=== PATIENT | female | born 1960 | race Caucasian/White ===

== ENCOUNTER 2019-08-02 10:01 | Outpatient (RCR) | payer OTHER, SELFPAY | END 2019-08-09 00:01 | LOC: WOUND 10:01 | PROVIDERS: Family Provider Physician Assistant Medical; Visit Provider Thoracic Surgery (Cardiothoracic Vascular Surgery) | DX: I96 Gangrene, not elsewhere classified (principal); L89.153 Pressure ulcer of sacral region, stage 3 | CPT/HCPCS: 11042 ×2 ==

== ENCOUNTER 2019-08-14 17:36 | Inpatient (IN) | payer BC, SELFPAY ==
[2019-08-14 17:41] VITALS: BMI 28.5
[2019-08-14 19:43] VITALS: BP 96/60; PULSE 75; RESP 12; TEMP 36.9; O2SAT 92
--- NOTE | 2019-08-14 19:53 | XRR_ITS ---
PROCEDURE INFORMATION: Exam: XR Chest, 1 View Exam date and time: 08/14/2019 8:44 PM Age: 59 years old Clinical indication: Shortness of breath; Prior surgery; Surgery date: 1-6 months; Surgery type: Cabg 04/28; Additional info: SOB TECHNIQUE: Imaging protocol: XR of the chest Views: 1 view. COMPARISON: CR Chest 1 [place] [id number] 06/29/2019 9:33 AM FINDINGS: Lungs: central pulmonary vasculature is prominent and indistinct. Mild airspace consolidation within the lung bases left greater than right. Pleural space: Pleural effusions particularly on the left Heart/Mediastinum: cardiac silhouette is enlarged. Bones/joints: prior sternotomy. XR/XR chest 1V portable [id number] IMPRESSION: Mild edema with mild basilar airspace disease and small pleural effusions particularly on the left Findings mildly progressive from the earlier reference study stated above.
[2019-08-14 20:00] VITALS: PULSE 77; O2SAT 92
--- NOTE | 2019-08-14 20:04 | PM.HP ---
Providers/Chief Complaint Admitting Physician: Zeke Mcdermott MD Primary Care Provider: Bhavik Richter Chief Complaint: cp History of Present Illness Danyelle Blake is a 59 year old female with past medical history of insulin-dependent type 2 diabetes mellitus, chronic kidney disease stage III, CAD status post two-vessel CABG 12/27/2018, recurrent urinary tract infections, COPD not oxygen dependent, GERD, chronic leg pain, sacral decubitus ulcer stage II, left elbow ulcer, chronic smoker who presents to [facility] as a transfer from [facility] due to concerns for a NSTEMI. Patient states that she presented to [facility] as she was not feeling well. Patient states that she lives in [facility], she lives with her sister, she ambulates with a walker, needs assistance with activities of daily living, has full cognitive functioning, no known dementia. For the last few weeks patient states that she is just not been feeling well, malaise, fatigue she presented to her primary care physician's office on Thursday and was diagnosed with a urinary tract infection. She was started on Bactrim, but did not tolerate it well, had nausea, stomach upset, thus was switched to a different antibiotic, stated that she did not tolerate that also well, was fairly nauseous, thus she presented to the emergency room. Patient states that she not been feeling well, fatigue, malaise, no sick contacts, no recent travel. Patient in addition states that she recently has been more short of breath, short of breath with exertion, short of breath with less than a few feet, does not use oxygen at home, but required oxygen in the emergency room at [facility], states that she is had a productive cough, clear phlegm, no fevers, no chills, continues to smoke, has a history of COPD. Patient states that in addition to all this she has some left-sided chest pain, a pressure-like pain, like something sitting on her chest, nonradiating, can be associate with shortness of breath, not pleuritic in nature, no lightheadedness, no dizziness, she had a few episodes. Review of Systems Const: Denies: fever or chills Eyes: Denies: blurry vision ENMT: Denies: nasal discharge Card: Reports: chest pain, irregular heart rhythm, lightheadedness, shortness of breath on exertion and shortness of breath when lying down; Denies: palpitations Resp: Reports: shortness of breath and non-productive cough GI: Denies: abdominal pain, nausea, vomiting, vomiting blood, coffee grounds in vomit, heartburn/indigestion, diarrhea or constipation : Reports: urinary frequency and urinary urgency; Denies: flank pain, difficulty urinating or painful urination Musc: Denies: neck pain or back pain Skin/Breast: Denies: rash Neuro: Denies: headache Medications/Allergies Home Medications Medication Instructions Recorded Confirmed Last Taken Type Neurontin 100 mg PO TID 08/14/19 08/14/19 Unknown History carvedilol 6.25 mg PO BID 08/14/19 08/14/19 Unknown History cefuroxime axetil 250 mg PO BID 08/14/19 08/14/19 Unknown History clopidogrel 75 mg PO DAILY 08/14/19 08/14/19 Unknown History docusate sodium 100 mg PO BID 08/14/19 08/14/19 Unknown History furosemide 40 mg PO BID 08/14/19 08/14/19 Unknown History hydrocodone-acetaminophen 1 tab PO Q4H PRN 08/14/19 08/14/19 Unknown History insulin glargine [Lantus U-100 20 unit SUBCUT BEDTIME 08/14/19 08/14/19 Unknown History Insulin] metoclopramide HCl 10 mg PO Q6H 08/14/19 08/14/19 Unknown History montelukast 10 mg PO DAILY 08/14/19 08/14/19 Unknown History pantoprazole 40 mg PO DAILY 08/14/19 08/14/19 Unknown History ropinirole 4 mg PO TID 08/14/19 08/14/19 Unknown History simvastatin 20 mg PO QPM 08/14/19 08/14/19 Unknown History trazodone 50 mg PO DAILY 08/14/19 08/14/19 Unknown History PFSH Acute PFSH: Statuses (acute, chronic, etc) shown below reflect problem list status as previously entered and may not be historically accurate Medical History (Updated 08/14/19 @ 20:27 by Zeke Mcdermott MD) CHF (congestive heart failure) (Acute) Chronic kidney disease, stage III (moderate) (Acute) COPD (chronic obstructive pulmonary disease) (Acute) Diabetes mellitus type 2 in obese (Acute) Swelling of both lower extremities (Acute) Surgical History (Updated 08/14/19 @ 20:14 by Zeke Mcdermott MD) H/O unilateral oophorectomy (Acute) Hx of CABG (Acute 12/24/18) Hx of cholecystectomy (Acute) Family History (Updated 08/14/19 @ 20:15 by Zeke Mcdermott MD) Other CAD (coronary artery disease) Social History (Updated 08/14/19 @ 20:15 by Zeke Mcdermott MD) Smoking and tobacco status: current every day smoker Alcohol intake: never Substance/Drug Use: never Vitals/I&O/Wt Weight last 48 hrs Weight 85.275 kg Physical Exam Const: COMMON NORMALS: no apparent distress EXAM LIMITATIONS: no altered mental status GENERAL APPEARANCE: cooperative, comfortable and well kempt HENMT: COMMON NORMALS: normocephalic Eye: COMMON NORMALS: EOMs intact bilaterally Neck/C-Spine: COMMON NORMALS: no lymphadenopathy and no JVD Lymph: LYMPHATIC: no lymphadenopathy noted Chest: COMMONS NORMALS: inspection of chest normal (Sternotomy scar) Resp: COMMON NORMALS: normal respiratory effort, no retractions, no use of accessory muscles and clear to auscultation bilaterally Cardio: COMMON NORMALS: no JVD, regular rate, regular rhythm, S1 normal heart sound, S2 normal heart sound and peripheral pulses 2+ throughout GI: COMMON NORMALS: normal to inspection, nondistended, normoactive bowel sounds, soft to palpation, non-tender and no hepatosplenomegaly : COMMON NORMALS: Yes no CVA tenderness Extremity: COMMON NORMALS: normal capillary refill NARRATIVE EXTREMITY EXAM: Bilateral lower extremity swelling, 1+ pitting edema, bilateral lower extremity slightly warm, erythematous, slightly tender to touch Neuro: COMMON NORMALS: oriented x3, CN's II-XII intact bilaterally, moves all extremities and no focal motor deficits Psych: COMMON NORMALS: mental status grossly normal Skin: NARRATIVE SKIN EXAM: Bilateral lower extremity, shins,'s erythematous, slightly tender, slightly warm Data Labs: Other Labs: Lab work from [facility] shows a potassium of 7.0, creatinine of 2.4 Troponin baseline of 186, 2-hour of 138, delta of -226 Chest x-ray groundglass opacities bilateral lungs EKG shows T wave inversions V1 to V2 D-dimer 3.4 A&P Assessment and plan (1) Acute and chronic respiratory failure with hypoxia: Multifactorial secondary to COPD exacerbation, diastolic CHF exacerbation, atypical pneumonia -COPD, not oxygen dependent at home, using 2 L here, continues to smoke -Diastolic CHF, last echocardiogram on 01/27/2019 showed an ejection fraction of 55%, mild hypokinesis of left ventricle, BNP is 35,000 -Chest x-ray from [facility] shows bilateral groundglass opacities, concerning for atypical pneumonia given respiratory symptoms Plan: -Telemetry monitoring, CBC, CMP, chest x-ray, sputum culture, urine bacterial antigens -Doxycycline for atypical pneumonia, also on Rocephin for UTI -Solu-Medrol 125, 40 once daily starting tomorrow -DuoNebs every 4 scheduled, every 2 as needed -Hold off on Lasix as patient's creatinine is 2.48, strict I's and O's, limit fluid intake to less than 200 cc Status: Acute Code(s): J96.21 - Acute and chronic respiratory failure with hypoxia (2) Diabetes mellitus type 2 in obese: -Continue Lantus 20 units in the morning -Low-dose sliding scale Status: Acute Code(s): E11.69 - Type 2 diabetes mellitus with other specified complication; E66.9 - Obesity, unspecified (3) NSTEMI (non-ST elevated myocardial infarction): -Troponins from [facility] show baseline troponin of 186, 2-hour of 136, negative delta of 26 -EKG does show new T wave inversions V1 to V2 compared to EKGs here -No active chest pain -Does have a history of CABG x2 for CAD on 12/27/2018 -Likely supply demand ischemia from acute respiratory failure as above Plan: -Troponin protocol, serial EKGs, telemetry monitoring -Aspirin, statin, Plavix, Coreg -Monitor for chest pain -Nitro for chest pain Status: Acute Code(s): I21.4 - Non-ST elevation (NSTEMI) myocardial infarction (4) Acute kidney injury: Acute kidney injury on chronic kidney disease stage III -Patient's baseline creatinine is 1.1-1.2 -At [facility] it was 2.4 -Likely secondary to Lasix therapy Plan: -Hold Lasix therapy, monitor creatinine -Hold off on hydration given elevated BNP and bilateral lower extremity swelling Status: Acute Code(s): N17.9 - Acute kidney failure, unspecified (5) CAD (coronary artery disease): CAD status post CABG x2 Status: Acute Code(s): I25.10 - Atherosclerotic heart disease of [place] coronary artery without angina pectoris (6) Swelling of both lower extremities: Likely heart failure related, given immobility, will do ultrasound to rule out DVT Status: Acute Code(s): M79.89 - Other specified soft tissue disorders (7) UTI (urinary tract infection): -Has a history of E. 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
[2019-08-14 20:44] LABS: Hematocrit 32.8 % (37.0-47.0); Hemoglobin 10.4 g/dL (11.5-15.3); Mean Corpuscular HGB Conc 31.7 g/dL (30.0-36.0); Mean Corpuscular Volume 104.1 fL (81-99); Mean Platelet Volume 10.5 fL (7.4-10.4); Platelet Count 313 10^3/cmm (130-400); Red Blood Count 3.15 10^6/uL (4.1-5.3); Red Cell Distribution Width 17.1 % (12.1-15.1); White Blood Count 6.3 10^3/uL (4.0-10.0)
[2019-08-14 21:11] LABS: Alanine Aminotransferase 28 U/L (0-33); Albumin Level 2.8 g/dL (3.5-5.2); Alkaline Phosphatase 532 IU/L (35-105); Anion Gap 19.8 (5-19); Aspartate Amino Transferase 50 U/L (0-32); Blood Urea Nitrogen 75 mg/dL (6-20); Calcium 8.9 mg/Dl (8.6-10.0); Carbon Dioxide 23 mmol/L (22-29); Chloride 94 mmol/L (98-107); Glomerular Filtration Rate 18.8 mL/min (90-130); Glucose 191 mg/dL (74-109); Sodium 130 mmol/L (136-145); Total Bilirubin 0.6 mg/dL (0.15-1.2); Total Protein 6.8 g/dL (6.6-8.7)
[2019-08-14 21:19] LABS: Absolute Segmented Neutrophil 4.5 10/cmm (1.6-7.1); Band Neutrophils Absolute 0.2 10^3/cmm (0.0-1.2); Eosinophils 1 %; Lymphocytes 20 %; Monocytes Absolute 0.2 10^3/cmm (0.1-0.6); Segmented Neutrophils 73 %; Total Cells Counted 100 (0-100)
[2019-08-14 21:20] LABS: Platelet Estimate Increased (Normal)
[2019-08-14 21:23] LABS: Potassium 6.8 mmol/L (3.5-5.1); Troponin(5th) Baseline 247 ng/mL (0-10)
[2019-08-14 21:42] LABS: Glucose Point of Care 185 mg/dL (70-110)
--- NOTE | 2019-08-14 21:47 | ECG_ITS ---
Measurements Intervals [place] Rate: 75 P: -1 NE: 184 QRS: -28 QRSD: 132 T: 247 QT: 441 QTc: 494 SINUS RHYTHM POSSIBLE LEFT ATRIAL ENLARGEMENT [-0.1mV P WAVE IN V1/V2] RIGHT BUNDLE BRANCH BLOCK [120+ ms QRS DURATION, UPRIGHT V1, 40+ ms S IN I/aVL/V4/V5/V6] POSSIBLE ANTERIOR MYOCARDIAL INFARCTION [30 ms Q WAVE IN V3/V4, OR R < 0.2 mV IN V4], OF INDETERMINATE AGE Compared to ECG 06/29/2019 14:24:14 Right bundle-branch block now present Myocardial infarct finding now present Indeterminate axis no longer present Electronically Signed On 08-15-2019 17:53:42 BAND SEWER by Aislinn Adhikari M.D. [email or web address]
[2019-08-14 22:13] LABS: ABG PCO2 37.9 mmHg (35-45); ABG PH Result 7.39 (7.35-7.45); Arterial Blood Gas Hematocrit 32.3 % (37-47); Base Excess ABG -1.8 mmol/L (-2.0-2.0); Blood Gas Sample Site Brachial, left; Blood Gas Sample Type Arterial; PO2 ABG 59.3 mmHg (80.0-100.0)
--- NOTE | 2019-08-14 23:14 | PC.NURSE ---
Dr. Mcdermott notified that patient has allergy to doxycycline listed. Ordered to notify Dr. Chin. When asking patient what her reaction to this medication was she states nausea I think, I can't remember for sure. Dr. Chin notified and ordered to go ahead and give Doxycycline. Also asked patient the reactions to her other allergies and she states I can't remember. Dr. Chin also notified of critical potassium and troponin.
[2019-08-14 23:23] VITALS: BP 115/66; PULSE 78; RESP 18; TEMP 36.7; O2SAT 90
[2019-08-14] MEDS: ipratropium-albuterol 3 mL Neb INHALATION (23:51)
[2019-08-14 23:53] VITALS: PULSE 77; RESP 22; O2SAT 95
[2019-08-15] VITALS (19 sets, daily range): BP systolic 107–133; BP diastolic 62–73; PULSE 71–93; RESP 10–24; TEMP 36.6–37.1; O2SAT 94–98
[2019-08-15 00:12] LABS: Partial Thromboplastin Time 36.1 SECONDS (23.9-36.7)
[2019-08-15] MEDS: morphine 4 mg/mL SDV 1 mL 1 MG IV ×4 (00:14→20:35)
[2019-08-15] MEDS: insulin regular-human 10 UNIT in SYRINGE 1 EACH IVP ×2 (00:16→04:49)
[2019-08-15] MEDS: atorvastatin 40 mg Tablet PO ×2 (00:16→20:35)
[2019-08-15] MEDS: dextrose 50% syringe 50 mL 25 ML IVP ×2 (00:25→04:28)
[2019-08-15] MEDS: cefTRIAXone 1,000 MG in sodium chloride 0.9% (plus) 50 ML 100 MG IV ×2 (00:27→19:33)
[2019-08-15] MEDS: calcium gluconate 0.1 gm/mL 10% SDV 10mL 1 GM IVP ×2 (00:28→04:23)
[2019-08-15] MEDS: sodium chloride 0.9% 100 ML 10 ML (00:28)
[2019-08-15 01:02] LABS: Glucose Point of Care 208 mg/dL (70-110)
[2019-08-15] MEDS: doxycycline 100 MG in sodium chloride 0.9% (plus) 100 ML IV ×3 (01:26→20:37)
--- NOTE | 2019-08-15 01:47 | ECG_ITS ---
Measurements Intervals [place] Rate: 80 P: 56 MO: 189 QRS: -59 QRSD: 106 T: 128 QT: 381 QTc: 441 SINUS RHYTHM MARKED LEFT AXIS DEVIATION [QRS AXIS < -30] LOW QRS VOLTAGE IN PRECORDIAL LEADS [QRS DEFLECTION < 1.0 mV IN CHEST LEADS] POSSIBLE ANTERIOR MYOCARDIAL INFARCTION,PROBABLY OLD Compared to ECG 06/29/2019 14:24:14 Left-axis deviation now present Low QRS voltage now present Myocardial infarct finding now present Indeterminate axis no longer present Electronically Signed On 08-15-2019 5:59:12 WILDLAND FIRE FIGHTER SPECIALIST by Aislinn Adhikari M.D. [id number]
[2019-08-15 02:02] LABS: Glucose Point of Care 150 mg/dL (70-110)
--- NOTE | 2019-08-15 02:30 | PC.NURSE ---
Dr. Chin called to verify Heparin drip order. Ordered to follow Heparin drip protocol.
[2019-08-15] MEDS: heparin 5,000 unit/mL INJ 1 mL 5000 UNIT SUBCUT (02:58)
[2019-08-15 02:59] LABS: Basophils % 0.3 %; Hematocrit 32.7 % (37.0-47.0); Hemoglobin 10.4 g/dL (11.5-15.3); Lymphocytes # 0.3 10^3/uL (0.8-4.8); Lymphocytes % 4.3 %; Mean Corpuscular HGB Conc 31.8 g/dL (30.0-36.0); Mean Corpuscular Volume 103.8 fL (81-99); Mean Platelet Volume 10.6 fL (7.4-10.4); Monocytes # 0.3 10^3/uL (0.2-0.9); Monocytes % 4.8 %; Neutrophils # 6.4 10^3/uL (1.8-7.7); Neutrophils % 90.3 %; Nucleated Red Blood Cells % 0 %; Platelet Count 330 10^3/cmm (130-400); Red Blood Count 3.15 10^6/uL (4.1-5.3); Red Cell Distribution Width 17.1 % (12.1-15.1)
[2019-08-15] MEDS: heparin drip 25,000 UNIT/500 ML PREMIX 24 UNIT IV (03:00)
--- NOTE | 2019-08-15 03:06 | PC.NURSE ---
heparin order needed to be redone due to difference in protocol vs drAlexandria orders and another iv needed to be gotten which needed house super to attempt after our attempts.
[2019-08-15 03:19] LABS: Alanine Aminotransferase 28 U/L (0-33); Alkaline Phosphatase 481 IU/L (35-105); Anion Gap 16.8 (5-19); Blood Urea Nitrogen 64 mg/dL (6-20); Calcium 9.2 mg/Dl (8.6-10.0); Carbon Dioxide 20 mmol/L (22-29); Chloride 95 mmol/L (98-107); Chol HDL Ratio 3.93 mg/dL (0.0-4.40); Cholesterol 106 mg/dL (0-200); Globulin 3.2 g/dL (1.3-4.6); Glomerular Filtration Rate 19.7 mL/min (90-130); Glucose 171 mg/dL (74-109); HDL Cholesterol 27 mg/dL (60-100); LDL Cholesterol Calculated 61 mg/dL (50-129); LDL HDL Ratio 2.26 RATIO (0.00-3.22); Magnesium 2.4 mg/dL (1.7-2.3); Phosphorus 5.8 mg/dL (2.5-4.5); Sodium 125 mmol/L (136-145); Total Bilirubin 0.5 mg/dL (0.15-1.2); Total Protein 6.2 g/dL (6.6-8.7); Triglycerides 91 mg/dL (0-150)
[2019-08-15 03:22] LABS: INR 1.11 (0.8-1.2)
[2019-08-15] MEDS: ipratropium-albuterol 3 mL Neb INHALATION ×4 (03:23→23:57)
[2019-08-15 03:34] LABS: Aspartate Amino Transferase 55 U/L (0-32); Troponin 5 6HR 333.3 ng/L (0-10); Troponin 5 6HR Delta 86.3 ng/L (0-12)
[2019-08-15 03:35] LABS: Potassium 6.8 mmol/L (3.5-5.1)
--- NOTE | 2019-08-15 03:40 | ECG_ITS ---
Measurements Intervals [place] Rate: 88 P: 261 NV: 153 QRS: -75 QRSD: 76 T: 136 QT: 343 QTc: 415 ECTOPIC ATRIAL RHYTHM LOW QRS VOLTAGE IN PRECORDIAL LEADS [QRS DEFLECTION < 1.0 mV IN CHEST LEADS] INFERIOR MYOCARDIAL INFARCTION [40+ ms Q WAVE AND/OR ST/T ABNORMALITY IN II/aVF], PROBABLY OLD ANTEROSEPTAL MYOCARDIAL INFARCTION [40+ ms Q WAVE IN V1-V4], OF INDETERMINATE AGE Compared to ECG 08/15/2019 01:18:51 Ectopic atrial rhythm now present Sinus rhythm no longer present Left-axis deviation no longer present Myocardial infarct finding still present Electronically Signed On 08-15-2019 17:51:36 AGRICULTURAL PLOW OPERATOR by Aislinn Adhikari M.D. [id number]
[2019-08-15 04:14] LABS: Add Urine Microscopic? YES; Bilirubin Urine 1+ (NEGATIVE); Blood Urine 3+ (Negative); Glucose Urine UA Norm (Normal); Ketones Urine Negative (Negative); Leukocyte Esterase Urine 2+ (Negative); Nitrate Urine Negative (Negative); Protein Urine Trace (Negative); Specific Gravity, Urine 1.015 (1.005-1.030); Urine Appearance Cloudy (CLEAR); Urine Color Yellow (Yellow); Urobilinogen Urine 1 mg/dL (Negative); pH Urine 5 (5-7)
[2019-08-15 04:15] LABS: Add Urine Culture? No; Bacteria Urine 1+; RBC Urine 0-4 /hpf (0-2); Squamous Epithelial Cell Urine 25-40 (0-5); WBC Urine >100 /hpf (0-5)
--- NOTE | 2019-08-15 05:15 | PM.EVENT ---
Event Note Event Note: For hyperkalemia 6.8 I examined her She has clinical signs of fluid overload Bilateral breath sounds with crackles Venous stasis dermatitis Alert oriented x3 Patient has received calcium gluconate, albuterol 10 mg, calcium gluconate 1 g insulin 10 units along D50 around midnight for potassium 6.8, after 4 hours her potassium is still 6.8, I have repeated my hyperkalemia regimen, along Lasix and Kayexalate as per nephrology recommendations Dr. Gutierres will be following up for hyperkalemia today Patient has remained asymptomatic, no hyperkalemic changes on EKG, blood pressure stable, patient is saying that she is feeling a little better she was eating crackers when Patient wants a trial of CPR and intubation
[2019-08-15] MEDS: sodium polystyrene sulfonate 15 gm/60 mL Btl PO ×2 (05:48→12:20)
[2019-08-15] MEDS: FUROsemide 10 mg/mL SDV 10mL 80 MG IVP ×3 (05:49→20:37)
--- NOTE | 2019-08-15 07:04 | PC.OT ---
OT note: From chart review, patient's potassium is 6.8. Guidelines recommend holding therapy if over 5.0. Will hold at this time.
--- NOTE | 2019-08-15 07:22 | USCV_ITS ---
Danyelle Blake Age: 59 Gender: F : 1960 Exam Date: 08/15/2019 07:47 Ordering Phys: Zeke Mcdermott MD Technologist: Pauline Begum Exam Location: [facility] [place] Indication: CHEST PAIN BP: / HR: Rhythm: Sinus Technical Quality: MEASUREMENTS (Male / Female) Normal Values 2D ECHO LV Diastolic Diameter PLAX 4.5 cm 4.2 - 5.9 / 3.9 - 5.3 cm LV Systolic Diameter PLAX 3.7 cm LV Chamber Size 3.9 cm IVS Diastolic Thickness 0.9 cm 0.6 - 1.0 / 0.6 - 0.9 cm IVS Systolic Thickness 1.2 cm LVPW Diastolic Thickness 1.0 cm 0.6 - 1.0 / 0.6 - 0.9 cm LVPW Systolic Thickness 1.3 cm RV Chamber Size 3.5 cm LVOT Diameter 2.0 cm LV Ejection Fraction 2D Teich 36.2 % LV Ejection Fraction MOD 2C 49.8 % LV Ejection Fraction 2C AL 49.8 % LA Diameter 4.4 cm LA Width 3.3 cm LA Height 4.6 cm RA Width 4.5 cm RA Height 5.1 cm Aorta at Sinotubular Diameter 2.8 cm M-MODE LV Diastolic Diameter MM 5.2 cm 4.2 - 5.9 / 3.9 - 5.3 cm LV Systolic Diameter MM 3.9 cm LV Ejection Fraction MM Teich 49.0 % IVS Diastolic Thickness MM 0.6 cm 0.6 - 1.0 / 0.6 - 0.9 cm IVS Systolic Thickness MM 1.0 cm LVPW Diastolic Thickness MM 1.1 cm 0.6 - 1.0 / 0.6 - 0.9 cm LVPW Systolic Thickness MM 1.3 cm RV Diastolic Diameter MM 1.0 cm Aortic Annulus Diameter 2.9 cm LA Ao Ratio MM 1.5 MV E Point Septal Separation 1.1 cm DOPPLER AV Peak Velocity 177.0 cm/s LVOT Peak Velocity 78.0 cm/s AV Area Cont Eq vti 1.7 cm squared AV Area Cont Eq pk 1.4 cm squared MV Area PHT 4.4 cm squared Mitral E to A Ratio 1.7 MV E' Velocity 9.0 cm/s Mitral E to MV E' Ratio 19.2 Mitral E to LV E' Lateral Ratio 16.2 Mitral E to LV E' Septal Ratio 24.0 TR Peak Velocity 329.3 cm/s TR Peak Gradient 43.4 mmHg TR Mean Velocity 239.8 cm/s TR Mean Gradient 26.7 mmHg TR Velocity Time Integral 109.9 cm TV Peak E Velocity 76.0 cm/s Right Atrial Pressure 3.0 mmHg Pulmonary Artery Systolic Pressu 46.4 mmHg PV Peak Velocity 60.0 cm/s RV Acceleration Time 0.1 s RV Ejection Time 0.4 s RV AcT/ET 0.2 FINDINGS Left Ventricle Mildly increased left ventricular cavity size. Moderately decreased left ventricular systolic function. Left ventricular ejection fraction is estimated at 40 %. There appeared to be basal to distal anterior septal and apical wall akinesis suggestive of LAD lesion.Grade II/IV diastolic dysfunction, moderately elevated filling pressures. Right Ventricle The right ventricle is normal in size and function. Moderate pulmonary hypertension, RVSP 46.4 mmHg. Right Atrium The right atrium is normal in size. Left Atrium The left atrium is normal in size. Mitral Valve Moderately thickened mitral valve. Mild mitral annular calcification. No mitral valve stenosis. Moderate mitral valve regurgitation. Aortic Valve Moderate aortic valve calcification. No aortic valve stenosis. No aortic valve regurgitation. Tricuspid Valve Trace tricuspid valve regurgitation. Pulmonic Valve Structurally normal pulmonic valve without significant stenosis. There is no pulmonic regurgitation. Pericardium Normal pericardium without effusion. Aorta Normal ascending aorta dimension. CONCLUSIONS 1-Mildly increased left ventricular cavity size. Moderately decreased left ventricular systolic function. Left ventricular ejection fraction is estimated at 40 %. There appeared to be basal to distal anterior septal and apical wall akinesis suggestive of LAD lesion.Grade II/IV diastolic dysfunction, moderately elevated filling pressures. 2-Moderately thickened mitral valve. Mild mitral annular calcification. No mitral valve stenosis. Moderate mitral valve regurgitation. 3-Moderate aortic valve calcification. No aortic valve stenosis. No aortic valve regurgitation. 4-Trace tricuspid valve regurgitation. 5-The right ventricle is normal in size and function. Moderate pulmonary hypertension, RVSP 46.4 mmHg. 6-There is no pericardial effusion. 7-When compared to the prior echocardiogram dated 01/13/2019 there is worsening of LV function from normal 55-40% which is moderately depressed now. There is moderate mitral valve regurgitation. Dileep Fisher MD (Electronically Signed) Final Date: 15 August 2019 12:35 S
[2019-08-15 07:45] LABS: Urine Random Sodium 20 mmol/L
[2019-08-15 08:08] LABS: Glucose Point of Care 207 mg/dL (70-110)
--- NOTE | 2019-08-15 08:36 | P.CONIM_ITS ---
Providers/Reason For Consult Consulting Physican/Specialty*: Aline Gutierres DO, telenephrology Reason for Consult*: Acute Kidney Injury, Hyperkalemia Requesting Physcian: Dr Mcdermott Attending Physician: Zeke Mcdermott MD Primary Care Provider: Bhavik Richter History of Present Illness History of Present Illness Danyelle Blake is a 59 year old female presented to ER. Reports not feeling well for quite a while. Had been taking 2 different antibiotics for UTI, had N/V, rx antinausea. Had chest pressure, resolved. + chronic mod-severe back and leg pain. Denies NSAID use. Review of Systems General: Reports: other Const: Reports: fatigue Card: Reports: edema Resp: Reports: shortness of breath and non-productive cough GI: Reports: nausea : Reports: difficulty urinating Musc: Reports: back pain and muscle weakness Meds/Allergies Home Medications and Allergies Home Medications Medication Instructions Recorded Confirmed Type Neurontin 100 mg PO TID 08/14/19 08/14/19 History carvedilol 6.25 mg PO BID 08/14/19 08/14/19 History cefuroxime axetil 250 mg PO BID 08/14/19 08/14/19 History clopidogrel 75 mg PO DAILY 08/14/19 08/14/19 History docusate sodium 100 mg PO BID 08/14/19 08/14/19 History furosemide 40 mg PO BID 08/14/19 08/14/19 History hydrocodone-acetaminophen 1 tab PO Q4H PRN 08/14/19 08/14/19 History insulin glargine [Lantus U-100 20 unit SUBCUT BEDTIME 08/14/19 08/14/19 History Insulin] metoclopramide HCl 10 mg PO Q6H 08/14/19 08/14/19 History montelukast 10 mg PO DAILY 08/14/19 08/14/19 History pantoprazole 40 mg PO DAILY 08/14/19 08/14/19 History ropinirole 4 mg PO TID 08/14/19 08/14/19 History simvastatin 20 mg PO QPM 08/14/19 08/14/19 History trazodone 50 mg PO DAILY 08/14/19 08/14/19 History Allergies Allergy/AdvReac Type Severity Reaction Status Date / Time acetaminophen [From Percocet] Allergy Unknown Verified 08/14/19 22:27 ciprofloxacin [From Cipro] Allergy Unknown Verified 08/14/19 22:27 dextromethorphan Allergy Unknown Verified 08/14/19 22:27 [From Mucinex DM] diclofenac Allergy Unknown Verified 08/14/19 22:27 doxycycline Allergy Unknown Verified 08/14/19 22:27 guaifenesin [From Mucinex DM] Allergy Unknown Verified 08/14/19 22:27 methylprednisolone Allergy Unknown Verified 08/14/19 22:27 oxycodone [From Percocet] Allergy Unknown Verified 08/14/19 22:27 Current Medications Current Medications Generic Name Dose Route Start Last Admin Trade Name Freq PRN Reason Stop Dose Admin Albuterol/Ipratropium 3 ml 08/14/19 20:00 08/15/19 03:23 Duoneb INHALATION 3 ml Q4H TIFFANIE Administration Atorvastatin Calcium 40 mg 08/14/19 21:00 08/15/19 00:16 Lipitor PO 40 mg BEDTIME TIFFANIE Administration Heparin Sodium (Beef Lung) 5,000 unit 08/15/19 02:47 08/15/19 02:58 Heparin SUBCUT 5,000 unit Q6H PRN Administration per heparin drip protocol Ceftriaxone Sodium 1,000 mg/ 50 mls @ 100 mls/hr 08/14/19 20:00 08/15/19 07:45 Sodium Chloride IV Infused Q24H TIFFANIE Infusion Protocol Doxycycline Hyclate 100 mg/ 100 mls @ 100 mls/hr 08/14/19 21:00 08/15/19 07:00 Sodium Chloride IV Infused Q12H TIFFANIE Infusion Protocol Heparin Sodium/Sodium Chloride 25,000 unit in 500 mls @ 0 mls/hr 08/15/19 02:45 08/15/19 03:00 Heparin Drip IV 14.07 unit/kg/hr .Q0M TIFFANIE 24 mls/hr Administration Protocol Per Protocol Morphine Sulfate 1 mg 08/14/19 19:43 08/15/19 05:50 Morphine IV 1 mg Q4H PRN Administration SEVERE PAIN Sodium Polystyrene Sulfonate 15 gm 08/15/19 05:00 08/15/19 05:48 Kayexalate PO 15 gm ONCE TIFFANIE Administration PFSH Acute PFSH: Statuses (acute, chronic, etc) shown below reflect problem list status as previously entered and may not be historically accurate Medical History CHF (congestive heart failure) (Acute) Chronic kidney disease, stage III (moderate) (Acute) COPD (chronic obstructive pulmonary disease) (Acute) Diabetes mellitus type 2 in obese (Acute) Swelling of both lower extremities (Acute) Surgical History H/O unilateral oophorectomy (Acute) Hx of CABG (Acute 12/24/18) Hx of cholecystectomy (Acute) Family History Other CAD (coronary artery disease) Social History Smoking and tobacco status: current every day smoker Alcohol intake: never Substance/Drug Use: never Vitals/I&O/Wt Last Vital Signs Temp 97.8 F 08/15/19 03:44 Pulse 89 08/15/19 03:44 Resp 10 L 08/15/19 05:50 BP 111/62 08/15/19 03:44 Pulse Ox 94 08/15/19 03:44 08/14/19 08/15/19 08/15/19 22:59 06:59 14:59 Intake Total 200 / 200 150 / 150 Balance 200 / 200 150 / 150 Weight last 48 hrs Weight 85.275 kg Physical Exam Const: COMMON NORMALS: alert GENERAL APPEARANCE: frail appearing Resp: AUSCULTATION: rhonchi lower bilaterally Cardio: COMMON NORMALS: regular rate JUGULAR VENOUS DISTENTION: no JVD RATE: regular rate Extremity: GENERAL: Yes edema (2+ bilateral) Neuro: SENSORIUM/ORIENTATION: Yes alert Urinary Catheter Management^: Roa: Cath Placed During This Visit: no Data Micro: Micro: Microbiology 08/14/19 20:33 Blood Culture - Pr eliminary Blood SPECIMEN [facility] 08/14/19 20:30 Blood Culture - Pr eliminary Blood SPECIMEN [facility] A&P Additional A&P Information Additional A&P Information: Impression: Acute kidney injury, etiology unclear. Serum Cr was 1.1 mg/dL in July (admission for hyperglycemia). Prior FRANKI in May 2019 with peak serum Cr 2.7 mg/dL appears to have been related to pyelonephritis. Hyperkalemia Possible urinary tract infection Diabetes Recommend: Kayexylate 15 grams QID until potassium improved. QID BMP. Low K diet. BC and urine culture. 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
[2019-08-15] MEDS: aspirin 325 mg Tablet 81 MG PO (08:39)
[2019-08-15] MEDS: carvedilol 6.25 mg Tablet PO ×2 (08:41→18:10)
[2019-08-15] MEDS: clopidogrel 75 mg Tablet PO (08:41)
[2019-08-15] MEDS: pantoprazole DR 40 mg Tablet PO (08:41)
[2019-08-15] MEDS: predniSONE 20 mg Tablet 40 MG PO (08:41)
--- NOTE | 2019-08-15 08:43 | P.CONIM_ITS ---
Providers/Reason For Consult Consulting Physican/Specialty*: Dileep Fisher MD/Cardiology Reason for Consult*: Non-ST elevation ID, CHF exacerbation Attending Physician: Zeke Mcdermott MD Primary Care Provider: Bhavik Richter History of Present Illness History of Present Illness Danyelle Blake is a 59 year old female Past medical history significant for continuous tobacco abuse, COPD, chronic kidney disease stage III, diastolic heart failure, history of multivessel coronary artery disease status post bypass surgery 7 months ago who usually see Dr. Watt presented with worsening of shortness of breath PND orthopnea and scant expectoration. She denies fever or chills. At the time of presentation she was hyperkalemic and in acute on chronic renal failure with mixed picture of CHF and COPD exacerbation. Cardiac markers continues to rise with last peak troponin at 333 with delta of 84. No significant ST?T changes except T-wave inversions in the anterior leads. Currently chest pain-free. She has chronic venous stasis. Review of Systems Const: Reports: fatigue; Denies: fever or chills Eyes: Denies: change in vision ENMT: Denies: throat pain Card: Reports: edema, shortness of breath on exertion and shortness of breath when lying down; Denies: chest pain, palpitations or irregular heart rhythm Resp: Reports: productive cough GI: Denies: abdominal pain Neuro: Denies: headache or numbness in extremities Psych: Denies: anxiety or depression Meds/Allergies Home Medications and Allergies Home Medications Medication Instructions Recorded Confirmed Type Neurontin 100 mg PO TID 08/14/19 08/14/19 History carvedilol 6.25 mg PO BID 08/14/19 08/14/19 History cefuroxime axetil 250 mg PO BID 08/14/19 08/14/19 History clopidogrel 75 mg PO DAILY 08/14/19 08/14/19 History docusate sodium 100 mg PO BID 08/14/19 08/14/19 History furosemide 40 mg PO BID 08/14/19 08/14/19 History hydrocodone-acetaminophen 1 tab PO Q4H PRN 08/14/19 08/14/19 History insulin glargine [Lantus U-100 20 unit SUBCUT BEDTIME 08/14/19 08/14/19 History Insulin] metoclopramide HCl 10 mg PO Q6H 08/14/19 08/14/19 History montelukast 10 mg PO DAILY 08/14/19 08/14/19 History pantoprazole 40 mg PO DAILY 08/14/19 08/14/19 History ropinirole 4 mg PO TID 08/14/19 08/14/19 History simvastatin 20 mg PO QPM 08/14/19 08/14/19 History trazodone 50 mg PO DAILY 08/14/19 08/14/19 History Allergies Allergy/AdvReac Type Severity Reaction Status Date / Time acetaminophen [From Percocet] Allergy Unknown Verified 08/14/19 22:27 ciprofloxacin [From Cipro] Allergy Unknown Verified 08/14/19 22:27 dextromethorphan Allergy Unknown Verified 08/14/19 22:27 [From Mucinex DM] diclofenac Allergy Unknown Verified 08/14/19 22:27 doxycycline Allergy Unknown Verified 08/14/19 22:27 guaifenesin [From Mucinex DM] Allergy Unknown Verified 08/14/19 22:27 methylprednisolone Allergy Unknown Verified 08/14/19 22:27 oxycodone [From Percocet] Allergy Unknown Verified 08/14/19 22:27 Current Medications Current Medications Generic Name Dose Route Start Last Admin Trade Name Freq PRN Reason Stop Dose Admin Albuterol/Ipratropium 3 ml 08/14/19 20:00 08/15/19 03:23 Duoneb INHALATION 3 ml Q4H TIFFANIE Administration Aspirin 81 mg 08/15/19 09:00 08/15/19 08:39 Aspirin PO 81 mg DAILY TIFFANIE Administration Atorvastatin Calcium 40 mg 08/14/19 21:00 08/15/19 00:16 Lipitor PO 40 mg BEDTIME TIFFANIE Administration Carvedilol 6.25 mg 08/15/19 09:00 08/15/19 08:41 Coreg PO 6.25 mg BID TIFFANIE Administration Clopidogrel Bisulfate 75 mg 08/15/19 09:00 08/15/19 08:41 Plavix PO 75 mg DAILY TIFFANIE Administration Heparin Sodium (Beef Lung) 5,000 unit 08/15/19 02:47 08/15/19 02:58 Heparin SUBCUT 5,000 unit Q6H PRN Administration per heparin drip protocol Ceftriaxone Sodium 1,000 mg/ 50 mls @ 100 mls/hr 08/14/19 20:00 08/15/19 07:45 Sodium Chloride IV Infused Q24H TIFFANIE Infusion Protocol Doxycycline Hyclate 100 mg/ 100 mls @ 100 mls/hr 08/14/19 21:00 08/15/19 07:00 Sodium Chloride IV Infused Q12H TIFFANIE Infusion Protocol Heparin Sodium/Sodium Chloride 25,000 unit in 500 mls @ 0 mls/hr 08/15/19 02:45 08/15/19 03:00 Heparin Drip IV 14.07 unit/kg/hr .Q0M TIFFANIE 24 mls/hr Administration Protocol Per Protocol Insulin Aspart 0 unit 08/15/19 08:00 08/15/19 08:39 Novolog SUBCUT 4 unit TIDWM TIFFANIE Administration Protocol Morphine Sulfate 1 mg 08/14/19 19:43 08/15/19 05:50 Morphine IV 1 mg Q4H PRN Administration SEVERE PAIN Pantoprazole Sodium 40 mg 08/15/19 09:00 08/15/19 08:41 Protonix PO 40 mg DAILY TIFFANIE Administration Prednisone 40 mg 08/15/19 09:00 08/15/19 08:41 Prednisone PO 40 mg DAILY TIFFANIE Administration Sodium Polystyrene Sulfonate 15 gm 08/15/19 05:00 08/15/19 05:48 Kayexalate PO 15 gm ONCE TIFFANIE Administration PFSH Acute PFSH: Statuses (acute, chronic, etc) shown below reflect problem list status a s previously entered and may not be historically accurate Medical History CHF (congestive heart failure) (Acute) Chronic kidney disease, stage III (moderate) (Acute) COPD (chronic obstructive pulmonary disease) (Acute) Diabetes mellitus type 2 in obese (Acute) Swelling of both lower extremities (Acute) Surgical History H/O unilateral oophorectomy (Acute) Hx of CABG (Acute 12/24/18) Hx of cholecystectomy (Acute) Family History Other CAD (coronary artery disease) Social History Smoking and tobacco status: current every day smoker Alcohol intake: never Substance/Drug Use: never Vitals/I&O/Wt Last Vital Signs Temp 97.8 F 08/15/19 03:44 Pulse 89 08/15/19 03:44 Resp 10 L 08/15/19 05:50 BP 111/62 08/15/19 03:44 Pulse Ox 94 08/15/19 03:44 08/14/19 08/15/19 08/15/19 22:59 06:59 14:59 Intake Total 200 / 200 150 / 150 Balance 200 / 200 150 / 150 Weight last 48 hrs Weight 188 lb Physical Exam Narrative: EXAM NARRATIVE: GENERAL: Patient is fatigue but awake and oriented x3. HEENT: No cyanosis. No icterus. No pallor. HEART: Regular S1 and S2. No murmur, rub or gallop. LUNGS: Left side inspiratory crackles with prolonged expiration. ABDOMEN: Soft, nontender and nondistended. Positive bowel sounds. Abdominal wall edema CENTRAL NERVOUS SYSTEM: Grossly nonfocal. EXTREMITIES: Lower extremities with 1+ edema bilaterally with chronic venous stasis Urinary Catheter Management^: Rao: Cath Placed During This Visit: no Data Micro: Micro: Microbiology 08/14/19 20:33 Blood Culture - Pr eliminary Blood SPECIMEN [facility] 08/14/19 20:30 Blood Culture - Pr eliminary Blood SPECIMEN [facility] [place] Assessment and plan (1) NSTEMI (non-ST elevated myocardial infarction): Patient has Multivessel coronary artery disease With history of CABG , She continues to smoke presented with respiratory failure/COPD and CHF exacerbation in the presence of acute on chronic renal failure, cardiac markers could be secondary to demand ischemia. Medical team is treating her for COPD exacerbation/electrolyte imbalance and renal failure. We will Team up with them to treat her CHF exacerbation. For now she will be treated conservatively for non-ST elevation ID however in case of worsening of LV function once kidney function becomes normal For her at the baseline We may can opt for Left heart catheterization if indicated. For now continue anticoagulation and rest of meds, will add isosorbide mono notrages and anti platelets. Status: Acute Code(s): I21.4 - Non-ST elevation (NSTEMI) myocardial infarction (2) Acute kidney injury: Combination of uncontrolled diabetes mellitus, worsening of atherosclerotic disease in decompensated heart failure. We will continue to d iurese her with IV Lasix. She is hyperkalemic she will be monitored closely. We will recommend calcium gluconate and IV diuresis. She is already on insulin which will also help mobilizing her potassium transiently Status: Acute Code(s): N17.9 - Acute kidney failure, unspecified (3) UTI (urinary tract infection): As per medicine Status: Acute Code(s): N39.0 - Urinary tract infection, site not specified (4) Diabetes mellitus type 2 in obese: As per medicine Status: Acute Code(s): E11.69 - Type 2 diabetes mellitus with other specified complication; E66.9 - Obesity, unspecified (5) CHF (congestive heart failure), NYHA class IV: Patient is in decompensated heart failure most likely diastolic. Continue IV diuresis with Lasix 80 mg twice a day. No potassium supplement due to hyperkalemia. Goal of diuresis is 1 L negative per day. Echocardiogram will be obtained to assess LV function. Status: Acute Code(s): I50.9 - Heart failure, unspecified (6) Hyperkalemia: Due to acute on chronic renal failure. Continue IV Lasix without potassium, continue treating her with insulin. Calcium gluconate IV can be given. 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
--- NOTE | 2019-08-15 09:10 | US_ITS ---
WS: [id number] Bilateral renal ultrasound, 08/15/2019 Clinical Data: KIDNEY FUNCTION Comparison: None. Findings: The right kidney measures 11.2 cm x 4.3 cm x 4.5 cm and the left kidney is 11.4 cm x 4.5 cm x 5.2 cm. There are no cysts, masses or hydronephrosis. The renal cortical margin is normal. No renal calculi are seen. US/US renal BI* [id number] Impression: Negative bilateral renal ultrasound.
[2019-08-15 09:46] LABS: Anion Gap 21.3 (5-19); Blood Urea Nitrogen 79 mg/dL (6-20); Calcium 9.7 mg/Dl (8.6-10.0); Carbon Dioxide 21 mmol/L (22-29); Chloride 92 mmol/L (98-107); Glucose 256 mg/dL (74-109); Potassium 6.3 mmol/L (3.5-5.1); Sodium 128 mmol/L (136-145)
[2019-08-15 09:50] LABS: Partial Thromboplastin Time 99.2 SECONDS (23.9-36.7)
[2019-08-15] MEDS: insulin glargine 100 units/1 mL 20 UNIT SUBCUT (11:00)
[2019-08-15 11:20] LABS: Glucose Point of Care 306 mg/dL (70-110)
[2019-08-15 16:34] LABS: Anion Gap 18.4 (5-19); Blood Urea Nitrogen 75 mg/dL (6-20); Calcium 9.1 mg/Dl (8.6-10.0); Carbon Dioxide 22 mmol/L (22-29); Chloride 95 mmol/L (98-107); Glomerular Filtration Rate 19.7 mL/min (90-130); Glucose 252 mg/dL (74-109); Potassium 5.4 mmol/L (3.5-5.1); Sodium 130 mmol/L (136-145)
--- NOTE | 2019-08-15 16:52 | P.PN_ITS ---
Vitals/I&O/Wt Last Vital Signs Temp 98.7 F 08/15/19 16:00 Pulse 74 08/15/19 16:00 Resp 22 H 08/15/19 16:00 BP 108/69 08/15/19 16:00 Pulse Ox 96 08/15/19 16:00 08/15/19 08/15/19 08/15/19 06:59 14:59 22:59 Intake Total 200 / 200 395 / 395 Balance 200 / 200 395 / 395 Weight last 48 hrs Weight 85.275 kg Physical Exam Neck/C-Spine: COMMON NORMALS: no JVD Lymph: LYMPHATIC: no lymphadenopathy noted Chest: COMMONS NORMALS: inspection of chest normal (Sternotomy scar) Resp: COMMON NORMALS: normal respiratory effort, no retractions, no use of accessory muscles and clear to auscultation bilaterally AUSCULTATION: clear to auscultation bilaterally Cardio: COMMON NORMALS: no JVD, regular rate, regular rhythm, S1 normal heart sound, S2 normal heart sound and peripheral pulses 2+ throughout RATE: regular rate RHYTHM: regular rhythm HEART SOUNDS: S1 normal and S2 normal PERIPHERAL PULSES: pulses 2+ throughout GI: COMMON NORMALS: normal to inspection, nondistended, normoactive bowel sounds, soft to palpation, non-tender and no hepatosplenomegaly PALPATION: Yes soft and Yes no hepatosplenomegaly Urinary Catheter Management^: Rao: Cath Placed During This Visit: no Data Micro: Micro: Microbiology 08/14/19 20:33 Blood Culture - Pr eliminary Blood SPECIMEN [facility] 08/14/19 20:30 Blood Culture - Pr eliminary Blood SPECIMEN [facility] A&P Assessment and plan (1) Acute and chronic respiratory failure with hypoxia: Multifactorial secondary to COPD exacerbation, diastolic CHF exacerbation, atypical pneumonia -COPD, not oxygen dependent at home, using 2 L here, continues to smoke -Diastolic CHF, last echocardiogram on 01/27/2019 showed an ejection fraction of 55%, mild hypokinesis of left ventricle, BNP is 35,000 -Chest x-ray from [facility] shows bilateral groundglass opacities, concerning for atypical pneumonia given respiratory symptoms Plan: -Telemetry monitoring -Doxycycline for atypical pneumonia, also on Rocephin for UTI -Solu-Medrol 125, 40 once daily starting tomorrow -DuoNebs every 4 scheduled, every 2 as needed -Lasix 40 mg IV twice daily Status: Acute Code(s): J96.21 - Acute and chronic respiratory failure with hypoxia (2) Diabetes mellitus type 2 in obese: -Continue Lantus 20 units in the morning -Low-dose sliding scale Status: Acute Code(s): E11.69 - Type 2 diabetes mellitus with other specified complication; E66.9 - Obesity, unspecified (3) NSTEMI (non-ST elevated myocardial infarction): -Troponins from [facility] show baseline troponin of 186, 2-hour of 136, negative delta of 26 -EKG does show new T wave inversions V1 to V2 compared to EKGs here -No active chest pain -Does have a history of CABG x2 for CAD on 12/27/2018 -Likely supply demand ischemia from acute respiratory failure as above Plan: -Troponins elevated, 6-hour 333 with a delta of 86.3 -Echocardiogram today shows Moderately decreased left ventricular systolic function. Left ventricular ejection fraction is estimated at 40 %. There appeared to be basal to distal anterior septal and apical wall akinesis suggestive of LAD lesion. Grade II/IV diastolic dysfunction, moderately elevated filling pressures. -Aspirin, statin, Plavix, Coreg, heparin drip -Monitor for chest pain -Nitro for chest pain -Cardiology on consult Status: Acute Code(s): I21.4 - Non-ST elevation (NSTEMI) myocardial infarction (4) Acute kidney injury: Acute kidney injury on chronic kidney disease stage III -Patient's baseline creatinine is 1.1-1.2 -Creatinine 2.5 -Likely related to Lasix, cardiorenal syndrome Plan: -Nephrology on consult, monitor kidney function Status: Acute Code(s): N17.9 - Acute kidney failure, unspecified (5) CAD (coronary artery disease): CAD status post CABG x2 Status: Acute Code(s): I25.10 - Atherosclerotic heart disease of [place] coronary artery without angina pectoris (6) Swelling of both lower extremities: Ultrasound bilateral lower extremities negative for DVT Status: Acute Code(s): M79.89 - Other specified soft tissue disorders (7) UTI (urinary tract infection): -Has a history of E. coli, Enterococcus faecalis UTI, sensitive to penicillins -We will start patient on Rocephin Status: Acute Code(s): N39.0 - Urinary tract infection, site not specified (8) Sacral decubitus ulcer, stage II: -Repositioning Status: Acute Code(s): L89.152 - Pressure ulcer of sacral region, stage 2 (9) Physical deconditioning: PT OT Status: Acute Code(s): R53.81 - Other malaise (10) Hyperkalemia: -Received insulin, nebulizers, calcium gluconate, resistant hyperkalemia -Nephrology on consult -Currently on Kayexalate, potassium down to 5.4 -No EKG changes, asymptomatic Plan: -Continue Kayexalate, monitor potassium Status: Acute Code(s): E87.5 - Hyperkalemia (11) CHF (congestive heart failure), NYHA class IV: Status: Acute Code(s): I50.9 - Heart failure, unspecified Attestations Medical Necessity Statement*: Patient requires continued hospitalization, for acute respiratory failure,NSTEMI Coding Level of Care Code Acute 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
[2019-08-15 17:03] LABS: Glucose Point of Care 252 mg/dL (70-110)
[2019-08-15] MEDS: isosorbide mononitrate 20 mg Tablet PO (18:10)
--- NOTE | 2019-08-15 20:21 | PC.NURSE ---
Patient sitting up in chair sleeping. Requesting pain medication. Just hurt everywhere. Assessment completed and documented. Will monitor.
--- NOTE | 2019-08-15 20:24 | USCV_ITS ---
Danyelle Blake Age: 59 Gender: F : 1960 Exam Date: 08/15/2019 06:14 Ordering Phys: Zeke Mcdermott MD Technologist: Exam Location: [facility] – [place]_ Indication: SWELLING HISTORY: Lower extremity swelling. PROCEDURES: Venous duplex imaging was performed in bilateral lower extremities. The following venous structures were evaluated: common femoral vein, profunda vein, proximal portion of the greater saphenous vein, superficial femoral vein, and the popliteal vein. In addition, the posterior tibial and peroneal trunk were evaluated. Serial compression, augmentation maneuvers, and spectral Doppler flow evaluation were performed. FINDINGS: All veins examined appear free of thrombus. No filling defects on color Doppler flow analysis. Vein flow and caliber vary with respiration. Increase in venous flow with augmentation. All veins appear compressible.. CONCLUSIONS No evidence of right lower extremity DVT. No evidence of left lower extremity DVT. Joseph Jackson MD (Electronically Signed) Final Date: 15 August 2019 12:07 S
[2019-08-15 20:35] LABS: Partial Thromboplastin Time 108.7 SECONDS (23.9-36.7)
--- NOTE | 2019-08-15 20:46 | PC.NURSE ---
Refusing to get back into bed at this time. I'll ring when I'm ready. PRN morphine given for bilateral lower extremity pain. Asked this nurse when she could have it again. This nurse told her around 0100. States, OK. Laid head on pillow. Will monitor.
[2019-08-15 21:32] LABS: Glucose Point of Care 306 mg/dL (70-110)
--- NOTE | 2019-08-15 22:11 | PC.NURSE ---
Patient complained about PIID hurting in left hand. No edema. Slight redness at insertion site. I just want it out...it's not time for my pain medication yet. PIID discontinued with catheter intact. Pressure dressing applied. Heparin drip decreased to 19ml/hr per heparin protocol. Unable to successfully insert PIID after three attempts. Bench Repair Technician notified. Still refusing to get into bed. Will monitor.
--- NOTE | 2019-08-15 22:30 | PC.NURSE ---
PIID restarted with 22 gauge angio cath x1 attempt by Manager Assembly. Secured with dona guard and coban. Tolerated fair. Will monitor.
[2019-08-15 22:42] LABS: Anion Gap 19.3 (5-19); Blood Urea Nitrogen 74 mg/dL (6-20); Carbon Dioxide 21 mmol/L (22-29); Chloride 94 mmol/L (98-107); Glomerular Filtration Rate 20.7 mL/min (90-130); Glucose 263 mg/dL (74-109); Potassium 5.3 mmol/L (3.5-5.1); Sodium 129 mmol/L (136-145)
--- NOTE | 2019-08-15 23:19 | PC.NURSE ---
2300: Patient assisted to bed by DESKTOP ARCHITECT per patient request. At 2315, while this nurse was walking by patient's room, patient was getting back up to chair without calling for assist. Will monitor.
[2019-08-16] VITALS (18 sets, daily range): BP systolic 92–113; BP diastolic 52–69; PULSE 59–73; RESP 12–18; TEMP 36.3–36.9; O2SAT 95–100
[2019-08-16] MEDS: heparin drip 25,000 UNIT/500 ML PREMIX 19 UNIT IV (00:27)
[2019-08-16 03:16] LABS: Nucleated Red Blood Cells % 0 %
[2019-08-16 03:20] LABS: Alanine Aminotransferase 24 U/L (0-33); Albumin Level 2.5 g/dL (3.5-5.2); Alkaline Phosphatase 400 IU/L (35-105); Anion Gap 18.1 (5-19); Aspartate Amino Transferase 31 U/L (0-32); Blood Urea Nitrogen 65 mg/dL (6-20); Calcium 9.2 mg/Dl (8.6-10.0); Carbon Dioxide 23 mmol/L (22-29); Chloride 95 mmol/L (98-107); Glomerular Filtration Rate 21.7 mL/min (90-130); Glucose 262 mg/dL (74-109); Magnesium 2.3 mg/dL (1.7-2.3); Phosphorus 5.3 mg/dL (2.5-4.5); Potassium 5.1 mmol/L (3.5-5.1); Sodium 131 mmol/L (136-145); Total Bilirubin 0.5 mg/dL (0.15-1.2); Total Protein 6.5 g/dL (6.6-8.7)
[2019-08-16 03:24] LABS: Hemoglobin 9.3 g/dL (11.5-15.3); Lymphocytes # 0.9 10^3/uL (0.8-4.8); Lymphocytes % 12.1 %; Mean Corpuscular HGB Conc 32.1 g/dL (30.0-36.0); Mean Corpuscular Hemoglobin 32.9 pg (28.0-34.0); Mean Corpuscular Volume 102.5 fL (81-99); Mean Platelet Volume 10.8 fL (7.4-10.4); Monocytes # 0.7 10^3/uL (0.2-0.9); Monocytes % 10.2 %; Neutrophils # 5.6 10^3/uL (1.8-7.7); Neutrophils % 77.4 %; Platelet Count 282 10^3/cmm (130-400); Red Blood Count 2.83 10^6/uL (4.1-5.3); White Blood Count 7.3 10^3/uL (4.0-10.0)
[2019-08-16 03:51] LABS: Partial Thromboplastin Time 82.6 SECONDS (23.9-36.7)
[2019-08-16] MEDS: ipratropium-albuterol 3 mL Neb INHALATION ×5 (03:52→20:56)
--- NOTE | 2019-08-16 04:53 | PC.NURSE ---
PTT 82.6. Heparin Drip decreased to 17ml/hr. PTT to be redrawn at 1045. Will monitor.
[2019-08-16] MEDS: morphine 4 mg/mL SDV 1 mL 1 MG IV (05:33)
[2019-08-16 08:00] LABS: Glucose Point of Care 269 mg/dL (70-110)
[2019-08-16] MEDS: insulin glargine 100 units/1 mL 20 UNIT SUBCUT (10:33)
[2019-08-16] MEDS: doxycycline 100 MG in sodium chloride 0.9% (plus) 100 ML IV ×2 (10:34→21:37)
[2019-08-16] MEDS: carvedilol 6.25 mg Tablet PO ×2 (10:34→19:38)
[2019-08-16] MEDS: clopidogrel 75 mg Tablet PO (10:34)
[2019-08-16] MEDS: isosorbide mononitrate 20 mg Tablet PO ×2 (10:36→19:38)
[2019-08-16] MEDS: predniSONE 20 mg Tablet 40 MG PO (10:36)
[2019-08-16] MEDS: pantoprazole DR 40 mg Tablet PO (10:36)
[2019-08-16] MEDS: FUROsemide 10 mg/mL SDV 10mL 80 MG IVP ×2 (10:37→21:39)
[2019-08-16 11:33] LABS: Partial Thromboplastin Time 52.7 SECONDS (23.9-36.7)
[2019-08-16 11:48] LABS: Glucose Point of Care 252 mg/dL (70-110)
[2019-08-16] MEDS: heparin 5,000 unit/mL INJ 1 mL 5000 UNIT SUBCUT (12:55)
[2019-08-16] MEDS: HYDROcodone-acetaminophen 5-325 mg Tablet 1 TAB PO ×2 (14:28→22:33)
--- NOTE | 2019-08-16 15:03 | P.PN_ITS ---
Subjective Subjective: Interval history: This morning patient sitting into a chair, states that her breathing has improved, denies chest pain, denies shortness of breath, denies dizziness, denies lightheadedness Vitals/I&O/Wt Last Vital Signs Temp 97.8 F 08/16/19 14:54 Pulse 63 08/16/19 14:54 Resp 12 08/16/19 14:54 BP 92/53 08/16/19 14:54 Pulse Ox 99 08/16/19 14:54 08/16/19 08/16/19 08/16/19 06:59 14:59 22:59 Intake Total 419.283 / 1908.283 340 / 340 Output Total 850 / 1850 Balance -430.717 / 58.283 340 / 340 Weight last 48 hrs Weight 85.275 kg Physical Exam Const: COMMON NORMALS: no apparent distress and oriented x3 EXAM LIMITATIONS: no altered mental status GENERAL APPEARANCE: cooperative, comfortable and well kempt Neck/C-Spine: COMMON NORMALS: no JVD Resp: COMMON NORMALS: normal respiratory effort, no retractions, no use of accessory muscles and clear to auscultation bilaterally AUSCULTATION: clear to auscultation bilaterally Cardio: COMMON NORMALS: no JVD, regular rate, regular rhythm, S1 normal heart sound, S2 normal heart sound and peripheral pulses 2+ throughout RATE: regular rate RHYTHM: regular rhythm HEART SOUNDS: S1 normal and S2 normal PERIPHERAL PULSES: pulses 2+ throughout GI: COMMON NORMALS: normal to inspection, nondistended, normoactive bowel sounds, soft to palpation, non-tender and no hepatosplenomegaly PALPATION: Yes soft and Yes no hepatosplenomegaly Neuro: COMMON NORMALS: oriented x3 Psych: APPEARANCE: Yes well ket Urinary Catheter Management^: Rao: Cath Placed During This Visit: no Data Micro: Micro: Microbiology 08/15/19 06:00 Urine Culture - Pr eliminary Urine,Clean Catch Strep species, gamma-hemolytic 08/14/19 20:33 Blood Culture - Pr eliminary Blood NEGATIVE TO FATMATA E 08/14/19 20:30 Blood Culture - Pr eliminary Blood NEGATIVE TO FATMATA E A&P Assessment and plan (1) Acute and chronic respiratory failure with hypoxia: Multifactorial secondary to COPD exacerbation, diastolic CHF exacerbation, atypical pneumonia -COPD, not oxygen dependent at home, using 2 L here, continues to smoke -Diastolic CHF, last echocardiogram on 01/27/2019 showed an ejection fraction of 55%, mild hypokinesis of left ventricle, BNP is 35,000 -Chest x-ray from [facility] shows bilateral groundglass opacities, concerning for atypical pneumonia given respiratory symptoms -Clinically improving, creatinine improving, diuresis is lagging Plan: -Telemetry monitoring -Doxycycline for atypical pneumonia, also on Rocephin for UTI -Solu-Medrol 125, 40 once daily starting tomorrow -DuoNebs every 4 scheduled, every 2 as needed -Lasix 80 twice daily Status: Acute Code(s): J96.21 - Acute and chronic respiratory failure with hypoxia (2) Diabetes mellitus type 2 in obese: -Continue Lantus 20 units in the morning -Low-dose sliding scale Status: Acute Code(s): E11.69 - Type 2 diabetes mellitus with other specified complication; E66.9 - Obesity, unspecified (3) NSTEMI (non-ST elevated myocardial infarction): -Troponins from [facility] show baseline troponin of 186, 2-hour of 136, negative delta of 26 -EKG does show new T wave inversions V1 to V2 compared to EKGs here -No active chest pain -Does have a history of CABG x2 for CAD on 12/27/2018 -Likely supply demand ischemia from acute respiratory failure as above Plan: -Troponins elevated, 6-hour 333 with a delta of 86.3 -Echocardiogram today shows Moderately decreased left ventricular systolic function. Left ventricular ejection fraction is estimated at 40 %. There appeared to be basal to distal anterior septal and apical wall akinesis suggestive of LAD lesion. Grade II/IV diastolic dysfunction, moderately elevated filling pressures. -Aspirin, statin, Plavix, Coreg, heparin drip -Monitor for chest pain -Nitro for chest pain -Cardiology on consult Status: Acute Code(s): I21.4 - Non-ST elevation (NSTEMI) myocardial infarction (4) Acute kidney injury: Acute kidney injury on chronic kidney disease stage III -Patient's baseline creatinine is 1.1-1.2 -Creatinine 2.3 -Likely related to Lasix, cardiorenal syndrome Plan: -Nephrology on consult, monitor kidney function Status: Acute Code(s): N17.9 - Acute kidney failure, unspecified (5) CAD (coronary artery disease): CAD status post CABG x2 Status: Acute Code(s): I25.10 - Atherosclerotic heart disease of [place] coronary artery without angina pectoris (6) Swelling of both lower extremities: Ultrasound bilateral lower extremities negative for DVT Status: Acute Code(s): M79.89 - Other specified soft tissue disorders (7) UTI (urinary tract infection): -Has a history of E. coli, Enterococcus faecalis UTI, sensitive to penicillins -We will start patient on Rocephin Status: Acute Code(s): N39.0 - Urinary tract infection, site not specified (8) Sacral decubitus ulcer, stage II: -Repositioning Status: Acute Code(s): L89.152 - Pressure ulcer of sacral region, stage 2 (9) Physical deconditioning: PT OT Status: Acute Code(s): R53.81 - Other malaise (10) Hyperkalemia: -Received insulin, nebulizers, calcium gluconate, resistant hyperkalemia -Nephrology on consult -Currently on Kayexalate, potassium down to 5.1 -No EKG changes, asymptomatic Plan: -Continue Kayexalate, monitor potassium Status: Acute Code(s): E87.5 - Hyperkalemia (11) CHF (congestive heart failure), NYHA class IV: Status: Acute Code(s): I50.9 - Heart failure, unspecified Attestations Medical Necessity Statement*: Patient requires continued hospitalization, for respiratory failure Coding Level of Care Code Acute Secondary School Registrar for [facility] Fwd Diagnoses Acute and chronic respiratory failure with hypoxia J96.21 Diabetes mellitus type 2 in obese E11.69; E66.9 NSTEMI (non-ST elevated myocardial infarction) I21.4 Acute kidney injury N17.9 CAD (coronary artery disease) I25.10 Swelling of both lower extremities M79.89 UTI (urinary tract infection) N39.0 Sacral decubitus ulcer, stage II L89.152 Physical deconditioning R53.81 Hyperkalemia E87.5 CHF (congestive heart failure), NYHA class IV I50.9
--- NOTE | 2019-08-16 16:26 | PM.PN ---
Subjective Subjective: Interval history: feels weak, short of breath no chest pain had loose BMS yesterday and today Medications: Reviewed: Yes Vitals/I&O/Wt Last Vital Signs Temp 97.8 F 08/16/19 14:54 Pulse 69 08/16/19 16:20 Resp 16 08/16/19 16:10 BP 92/53 08/16/19 14:54 Pulse Ox 96 08/16/19 16:10 08/16/19 08/16/19 08/16/19 06:59 14:59 22:59 Intake Total 419.283 / 1908.283 340 / 340 Output Total 850 / 1850 Balance -430.717 / 58.283 340 / 340 Weight last 48 hrs Weight 85.275 kg Physical Exam Narrative: EXAM NARRATIVE: out of bed in chair Const: GENERAL APPEARANCE: cooperative and frail appearing ORIENTATION/CONSCIOUSNESS: Yes awake HENMT: COMMON NORMALS: normocephalic HEAD & SCALP: normocephalic Resp: COMMON NORMALS: normal respiratory effort AUSCULTATION: diminished lung sounds Cardio: COMMON NORMALS: regular rate and regular rhythm RATE: regular rate RHYTHM: regular rhythm Urinary Catheter Management^: Rao: Cath Placed During This Visit: no Data Micro: Micro: Microbiology 08/15/19 06:00 Urine Culture - Pr eliminary Urine,Clean Catch Strep species, gamma-hemolytic 08/14/19 20:33 Blood Culture - Pr eliminary Blood NEGATIVE TO FATMATA E 08/14/19 20:30 Blood Culture - Pr eliminary Blood NEGATIVE TO FATMATA E A&P Additional A&P Information Additional A&P Information: Impression: Acute kidney injury,now with good urine output, renal funciton stable Hyperkalemia, resolved, mild hyponatremia Urinary tract infection, strep species, BC neg Diabetes Recommend: decrease IVF, continue furosemide, follow-up urine culture result Attestations Medical Necessity Statement*: per primary service Coding Level of Care Code Acute Radio Repairer Domestic for Mat Astudillo
[2019-08-16 17:23] LABS: Glucose Point of Care 106 mg/dL (70-110)
[2019-08-16 18:21] LABS: Partial Thromboplastin Time 68.9 SECONDS (23.9-36.7)
--- NOTE | 2019-08-16 18:34 | P.PN_ITS ---
Subjective Subjective: Interval history: Patient says she's feeling better and less short of breath.Renal functionis improving potassium is better Vitals/I&O/Wt Last Vital Signs Temp 97.8 F 08/16/19 14:54 Pulse 69 08/16/19 16:20 Resp 16 08/16/19 16:10 BP 92/53 08/16/19 14:54 Pulse Ox 96 08/16/19 16:10 08/16/19 08/16/19 08/16/19 06:59 14:59 22:59 Intake Total 419.283 / 1908.283 340 / 340 Output Total 850 / 1850 Balance -430.717 / 58.283 340 / 340 Physical Exam Narrative: EXAM NARRATIVE: GENERAL: Patient is awake and oriented patient is frail NECK: No jugular vein distension. HEENT: No cyanosis. No icterus. No pallor. HEART: Regular S1 and S2. LUNGS: Decreased breath sound bilaterally. ABDOMEN: Soft, nontender and nondistended. Positive bowel sounds. No guarding, rebound or tenderness. CENTRAL NERVOUS SYSTEM: Grossly nonfocal. EXTREMITIES: Lower extremities without edema bilaterally. Urinary Catheter Management^: Rao: Cath Placed During This Visit: no Data Micro: Micro: Microbiology 08/15/19 06:00 Urine Culture - Pr eliminary Urine,Clean Catch Strep species, gamma-hemolytic 08/14/19 20:33 Blood Culture - Pr eliminary Blood NEGATIVE TO FATMATA E 08/14/19 20:30 Blood Culture - Pr eliminary Blood NEGATIVE TO FATMATA E A&P Assessment and plan (1) NSTEMI (non-ST elevated myocardial infarction): Continue to manage conservatively. Patient denies chest pain. Status: Acute Code(s): I21.4 - Non-ST elevation (NSTEMI) myocardial infarction (2) Acute kidney injury: Continue stabilized. Nephrology on board Status: Acute Code(s): N17.9 - Acute kidney failure, unspecified (3) Hyperkalemia: Resolved Status: Acute Code(s): E87.5 - Hyperkalemia (4) Acute and chronic respiratory failure with hypoxia: Improved. Continue current regimen Status: Acute Code(s): J96.21 - Acute and chronic respiratory failure with hypoxia Attestations Medical Necessity Statement*: Patient regarding continuation hospitalization for above defined care. Coding Level of Care Code Acute Emergency Room Nurse for [employer] Fwd Diagnoses NSTEMI (non-ST elevated myocardial infarction) I21.4 Acute kidney injury N17.9 Hyperkalemia E87.5 Acute and chronic respiratory failure with hypoxia J96.21
[2019-08-16] MEDS: cefTRIAXone 1,000 MG in sodium chloride 0.9% (plus) 50 ML 100 MG IV (19:24)
--- NOTE | 2019-08-16 19:33 | PC.NURSE ---
Sitting up in chair sleeping. PIID to left forearm flushed slowly. [place] hung IVPB. Patient states, That pill isn't helping me at all.......the doctor needs to go up on the strength. This nurse explained to patient that I would relay the message to the physician. Patient then requested to be covered up. Laid head on pillow and went back to sleep. Will monitor.
[2019-08-16 21:31] LABS: Glucose Point of Care 142 mg/dL (70-110)
[2019-08-16] MEDS: atorvastatin 40 mg Tablet PO (21:39)
--- NOTE | 2019-08-16 21:54 | PC.NURSE ---
Patient stating that she has to have something stronger for pain. I usually take a pain pill every 4 hours for pain.....we have to do something.....can you please call a doctor. Dr. Delarosa notified. Will monitor.
[2019-08-17] VITALS (10 sets, daily range): BP systolic 93–118; BP diastolic 56–69; PULSE 60–68; RESP 16–20; TEMP 36.3–36.6; O2SAT 96–99
[2019-08-17] LABS: Partial Thromboplastin Time 71.9 SECONDS (23.9-36.7)
[2019-08-17 01:04] LABS: Glucose Point of Care 162 mg/dL (70-110)
[2019-08-17] MEDS: heparin drip 25,000 UNIT/500 ML PREMIX 19 UNIT IV (01:46)
[2019-08-17] MEDS: HYDROcodone-acetaminophen 5-325 mg Tablet 1 TAB PO ×4 (03:12→22:33)
[2019-08-17] MEDS: ipratropium-albuterol 3 mL Neb INHALATION ×2 (03:51→16:05)
--- NOTE | 2019-08-17 03:52 | PC.NURSE ---
Patient up in chair. Hasn't slept much thus far this shift. Pain medication given at approximately 0300 for BLE. After taking pain medication, patient states, You need to come back at 7 and bring me another one. This nurse explained to patient that I would try to be here at 7 with the medication. Voices understanding. Will monitor.
--- NOTE | 2019-08-17 05:08 | PC.NURSE ---
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 Patient now unable to turn self or reposition self in chair. Refuses to lie in the bed;however, this nurse was able to stand patient up with assist of 1, long enough to reposition her pillows in the chair. Pain pills just not working. Informed patient that I would relay message to oncoming shift. Patient was able to ambulate and pivot with stand-by assist last night. Will monitor.
[2019-08-17 05:18] LABS: Hematocrit 29.2 % (37.0-47.0); Hemoglobin 9.2 g/dL (11.5-15.3); Lymphocytes % 18.9 %; Mean Corpuscular HGB Conc 31.5 g/dL (30.0-36.0); Mean Corpuscular Hemoglobin 33.3 pg (28.0-34.0); Mean Corpuscular Volume 105.8 fL (81-99); Monocytes # 0.4 10^3/uL (0.2-0.9); Monocytes % 8.2 %; Neutrophils # 3.8 10^3/uL (1.8-7.7); Neutrophils % 72.5 %; Nucleated Red Blood Cells % 0 %; Platelet Count 253 10^3/cmm (130-400); Red Blood Count 2.76 10^6/uL (4.1-5.3); White Blood Count 5.3 10^3/uL (4.0-10.0)
[2019-08-17 05:27] LABS: Partial Thromboplastin Time 69.2 SECONDS (23.9-36.7)
[2019-08-17 06:08] LABS: Alanine Aminotransferase 20 U/L (0-33); Albumin Level 2.6 g/dL (3.5-5.2); Alkaline Phosphatase 355 IU/L (35-105); Anion Gap 18.1 (5-19); Aspartate Amino Transferase 28 U/L (0-32); Blood Urea Nitrogen 63 mg/dL (6-20); Carbon Dioxide 23 mmol/L (22-29); Chloride 97 mmol/L (98-107); Globulin 3.7 g/dL (1.3-4.6); Glomerular Filtration Rate 30.8 mL/min (90-130); Glucose 164 mg/dL (74-109); Magnesium 2.2 mg/dL (1.7-2.3); Phosphorus 4.6 mg/dL (2.5-4.5); Potassium 4.1 mmol/L (3.5-5.1); Sodium 134 mmol/L (136-145); Total Bilirubin 0.4 mg/dL (0.15-1.2); Total Protein 6.3 g/dL (6.6-8.7)
[2019-08-17 07:38] LABS: Glucose Point of Care 156 mg/dL (70-110)
[2019-08-17 09:23] LABS: Oxygen Device NC
[2019-08-17 09:28] LABS: Ferritin 109 ng/mL (15-150); Iron 20 ug/dL (37-145); Percent Saturation 8.3 % (20-50); Total Iron Binding Capacity 240 mg/dL; Unsaturated Iron Binding 220 ug/dL (112-347)
[2019-08-17 09:39] LABS: Vitamin B12 1124 pg/mL (232-1245)
[2019-08-17 09:40] LABS: Folate Level 14.6 ng/mL (4.8-37.3)
[2019-08-17] MEDS: FUROsemide 10 mg/mL SDV 10mL 80 MG IVP (09:53)
[2019-08-17] MEDS: pantoprazole DR 40 mg Tablet PO (09:54)
[2019-08-17] MEDS: carvedilol 6.25 mg Tablet PO ×2 (09:54→17:59)
[2019-08-17] MEDS: doxycycline 100 mg Tablet PO ×2 (09:54→17:57)
[2019-08-17] MEDS: aspirin 81 mg EC Tablet PO (09:55)
[2019-08-17] MEDS: isosorbide mononitrate 20 mg Tablet PO ×2 (09:55→17:57)
[2019-08-17] MEDS: clopidogrel 75 mg Tablet PO (09:55)
[2019-08-17] MEDS: predniSONE 20 mg Tablet 40 MG PO (09:56)
[2019-08-17] MEDS: insulin glargine 100 units/1 mL 20 UNIT SUBCUT (09:59)
--- NOTE | 2019-08-17 10:42 | P.PN_ITS ---
Subjective Subjective: Interval history: Patient she's not perky today. Blood pressure is on the lower side.She denies chest pain or out of usual shortness of breath. Medications: Reviewed: Yes Vitals/I&O/Wt Last Vital Signs Temp 97.4 F L 08/17/19 08:00 Pulse 64 08/17/19 08:00 Resp 20 H 08/17/19 08:00 BP 93/56 08/17/19 08:00 Pulse Ox 98 08/17/19 08:00 08/16/19 08/17/19 08/17/19 22:59 06:59 14:59 Intake Total 50 / 390 615.867 / 1005.867 300 / 300 Output Total 1250 / 1250 1000 / 2250 Balance -1200 / -860 -384.133 / -1244.133 300 / 300 Physical Exam Narrative: EXAM NARRATIVE: GENERAL: Patient is awake and oriented patient is frail NECK: No jugular vein distension. HEENT: No cyanosis. No icterus. No pallor. HEART: Regular S1 and S2. LUNGS: Decreased breath sound bilaterally. ABDOMEN: Soft, nontender and nondistended. Positive bowel sounds. No guarding, rebound or tenderness. CENTRAL NERVOUS SYSTEM: Grossly nonfocal. EXTREMITIES: Lower extremities without edema bilaterally. Urinary Catheter Management^: Rao: Cath Placed During This Visit: no Data 2 Micro: Micro: Microbiology 08/15/19 06:00 Urine Culture - Pr eliminary Urine,Clean Catch Strep species, gamma-hemolytic A&P Assessment and plan (1) NSTEMI (non-ST elevated myocardial infarction): Stable continue current regimen Status: Acute Code(s): I21.4 - Non-ST elevation (NSTEMI) myocardial infarction (2) Acute kidney injury: Improved. Nephrology on board Status: Acute Code(s): N17.9 - Acute kidney failure, unspecified (3) Acute and chronic respiratory failure with hypoxia: Improving. Continue current regimen Status: Acute Code(s): J96.21 - Acute and chronic respiratory failure with hypoxia (4) Hypotension: Patient blood pressure on the lower side. I will back off on IV Lasix. She appeared to be well compensated. Status: Acute Code(s): I95.9 - Hypotension, unspecified (5) CHF (congestive heart failure), NYHA class IV: Well compensated. We will switch her to oral Lasix. Status: Acute Code(s): I50.9 - Heart failure, unspecified Attestations Medical Necessity Statement*: Patient requires continuation hospitalization for optimization of medicine and switching herself from IV to oral. Coding Level of Care Code Acute Poising Inspector for [facility] Fw Diagnoses NSTEMI (non-ST elevated myocardial infarction) I21.4 Acute kidney injury N17.9 Acute and chronic respiratory failure with hypoxia J96.21 Hypotension I95.9 CHF (congestive heart failure), NYHA class IV I50.9
[2019-08-17 11:58] LABS: Glucose Point of Care 192 mg/dL (70-110)
--- NOTE | 2019-08-17 13:20 | PM.PN ---
Subjective Subjective: Interval history: This morning, patient sitting up into a chair, states that has been her breathing has improved, she has a sacral ulcer not bothering her, no fevers, no chills, no nausea, no vomiting Vitals/I&O/Wt Last Vital Signs Temp 97.4 F L 08/17/19 11:18 Pulse 60 08/17/19 11:51 Resp 18 08/17/19 11:51 BP 96/61 08/17/19 11:18 Pulse Ox 99 08/17/19 11:51 08/16/19 08/17/19 08/17/19 22:59 06:59 14:59 Intake Total 50 / 390 615.867 / 1005.867 574.167 / 574.167 Output Total 1250 / 1250 1000 / 2250 Balance -1200 / -860 -384.133 / -1244.133 574.167 / 574.167 Physical Exam Const: COMMON NORMALS: no apparent distress and oriented x3 EXAM LIMITATIONS: no altered mental status GENERAL APPEARANCE: cooperative, comfortable and well kempt Neck/C-Spine: COMMON NORMALS: no JVD Chest: COMMONS NORMALS: inspection of chest normal (Sternotomy scar) Resp: COMMON NORMALS: normal respiratory effort, no retractions, no use of accessory muscles and clear to auscultation bilaterally AUSCULTATION: clear to auscultation bilaterally Cardio: COMMON NORMALS: no JVD, regular rate, regular rhythm, S1 normal heart sound, S2 normal heart sound and peripheral pulses 2+ throughout RATE: regular rate RHYTHM: regular rhythm HEART SOUNDS: S1 normal and S2 normal PERIPHERAL PULSES: pulses 2+ throughout GI: COMMON NORMALS: normal to inspection, nondistended, normoactive bowel sounds, soft to palpation, non-tender and no hepatosplenomegaly PALPATION: Yes soft and Yes no hepatosplenomegaly Neuro: COMMON NORMALS: oriented x3 Psych: APPEARANCE: Yes well kempt Skin: NARRATIVE SKIN EXAM: -Stage I sacral decubitus ulcer, in the gluteal cleft -Bilateral lower extremities, nonpitting edema, skin retraction Urinary Catheter Management^: Rao: Cath Placed During This Visit: no Data Micro: Micro: Microbiology 08/15/19 06:00 Urine Culture - Pr eliminary Urine,Clean Catch Strep species, gamma-hemolytic A&P Assessment and plan (1) Acute and chronic respiratory failure with hypoxia: Multifactorial secondary to COPD exacerbation, diastolic CHF exacerbation, atypical pneumonia -COPD, not oxygen dependent at home, using 2 L here, continues to smoke -Diastolic CHF, last echocardiogram on 01/27/2019 showed an ejection fraction of 55%, mild hypokinesis of left ventricle, BNP is 35,000 -Chest x-ray from [facility] shows bilateral groundglass opacities, concerning for atypical pneumonia given respiratory symptoms -Clinically improving, creatinine improving, diuresis 2250 Plan: -Telemetry monitoring -Doxycycline for atypical pneumonia, also on Rocephin for UTI - 40 once daily starting tomorrow -DuoNebs every 4 scheduled, every 2 as needed -Lasix 80 twice daily -Stop heparin drip -Awaiting chcf placement Status: Acute Code(s): J96.21 - Acute and chronic respiratory failure with hypoxia (2) Diabetes mellitus type 2 in obese: -Continue Lantus 20 units in the morning -Low-dose sliding scale Status: Acute Code(s): E11.69 - Type 2 diabetes mellitus with other specified complication; E66.9 - Obesity, unspecified (3) NSTEMI (non-ST elevated myocardial infarction): -Troponins from [facility] show baseline troponin of 186, 2-hour of 136, negative delta of 26 -EKG does show new T wave inversions V1 to V2 compared to EKGs here -No active chest pain -Does have a history of CABG x2 for CAD on 12/27/2018 -Likely supply demand ischemia from acute respiratory failure as above Plan: -Troponins elevated, 6-hour 333 with a delta of 86.3 -Echocardiogram today shows Moderately decreased left ventricular systolic function. Left ventricular ejection fraction is estimated at 40 %. There appeared to be basal to distal anterior septal and apical wall akinesis suggestive of LAD lesion. Grade II/IV diastolic dysfunction, moderately elevated filling pressures. -Aspirin, statin, Plavix, Coreg, stop heparin drip -Monitor for chest pain -Nitro for chest pain -Cardiology on consult Status: Acute Code(s): I21.4 - Non-ST elevation (NSTEMI) myocardial infarction (4) Acute kidney injury: Acute kidney injury on chronic kidney disease stage III -Patient's baseline creatinine is 1.1-1.2 -Creatinine 1.7 -Likely related to Lasix, cardiorenal syndrome Plan: -Nephrology on consult, monitor kidney function Status: Acute Code(s): N17.9 - Acute kidney failure, unspecified (5) CAD (coronary artery disease): CAD status post CABG x2 Status: Acute Code(s): I25.10 - Atherosclerotic heart disease of [place] coronary artery without angina pectoris (6) Swelling of both lower extremities: Ultrasound bilateral lower extremities negative for DVT Status: Acute Code(s): M79.89 - Other specified soft tissue disorders (7) UTI (urinary tract infection): -Has a history of E. coli, Enterococcus faecalis UTI, sensitive to penicillins -on Rocephin Status: Acute Code(s): N39.0 - Urinary tract infection, site not specified (8) Sacral decubitus ulcer, stage II: -Repositioning Status: Acute Code(s): L89.152 - Pressure ulcer of sacral region, stage 2 (9) Physical deconditioning: PT OT Status: Acute Code(s): R53.81 - Other malaise (10) Hyperkalemia: -Received insulin, nebulizers, calcium gluconate, resistant hyperkalemia -Nephrology on consult -Currently on Kayexalate, potassium down to 5.1 -No EKG changes, asymptomatic Plan: -Continue Kayexalate, monitor potassium Status: Acute Code(s): E87.5 - Hyperkalemia (11) CHF (congestive heart failure), NYHA class IV: Status: Acute Code(s): I50.9 - Heart failure, unspecified Attestations Medical Necessity Statement*: Patient requires continued hospitalization for acute respiratory failure Coding Level of Care Code Acute Supervisor Record Press for [facility] Fwd Diagnoses Acute and chronic respiratory failure with hypoxia J96.21 Diabetes mellitus type 2 in obese E11.69; E66.9 NSTEMI (non-ST elevated myocardial infarction) I21.4 Acute kidney injury N17.9 CAD (coronary artery disease) I25.10 Swelling of both lower extremities M79.89 UTI (urinary tract infection) N39.0 Sacral decubitus ulcer, stage II L89.152 Physical deconditioning R53.81 Hyperkalemia E87.5 CHF (congestive heart failure), NYHA class IV I50.9
[2019-08-17 17:19] LABS: Glucose Point of Care 145 mg/dL (70-110)
--- NOTE | 2019-08-17 17:53 | PM.PN ---
Subjective Subjective: Interval history: feeling better Medications: Reviewed: Yes Vitals/I&O/Wt Last Vital Signs Temp 97.6 F 08/17/19 16:00 Pulse 68 08/17/19 16:15 Resp 18 08/17/19 16:03 BP 113/65 08/17/19 16:00 Pulse Ox 99 08/17/19 16:03 08/17/19 08/17/19 08/17/19 06:59 14:59 22:59 Intake Total 615.867 / 1005.867 574.167 / 574.167 Output Total 1000 / 2250 800 / 800 Balance -384.133 / -1244.133 574.167 / 574.167 -800 / -225.833 Physical Exam Narrative: EXAM NARRATIVE: Narrative EXAM NARRATIVE: out of bed in chair Const GENERAL APPEARANCE: cooperative and frail appearing ORIENTATION/CONSCIOUSNESS: Yes awake HENMT COMMON NORMALS: normocephalic HEAD & SCALP: normocephalic Resp COMMON NORMALS: normal respiratory effort AUSCULTATION: diminished lung sounds Cardio COMMON NORMALS: regular rate and regular rhythm RATE: regular rate RHYTHM: regular rhythm Urinary Catheter Management^: Rao: Cath Placed During This Visit: no Data Micro: Micro: Microbiology 08/15/19 06:00 Urine Culture - Fi nal Urine,Clean Catch Enterococcus fa ecalis A&P Additional A&P Information Additional A&P Information: Acute kidney injury,now with good urine output, renal function slowly improving Hyperkalemia, resolved, mild hyponatremia Urinary tract infection, enterococcus pansensitive, BC neg Diabetes Recommend: continue current care Attestations Medical Necessity Statement*: per primary service Coding Level of Care Code Acute Hotel Dining Room Cashier for Mat Astudillo
--- NOTE | 2019-08-17 19:45 | PC.NURSE ---
Assisted patient to a chair to standing position, patient was able to stand x 1 assist for 10 seconds.
--- NOTE | 2019-08-17 20:16 | PC.NURSE ---
Assisted patient from sitting in chair to standing position, patient was able to stand for 10 seconds with encouragement. Patient returned back to chair.
[2019-08-17] MEDS: atorvastatin 40 mg Tablet PO (20:35)
[2019-08-17] MEDS: cefTRIAXone 1,000 MG in sodium chloride 0.9% (plus) 50 ML 100 MG IV (20:35)
[2019-08-17 21:42] LABS: Glucose Point of Care 172 mg/dL (70-110)
[2019-08-18] VITALS (11 sets, daily range): BP systolic 98–121; BP diastolic 55–67; PULSE 59–69; RESP 10–38; TEMP 35.9–37.1; O2SAT 94–99
[2019-08-18 05:26] LABS: Basophils % 0.2 %; Hematocrit 31.6 % (37.0-47.0); Hemoglobin 9.7 g/dL (11.5-15.3); Lymphocytes # 1.2 10^3/uL (0.8-4.8); Lymphocytes % 24.8 %; Mean Corpuscular HGB Conc 30.7 g/dL (30.0-36.0); Mean Corpuscular Volume 107.5 fL (81-99); Monocytes # 0.6 10^3/uL (0.2-0.9); Monocytes % 11.4 %; Neutrophils # 3.1 10^3/uL (1.8-7.7); Neutrophils % 63.4 %; Nucleated Red Blood Cells % 0 %; Platelet Count 252 10^3/cmm (130-400); Red Blood Count 2.94 10^6/uL (4.1-5.3); Red Cell Distribution Width 16.9 % (12.1-15.1); White Blood Count 4.9 10^3/uL (4.0-10.0)
[2019-08-18 05:34] LABS: Alanine Aminotransferase 19 U/L (0-33); Alkaline Phosphatase 348 IU/L (35-105); Anion Gap 13.9 (5-19); Aspartate Amino Transferase 22 U/L (0-32); Blood Urea Nitrogen 62 mg/dL (6-20); Calcium 9.3 mg/Dl (8.6-10.0); Carbon Dioxide 28 mmol/L (22-29); Chloride 99 mmol/L (98-107); Globulin 3.5 g/dL (1.3-4.6); Glucose 105 mg/dL (74-109); Magnesium 2.3 mg/dL (1.7-2.3); Phosphorus 4.1 mg/dL (2.5-4.5); Potassium 3.9 mmol/L (3.5-5.1); Sodium 137 mmol/L (136-145); Total Bilirubin 0.4 mg/dL (0.15-1.2); Total Protein 6.5 g/dL (6.6-8.7)
[2019-08-18 08:03] LABS: Glucose Point of Care 82 mg/dL (70-110)
[2019-08-18] MEDS: ipratropium-albuterol 3 mL Neb INHALATION ×2 (09:03→20:28)
[2019-08-18] MEDS: HYDROcodone-acetaminophen 5-325 mg Tablet 1 TAB PO ×3 (09:30→21:41)
[2019-08-18] MEDS: predniSONE 20 mg Tablet 40 MG PO (09:31)
[2019-08-18] MEDS: FUROsemide 40 mg Tablet PO (09:31)
[2019-08-18] MEDS: clopidogrel 75 mg Tablet PO (09:31)
[2019-08-18] MEDS: doxycycline 100 mg Tablet PO ×2 (09:31→18:01)
[2019-08-18] MEDS: isosorbide mononitrate 20 mg Tablet PO ×2 (09:31→18:02)
[2019-08-18] MEDS: aspirin 81 mg EC Tablet PO (09:31)
[2019-08-18] MEDS: carvedilol 6.25 mg Tablet PO ×2 (09:31→18:02)
[2019-08-18] MEDS: pantoprazole DR 40 mg Tablet PO (09:32)
[2019-08-18] MEDS: insulin glargine 100 units/1 mL 20 UNIT SUBCUT (09:32)
[2019-08-18 11:26] LABS: Glucose Point of Care 275 mg/dL (70-110)
--- NOTE | 2019-08-18 11:57 | P.PN_ITS ---
Subjective Subjective: Interval history: This morning patient sitting up into a chair, states her breathing has improved, no nausea, no vomiting, no chest pain, she did diurese 2 L yesterday, [place] [facility] [place], continues to have pain in her lower sacral area given to her decubitus ulcer Vitals/I&O/Wt Last Vital Signs Temp 96.7 F L 08/18/19 11:19 Pulse 63 08/18/19 11:19 Resp 16 08/18/19 11:19 BP 104/57 08/18/19 11:19 Pulse Ox 96 08/18/19 11:19 08/17/19 08/18/19 08/18/19 22:59 06:59 14:59 Intake Total 50 / 624.167 120 / 120 Output Total 800 / 800 1000 / 1800 450 / 450 Balance -750 / -175.833 -1000 / -1175.833 -330 / -330 Physical Exam Const: COMMON NORMALS: no apparent distress and oriented x3 EXAM LIMITATIONS: no altered mental status GENERAL APPEARANCE: cooperative, comfortable and well kempt Neck/C-Spine: COMMON NORMALS: no JVD Chest: COMMONS NORMALS: inspection of chest normal (Sternotomy scar) Resp: COMMON NORMALS: normal respiratory effort, no retractions, no use of accessory muscles and clear to auscultation bilaterally AUSCULTATION: clear to auscultation bilaterally Cardio: COMMON NORMALS: no JVD, regular rate, regular rhythm, S1 normal heart sound, S2 normal heart sound and peripheral pulses 2+ throughout RATE: regular rate RHYTHM: regular rhythm HEART SOUNDS: S1 normal and S2 normal PERIPHERAL PULSES: pulses 2+ throughout GI: COMMON NORMALS: normal to inspection, nondistended, normoactive bowel sounds, soft to palpation, non-tender and no hepatosplenomegaly PALPATION: Yes soft and Yes no hepatosplenomegaly Neuro: COMMON NORMALS: oriented x3 Psych: APPEARANCE: Yes well kempt Skin: NARRATIVE SKIN EXAM: -Stage I sacral decubitus ulcer, in the gluteal cleft -Bilateral lower extremities, nonpitting edema, skin retraction Urinary Catheter Management^: Rao: Cath Placed During This Visit: no Data Micro: Micro: Microbiology 08/15/19 06:00 Urine Culture - Fi nal Urine,Clean Catch Enterococcus fa ecalis A&P Assessment and plan (1) Acute and chronic respiratory failure with hypoxia: Multifactorial secondary to COPD exacerbation, diastolic CHF exacerbation, atypical pneumonia -COPD, not oxygen dependent at home, using 2 L here, continues to smoke -Diastolic CHF, last echocardiogram on 01/27/2019 showed an ejection fraction of 55%, mild hypokinesis of left ventricle, BNP is 35,000 -Chest x-ray from [facility] shows bilateral groundglass opacities, concerning for atypical pneumonia given respiratory symptoms -Clinically improving, creatinine improving, diuresis 2250 Plan: -Telemetry monitoring -Doxycycline for atypical pneumonia, also on Rocephin for enterococcus UTI - 40 once daily starting tomorrow -DuoNebs every 4 scheduled, every 2 as needed -Lasix 40 in the morning, 20 in the evening -A[place] [facility] Status: Acute Code(s): J96.21 - Acute and chronic respiratory failure with hypoxia (2) Diabetes mellitus type 2 in obese: -Continue Lantus 20 units in the morning -Low-dose sliding scale Status: Acute Code(s): E11.69 - Type 2 diabetes mellitus with other specified complication; E66.9 - Obesity, unspecified (3) NSTEMI (non-ST elevated myocardial infarction): -Troponins from [facility] show baseline troponin of 186, 2-hour of 136, negative delta of 26 -EKG does show new T wave inversions V1 to V2 compared to EKGs here -No active chest pain -Does have a history of CABG x2 for CAD on 12/27/2018 -Likely supply demand ischemia from acute respiratory failure as above Plan: -Troponins elevated, 6-hour 333 with a delta of 86.3 -Echocardiogram today shows Moderately decreased left ventricular systolic function. Left ventricular ejection fraction is estimated at 40 %. There appeared to be basal to distal anterior septal and apical wall akinesis suggestive of LAD lesion. Grade II/IV diastolic dysfunction, moderately elevated filling pressures. -Aspirin, statin, Plavix, Coreg -Monitor for chest pain -Nitro for chest pain -Cardiology on consult Status: Acute Code(s): I21.4 - Non-ST elevation (NSTEMI) myocardial infarction (4) Acute kidney injury: Acute kidney injury on chronic kidney disease stage III -Patient's baseline creatinine is 1.1-1.2 -Creatinine 1.6 -Likely related to Lasix, cardiorenal syndrome Plan: -Nephrology on consult, monitor kidney function Status: Acute Code(s): N17.9 - Acute kidney failure, unspecified (5) CAD (coronary artery disease): CAD status post CABG x2 Status: Acute Code(s): I25.10 - Atherosclerotic heart disease of [place] coronary artery without angina pectoris (6) Swelling of both lower extremities: Ultrasound bilateral lower extremities negative for DVT Status: Acute Code(s): M79.89 - Other specified soft tissue disorders (7) UTI (urinary tract infection): -Has a history of E. coli, Enterococcus faecalis UTI, sensitive to penicillins -on Rocephin Status: Acute Code(s): N39.0 - Urinary tract infection, site not specified (8) Sacral decubitus ulcer, stage II: -Repositioning Status: Acute Code(s): L89.152 - Pressure ulcer of sacral region, stage 2 (9) Physical deconditioning: PT OT Status: Acute Code(s): R53.81 - Other malaise (10) Hyperkalemia: -Received insulin, nebulizers, calcium gluconate, resistant hyperkalemia -Nephrology on consult -Currently on Kayexalate, potassium down to 5.1 -No EKG changes, asymptomatic Plan: -Continue Kayexalate, monitor potassium Status: Acute Code(s): E87.5 - Hyperkalemia (11) CHF (congestive heart failure), NYHA class IV: Status: Acute Code(s): I50.9 - Heart failure, unspecified Attestations Medical Necessity Statement*: She requires continued hospitalization due to acute respiratory failure Coding Level of Care Code Acute Patent Legal Assistant for [facility] Fwd Diagnoses Acute and chronic respiratory failure with hypoxia J96.21 Diabetes mellitus type 2 in obese E11.69; E66.9 NSTEMI (non-ST elevated myocardial infarction) I21.4 Acute kidney injury N17.9 CAD (coronary artery disease) I25.10 Swelling of both lower extremities M79.89 UTI (urinary tract infection) N39.0 Sacral decubitus ulcer, stage II L89.152 Physical deconditioning R53.81 Hyperkalemia E87.5 CHF (congestive heart failure), NYHA class IV I50.9
[2019-08-18] MEDS: loratadine 10 mg Tablet PO (12:08)
--- NOTE | 2019-08-18 13:26 | P.PN_ITS ---
Subjective Subjective: Interval history: Stable, denies any more complain. Medications: Reviewed: Yes Vitals/I&O/Wt Last Vital Signs Temp 96.7 F L 08/18/19 11:19 Pulse 63 08/18/19 11:19 Resp 16 08/18/19 11:19 BP 104/57 08/18/19 11:19 Pulse Ox 96 08/18/19 11:19 08/17/19 08/18/19 08/18/19 22:59 06:59 14:59 Intake Total 50 / 624.167 120 / 120 Output Total 800 / 800 1000 / 1800 450 / 450 Balance -750 / -175.833 -1000 / -1175.833 -330 / -330 Physical Exam Narrative: EXAM NARRATIVE: GENERAL: Patient is awake and oriented patient is frail NECK: No jugular vein distension. HEENT: No cyanosis. No icterus. No pallor. HEART: Regular S1 and S2. LUNGS: Decreased breath sound bilaterally. ABDOMEN: Soft, nontender and nondistended. Positive bowel sounds. No guarding, rebound or tenderness. CENTRAL NERVOUS SYSTEM: Grossly nonfocal. EXTREMITIES: Lower extremities without edema bilaterally. Urinary Catheter Management^: Rao: Cath Placed During This Visit: no Data Micro: Micro: Microbiology 08/15/19 06:00 Urine Culture - Fi nal Urine,Clean Catch Enterococcus fa ecalis A&P Assessment and plan (1) NSTEMI (non-ST elevated myocardial infarction): Doing fine from a cardiac perspective. Continue medicine Status: Acute Code(s): I21.4 - Non-ST elevation (NSTEMI) myocardial infarction (2) Acute kidney injury: Improving. Patient has been switched to by mouth meds. Status: Acute Code(s): N17.9 - Acute kidney failure, unspecified (3) Acute and chronic respiratory failure with hypoxia: Improved. Continue current regimen as per medicine Status: Acute Code(s): J96.21 - Acute and chronic respiratory failure with hypoxia (4) Hypotension: Improved She appeared to be well compensated. Status: Acute Code(s): I95.9 - Hypotension, unspecified (5) CHF (congestive heart failure), NYHA class IV: Continue to be well compensated she has been switched to by mouth medici ne/by mouth Lasix. Status: Acute Code(s): I50.9 - Heart failure, unspecified Attestations Medical Necessity Statement*: From a cardiovascular perspective patient can be discharged Coding Level of Care Code Acute Forming Roll Operator for [facility] F[facility] Diagnoses NSTEMI (non-ST elevated myocardial infarction) I21.4 Acute kidney injury N17.9 Acute and chronic respiratory failure with hypoxia J96.21 Hypotension I95.9 CHF (congestive heart failure), NYHA class IV I50.9
--- NOTE | 2019-08-18 14:04 | P.PN_ITS ---
Subjective Subjective: Interval history: continues to feel better; sleeping in chair due to orthopnea she is unwilling to have vázquez removed at this time very weak, awaiting rehab placement Vitals/I&O/Wt Last Vital Signs Temp 96.7 F L 08/18/19 11:19 Pulse 63 08/18/19 11:19 Resp 16 08/18/19 11:19 BP 104/57 08/18/19 11:19 Pulse Ox 96 08/18/19 11:19 08/17/19 08/18/19 08/18/19 22:59 06:59 14:59 Intake Total 50 / 624.167 120 / 120 Output Total 800 / 800 1000 / 1800 450 / 450 Balance -750 / -175.833 -1000 / -1175.833 -330 / -330 Physical Exam Resp: AUSCULTATION: crackles (bases) Laterality: bilateral OTHER: + edema Cardio: COMMON NORMALS: regular rate RATE: regular rate Urinary Catheter Management^: Vázquez: Cath Placed During This Visit: no Data Micro: Micro: Microbiology 08/15/19 06:00 Urine Culture - Fi nal Urine,Clean Catch Enterococcus fa ecalis A&P Additional A&P Information Additional A&P Information: Impression: 1. Acute kidney injury, good urine output, renal function stable 2. Hyperkalemia, resolved, mild hyponatremia 3. Urinary tract infection, enterococcus pansensitive, BC neg, on ceftriaxone 4. CHF - switched to oral furosemide Recommend: discontinue vázquez prior to discharge. continue current care Attestations Medical Necessity Statement*: per primary service Coding Level of Care Code Acute Senior Technical Specialist for [facility]
[2019-08-18] MEDS: FUROsemide 20 mg Tablet PO (15:08)
[2019-08-18 15:43] LABS: Glucose Point of Care 117 mg/dL (70-110)
[2019-08-18] MEDS: cefTRIAXone 1,000 MG in sodium chloride 0.9% (plus) 50 ML 100 MG IV (19:47)
--- NOTE | 2019-08-18 19:57 | PC.NURSE ---
Sleeping while sitting in chair. Respirations even and unlabored with no distress noted. Would like a pain pill when I can have one. This nurse explained to patient that she couldn't have one until 10pm. Patient voices understanding. Refusing to elevate legs or get into the bed at this time. Will monitor.
[2019-08-18 21:13] LABS: Glucose Point of Care 196 mg/dL (70-110)
[2019-08-18] MEDS: atorvastatin 40 mg Tablet PO (21:41)
--- NOTE | 2019-08-18 22:26 | PC.NURSE ---
Patient refusing to help adjust herself at all. Demanding staff readjust her in the chair. Refuses to get into bed. Staff has explained to patient that she needed to help;however, patient will only assist when asked to by staff. Will monitor.
[2019-08-19] VITALS (9 sets, daily range): BP systolic 104–129; BP diastolic 54–66; PULSE 59–68; RESP 11–21; TEMP 36–36.7; O2SAT 93–100
[2019-08-19] MEDS: HYDROcodone-acetaminophen 5-325 mg Tablet 1 TAB PO ×5 (02:10→21:43)
[2019-08-19 03:31] LABS: Basophils % 0.2 %; Hematocrit 29.9 % (37.0-47.0); Hemoglobin 9.3 g/dL (11.5-15.3); Lymphocytes # 1.1 10^3/uL (0.8-4.8); Mean Corpuscular HGB Conc 31.1 g/dL (30.0-36.0); Mean Corpuscular Hemoglobin 32.2 pg (28.0-34.0); Mean Corpuscular Volume 103.5 fL (81-99); Monocytes # 0.5 10^3/uL (0.2-0.9); Monocytes % 9.6 %; Neutrophils # 3.6 10^3/uL (1.8-7.7); Neutrophils % 68.8 %; Nucleated Red Blood Cells % 0 %; Platelet Count 250 10^3/cmm (130-400); Red Blood Count 2.89 10^6/uL (4.1-5.3); Red Cell Distribution Width 16.6 % (12.1-15.1); White Blood Count 5.2 10^3/uL (4.0-10.0)
[2019-08-19 04:05] LABS: Alanine Aminotransferase 16 U/L (0-33); Albumin Level 2.6 g/dL (3.5-5.2); Alkaline Phosphatase 352 IU/L (35-105); Anion Gap 11.8 (5-19); Aspartate Amino Transferase 24 U/L (0-32); Blood Urea Nitrogen 56 mg/dL (6-20); Calcium 9.1 mg/Dl (8.6-10.0); Carbon Dioxide 27 mmol/L (22-29); Chloride 101 mmol/L (98-107); Globulin 3.5 g/dL (1.3-4.6); Glucose 147 mg/dL (74-109); Magnesium 2.1 mg/dL (1.7-2.3); Phosphorus 3.4 mg/dL (2.5-4.5); Potassium 3.8 mmol/L (3.5-5.1); Sodium 136 mmol/L (136-145); Total Bilirubin 0.4 mg/dL (0.15-1.2); Total Protein 6.1 g/dL (6.6-8.7)
--- NOTE | 2019-08-19 04:31 | PC.NURSE ---
Patient continues to sit in chair during rounds. Speaking with someone on cell phone. Requesting time for next pain pill. This nurse informed her. States, OK...just try not to forget it. Will monitor.
[2019-08-19 07:35] LABS: Glucose Point of Care 149 mg/dL (70-110)
[2019-08-19] MEDS: ipratropium-albuterol 3 mL Neb INHALATION ×2 (08:27→19:17)
[2019-08-19] MEDS: clopidogrel 75 mg Tablet PO (08:49)
[2019-08-19] MEDS: predniSONE 20 mg Tablet 40 MG PO (08:50)
[2019-08-19] MEDS: doxycycline 100 mg Tablet PO ×2 (08:50→17:01)
[2019-08-19] MEDS: pantoprazole DR 40 mg Tablet PO (08:50)
[2019-08-19] MEDS: aspirin 81 mg EC Tablet PO (08:50)
[2019-08-19] MEDS: FUROsemide 40 mg Tablet PO (08:51)
[2019-08-19] MEDS: insulin glargine 100 units/1 mL 20 UNIT SUBCUT (08:58)
[2019-08-19 11:26] LABS: Glucose Point of Care 136 mg/dL (70-110)
--- NOTE | 2019-08-19 12:14 | PM.PN ---
Subjective Subjective: Interval history: continues to feel better; sleeping in chair due to orthopnea awaiting rehab placement Medications: Reviewed: Yes Vitals/I&O/Wt Last Vital Signs Temp 97.4 F L 08/19/19 11:22 Pulse 64 08/19/19 11:22 Resp 20 H 08/19/19 11:22 BP 118/64 08/19/19 11:22 Pulse Ox 98 08/19/19 11:22 08/18/19 08/19/19 08/19/19 22:59 06:59 14:59 Intake Total 770 / 1130 240 / 240 Output Total 800 / 1250 1100 / 1100 Balance -30 / -120 -860 / -860 Physical Exam Urinary Catheter Management^: Vázquez: Cath Placed During This Visit: no A&P Additional A&P Information Additional A&P Information: Impression: 1. Acute kidney injury, good urine output, renal function stable 2. Hyperkalemia, resolved, mild hyponatremia 3. Urinary tract infection, enterococcus pansensitive, BC neg, on ceftriaxone 4. CHF - switched to oral furosemide Recommend: discontinue vázquez prior to discharge. Renal issues resolved, follow up with Dr Appiah on the . Please call with any concerns Attestations Medical Necessity Statement*: eval for FRANKI Coding Level of Care Code Acute Sub Assembly Team Worker for [facility]
--- NOTE | 2019-08-19 15:26 | PC.OT ---
OT NOTE: OT TREATMENT ATTEMPTED. PATIENT DECLINES STATING, I'M JUST TOO STRESSED, INSURANCE WON'T LET ME GO TO A [facility] UNTIL AT LEAST THURSDAY. PATIENT IS ENCOURAGED TO PARTICIPATE BUT CONTINUES TO DECLINE SKILLED OT AT THIS TIME
[2019-08-19] MEDS: FUROsemide 20 mg Tablet PO (15:41)
[2019-08-19 16:20] LABS: Glucose Point of Care 127 mg/dL (70-110)
[2019-08-19] MEDS: isosorbide mononitrate 20 mg Tablet 10 MG PO (17:01)
[2019-08-19] MEDS: carvedilol 3.125 mg Tablet PO (17:01)
--- NOTE | 2019-08-19 17:28 | PM.PN ---
Subjective Subjective: Interval history: Stable denies any complain. Awaiting halfway placement Medications: Reviewed: Yes Vitals/I&O/Wt Last Vital Signs Temp 98.1 F 08/19/19 15:56 Pulse 64 08/19/19 15:56 Resp 16 08/19/19 15:56 BP 115/56 08/19/19 15:56 Pulse Ox 99 08/19/19 15:56 08/19/19 08/19/19 08/19/19 06:59 14:59 22:59 Intake Total 480 / 480 Output Total 1100 / 1100 Balance -620 / -620 Physical Exam Narrative: EXAM NARRATIVE: GENERAL: Patient is awake and oriented patient is frail NECK: No jugular vein distension. HEENT: No cyanosis. No icterus. No pallor. HEART: Regular S1 and S2. LUNGS: Decreased breath sound bilaterally. ABDOMEN: Soft, nontender and nondistended. Positive bowel sounds. No guarding, rebound or tenderness. CENTRAL NERVOUS SYSTEM: Grossly nonfocal. EXTREMITIES: Lower extremities without edema bilaterally. Urinary Catheter Management^: Rao: Cath Placed During This Visit: no A&P Assessment and plan (1) NSTEMI (non-ST elevated myocardial infarction): Stable from a cardiac perspective. Continue medicine Status: Acute Code(s): I21.4 - Non-ST elevation (NSTEMI) myocardial infarction (2) Acute kidney injury: Stable. Status: Acute Code(s): N17.9 - Acute kidney failure, unspecified (3) Acute and chronic respiratory failure with hypoxia: Improved. Continue current regimen as per medicine Status: Acute Code(s): J96.21 - Acute and chronic respiratory failure with hypoxia (4) Hypotension: Improved She appeared to be well compensated. Status: Acute Code(s): I95.9 - Hypotension, unspecified (5) CHF (congestive heart failure), NYHA class IV: Well compensated. Continue medicine Status: Acute Code(s): I50.9 - Heart failure, unspecified Attestations Medical Necessity Statement*: Patient awaiting halfway placement. I will sign off. Coding Level of Care Code Acute Manager Lpn for [facility] Diagnoses NSTEMI (non-ST elevated myocardial infarction) I21.4 Acute kidney injury N17.9 Acute and chronic respiratory failure with hypoxia J96.21 Hypotension I95.9 CHF (congestive heart failure), NYHA class IV I50.9
--- NOTE | 2019-08-19 19:47 | P.PN_ITS ---
Subjective Subjective: Interval history: Patient states that his blood her breathing has improved, but she still feels quite weak, wants 1 more day of physical therapy before she goes to the [facility], is diuresing well, no fevers, no chills, no nausea, no vomiting, no chest pain Vitals/I&O/Wt Last Vital Signs Temp 98.1 F 08/19/19 15:56 Pulse 63 08/19/19 19:25 Resp 18 08/19/19 19:18 BP 115/56 08/19/19 15:56 Pulse Ox 99 08/19/19 19:18 08/19/19 08/19/19 08/19/19 06:59 14:59 22:59 Intake Total 480 / 480 240 / 720 Output Total 1100 / 1100 Balance -620 / -620 240 / -380 Physical Exam Const: COMMON NORMALS: no apparent distress and oriented x3 EXAM LIMITATIONS: no altered mental status GENERAL APPEARANCE: cooperative, comfortable and well kempt Neck/C-Spine: COMMON NORMALS: no JVD Lymph: LYMPHATIC: no lymphadenopathy noted Chest: COMMONS NORMALS: inspection of chest normal (Sternotomy scar) Resp: COMMON NORMALS: normal respiratory effort, no retractions, no use of accessory muscles and clear to auscultation bilaterally AUSCULTATION: clear to auscultation bilaterally Cardio: COMMON NORMALS: no JVD, regular rate, regular rhythm, S1 normal heart sound, S2 normal heart sound and peripheral pulses 2+ throughout RATE: regular rate RHYTHM: regular rhythm HEART SOUNDS: S1 normal and S2 normal PERIPHERAL PULSES: pulses 2+ throughout GI: COMMON NORMALS: normal to inspection, nondistended, normoactive bowel sounds, soft to palpation, non-tender and no hepatosplenomegaly PALPATION: Yes soft and Yes no hepatosplenomegaly Neuro: COMMON NORMALS: oriented x3 Psych: APPEARANCE: Yes well kempt Skin: NARRATIVE SKIN EXAM: -Stage I sacral decubitus ulcer, in the gluteal cleft -Bilateral lower extremities, nonpitting edema, skin retraction Urinary Catheter Management^: Rao: Cath Placed During This Visit: no A&P Assessment and plan (1) Acute and chronic respiratory failure with hypoxia: Multifactorial secondary to COPD exacerbation, diastolic CHF exacerbation, atypical pneumonia -COPD, not oxygen dependent at home, using 2 L here, continues to smoke -Diastolic CHF, last echocardiogram on 01/27/2019 showed an ejection fraction of 55%, mild hypokinesis of left ventricle, BNP is 35,000 -Chest x-ray from [facility] shows bilateral groundglass opacities, concerning for atypical pneumonia given respiratory symptoms -Clinically improving, creatinine improving, diuresis 2250 Plan: -Telemetry monitoring -Doxycycline for atypical pneumonia, also on Rocephin for enterococcus UTI - 40 once daily starting tomorrow -DuoNebs every 4 scheduled, every 2 as needed -Lasix 40 in the morning, 20 in the evening -Awaiting [facility] placement Status: Acute Code(s): J96.21 - Acute and chronic respiratory failure with hypoxia (2) Diabetes mellitus type 2 in obese: -Continue Lantus 20 units in the morning -Low-dose sliding scale Status: Acute Code(s): E11.69 - Type 2 diabetes mellitus with other specified complication; E66.9 - Obesity, unspecified (3) NSTEMI (non-ST elevated myocardial infarction): -Troponins from [facility] show baseline troponin of 186, 2-hour of 136, negative delta of 26 -EKG does show new T wave inversions V1 to V2 compared to EKGs here -No active chest pain -Does have a history of CABG x2 for CAD on 12/27/2018 -Likely supply demand ischemia from acute respiratory failure as above Plan: -Troponins elevated, 6-hour 333 with a delta of 86.3 -Echocardiogram today shows Moderately decreased left ventricular systolic function. Left ventricular ejection fraction is estimated at 40 %. There appeared to be basal to distal anterior septal and apical wall akinesis suggestive of LAD lesion. Grade II/IV diastolic dysfunction, moderately elevated filling pressures. -Aspirin, statin, Plavix, Coreg -Monitor for chest pain -Nitro for chest pain -Cardiology on consult Status: Acute Code(s): I21.4 - Non-ST elevation (NSTEMI) myocardial infarction (4) Acute kidney injury: Acute kidney injury on chronic kidney disease stage III -Patient's baseline creatinine is 1.1-1.2 -Creatinine 1.2 -Likely related to Lasix, cardiorenal syndrome Plan: -Nephrology on consult, monitor kidney function Status: Acute Code(s): N17.9 - Acute kidney failure, unspecified (5) CAD (coronary artery disease): CAD status post CABG x2 Status: Acute Code(s): I25.10 - Atherosclerotic heart disease of [place] coronary artery without angina pectoris (6) Swelling of both lower extremities: Ultrasound bilateral lower extremities negative for DVT Status: Acute Code(s): M79.89 - Other specified soft tissue disorders (7) UTI (urinary tract infection): -Has a history of E. coli, Enterococcus faecalis UTI, sensitive to penicillins -on Rocephin Status: Acute Code(s): N39.0 - Urinary tract infection, site not specified (8) Sacral decubitus ulcer, stage II: -Repositioning Status: Acute Code(s): L89.152 - Pressure ulcer of sacral region, stage 2 (9) Physical deconditioning: PT OT Status: Acute Code(s): R53.81 - Other malaise (10) Hyperkalemia: -Received insulin, nebulizers, calcium gluconate, resistant hyperkalemia -Nephrology on consult -Currently on Kayexalate, potassium down to 5.1 -No EKG changes, asymptomatic Plan: -Continue Kayexalate, monitor potassium Status: Acute Code(s): E87.5 - Hyperkalemia (11) CHF (congestive heart failure), NYHA class IV: Status: Acute Code(s): I50.9 - Heart failure, unspecified Attestations Medical Necessity Statement*: Patient requires continued hospitalization due to acute respiratory failure, troponin elevation, generalized weakness Coding Level of Care Code Acute Cinder Block Mason for g Fwd Diagnoses Acute and chronic respiratory failure with hypoxia J96.21 Diabetes mellitus type 2 in obese E11.69; E66.9 NSTEMI (non-ST elevated myocardial infarction) I21.4 Acute kidney injury N17.9 CAD (coronary artery disease) I25.10 Swelling of both lower extremities M79.89 UTI (urinary tract infection) N39.0 Sacral decubitus ulcer, stage II L89.152 Physical deconditioning R53.81 Hyperkalemia E87.5 CHF (congestive heart failure), NYHA class IV I50.9
[2019-08-19 21:34] LABS: Glucose Point of Care 244 mg/dL (70-110)
[2019-08-19] MEDS: atorvastatin 40 mg Tablet PO (21:45)
[2019-08-19] MEDS: cefTRIAXone 1,000 MG in sodium chloride 0.9% (plus) 50 ML 100 MG IV (21:46)
[2019-08-20] VITALS (10 sets, daily range): BP systolic 106–142; BP diastolic 54–103; PULSE 58–105; RESP 12–24; TEMP 36.3–36.8; O2SAT 95–100
--- NOTE | 2019-08-20 00:27 | PC.NURSE ---
Patient was administered a [place] 5 at 2143 and an hour later called out asking for another pain pill. Patient was educated that her medication is every 4 hours. patient verbal understanding. Patient called out again at 0025 asking where is my pain pill ? Patient was educated that her pain pill was given to her at 2142 was due again 4 hours after that and that was at approximately 0200. Patient verbalized understanding.
[2019-08-20] MEDS: HYDROcodone-acetaminophen 5-325 mg Tablet 1 TAB PO ×5 (02:36→22:32)
[2019-08-20 04:09] LABS: Eosinophils % 0.2 %; Hematocrit 30.5 % (37.0-47.0); Hemoglobin 9.4 g/dL (11.5-15.3); Lymphocytes # 1.1 10^3/uL (0.8-4.8); Lymphocytes % 20.5 %; Mean Corpuscular HGB Conc 30.8 g/dL (30.0-36.0); Mean Corpuscular Volume 103.7 fL (81-99); Monocytes # 0.6 10^3/uL (0.2-0.9); Monocytes % 11.4 %; Neutrophils # 3.6 10^3/uL (1.8-7.7); Neutrophils % 67.7 %; Nucleated Red Blood Cells % 0 %; Platelet Count 242 10^3/cmm (130-400); Red Blood Count 2.94 10^6/uL (4.1-5.3); Red Cell Distribution Width 16.3 % (12.1-15.1); White Blood Count 5.3 10^3/uL (4.0-10.0)
[2019-08-20 04:33] LABS: Alanine Aminotransferase 17 U/L (0-33); Albumin Level 2.3 g/dL (3.5-5.2); Alkaline Phosphatase 357 IU/L (35-105); Anion Gap 12.1 (5-19); Aspartate Amino Transferase 20 U/L (0-32); Blood Urea Nitrogen 50 mg/dL (6-20); Carbon Dioxide 27 mmol/L (22-29); Chloride 102 mmol/L (98-107); Globulin 4.1 g/dL (1.3-4.6); Glucose 161 mg/dL (74-109); Magnesium 2.3 mg/dL (1.7-2.3); Phosphorus 3.2 mg/dL (2.5-4.5); Potassium 4.1 mmol/L (3.5-5.1); Sodium 137 mmol/L (136-145); Total Bilirubin 0.3 mg/dL (0.15-1.2); Total Protein 6.4 g/dL (6.6-8.7)
[2019-08-20 08:00] LABS: Glucose Point of Care 144 mg/dL (70-110)
[2019-08-20] MEDS: pantoprazole DR 40 mg Tablet PO (08:38)
[2019-08-20] MEDS: predniSONE 20 mg Tablet 40 MG PO (08:38)
[2019-08-20] MEDS: isosorbide mononitrate 20 mg Tablet 10 MG PO ×2 (08:39→18:26)
[2019-08-20] MEDS: FUROsemide 40 mg Tablet PO (08:39)
[2019-08-20] MEDS: carvedilol 3.125 mg Tablet PO ×2 (08:39→18:25)
[2019-08-20] MEDS: doxycycline 100 mg Tablet PO ×2 (08:39→18:25)
[2019-08-20] MEDS: clopidogrel 75 mg Tablet PO (08:39)
[2019-08-20] MEDS: aspirin 81 mg EC Tablet PO (08:39)
[2019-08-20] MEDS: insulin glargine 100 units/1 mL 20 UNIT SUBCUT (08:40)
[2019-08-20 11:51] LABS: Glucose Point of Care 184 mg/dL (70-110)
[2019-08-20] MEDS: ipratropium-albuterol 3 mL Neb INHALATION (15:32)
--- NOTE | 2019-08-20 17:21 | P.PN_ITS ---
Subjective Subjective: Interval history: Patient is ready to discharge today, however due to insurance issues,we are having issues in terms of placement, patient has no complaints this morning, states her breathing has improved, no chest pain, no shortness of breath, no lightheadedness, no dizziness Vitals/I&O/Wt Last Vital Signs Temp 97.8 F 08/20/19 15:50 Pulse 61 08/20/19 15:50 Resp 21 H 08/20/19 15:50 BP 106/54 08/20/19 15:50 Pulse Ox 100 08/20/19 15:50 08/20/19 08/20/19 08/20/19 06:59 14:59 22:59 Intake Total 150 / 870 480 / 480 Output Total 650 / 3150 800 / 800 100 / 900 Balance -500 / -2280 -320 / -320 -100 / -420 Physical Exam Const: COMMON NORMALS: no apparent distress and oriented x3 EXAM LIMITATIONS: no altered mental status Neck/C-Spine: COMMON NORMALS: no JVD Chest: COMMONS NORMALS: inspection of chest normal (Sternotomy scar) Resp: COMMON NORMALS: normal respiratory effort, no retractions, no use of accessory muscles and clear to auscultation bilaterally AUSCULTATION: clear t o auscultation bilaterally Cardio: COMMON NORMALS: no JVD, regular rate, regular rhythm, S1 normal heart sound, S2 normal heart sound and peripheral pulses 2+ throughout RATE: regular rate RHYTHM: regular rhythm HEART SOUNDS: S1 normal and S2 normal PERIPHERAL PULSES: pulses 2+ throughout GI: COMMON NORMALS: normal to inspection, nondistended, normoactive bowel sounds, soft to palpation, non-tender and no hepatosplenomegaly PALPATION: Yes soft and Yes no hepatosplenomegaly Neuro: COMMON NORMALS: oriented x3 Skin: NARRATIVE SKIN EXAM: -Stage I sacral decubitus ulcer, in the gluteal c left -Bilateral lower extremities, nonpitting edema, skin retraction Urinary Catheter Management^: Rao: Cath Placed During This Visit: no Data Micro: Micro: Microbiology 08/14/19 20:33 Blood Culture - Fi nal Blood NO GROWTH AFTER 5 DAYS 08/14/19 20:30 Blood Culture - Fi nal Blood NO GROWTH AFTER 5 DAYS A&P Assessment and plan (1) Acute and chronic respiratory failure with hypoxia: Multifactorial secondary to COPD exacerbation, diastolic CHF exacerbation, atypical pneumonia -COPD, not oxygen dependent at home, using 2 L here, continues to smoke -Diastolic CHF, last echocardiogram on 01/27/2019 showed an ejection fraction of 55%, mild hypokinesis of left ventricle, BNP is 35,000 -Chest x-ray from [facility] shows bilateral groundglass opacities, concerning for atypical pneumonia given respiratory symptoms -Clinically improving, creatinine improving, diuresis 2250 Plan: -Telemetry monitoring -Doxycycline for atypical pneumonia, also on Rocephin for enterococcus UTI - 40 once daily starting tomorrow -DuoNebs every 4 scheduled, every 2 as needed -Lasix 40 in the morning, 20 in the evening -Awaiting long term placement Status: Acute Code(s): J96.21 - Acute and chronic respiratory failure with hypoxia (2) Diabetes mellitus type 2 in obese: -Continue Lantus 20 units in the morning -Low-dose sliding scale Status: Acute Code(s): E11.69 - Type 2 diabetes mellitus with other specified complication; E66.9 - Obesity, unspecified (3) NSTEMI (non-ST elevated myocardial infarction): -Troponins from [facility] show baseline troponin of 186, 2-hour of 136, negative delta of 26 -EKG does show new T wave inversions V1 to V2 compared to EKGs here -No active chest pain -Does have a history of CABG x2 for CAD on 12/27/2018 -Likely supply demand ischemia from acute respiratory failure as above Plan: -Troponins elevated, 6-hour 333 with a delta of 86.3 -Echocardiogram today shows Moderately decreased left ventricular systolic function. Left ventricular ejection fraction is estimated at 40 %. There appeared to be basal to distal anterior septal and apical wall akinesis suggestive of LAD lesion. Grade II/IV diastolic dysfunction, moderately elevated filling pressures. -Aspirin, statin, Plavix, Coreg -Monitor for chest pain -Nitro for chest pain -Cardiology on consult Status: Acute Code(s): I21.4 - Non-ST elevation (NSTEMI) myocardial infarction (4) Acute kidney injury: Acute kidney injury on chronic kidney disease stage III -Patient's baseline creatinine is 1.1-1.2 -Creatinine 1.2 -Likely related to Lasix, cardiorenal syndrome Plan: -Nephrology on consult, monitor kidney function Status: Acute Code(s): N17.9 - Acute kidney failure, unspecified (5) CAD (coronary artery disease): CAD status post CABG x2 Status: Acute Code(s): I25.10 - Atherosclerotic heart disease of [place] coronary artery without angina pectoris (6) Swelling of both lower extremities: Ultrasound bilateral lower extremities negative for DVT Status: Acute Code(s): M79.89 - Other specified soft tissue disorders (7) UTI (urinary tract infection): -Has a history of E. coli, Enterococcus faecalis UTI, sensitive to penici llins -on Rocephin Status: Acute Code(s): N39.0 - Urinary tract infection, site not specified (8) Sacral decubitus ulcer, stage II: -Repositioning Status: Acute Code(s): L89.152 - Pressure ulcer of sacral region, stage 2 (9) Physical deconditioning: PT OT Status: Acute Code(s): R53.81 - Other malaise (10) Hyperkalemia: -Received insulin, nebulizers, calcium gluconate, resistant hyperkalemia -Nephrology on consult -Currently on Kayexalate, potassium down to 5.1 -No EKG changes, asymptomatic Plan: -Continue Kayexalate, monitor potassium Status: Acute Code(s): E87.5 - Hyperkalemia (11) CHF (congestive heart failure), NYHA class IV: Status: Acute Code(s): I50.9 - Heart failure, unspecified Attestations Medical Necessity Statement*: Patient requires continued hospitalization due to acute respiratory failure, awaiting long term placement Coding Level of Care Code Acute Returns Supervisor for [facility] Fwd Diagnoses Acute and chronic respiratory failure with hypoxia J96.21 Diabetes mellitus type 2 in obese E11.69; E66.9 NSTEMI (non-ST elevated myocardial infarction) I21.4 Acute kidney injury N17.9 CAD (coronary artery disease) I25.10 Swelling of both lower extremities M79.89 UTI (urinary tract infection) N39.0 Sacral decubitus ulcer, stage II L89.152 Physical deconditioning R53.81 Hyperkalemia E87.5 CHF (congestive heart failure), NYHA class IV I50.9
[2019-08-20] MEDS: FUROsemide 20 mg Tablet PO (18:24)
[2019-08-20] MEDS: atorvastatin 40 mg Tablet PO (20:21)
[2019-08-20] MEDS: cefTRIAXone 1,000 MG in sodium chloride 0.9% (plus) 50 ML 100 MG IV (20:22)
[2019-08-20 20:49] LABS: Glucose Point of Care 215 mg/dL (70-110)
[2019-08-21] VITALS (9 sets, daily range): BP systolic 103–128; BP diastolic 47–68; PULSE 59–82; RESP 16–20; TEMP 36.5–36.8; O2SAT 94–100
[2019-08-21] MEDS: HYDROcodone-acetaminophen 5-325 mg Tablet 1 TAB PO ×5 (02:47→21:50)
[2019-08-21 07:35] LABS: Glucose Point of Care 160 mg/dL (70-110)
[2019-08-21] MEDS: FUROsemide 40 mg Tablet PO (09:07)
[2019-08-21] MEDS: doxycycline 100 mg Tablet PO ×2 (09:07→17:51)
[2019-08-21] MEDS: pantoprazole DR 40 mg Tablet PO (09:07)
[2019-08-21] MEDS: carvedilol 3.125 mg Tablet PO ×2 (09:07→17:52)
[2019-08-21] MEDS: clopidogrel 75 mg Tablet PO (09:07)
[2019-08-21] MEDS: aspirin 81 mg EC Tablet PO (09:08)
[2019-08-21] MEDS: predniSONE 20 mg Tablet 40 MG PO (09:08)
[2019-08-21] MEDS: isosorbide mononitrate 20 mg Tablet 10 MG PO ×2 (09:08→17:51)
[2019-08-21] MEDS: insulin glargine 100 units/1 mL 20 UNIT SUBCUT (09:09)
--- NOTE | 2019-08-21 09:52 | PC.OT ---
OT tx attempted. Pt is agreeable to take a sponge bath with therapist, but requests to do it later this afternoon. Therapist to return after lunch for tx.
[2019-08-21 11:58] LABS: Glucose Point of Care 263 mg/dL (70-110)
--- NOTE | 2019-08-21 15:24 | PM.PN ---
Subjective Subjective: Interval history: Patient had just no complaints today, her breathing has significantly improved, Rao catheter was removed yesterday We are waiting for prior Auth for assisted placement Vitals/I&O/Wt Last Vital Signs Temp 98.3 F 08/21/19 11:12 Pulse 82 08/21/19 11:12 Resp 17 08/21/19 11:12 BP 128/68 08/21/19 11:12 Pulse Ox 94 08/21/19 11:12 08/21/19 08/21/19 08/21/19 06:59 14:59 22:59 Intake Total 500 / 1230 Balance 500 / -220 Physical Exam Const: COMMON NORMALS: no apparent distress and oriented x3 EXAM LIMITATIONS: no altered mental status GENERAL APPEARANCE: cooperative, comfortable and well kempt HENMT: COMMON NORMALS: normocephalic HEAD & SCALP: normocephalic Neck/C-Spine: COMMON NORMALS: no JVD Lymph: LYMPHATIC: no lymphadenopathy noted Chest: COMMONS NORMALS: inspection of chest normal (Sternotomy scar) Resp: COMMON NORMALS: normal respiratory effort, no retractions, no use of accessory muscles and clear to auscultation bilaterally AUSCULTATION: clear to auscultation bilaterally Cardio: COMMON NORMALS: no JVD, regular rate, regular rhythm, S1 normal heart sound, S2 normal heart sound and peripheral pulses 2+ throughout RATE: regular rate RHYTHM: regular rhythm HEART SOUNDS: S1 normal and S2 normal PERIPHERAL PULSES: pulses 2+ throughout GI: COMMON NORMALS: normal to inspection, nondistended, normoactive bowel sounds, soft to palpation, non-tender and no hepatosplenomegaly PALPATION: Yes soft and Yes no hepatosplenomegaly Extremity: COMMON NORMALS: normal capillary refill Neuro: COMMON NORMALS: oriented x3 Psych: COMMON NORMALS: mental status grossly normal APPEARANCE: Yes well kempt Skin: NARRATIVE SKIN EXAM: -Stage I sacral decubitus ulcer, in the gluteal cleft -Bilateral lower extremities, nonpitting edema, skin retraction Urinary Catheter Management^: Rao: Cath Placed During This Visit: no A&P Assessment and plan (1) Acute and chronic respiratory failure with hypoxia: Multifactorial secondary to COPD exacerbation, diastolic CHF exacerbation, atypical pneumonia -COPD, not oxygen dependent at home, using 2 L here, continues to smoke -Diastolic CHF, last echocardiogram on 01/27/2019 showed an ejection fraction of 55%, mild hypokinesis of left ventricle, BNP is 35,000 -Chest x-ray from [facility] shows bilateral groundglass opacities, concerning for atypical pneumonia given respiratory symptoms -Clinically improving, creatinine improving, diuresis 2250 Plan: -Telemetry monitoring -Doxycycline for atypical pneumonia, also on Rocephin for enterococcus UTI - 40 once daily starting tomorrow -DuoNebs every 4 scheduled, every 2 as needed -Lasix 40 in the morning, 20 in the evening -Awaiting assisted placement Status: Acute Code(s): J96.21 - Acute and chronic respiratory failure with hypoxia (2) Diabetes mellitus type 2 in obese: -Continue Lantus 20 units in the morning -Low-dose sliding scale Status: Acute Code(s): E11.69 - Type 2 diabetes mellitus with other specified complication; E66.9 - Obesity, unspecified (3) NSTEMI (non-ST elevated myocardial infarction): -Troponins from [facility] show baseline troponin of 186, 2-hour of 136, negative delta of 26 -EKG does show new T wave inversions V1 to V2 compared to EKGs here -No active chest pain -Does have a history of CABG x2 for CAD on 12/27/2018 -Likely supply demand ischemia from acute respiratory failure as above Plan: -Troponins elevated, 6-hour 333 with a delta of 86.3 -Echocardiogram today shows Moderately decreased left ventricular systolic function. Left ventricular ejection fraction is estimated at 40 %. There appeared to be basal to distal anterior septal and apical wall akinesis suggestive of LAD lesion. Grade II/IV diastolic dysfunction, moderately elevated filling pressures. -Aspirin, statin, Plavix, Coreg -Monitor for chest pain -Nitro for chest pain -Cardiology on consult Status: Acute Code(s): I21.4 - Non-ST elevation (NSTEMI) myocardial infarction (4) Acute kidney injury: Acute kidney injury on chronic kidney disease stage III -Patient's baseline creatinine is 1.1-1.2 -Creatinine 1.2 -Likely related to Lasix, cardiorenal syndrome Plan: -Nephrology on consult, monitor kidney function Status: Acute Code(s): N17.9 - Acute kidney failure, unspecified (5) CAD (coronary artery disease): CAD status post CABG x2 Status: Acute Code(s): I25.10 - Atherosclerotic heart disease of [place] coronary artery without angina pectoris (6) Swelling of both lower extremities: Ultrasound bilateral lower extremities negative for DVT Status: Acute Code(s): M79.89 - Other specified soft tissue disorders (7) UTI (urinary tract infection): -Has a history of E. coli, Enterococcus faecalis UTI, sensitive to penicillins -on Rocephin Status: Acute Code(s): N39.0 - Urinary tract infection, site not specified (8) Sacral decubitus ulcer, stage II: -Repositioning Status: Acute Code(s): L89.152 - Pressure ulcer of sacral region, stage 2 (9) Physical deconditioning: PT OT Status: Acute Code(s): R53.81 - Other malaise (10) Hyperkalemia: -Received insulin, nebulizers, calcium gluconate, resistant hyperkalemia -Nephrology on consult -Currently on Kayexalate, potassium down to 5.1 -No EKG changes, asymptomatic Plan: -Continue Kayexalate, monitor potassium Status: Acute Code(s): E87.5 - Hyperkalemia (11) CHF (congestive heart failure), NYHA class IV: Status: Acute Code(s): I50.9 - Heart failure, unspecified Attestations Medical Necessity Statement*: She requires continued hospitalization for acute respiratory failure, awaiting assisted placement Coding Level of Care Code Acute Tobacco Grader for [facility] Fwd Diagnoses Acute and chronic respiratory failure with hypoxia J96.21 Diabetes mellitus type 2 in obese E11.69; E66.9 NSTEMI (non-ST elevated myocardial infarction) I21.4 Acute kidney injury N17.9 CAD (coronary artery disease) I25.10 Swelling of both lower extremities M79.89 UTI (urinary tract infection) N39.0 Sacral decubitus ulcer, stage II L89.152 Physical deconditioning R53.81 Hyperkalemia E87.5 CHF (congestive heart failure), NYHA class IV I50.9
[2019-08-21] MEDS: FUROsemide 20 mg Tablet PO (16:49)
[2019-08-21 17:01] LABS: Glucose Point of Care 143 mg/dL (70-110)
[2019-08-21 20:30] LABS: Glucose Point of Care 260 mg/dL (70-110)
[2019-08-21] MEDS: atorvastatin 40 mg Tablet PO (21:50)
[2019-08-22] VITALS (7 sets, daily range): BP systolic 112–131; BP diastolic 57–68; PULSE 53–66; RESP 10–18; TEMP 36.4–37.1; O2SAT 96–100
[2019-08-22 03:33] LABS: Basophils % 0.2 %; Eosinophils % 0.3 %; Hematocrit 32.2 % (37.0-47.0); Lymphocytes # 1.5 10^3/uL (0.8-4.8); Lymphocytes % 24.5 %; Mean Corpuscular HGB Conc 31.1 g/dL (30.0-36.0); Mean Corpuscular Hemoglobin 33.3 pg (28.0-34.0); Mean Corpuscular Volume 107.3 fL (81-99); Monocytes # 0.6 10^3/uL (0.2-0.9); Monocytes % 10.6 %; Neutrophils # 3.8 10^3/uL (1.8-7.7); Neutrophils % 64.1 %; Nucleated Red Blood Cells % 0 %; Platelet Count 233 10^3/cmm (130-400); Red Cell Distribution Width 16.1 % (12.1-15.1)
[2019-08-22] MEDS: HYDROcodone-acetaminophen 5-325 mg Tablet 1 TAB PO ×4 (03:42→19:21)
[2019-08-22 04:09] LABS: Alanine Aminotransferase 16 U/L (0-33); Albumin Level 2.4 g/dL (3.5-5.2); Alkaline Phosphatase 287 IU/L (35-105); Anion Gap 13.9 (5-19); Aspartate Amino Transferase 23 U/L (0-32); Blood Urea Nitrogen 44 mg/dL (6-20); Calcium 9.1 mg/Dl (8.6-10.0); Carbon Dioxide 26 mmol/L (22-29); Chloride 102 mmol/L (98-107); Globulin 3.2 g/dL (1.3-4.6); Glomerular Filtration Rate 56.7 mL/min (90-130); Glucose 230 mg/dL (74-109); Potassium 3.9 mmol/L (3.5-5.1); Sodium 138 mmol/L (136-145); Total Bilirubin 0.4 mg/dL (0.15-1.2); Total Protein 5.6 g/dL (6.6-8.7)
[2019-08-22 07:46] LABS: Glucose Point of Care 242 mg/dL (70-110)
[2019-08-22] MEDS: insulin glargine 100 units/1 mL 20 UNIT SUBCUT (09:03)
[2019-08-22] MEDS: predniSONE 20 mg Tablet 30 MG PO (09:04)
[2019-08-22] MEDS: isosorbide mononitrate 20 mg Tablet 10 MG PO ×2 (09:04→17:31)
[2019-08-22] MEDS: pantoprazole DR 40 mg Tablet PO (09:04)
[2019-08-22] MEDS: aspirin 81 mg EC Tablet PO (09:05)
[2019-08-22] MEDS: doxycycline 100 mg Tablet PO ×2 (09:05→17:32)
[2019-08-22] MEDS: clopidogrel 75 mg Tablet PO (09:05)
[2019-08-22] MEDS: carvedilol 3.125 mg Tablet PO ×2 (09:05→17:32)
[2019-08-22] MEDS: FUROsemide 40 mg Tablet PO (09:05)
[2019-08-22 11:29] LABS: Glucose Point of Care 278 mg/dL (70-110)
[2019-08-22] MEDS: FUROsemide 20 mg Tablet 60 MG PO (15:52)
--- NOTE | 2019-08-22 16:26 | PM.PN ---
Subjective Subjective: Interval history: Danyelle reports she is doing okay. She has no specific concerns. She states her breathing is at baseline. She is agreeable to going to skilled care. Medications: Reviewed: Yes Vitals/I&O/Wt Last Vital Signs Temp 98.7 F 08/22/19 16:00 Pulse 66 08/22/19 16:00 Resp 12 08/22/19 16:00 BP 116/62 08/22/19 16:00 Pulse Ox 96 08/22/19 16:00 08/22/19 08/22/19 08/22/19 06:59 14:59 22:59 Intake Total 230 / 590 720 / 720 Output Total 500 / 500 Balance -270 / 90 719 / 719 Physical Exam Narrative: EXAM NARRATIVE: General exam no apparent distress Cardiovascular lungs clear but with diminished breath sounds bilaterally Abdomen is soft, positive bowel sounds Extremities with 2+ to 3+ edema bilaterally Urinary Catheter Management^: Rao: Cath Placed During This Visit: no A&P Assessment and plan (1) Acute and chronic respiratory failure with hypoxia: Secondary to COPD exacerbation, acute as well as diastolic heart failure exacerbation On Lasix, nebs, doxycycline and Rocephin Status: Acute Code(s): J96.21 - Acute and chronic respiratory failure with hypoxia (2) Diabetes mellitus type 2 in obese: Stable on current regimen Status: Acute Code(s): E11.69 - Type 2 diabetes mellitus with other specified complication; E66.9 - Obesity, unspecified (3) NSTEMI (non-ST elevated myocardial infarction): Continue aspirin, statin, Plavix, carvedilol. Cardiology is consulted. No intervention is planned. Past history of coronary disease. Status: Acute Code(s): I21.4 - Non-ST elevation (NSTEMI) myocardial infarction (4) Acute kidney injury: Stage III chronic renal disease. Overall creatinine improved and stable. Status: Acute Code(s): N17.9 - Acute kidney failure, unspecified (5) CAD (coronary artery disease): CAD status post CABG x2 Status: Acute Code(s): I25.10 - Atherosclerotic heart disease of [place] coronary artery without angina pectoris (6) Swelling of both lower extremities: Venous duplex negative Status: Acute Code(s): M79.89 - Other specified soft tissue disorders (7) UTI (urinary tract infection): On Rocephin currently Status: Acute Code(s): N39.0 - Urinary tract infection, site not specified (8) Sacral decubitus ulcer, stage II: Frequent position changes recommendation Status: Acute Code(s): L89.152 - Pressure ulcer of sacral region, stage 2 (9) Physical deconditioning: PT OT Status: Acute Code(s): R53.81 - Other malaise (10) Hyperkalemia: Potassium improved Status: Acute Code(s): E87.5 - Hyperkalemia (11) CHF (congestive heart failure), NYHA class IV: Increase Lasix. 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
[2019-08-22 16:31] LABS: Glucose Point of Care 295 mg/dL (70-110)
--- NOTE | 2019-08-22 19:24 | PC.NURSE ---
Sitting up in chair. Refuses to elevate BLE. Complaining of pain to BLE. PRN pain medication given. Will monitor.
[2019-08-22] MEDS: atorvastatin 40 mg Tablet PO (20:26)
[2019-08-22 20:40] LABS: Glucose Point of Care 331 mg/dL (70-110)
[2019-08-23 03:47] VITALS: BP 126/68; PULSE 57; RESP 18; TEMP 36.4; O2SAT 99
[2019-08-23] MEDS: HYDROcodone-acetaminophen 5-325 mg Tablet 1 TAB PO ×3 (03:52→15:04)
[2019-08-23 05:43] LABS: Alanine Aminotransferase 18 U/L (0-33); Albumin Level 2.5 g/dL (3.5-5.2); Alkaline Phosphatase 311 IU/L (35-105); Aspartate Amino Transferase 23 U/L (0-32); Blood Urea Nitrogen 39 mg/dL (6-20); Calcium 9.2 mg/Dl (8.6-10.0); Carbon Dioxide 30 mmol/L (22-29); Chloride 104 mmol/L (98-107); Glomerular Filtration Rate 56.7 mL/min (90-130); Glucose 198 mg/dL (74-109); Sodium 142 mmol/L (136-145); Total Bilirubin 0.4 mg/dL (0.15-1.2); Total Protein 6.5 g/dL (6.6-8.7)
[2019-08-23 07:24] LABS: Glucose Point of Care 180 mg/dL (70-110)
[2019-08-23 07:33] VITALS: BP 127/70; PULSE 56; RESP 20; TEMP 36.7; O2SAT 99
[2019-08-23 09:06] VITALS: PULSE 72
[2019-08-23] MEDS: FUROsemide 40 mg Tablet 60 MG PO (09:39)
[2019-08-23] MEDS: carvedilol 3.125 mg Tablet PO (09:40)
[2019-08-23] MEDS: pantoprazole DR 40 mg Tablet PO (09:40)
[2019-08-23] MEDS: doxycycline 100 mg Tablet PO (09:40)
[2019-08-23] MEDS: aspirin 81 mg EC Tablet PO (09:40)
[2019-08-23] MEDS: insulin glargine 100 units/1 mL 20 UNIT SUBCUT (09:41)
[2019-08-23] MEDS: clopidogrel 75 mg Tablet PO (09:41)
[2019-08-23] MEDS: predniSONE 20 mg Tablet 30 MG PO (09:43)
[2019-08-23] MEDS: isosorbide mononitrate 20 mg Tablet 10 MG PO (09:43)
[2019-08-23 11:09] VITALS: BP 116/53; PULSE 62; RESP 18; TEMP 36.7; O2SAT 99
[2019-08-23 11:27] LABS: Glucose Point of Care 257 mg/dL (70-110)
--- NOTE | 2019-08-23 13:33 | PM.DCS ---
Discharge Providers Date of Admission: 08/14/19 17:36 Date of Discharge: 08/23/19 Attending Provider at Admission: Zeke Mcdermott MD Attending Provider at Discharge: Anup Kahn MD Primary Care Provider: Bhavik Richter Diagnoses at Discharge Discharge Diagnosis (1) Acute and chronic respiratory failure with hypoxia: Status: Acute Problem details: Improved (2) Diabetes mellitus type 2 in obese: Status: Acute Problem details: Stable (3) NSTEMI (non-ST elevated myocardial infarction): Status: Acute Problem details: Maximum medical treatment with nitrate, aspirin, Plavix, statin, beta-hermelindo (4) Acute kidney injury: Status: Acute Problem details: Significantly improved (5) CAD (coronary artery disease): Status: Acute Problem details: Stable currently (6) Swelling of both lower extremities: Status: Acute Problem details: Chronic and unchanged. To continue Lasix 60 mg twice daily. Dose is increased slightly. Repeat BMP 3 days. (7) UTI (urinary tract infection): Status: Acute Problem details: Ultimately grew 2 organisms thought to be contamination (8) Sacral decubitus ulcer, stage II: Status: Acute (9) Physical deconditioning: Status: Acute Problem details: To go to skilled care (10) Hyperkalemia: Status: Acute Problem details: Resolved (11) CHF (congestive heart failure), NYHA class IV: Status: Acute Problem details: Compensation improved Reason for Visit Reason for Visit: Reason For Visit: cp Hospital Course Hospital Course: Patient initially presented to the hospital with chest pain. Troponin was elevated. Delta was significant. Renal failure was evident on laboratory as well as hyperkalemia. Statin was continued. Beta-hermelindo continued. Aspirin and Plavix continued. Nephrology was consulted. Renal function was followed closely with medication adjustments, which were well-tolerated. Diuresis occurred secondary to heart failure. By August 23 she was stable on room air. She had been transitioned to oral Lasix. She will complete 7 more days of doxycycline as an outpatient. Physical Exam Narrative: EXAM NARRATIVE: General exam no apparent distress Cardiovascular regular in rhythm Lungs diminished breath sounds at the bases Abdomen is soft, positive bowel sounds Extremities 2+ edema below knees, chronic and unchanged Urinary Catheter Management^: Rao: Cath Placed During This Visit: no Discharge Data Data Completed and Pending: Completed Studies During Hospitalization Category Date Time Status XR chest 1V tammy ble [id number] Stat Exams 08/14/19 19:53 Completed CV echo complete* [id number] Stat Ultrasound 08/15/19 07:22 [place] [id number] Routin e Ultrasound 08/15/19 20:24 Completed US kidney bilater al [US renal BI* 7 6770] Routine Ultrasound 08/15/19 09:10 Completed Pending at discharge Category Date Time Status Comprehensive Met abolic Panel AM LA BS Lab 08/24/19 04:00 Ordered Sputum Culture an d Gram Stain Stat Lab 08/14/19 19:53 Uncollected Labs from last 24 hours 08/23/19 08/23/19 08/23/19 11:08 07:05 05:05 Sodium 142 Potassium 4.0 Chloride 104 Carbon Dioxide 30 H Anion Gap 12.0 BUN 39 H Creatinine 1.0 H GFR Calculation 56.7 L Glucose 198 H POC Glucose 257 180 Calcium 9.2 Total Bilirubin 0.4 AST 23 ALT 18 Alkaline Phosphata se 311 H Total Protein 6.5 L Albumin 2.5 L Globulin 4.0 08/22/19 08/22/19 20:32 16:12 Sodium Potassium Chloride Carbon Dioxide Anion Gap BUN Creatinine GFR Calculation Glucose POC Glucose 331 295 Calcium Total Bilirubin AST ALT Alkaline Phosphata se Total Protein Albumin Globulin Vitals: Last Vital Signs Temp 98.0 F 08/23/19 11:09 Pulse 62 08/23/19 11:09 Resp 18 08/23/19 11:09 BP 116/53 08/23/19 11:09 Pulse Ox 99 08/23/19 11:09 Discharge Plan Discharge Patient Disposition: Xfer SNF Condition: Stable Prescriptions: New aspirin 81 mg Tablet,Delayed Release (Dr/Ec) 81 mg PO DAILY Qty: 30 RF: 0 prednisone 20 mg Tablet 30 mg PO DAILY Qty: 3 RF: 0 ipratropium-albuterol 0.5 mg-3 mg(2.5 mg base)/3 mL solution for nebulization 3 ml INHALATION QID Qty: 180 RF: 0 atorvastatin 40 mg Tablet 40 mg PO BEDTIME Qty: 30 RF: 0 doxycycline monohydrate 100 mg Tablet 100 mg PO BID Qty: 14 RF: 0 carvedilol 3.125 mg Tablet 3.125 mg PO BID Qty: 60 RF: 0 isosorbide mononitrate 20 mg Tablet 10 mg PO BID Qty: 30 RF: 0 furosemide 40 mg Tablet 60 mg PO DAILY@0800 Qty: 30 RF: 0 furosemide 20 mg Tablet 60 mg PO DAILY@1600 Qty: 30 RF: 0 fluticasone propion-salmeterol [Advair Diskus] 250-50 mcg/dose blister with device 1 inh INHALATION BID Qty: 60 RF: 0 Continued clopidogrel 75 mg tablet 75 mg PO DAILY RF: 0 Lantus U-100 Insulin 100 unit/mL solution 20 unit SUBCUT BEDTIME RF: 0 docusate sodium 100 MG capsule 100 mg PO BID RF: 0 Neurontin 100 mg Capsule 100 mg PO TID RF: 0 hydrocodone-acetaminophen 10-325 mg Tablet 1 tab PO Q4H PRN (Reason: Pain) RF: 0 montelukast 10 mg Tablet 10 mg PO DAILY RF: 0 pantoprazole 40 mg Tablet,Delayed Release (Dr/Ec) 40 mg PO DAILY RF: 0 ropinirole 4 mg Tablet 4 mg PO TID RF: 0 Discontinued carvedilol 6.25 mg Tablet 6.25 mg PO BID RF: 0 cefuroxime axetil 250 mg tablet 250 mg PO BID RF: 0 metoclopramide HCl 10 mg Tablet 10 mg PO Q6H RF: 0 simvastatin 20 mg Tablet 20 mg PO QPM RF: 0 trazodone 50 mg Tablet 50 mg PO DAILY RF: 0 furosemide 40 mg Tablet 40 mg PO BID RF: 0 Discharge Orders: Discharge Order (Routine); Ordered 08/23/19 Ordered By: Anup Kahn Referrals: [facility] [Outside] (Follow-up with primary care provider at [facility] 3 to 5 days. BMP 3 days.) Discharge Diet: Diabetic Discharge Activity: Increase activity as tolerated Activity Restrictions/Additional Instructions: Take all medicine as prescribed. BMP in 3 days. Follow-up with primary care provider at alf facility 3 to 5 days. Discharge Attestations Time Spent in Discharge Care*: greater than 30 min Quality Metrics Clinical Quality Measures During this hospital stay, did patient experience: AMI Clinical Trial Participant: No Contraindication to aspirin (AMI): Aspirin given Contraindication to statin: Statin prescribed Coding Level of Care Code Acute Engine Lathe Set Up Operator Tool for g Fwd Diagnoses Acute and chronic respiratory failure with hypoxia J96.21 Diabetes mellitus type 2 in obese E11.69; E66.9 NSTEMI (non-ST elevated myocardial infarction) I21.4 Acute kidney injury N17.9 CAD (coronary artery disease) I25.10 Swelling of both lower extremities M79.89 UTI (urinary tract infection) N39.0 Sacral decubitus ulcer, stage II L89.152 Physical deconditioning R53.81 Hyperkalemia E87.5 CHF (congestive heart failure), NYHA class IV I50.9
[2019-08-23] MEDS: FUROsemide 20 mg Tablet 60 MG PO (15:04)
[2019-08-23 15:18] VITALS: O2SAT 98
[2019-08-23 16:06] VITALS: RESP 18; TEMP 36.7; O2SAT 99
== END 2019-08-23 16:52 | disposition home health service (06) | DRG 280 ==
PROVIDERS: Internal Medicine; Admitting Provider Family Medicine; Family Provider Physician Assistant Medical; PCP Physician Assistant Medical; Visit Provider Internal Medicine
DX: I21.4 Non-ST elevation (NSTEMI) myocardial infarction (principal); J96.21 Acute and chronic respiratory failure with hypoxia; I50.33 Acute on chronic diastolic (congestive) heart failure; J18.9 Pneumonia, unspecified organism; J44.1 Chronic obstructive pulmonary disease with (acute) exacerbation; N17.9 Acute kidney failure, unspecified; N39.0 Urinary tract infection, site not specified; I13.0 Hypertensive heart and chronic kidney disease with heart failure and stage 1 through stage 4 chronic kidney disease, or unspecified chronic kidney disease; E87.1 Hypo-osmolality and hyponatremia; E11.22 Type 2 diabetes mellitus with diabetic chronic kidney disease; N18.3 Chronic kidney disease, stage 3 (moderate); I25.10 Atherosclerotic heart disease of native coronary artery without angina pectoris; I95.9 Hypotension, unspecified; K21.9 Gastro-esophageal reflux disease without esophagitis; Z95.1 Presence of aortocoronary bypass graft; L89.152 Pressure ulcer of sacral region, stage 2; N18.9 Chronic kidney disease, unspecified; L98.499 Non-pressure chronic ulcer of skin of other sites with unspecified severity; F17.210 Nicotine dependence, cigarettes, uncomplicated; E66.9 Obesity, unspecified; Z68.28 Body mass index [BMI] 28.0-28.9, adult; B95.2 Enterococcus as the cause of diseases classified elsewhere; E87.5 Hyperkalemia; Z90.49 Acquired absence of other specified parts of digestive tract; Z90.721 Acquired absence of ovaries, unilateral; Z79.4 Long term (current) use of insulin; L89.301 Pressure ulcer of unspecified buttock, stage 1
CPT/HCPCS: 12345; 36415; 36416; 36600; 51702; 71045; 76770; 80048; 80053; 80061; 81003; 82607; 82728; 82746; 82803; 82962; 83540; 83550; 83735; 83880; 84100; 84300; 84484; 85007; 85025; 85027; 85045; 85610; 85730; 87040; 87077; 87086; 87186; 93005; 93306; 93970; 94640; 94664; 96372; 96375; 97110; 97116; 97162; 97166; 97530; 97535; J0610; J0696; J1644; J1815; J1940; J2270; J2930; J3490; J7050; J7512; Q3014

== ENCOUNTER 2019-09-06 10:40 | Outpatient (RCR) | payer BC, SELFPAY | END 2019-09-09 23:59 | disposition home or self-care (01) | LOC: WOUND 10:40 | PROVIDERS: Family Provider Physician Assistant Medical; PCP Physician Assistant Medical; Visit Provider Thoracic Surgery (Cardiothoracic Vascular Surgery) | DX: I96 Gangrene, not elsewhere classified (principal); L89.303 Pressure ulcer of unspecified buttock, stage 3 | CPT/HCPCS: 11042 ==

== ENCOUNTER 2019-10-04 09:59 | Outpatient (RCR) | payer BC, SELFPAY | END 2019-10-08 23:59 | disposition home or self-care (01) | LOC: WOUND 09:59 | PROVIDERS: Family Provider Physician Assistant Medical; PCP Physician Assistant Medical; Visit Provider Thoracic Surgery (Cardiothoracic Vascular Surgery) | DX: I96 Gangrene, not elsewhere classified (principal); L89.153 Pressure ulcer of sacral region, stage 3 | CPT/HCPCS: 11042; A6446 ==

== ENCOUNTER 2019-10-25 10:23 | Outpatient (CLI) | payer BC, SELFPAY | END 2019-10-25 10:24 | disposition home or self-care (01) | LOC: LAB 10:29 | PROVIDERS: Family Provider Physician Assistant Medical; PCP Physician Assistant Medical; Visit Provider Physician Assistant Medical | DX: N39.0 Urinary tract infection, site not specified (principal) | CPT/HCPCS: 11042; 11045; 29581; 36415; 87077; 87086; 87186 ==

== ENCOUNTER 2019-11-08 13:11 | Outpatient (RCR) | payer BC, SELFPAY ==
--- NOTE | 2019-10-25 10:29 | USCV_ITS ---
Danyelle Blake Age: 59 Gender: F : 1960 Exam Date: 10/25/2019 11:01 Ordering Phys: Ankush Abdullahi MD (Andy) ([email or web address]) Technologist: Sergio Mendoza Exam Location: [facility] – [place] Indication: HISTORY: Patient has history of varicose veins. PROCEDURES: Bilateral duplex Venous Insufficiency study of the Deep and Superficial systems was carried out according to normal protocol with the patient in supine positon for deep system and dependent position for the superficial system. FINDINGS: There is no evidence of bilateral deep vein thrombosis. No evidence of superficial thrombosis in the bilateral saphenous system. No evidence of reflux was noted in the bilateral deep venous system. No venous reflux noted in the bilateral greater saphenous vein. No venous reflux noted in the bilateral small saphenous vein. Venous reflux was demonstrated in the RIGHT SFJ with a spectral display of greater than 500 milliseconds. Pulsatile venous flow Multiple echolucent areas in the subcutaneous tissue bilaterally . CONCLUSIONS No evidence of DVT in the above-mentioned identifiable veins. Significant venous reflux of greater than 500 ms was noted at the right saphenofemoral junction. The vein was found to be more than 1 cm deep from the surface No significant venous reflux on the left side. Features of extensive edema and possible high output state The venous dimensions, depth from the surface and reflux time as mentioned above. Dr Jameson Watt MD [facility] (Electronically Signed) Final Date: 25 October 2019 19:07 S
--- NOTE | 2019-10-28 11:00 | USCV_ITS ---
Hayden Danyelle Age: 59 Gender: F : 1960 Exam Date: 10/28/2019 10:47 Ordering Phys: Ankush Abdullahi MD (Andy) Technologist: Christen Horowitz Exam Location: [facility] – [place] Indication: pain, redness, non healing ulcer Risk Factors: Previous Vascular Surgery: RIGHT LEFT BP: 127.0 / BP: 117.0/ 0 0 Waveform Velocity (cm/s) Velocity (cm/s) Waveform Triphasic 19.3 Iliac Prox 114.4 Biphasic Triphasic 18.9 Iliac Mid 111.7 Biphasic Triphasic 18.9 Iliac Distal 123.6 Biphasic Biphasic 15.4 ELECTRICAL MAINTENANCE MAN 136.7 Biphasic Biphasic 20.5 SFA Prox 113.1 Biphasic Biphasic 23.9 SFA Mid 106.9 Biphasic Biphasic SFA Dist Biphasic 15.4 111.4 Monophasic 59.0 POP 118.7 Biphasic Monophasic 29.5 TEXTILE SCIENCE TECHNICIAN 36.7 Monophasic Monophasic 17.9 DPA 33.3 Monophasic FINDINGS Right TBI- 0.67 Left TBI -0.43 Unable to obtain SIDNEY due to open and weeping wounds CONCLUSIONS Abnormal resting TBI on the left side, suggestive of moderate peripheral artery disease, involving the distal vessels. Slightly diminished resting TBI on the right side, suggestive of mild peripheral artery disease Consider CTA, to better evaluate her peripheral arteries, if clinically indicated Dr Jameson Watt MD [facility] (Electronically Signed) Final Date: 28 October 2019 14:03 S
== END 2019-11-08 23:59 | disposition home or self-care (01) ==
LOC: WOUND 13:11
PROVIDERS: Family Provider Physician Assistant Medical; PCP Physician Assistant Medical; Visit Provider Thoracic Surgery (Cardiothoracic Vascular Surgery)
DX: I96 Gangrene, not elsewhere classified (principal); L89.303 Pressure ulcer of unspecified buttock, stage 3; L89.323 Pressure ulcer of left buttock, stage 3; I89.0 Lymphedema, not elsewhere classified
CPT/HCPCS: 11042; 11045; 29581; 36415; 87077; 87086; 87186; 93925; 93970; A6530

== ENCOUNTER 2019-11-23 13:33 | Outpatient (RCR) | payer BC, SELFPAY | END 2019-12-08 23:59 | disposition home or self-care (01) | LOC: SPT 13:33 | PROVIDERS: Family Provider Physician Assistant Medical; PCP Physician Assistant Medical; Referring Provider Physician Assistant Medical; Visit Provider Physician Assistant Medical | DX: R60.9 Edema, unspecified (principal) | CPT/HCPCS: 97140; 97161; 99211 ==

== ENCOUNTER 2019-11-29 10:40 | Outpatient (RCR) | payer BC, SELFPAY | END 2019-12-08 23:59 | disposition home or self-care (01) | LOC: WOUND 10:40 | PROVIDERS: Family Provider Physician Assistant Medical; PCP Physician Assistant Medical; Visit Provider Thoracic Surgery (Cardiothoracic Vascular Surgery) | DX: I96 Gangrene, not elsewhere classified (principal); L89.303 Pressure ulcer of unspecified buttock, stage 3; I89.0 Lymphedema, not elsewhere classified; L89.323 Pressure ulcer of left buttock, stage 3; L97.812 Non-pressure chronic ulcer of other part of right lower leg with fat layer exposed; L97.822 Non-pressure chronic ulcer of other part of left lower leg with fat layer exposed | CPT/HCPCS: 11042; 11045 ==

== ENCOUNTER 2019-12-06 13:34 | Outpatient (CLI) | payer BC, SELFPAY ==
[2019-12-06 14:20] LABS: Anion Gap 15.5 (5-19); Blood Urea Nitrogen 42 mg/dL (6-20); Calcium 8.8 mg/dL (8.5-10.5); Carbon Dioxide 24 mmol/L (22-29); Chloride 99 mmol/L (98-107); Glomerular Filtration Rate 38.5 mL/min (90-130); Glucose 152 mg/dL (65-115); NT Pro B Type Natriuretic Pept 8948 pg/mL (0-125); Osmolality Calculated 279 mOsm/kg (285-295); Potassium 4.5 mmol/L (3.5-5.1); Sodium 134 mmol/L (136-145)
== END 2019-12-06 13:35 | disposition home or self-care (01) ==
LOC: LAB 13:39
PROVIDERS: Family Provider Physician Assistant Medical; PCP Physician Assistant Medical; Visit Provider Internal Medicine Cardiovascular Disease
DX: I50.9 Heart failure, unspecified (principal); R06.02 Shortness of breath; I50.33 Acute on chronic diastolic (congestive) heart failure
CPT/HCPCS: 36415; 80048; 83880

== ENCOUNTER 2019-12-09 06:00 | Outpatient (RCR) | payer BC, SELFPAY | END 2020-01-08 23:59 | disposition home or self-care (01) | LOC: SPT 06:00 | PROVIDERS: Family Provider Physician Assistant Medical; PCP Physician Assistant Medical; Referring Provider Physician Assistant Medical; Visit Provider Physician Assistant Medical | DX: R60.9 Edema, unspecified (principal) | CPT/HCPCS: 97140 ==

== ENCOUNTER 2020-01-09 06:00 | Outpatient (RCR) | payer BC, SELFPAY | END 2020-02-07 23:59 | disposition home or self-care (01) | LOC: SPT 06:00 | PROVIDERS: PCP Physician Assistant Medical; Visit Provider Physician Assistant Medical | DX: R60.9 Edema, unspecified (principal) | CPT/HCPCS: 80053; 81001; 97140 ==

== ENCOUNTER 2020-02-08 06:00 | Outpatient (RCR) | payer BC, SELFPAY | END 2020-03-09 23:59 | disposition home or self-care (01) | LOC: SPT 06:00 | PROVIDERS: PCP Physician Assistant Medical; Visit Provider Physician Assistant Medical | DX: R60.9 Edema, unspecified (principal) | CPT/HCPCS: 97140 ==

== ENCOUNTER 2020-03-01 14:36 | Inpatient (IN) | payer BC, SELFPAY ==
[2020-03-01] VITALS (52 sets, daily range): BP systolic 83–112; BP diastolic 47–73; PULSE 86–106; RESP 0–22; TEMP 36.4–37.1; O2SAT 91–100; BMI 25.4
--- NOTE | 2020-03-01 16:31 | W.ED.FEMALGU ---
HPI - Female Genitourinary General: Chief complaint: Urogenital-Female Stated complaint: POSS UTI Time Seen by Provider: 03/01/20 14:39 History of Present Illness: HPI Narrative: Patient was seen Dr. Naylor's office today and diagnosed with urinary tract infection. Prescription for antibiotics as written however the patient's family decided to bring her to the emergency room. MD elicited complaint: dysuria, UTI , pelvic pain and genital swelling Pertinent past history: recurrent UTIs Onset (ago): unknown Location of symptoms: external genitalia and suprapubic Severity: similar to previous episodes Female Urogenital Radiation: Non-Radiating Quality of pain: sharp and stabbing Consistency: constant and progressively worsening Vaginal discharge: none Vaginal bleeding: none Urinary symptoms: Difficulty Urinating, Dysuria, Foul Smelling Urine, Frequency, Hematuria and Urgency Exacerbating factors: none Relieving factors: none Review of Systems General: Reports: 10 or more systems reviewed and unremarkable except in HPI and below PFSH ED PFSH: Medical History CHF (congestive heart failure) CHF (congestive heart failure), NYHA class IV Compensation improved Chronic kidney disease Chronic kidney disease, stage III (moderate) COPD (chronic obstructive pulmonary disease) Diabetes mellitus type 2 in obese Stable Recurrent UTI Swelling of both lower extremities Chronic and unchanged. To continue Lasix 60 mg twice daily. Dose is increased slightly. Repeat BMP 3 days. Surgical History H/O unilateral oophorectomy Hx of CABG (12/24/18) Hx of cholecystectomy Family History Other CAD (coronary artery disease) Social History Smoking and tobacco status: current every day smoker Alcohol intake: never Marital status: Current occupational status: retired History of recent travel: No Physical Exam Const: COMMON NORMALS: no acute distress, patient oriented x3, no limitations and alert HENMT: COMMON NORMALS: normocephalic, atraumatic, external ears normal and Normal external nose present HEAD & SCALP: normocephalic and atraumatic FACE & SINUS: normal facial exam NOSE: Normal external nose present EXTERNAL EAR: Yes external ears normal MOUTH: Normal oral and palatal mucosa present Neck/C-Spine: COMMON NORMALS: full ROM, no lymphadenopathy, supple, no meningeal signs and no JVD GENERAL: Yes normal visual inspection Resp: COMMON NORMALS: normal respiratory effort, No retractions, No use of accessory muscles and clear to auscultation bilaterally AUSCULTATION: clear to auscultation bilaterally Cardio: COMMON NORMALS: no JVD, regular rate and regular rhythm RATE: regular rate RHYTHM: regular rhythm GI: COMMON NORMALS: Normal to inspection, nondistended, normoactive bowel sounds present, Soft to palpation, non-tender, No hepatosplenomegaly present and no masses INSPECTION: Yes normal to inspection AUSCULTATION: Yes normoactive bowel sounds PALPATION: Yes Soft to palpation and Yes No hepatosplenomegaly present PERCUSSION: normal to percussion : COMMON NORMALS: Yes no CVA tenderness and Yes normal external appearance BLADDER/KIDNEY EXAM: Yes no CVA tenderness Back/Pelvis: COMMON NORMALS: no CVA tenderness, thoracic and lumbar spine normal to inspection, no thoracic nor lumbar tenderness, thoraco-lumbar ROM normal and straight leg raise negative bilaterally Extremity: COMMON NORMALS: normal to inspection, full ROM, capillary refill normal, no joint enlargement, no clubbing, cyanosis or edema, no calf tenderness and no pedal edema Neuro: COMMON NORMALS: patient oriented x3, moves all extremities, no focal motor deficits and no sensory deficits noted SENSORIUM/ORIENTATION: Yes alert MENINGEAL SIGNS: Yes no meningeal signs Psych: COMMON NORMALS: mental status grossly normal, Normal thought process present, cooperative, normal affect and speech normal SPEECH: Yes normal speech THOUGHT PROCESS: Normal thought process present Skin: COMMON NORMALS: no rashes or lesions noted, no wounds, turgor normal, no jaundice, no petechiae and no mottling GENERAL SKIN EXAM: no rashes or lesions noted and turgor normal Course Vital Signs: Vital signs: Vital Signs Temperature 98.7 F 03/01/20 14:48 Pulse Rate 92 03/01/20 17:50 Respiratory Rate 20 H 03/01/20 17:50 Blood Pressure 110/66 03/01/20 17:50 Pulse Oximetry 98 03/01/20 17:50 MDM - Female Lab Data: Labs: Lab Results 03/01/20 03/01/20 03/01/20 Range/Units 16:00 16:30 16:30 WBC 11.9 H (4.0-10.0) 10^3/ uL RBC 2.46 L (4.1-5.3) 10^6/u L Hgb 7.5 L (11.5-15.3) g/dL Hct 24.3 L (37.0-47.0) % MCV 98.8 (81-99) fL MCH 30.5 (28.0-34.0) pg MCHC 30.9 (30.0-36.0) g/dL RDW 23.0 H (12.1-15.1) % Plt Count 192 (130-400) 10^3/c mm MPV 12.1 H (7.4-10.4) fL Neut % (Auto) 90.2 % Lymph % (Auto) 2.4 % Payne % (Auto) 6.4 % Eos % (Auto) 0.1 % Baso % (Auto) 0.2 % Neut # (Auto) 10.75 H (1.8-7.7) 10^3/u L Lymph # (Auto) 0.3 L (0.8-4.8) 10^3/u L Payne # (Auto) 0.8 (0.2-0.9) 10^3/u L Eos # (Auto) 0.0 (0.0-0.8) 10^3/u L Baso # (Auto) 0.0 (0.0-0.1) 10^3/u L Nucleated RBC % (a uto) 0 % Nucleated RBCs # 0.0 /100WBC Sodium 127 L (136-145) mmol/L Chloride 97 L (98-107) mmol/L BUN 79 H (6-20) mg/dL Creatinine 2.6 H (0.5-0.9) mg/dL GFR Calculation 18.8 L (90-130) mL/min Glucose 326 H (65-115) mg/dL Calculated Osmolal ity 276 L (285-295) mOsm/k g Calcium 8.2 L (8.5-10.5) mg/dL Total Bilirubin 1.4 H (0.15-1.2) mg/dL AST 62 H (0-32) U/L ALT 19 (0-33) U/L Alkaline Phosphata se 553 H (35-105) IU/L Total Protein 7.2 (6.6-8.7) g/dL Globulin 5.2 H (1.3-4.6) g/dL Urine Color Brown (Yellow) Urine Appearance Turbid (CLEAR) Urine pH 5 (5-7) Ur Specific Gravit y 1.015 (1.005-1.030) Urine Protein 2+ H (Negative) Urine Glucose (UA) Norm (Normal) Urine Ketones Negative (Negative) Urine Blood 3+ H (Negative) Urine Nitrate Positive H (Negative) Urine Bilirubin 1+ H (NEGATIVE) Urine Urobilinogen 1 H (Negative) mg/dL Ur Leukocyte Genia ase 2+ H (Negative) Ur Microscopic Ind ic Cancelled Urine RBC Too numerous to c nt H (0-2) /hpf Urine WBC Too numerous to c nt H (0-5) /hpf Ur Squamous Epith Cells 15-25 H (0-5) Amorphous Sediment Not Reportable Urine Bacteria 3+ H (NONE) Urine Yeast 4+ H Discharge Plan Discharge Patient Disposition: Admitted As Inpatient Admit Provider: Nilesh Cohn Clinical Impression: UTI (urinary tract infection) Qualifiers: Urinary tract infection type: acute pyelonephritis Qualified Code(s): N10 - Acute pyelonephritis Sepsis Qualifiers: Sepsis type: sepsis due to unspecified organism Sepsis acute organ dysfunction status: unspecified Qualified Code(s): A41.9 - Sepsis, unspecified organism Condition: Fair Referrals: Bhavik Richter [Primary Care Provider] - Coding Level of Care Code ED Project Archivist for [facility] Fwd Exam Comprehensive
[2020-03-01 16:38] LABS: Blood Urine 3+ (Negative); Glucose Urine UA Norm (Normal); Ketones Urine Negative (Negative); Nitrate Urine Positive (Negative); Protein Urine 2+ (Negative); Specific Gravity, Urine 1.015 (1.005-1.030); Urine Appearance Turbid (CLEAR); Urine Color Brown (Yellow); pH Urine 5 (5-7)
[2020-03-01 16:39] LABS: Bilirubin Urine 1+ (NEGATIVE); Leukocyte Esterase Urine 2+ (Negative); Urobilinogen Urine 1 mg/dL (Negative)
[2020-03-01] MEDS: cefTRIAXone 2,000 MG in sodium chloride 0.9% (plus) 50 ML 100 MG IV (16:47)
[2020-03-01 16:52] LABS: Add Urine Culture? No; Bacteria Urine 3+; RBC Urine TOO NUMEROUS TO CNT /hpf (0-2); Squamous Epithelial Cell Urine 15-25 (0-5); WBC Urine TOO NUMEROUS TO CNT /hpf (0-5)
[2020-03-01 16:56] LABS: Basophils % 0.2 %; Eosinophils % 0.1 %; Hematocrit 24.3 % (37.0-47.0); Hemoglobin 7.5 g/dL (11.5-15.3); Lymphocytes # 0.3 10^3/uL (0.8-4.8); Lymphocytes % 2.4 %; Mean Corpuscular HGB Conc 30.9 g/dL (30.0-36.0); Mean Corpuscular Hemoglobin 30.5 pg (28.0-34.0); Mean Corpuscular Volume 98.8 fL (81-99); Mean Platelet Volume 12.1 fL (7.4-10.4); Monocytes # 0.8 10^3/uL (0.2-0.9); Monocytes % 6.4 %; Neutrophils # 10.75 10^3/uL (1.8-7.7); Neutrophils % 90.2 %; Nucleated Red Blood Cells % 0 %; Platelet Count 192 10^3/cmm (130-400); Red Blood Count 2.46 10^6/uL (4.1-5.3); White Blood Count 11.9 10^3/uL (4.0-10.0)
[2020-03-01 17:05] LABS: Alanine Aminotransferase 19 U/L (0-33); Alkaline Phosphatase 553 IU/L (35-105); Aspartate Amino Transferase 62 U/L (0-32); Blood Urea Nitrogen 79 mg/dL (6-20); Calcium 8.2 mg/dL (8.5-10.5); Carbon Dioxide 14 mmol/L (22-29); Chloride 97 mmol/L (98-107); Globulin 5.2 g/dL (1.3-4.6); Glomerular Filtration Rate 18.8 mL/min (90-130); Glucose 326 mg/dL (65-115); Osmolality Calculated 276 mOsm/kg (285-295); Sodium 127 mmol/L (136-145); Total Bilirubin 1.4 mg/dL (0.15-1.2); Total Protein 7.2 g/dL (6.6-8.7)
--- NOTE | 2020-03-01 17:43 | P.HP_ITS ---
Providers/Chief Complaint Admitting Physician: Nilesh Cohn MD Primary Care Provider: Bhavik Richter Chief Complaint: POSS UTI History of Present Illness Danyelle Blake is a 59 year old female presents to emerge department with significant lethargy and difficulty urinating. Reports that she was seen by Dr. Naylor earlier today and different antibiotic was prescribed for UTI she has been having for last 1 month but she does not know the details. She then went to the physical therapy but was too weak to perform any exercises and her sister brought patient to emergency department. Rao catheter was placed and 300 mL of dark chocolate colored purulent urine came out. She denied chest pain or shortness of breath and denies abdominal pain during my evaluation although sister at bedside reports that at times patient would complain of lower abdominal discomfort especially when she needs to urinate but cannot. She has frequent urge to urinate but only minimal urine is coming out. She is diabetic for many years and in 2019 had CABG. She continues to smoke. She has chronic lower extremity wounds and swelling with lymphedema wraps. Reports that she stopped seeing wound care clinic as her wounds got better. Review of Systems Const: Denies: fever(s) or chills Eyes: Denies: change in vision ENMT: Denies: throat pain or change in hearing Card: Reports: edema; Denies: chest pain or lightheadedness Resp: Denies: dyspnea or productive cough GI: Denies: abdominal pain, nausea, vomiting, dysphagia, diarrhea, constipation, hematochezia or melena : Reports: difficulty voiding Musc: Denies: joint pain or joint swelling Skin/Breast: Denies: rash or erythema Neuro: Denies: headache(s) or weakness in extremities Psych: Denies: depression or suicidal ideation Endo: Denies: excessive sweating Richie/Lymph: Denies: easy bleeding or tender lymph nodes All/Imm: Denies: throat swelling Medications/Allergies Home Medications Medication Instructions Recorded Confirmed Last Taken Type Lantus U-100 Insulin 20 unit SUBCUT BEDTIME 08/14/19 03/01/20 03/01/20 History 20 units clopidogrel 75 mg PO DAILY 08/14/19 03/01/20 Unknown History docusate sodium 100 mg PO BID 08/14/19 03/01/20 03/01/20 History gabapentin [Neurontin] 100 mg PO TID 08/14/19 03/01/20 Unknown History hydrocodone-acetaminophen 1 - 2 tab PO Q4H PRN 08/14/19 03/01/20 03/01/20 H istory montelukast 10 mg PO DAILY 08/14/19 03/01/20 Unknown History pantoprazole 40 mg PO DAILY 08/14/19 03/01/20 Unknown History ropinirole 4 mg PO TID 08/14/19 03/01/20 Unknown History aspirin 81 mg PO DAILY #30 tab 08/23/19 03/01/20 03/01/20 Rx atorvastatin 40 mg PO BEDTIME #30 tab 08/23/19 03/01/20 02/29/20 Rx carvedilol 3.125 mg PO BID #60 tab 08/23/19 03/01/20 Unknown Rx fluticasone propion-salmeterol 1 inh INHALATION BID #60 each 08/23/19 03/01/20 Unknown Rx [Advair Diskus] isosorbide mononitrate 10 mg PO BID #30 tab 08/23/19 03/01/20 Unknown Rx potassium chloride 10 mEq 20 meq PO DAILY 12/06/19 03/01/20 03/01/20 History capsule,extended release cranberry 400 mg capsule 400 mg PO DAILY 01/09/20 03/01/20 Unknown History metoclopramide HCl 10 mg tablet See Rx Instructions .ROUTE 01/09/20 03/01/20 Unknown History .COMPLEX tab levofloxacin 500 mg tablet 500 mg PO DAILY #30 tab 02/16/20 03/01/20 Unknown Rx cephalexin 500 mg capsule 500 mg PO QID PRN cap 03/01/20 03/01/20 02/29/20 History asedqborhyu-gubzowjov-lrzmemjj 1 inh INHALATION DAILY 03/01/20 03/01/20 Unknown History [Trelegy Ellipta] furosemide 60 mg PO DAILY 03/01/20 03/01/20 03/01/20 History insulin lispro [Humalog U-100 See Rx Instructions .ROUTE .COMPLEX 03/01/20 03/01/20 03/01/20 History Insulin] 7 units ipratropium-albuterol 3 ml INHALATION PRN 03/01/20 03/01/20 Unknown History methenamine hippurate [Hiprex] 1 g PO BID 03/01/20 03/01/20 Unknown History multivitamin [Multiple Vitamins] 1 tab PO DAILY 03/01/20 03/01/20 Unknown History ondansetron See Rx Instructions .ROUTE .COMPLEX 03/01/20 03/01/20 Unknown History Allergies Allergy/AdvReac Type Severity Reaction Status Date / Time acetaminophen [From Percocet] Allergy Unknown Verified 10/25/19 13:44 amoxicillin Allergy N/V Verified 01/09/20 13:10 ciprofloxacin [From Cipro] Allergy Unknown Verified 10/25/19 13:44 dextromethorphan Allergy Unknown Verified 10/25/19 13:44 [From Mucinex DM] diclofenac Allergy Unknown Verified 10/25/19 13:44 doxycycline Allergy Unknown Verified 10/25/19 13:44 guaifenesin [From Mucinex DM] Allergy Unknown Verified 10/25/19 13:44 methylprednisolone Allergy Unknown Verified 10/25/19 13:44 nitrofurantoin Allergy N/V Verified 01/09/20 13:10 oxycodone [From Percocet] Allergy Unknown Verified 10/25/19 13:44 sulfamethoxazole Allergy N/V Verified 01/09/20 13:10 [From Bactrim] trimethoprim [From Bactrim] Allergy N/V Verified 01/09/20 13:10 PFSH Acute PFSH: Medical History CHF (congestive heart failure) CHF (congestive heart failure), NYHA class IV Compensation improved Chronic kidney disease Chronic kidney disease, stage III (moderate) COPD (chronic obstructive pulmonary disease) Diabetes mellitus type 2 in obese Stable Recurrent UTI Swelling of both lower extremities Chronic and unchanged. To continue Lasix 60 mg twice daily. Dose is increased slightly. Repeat BMP 3 days. Surgical History H/O unilateral oophorectomy Hx of CABG (12/24/18) Hx of cholecystectomy Family History (Updated 03/01/20 @ 18:11 by Nilesh Cohn MD) Father Lung disease Lung cancer. He was a smoker Mother CAD (coronary artery disease) Social History (Updated 03/01/20 @ 18:12 by Nilesh Cohn MD) Smoking and tobacco status: current every day smoker Alcohol intake: never Marital status: Current occupational status: retired History of recent travel: No Vitals/I&O/Wt Last Vital Signs Temp 98.7 F 03/01/20 14:48 Pulse 95 03/01/20 16:42 Resp 16 03/01/20 16:42 BP 92/52 03/01/20 16:42 Pulse Ox 98 03/01/20 16:42 Weight last 48 hrs Weight 75.75 kg Physical Exam Const: COMMON NORMALS: no acute distress and patient oriented x3 FERNANDO ENTATION/CONSCIOUSNESS: Yes lethargic HENMT: COMMON NORMALS: normocephalic and atraumatic HEAD & SCALP: normocephalic and atraumatic Eye: COMMON NORMALS: EOMs intact bilaterally, conjunctivae normal and no scleral icterus CONJUNCTIVA: Yes conjunctivae normal Neck/C-Spine: COMMON NORMALS: no lymphadenopathy and no meningeal signs Lymph: LYMPHATIC: no lymphadenopathy noted Chest: COMMONS NORMALS: normal palpation of entire chest wall Resp: COMMON NORMALS: No use of accessory muscles and clear to auscultation bilaterally AUSCULTATION: clear to auscultation bilaterally Cardio: COMMON NORMALS: regular rate, regular rhythm and No murmurs present (Cardio) RATE: regular rate RHYTHM: regular rhythm OTHER: No lower extremity edema GI: COMMON NORMALS: Soft to palpation and non-tender PALPATION: Yes Soft to palpation RECTAL EXAM: deferred : COMMON NORMALS: Yes no CVA tenderness BLADDER/KIDNEY EXAM: Yes no CVA tenderness Back/Pelvis: COMMON NORMALS: no CVA tenderness and thoracic and lumbar spine normal to inspection Extremity: COMMON NORMALS: normal to inspection and capillary refill normal Neuro: COMMON NORMALS: patient oriented x3 and no focal motor deficits SENSORIUM/ORIENTATION: Yes alert MENINGEAL SIGNS: Yes no meningeal signs Psych: COMMON NORMALS: mental status grossly normal, Normal thought process present and cooperative THOUGHT PROCESS: Normal thought process present Skin: COMMON NORMALS: no rashes or lesions noted GENERAL SKIN EXAM: no rashes or lesions noted Urinary Catheter Management^: Rao: Cath Placed During This Visit: yes Reason for Continuing Indwelling Catheter: Acute Urinary Retention or Obstruction Urinary Catheter Date of Insertion: 03/01/20 Urinary Catheter Time of Insertion: 16:00 Data : 03/01/20 16:30 03/01/20 16:30 Micro: Microbiology 07/23/20 17:30 Blood Culture - Preliminary Blood SPECIMEN COLLECTED 03/01/20 16:30 Blood Culture - Preliminary Blood SPECIMEN COLLECTED A&P Assessment and plan (1) Sepsis: As exhibited by tachycardia and tachypnea. WBC 11.9. Patient is afebrile. Status: Acute Qualifiers: Sepsis acute organ dysfunction status: unspecified Sepsis type: sepsis due to unspecified organism Qualified Code(s): A41.9 - Sepsis, unspecified organism (2) Recurrent UTI: Status: Acute (3) Acute kidney injury superimposed on CKD: Prerenal secondary to dehydration. Status: Acute (4) Hyperkalemia: Likely multifactorial with acute kidney injury and potassium supplementation playing a role. I suspect that patient was skeeping Lasix although she denies Status: Acute (5) CHF (congestive heart failure), NYHA class IV: Combined. Currently appears compensated. Status: Acute Qualifiers: Congestive heart failure type: diastolic Congestive heart failure chronicity: chronic Qualified Code(s): I50.32 - Chronic diastolic (congestive) heart failure (6) Dehydration with hyponatremia: Status: Acute (7) Tobacco abuse: Status: Acute (8) Diabetes mellitus type 2 with complications: Chronic kidney disease stage III, peripheral neuropathy, gastroparesis Status: Acute Additional A&P Information Altered mental status with lethargy. Coronary artery disease, status post CABG Acute normocytic anemia. Peripheral vascular disease. PLAN: We will start patient on IV hydration with normal saline and start Lasix tomorrow. Start patient on vancomycin, ceftriaxone and Primaxin. Awaiting culture re sults. Her cultures may be altered due to recent treatment with fluoroquinolone and second generation cephalosporin. Monitor closely in ICU We will give 1 dose of Kayexalate. Will irrigate bladder with saline as she has very thick sediment. Monitor urinary output. Will request renal ultrasound. Will proceed with initial anemia work-up. Given underlying heart disease we will give 1 unit of PRBC. We will avoid therapeutic anticoagulation and given her chronic lower extremity wounds will avoid SCDs. Will request lower extremity venous ultrasound. Wound care. Once patient is more alert will discussed smoking cessation. Overall patient appears to have poor long-term prognosis. CODE STATUS was discussed with patient and she wants to be full code but does not want to be kept alive if has poor prognosis. In case if she cannot make decisions she wants her sister to make decisions for her. Attestations Medical Necessity Statement*: Patient with altered mental status with lethargy as well as severe UTI and high risk to get acute heart failure requires close ICU monitoring and treatment. I expect patient will require more than 2 midnights. Time Spent in Patient Care: Greater than 35 minutes Coding Level of Care Code Acute Wireless Sales Expert for [facility] Fwd Diagnoses Sepsis A41.9 Sepsis acute organ dysfunction status: unspecified Sepsis type: sepsis due to unspecified organism Recurrent UTI N39.0 Acute kidney injury superimposed on CKD N17.9; N18.9 Hyperkalemia E87.5 CHF (congestive heart failure), NYHA class IV I50.32 Congestive heart failure type: diastolic Congestive heart failure chronicity: chronic Dehydration with hyponatremia E86.0; E87.1 Tobacco abuse Z72.0 Diabetes mellitus type 2 with complications E11.8
[2020-03-01] MEDS: sodium chloride 0.9% 1,000 ML 100 ML IV (17:55)
[2020-03-01 18:00] LABS: Anion Gap 21.9 (5-19); Potassium 5.9 mmol/L (3.5-5.1)
[2020-03-01] MEDS: HYDROcodone-acetaminophen 5-325 mg Tablet 1 TAB PO (19:57)
[2020-03-01 20:45] LABS: Glucose Point of Care 354 mg/dL (70-110)
[2020-03-01 20:56] LABS: INR 1.18 (0.8-1.2)
[2020-03-01] MEDS: ropinirole 2 mg Tablet 4 MG PO (20:56)
[2020-03-01 20:57] LABS: Partial Thromboplastin Time 53.5 SECONDS (23.9-36.7)
[2020-03-01] MEDS: gabapentin 100 mg Capsule PO (20:57)
[2020-03-01] MEDS: atorvastatin 40 mg Tablet PO (20:57)
[2020-03-01] MEDS: sennosides 8.6 mg Tablet 17.2 MG PO (20:57)
[2020-03-01] MEDS: sodium chloride 0.9% 1,000 ML 75 ML IV (21:02)
[2020-03-01] MEDS: sodium polystyrene sulfonate 15 gm/60 mL Btl PO (21:02)
[2020-03-01] MEDS: vancomycin 500 MG in sodium chloride 0.9% (plus) 100 ML 100 MG IV (21:16)
[2020-03-01] MEDS: metoclopramide 10 mg Tablet PO (21:16)
--- NOTE | 2020-03-01 21:21 | PC.PHAR ---
This 59 year old female has a serum creatinine of 2.6. Vancomycin is dosed at 500mg IVPB every 48 hours to produce a calculated trough level of 13.6. A trough level has been ordered from the lab to be obtained before the fourth dose to confirm and adjust if needed.
[2020-03-01] MEDS: insulin glargine 100 units/1 mL 20 UNIT SUBCUT (21:23)
[2020-03-01 22:32] LABS: Reflex Lactate Order REFLEX LACTIC ORDERD
[2020-03-01 23:02] LABS: Hemoglobin 7.7 g/dL (11.5-15.3)
[2020-03-01 23:10] LABS: Lactic Acid level (Lactate) 3.5 mmol/L (0.5-2.2)
[2020-03-01] MEDS: sodium chloride 0.9% (100 ml) 100 ML (23:40)
[2020-03-02] VITALS (97 sets, daily range): BP systolic 79–111; BP diastolic 50–78; PULSE 72–98; RESP 0–25; TEMP 36.4–37.6; O2SAT 86–100
[2020-03-02 00:18] LABS: Ferritin 86 ng/mL (15-150); Iron 44 ug/dL (37-145); Percent Saturation 21.6 % (20-50); Total Iron Binding Capacity 203 mcg/dl; Unsaturated Iron Binding 159 ug/dL (112-347)
[2020-03-02 00:40] LABS: Folate Level > 20.0 ng/mL (4.8-37.3); Vitamin B12 > 2000 pg/mL (232-1245)
[2020-03-02] MEDS: sodium chloride 0.9% 1,000 ML 75 ML IV (01:42)
[2020-03-02] MEDS: ondansetron 2 mg/ML SDV 2 mL 4 MG IVP (04:17)
--- NOTE | 2020-03-02 04:49 | PC.NURSE ---
Call to physician notified of patient occult stool positive for blood. patient has passed two large solid bloody stools. blood pressure remains soft but with a MAP of 65. Verbal order from to start levophed if needed for low blood pressure. waiting for morning labs to recheck HH from previous unit of blood given. will continue to monitor patient.
[2020-03-02 05:04] LABS: Alanine Aminotransferase 61 U/L (0-33); Albumin Level 1.7 g/dL (3.5-5.2); Alkaline Phosphatase 533 IU/L (35-105); Aspartate Amino Transferase 253 U/L (0-32); Blood Urea Nitrogen 75 mg/dL (6-20); Calcium 7.4 mg/dL (8.5-10.5); Carbon Dioxide 15 mmol/L (22-29); Chloride 101 mmol/L (98-107); Globulin 5.2 g/dL (1.3-4.6); Glucose 315 mg/dL (65-115); Magnesium 1.7 mg/dL (1.7-2.3); Osmolality Calculated 282 mOsm/kg (285-295); Sodium 130 mmol/L (136-145); Total Bilirubin 1.2 mg/dL (0.15-1.2); Total Protein 6.9 g/dL (6.6-8.7)
[2020-03-02 05:30] LABS: Basophils % 0.2 %; Hematocrit 25.8 % (37.0-47.0); Hemoglobin 8.1 g/dL (11.5-15.3); Lymphocytes # 0.7 10^3/uL (0.8-4.8); Lymphocytes % 5.9 %; Mean Corpuscular HGB Conc 31.4 g/dL (30.0-36.0); Mean Corpuscular Hemoglobin 30.5 pg (28.0-34.0); Mean Platelet Volume 11.7 fL (7.4-10.4); Monocytes # 1.3 10^3/uL (0.2-0.9); Monocytes % 10.4 %; Neutrophils # 10.44 10^3/uL (1.8-7.7); Neutrophils % 82.9 %; Nucleated Red Blood Cells % 0.2 %; Platelet Count 186 10^3/cmm (130-400); Red Blood Count 2.66 10^6/uL (4.1-5.3); Red Cell Distribution Width 21.9 % (12.1-15.1); White Blood Count 12.6 10^3/uL (4.0-10.0)
[2020-03-02] MEDS: sodium chloride 0.9% (100 ml) 100 ML (06:35)
--- NOTE | 2020-03-02 08:06 | PM.PN ---
Subjective Subjective: Interval history: Patient denies shortness of breath or chest pain this morning. Denies abdominal pain. She continues to be lethargic but answers questions appropriately. Her urine cleared up and she had 350 mL output since yesterday. She is on 1 mg/min of Levophed drip this morning which is discontinued during my evaluation. She is on 75 mL of IV fluids and getting her second unit of PRBC Vitals/I&O/Wt Last Vital Signs Temp 99.6 F 03/02/20 06:47 Pulse 86 03/02/20 06:47 Resp 15 03/02/20 06:47 BP 100/50 03/02/20 06:47 Pulse Ox 97 03/02/20 06:47 03/01/20 03/02/20 03/02/20 22:59 06:59 14:59 Intake Total 150 / 150 709.563 / 859.563 Output Total 100 / 100 250 / 350 Balance 50 / 50 459.563 / 509.563 Weight last 48 hrs Weight 83.206 kg Weight 75.75 kg Physical Exam Urinary Catheter Management^: Rao: Cath Placed During This Visit: yes Reason for Continuing Indwelling Catheter: Accurate Measurement of Urinary Output in Critically Ill Patients Urinary Catheter Date of Insertion: 03/01/20 Urinary Catheter Time of Insertion: 16:00 Data : 03/01/20 22:45 03/02/20 04:30 Micro: Microbiology 03/02/20 00:26 Occult Blood (FIT) - Final Stool 03/01/20 17:30 Blood Culture - Preliminary Blood SPECIMEN COLLECTED 03/01/20 16:30 Blood Culture - Preliminary Blood SPECIMEN COLLECTED A&P Assessment and plan (1) Sepsis: As exhibited by tachycardia and tachypnea. WBC 11.9. Patient is afebrile. Status: Acute Qualifiers: Sepsis acute organ dysfunction status: unspecified Sepsis type: sepsis due to unspecified organism Qualified Code(s): A41.9 - Sepsis, unspecified organism (2) Recurrent UTI: Status: Acute (3) Acute kidney injury superimposed on CKD: Prerenal secondary to dehydration. Status: Acute (4) Hyperkalemia: Likely multifactorial with acute kidney injury and potassium supplementation playing a role. I suspect that patient was skeeping Lasix although she denies Status: Acute (5) CHF (congestive heart failure), NYHA class IV: Combined. Currently appears compensated. Status: Acute Qualifiers: Congestive heart failure type: diastolic Congestive heart failure chronicity: chronic Qualified Code(s): I50.32 - Chronic diastolic (congestive) heart failure (6) Dehydration with hyponatremia: Status: Acute (7) Tobacco abuse: Status: Acute (8) Diabetes mellitus type 2 with complications: Chronic kidney disease stage III, peripheral neuropathy, gastroparesis Status: Acute Additional A&P Information Altered mental status with lethargy. Coronary artery disease, status post CABG Acute normocytic anemia. Peripheral vascular disease. PLAN: Patient still clinically appears dry therefore will DC Lasix and continue with IV hydration and increase fluids to 100 ml per hour. Continue second unit of PRBC. Monitor blood pressure and urinary output. We will start patient on Kayexalate. Check CK and troponin/EKG. Patient is at risk for type II [place] and rhabdomyolysis especially in view of significantly increasing AST. Awaiting renal ultrasound. Attestations Medical Necessity Statement*: Patient is critically ill requiring close ICU monitoring and treatment. Critical Care Time: Critical Care Time (min): 40 Coding Level of Care Code Acute Lamp Shade Maker for g Fwd Diagnoses Sepsis A41.9 Sepsis acute organ dysfunction status: unspecified Sepsis type: sepsis due to unspecified organism Recurrent UTI N39.0 Acute kidney injury superimposed on CKD N17.9; N18.9 Hyperkalemia E87.5 CHF (congestive heart failure), NYHA class IV I50.32 Congestive heart failure type: diastolic Congestive heart failure chronicity: chronic Dehydration with hyponatremia E86.0; E87.1 Tobacco abuse Z72.0 Diabetes mellitus type 2 with complications E11.8
--- NOTE | 2020-03-02 08:11 | ECG_ITS ---
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 Measurements Intervals [place] Rate: 84 P: 67 [place]: 199 QRS: -58 QRSD: 89 T: 87 QT: 379 QTc: 450 Interpretive Statements SINUS RHYTHM POSSIBLE ANTERIOR MYOCARDIAL INFARCTION [30 ms Q WAVE IN V3/V4, OR R < 0.2 mV IN V4], PROBABLY OLD INFERIOR MYOCARDIAL INFARCTION [40+ ms Q WAVE AND/OR ST/T ABNORMALITY IN II/aVF], PROBABLY OLD Compared to ECG 08/15/2019 06:17:29 Ectopic atrial rhythm no longer present Myocardial infarct finding still present Electronically Signed On 03-02-2020 20:12:43 CDT by Dileep Fisher M.D. [email or web address] [email or web address]/[id number]
--- NOTE | 2020-03-02 08:46 | USCV_ITS ---
Danyelle Blake Age: 59 Gender: F : 1960 Exam Date: 03/02/2020 09:13 Ordering Phys: Nilesh Cohn MD Technologist: Elizabet Coleman Exam Location: [facility] – [place] Indication: Critically ill. Evaluate EF and wall motion BP: 103 / 65 HR: 82 Rhythm: Sinus Technical Quality: Adequate MEASUREMENTS (Male / Female) Normal Values 2D ECHO LV Diastolic Diameter PLAX 4.9 cm 4.2 - 5.9 / 3.9 - 5.3 cm LV Systolic Diameter PLAX 3.4 cm LV Chamber Size 4.5 cm IVS Diastolic Thickness 1.6 cm 0.6 - 1.0 / 0.6 - 0.9 cm IVS Systolic Thickness 2.1 cm LVPW Diastolic Thickness 0.9 cm 0.6 - 1.0 / 0.6 - 0.9 cm LVPW Systolic Thickness 1.1 cm RV Chamber Size 3.4 cm LV Ejection Fraction 2D Teich 58.7 % LV Ejection Fraction MOD 2C 34.0 % LV Ejection Fraction 2C AL 33.8 % LA Width 2.7 cm LA Height 5.3 cm RA Width 3.1 cm RA Height 4.9 cm M-MODE LV Diastolic Diameter MM 5.5 cm 4.2 - 5.9 / 3.9 - 5.3 cm LV Systolic Diameter MM 4.5 cm LV Ejection Fraction MM Teich 35.4 % IVS Diastolic Thickness MM 1.2 cm 0.6 - 1.0 / 0.6 - 0.9 cm IVS Systolic Thickness MM 1.2 cm LVPW Diastolic Thickness MM 1.6 cm 0.6 - 1.0 / 0.6 - 0.9 cm LVPW Systolic Thickness MM 1.5 cm FINDINGS Left Ventricle Mildly increased left ventricular cavity size. Severely decreased left ventricular systolic function. Left ventricular ejection fraction is estimated at 20-25 %. There is severe hypokinesis of inferoseptal, basal to apical anteroseptal and apical aleman. Abnormal septal motion consistent with conduction abnormality. Right Ventricle Normal right ventricular size and systolic function. Right Atrium Normal right atrial size. Left Atrium Mildly increased left atrial size. Mitral Valve Mild mitral annular calcification. Mildly thickened mitral valve. Aortic Valve Aortic valve not well visualized. Tricuspid Valve Structurally normal tricuspid valve. Pulmonic Valve Pulmonic valve not well visualized. Pericardium No pericardial effusion. Aorta Aorta not well visualized. CONCLUSIONS 1. This is a limited 2D study. 2. Mildly increased left ventricular cavity size. Severely decreased left ventricular systolic function. Left ventricular ejection fraction is estimated at 25-30 %. There is severe hypokinesis of inferoseptal, basal to apical anteroseptal and apical aleman. 3. Mildly increased left atrial size. 4. Compared to previous echocardiogram dated 08/15/2019, left ventricle systolic function seems to have dropped from 40% to 20-25% now. Aislinn Adhikari MD (Electronically Signed) Final Date: 02 March 2020 14:20 S
[2020-03-02] MEDS: gabapentin 100 mg Capsule PO ×3 (09:00→20:55)
[2020-03-02] MEDS: carvedilol 3.125 mg Tablet PO ×2 (09:00→17:54)
[2020-03-02] MEDS: ropinirole 2 mg Tablet 4 MG PO ×3 (09:00→20:54)
[2020-03-02] MEDS: pantoprazole 40 mg SDV IVP ×3 (09:01→17:54)
[2020-03-02] MEDS: sodium polystyrene sulfonate 15 gm/60 mL Btl PO ×3 (09:08→20:54)
[2020-03-02] MEDS: metoclopramide 10 mg Tablet PO ×4 (09:11→20:57)
--- NOTE | 2020-03-02 10:11 | ECG_ITS ---
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 Measurements Intervals [place] Rate: 81 P: 67 [place]: 188 QRS: -57 QRSD: 106 T: 112 QT: 397 QTc: 463 Interpretive Statements SINUS RHYTHM LOW QRS VOLTAGE IN PRECORDIAL LEADS [QRS DEFLECTION < 1.0 mV IN CHEST LEADS] INCOMPLETE RIGHT BUNDLE BRANCH BLOCK [90+ ms QRS DURATION, TERMINAL R IN V1/V2, 40+ ms S IN I/aVL/V4/V5/V6] LEFT ANTERIOR FASCICULAR BLOCK [QRS AXIS <= -45, QR IN I, RS IN II] POSSIBLE ANTERIOR MYOCARDIAL INFARCTION [30 ms Q WAVE IN V3/V4, OR R < 0.2 mV IN V4], PROBABLY OLD WARNING: DATA QUALITY MAY AFFECT INTERPRETATION Compared to ECG 03/02/2020 08:40:41 Low QRS voltage now present Incomplete right bundle-branch block now present Left anterior fascicular block now present Myocardial infarct finding still present Electronically Signed On 03-02-2020 20:14:11 CDT by Dileep Fisher M.D. [id number]
[2020-03-02 11:20] LABS: Glucose Point of Care 266 mg/dL (70-110)
[2020-03-02 11:54] LABS: Basophils % 0.2 %; Eosinophils % 0.1 %; Hematocrit 32.9 % (37.0-47.0); Lymphocytes # 0.8 10^3/uL (0.8-4.8); Lymphocytes % 6.2 %; Mean Corpuscular HGB Conc 30.4 g/dL (30.0-36.0); Mean Corpuscular Hemoglobin 30.5 pg (28.0-34.0); Mean Corpuscular Volume 100.3 fL (81-99); Mean Platelet Volume 12.3 fL (7.4-10.4); Monocytes # 1.4 10^3/uL (0.2-0.9); Monocytes % 10.6 %; Neutrophils # 10.84 10^3/uL (1.8-7.7); Neutrophils % 82.5 %; Nucleated Red Blood Cells % 0.2 %; Platelet Count 193 10^3/cmm (130-400); Red Blood Count 3.28 10^6/uL (4.1-5.3); Red Cell Distribution Width 21.5 % (12.1-15.1); White Blood Count 13.2 10^3/uL (4.0-10.0)
[2020-03-02 12:13] LABS: Creatine Phosphokinase 391 U/L (26-192); Troponin(5th) Baseline 2180 ng/L (0-10)
[2020-03-02 13:11] LABS: CKMB 23.1 ng/mL (0-5.34); CKMB Relative Index 5.9 % (0.0-10.4)
--- NOTE | 2020-03-02 14:11 | ECG_ITS ---
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 Measurements Intervals [place] Rate: 76 P: 69 [place]: 186 QRS: -54 QRSD: 102 T: 116 QT: 418 QTc: 472 Interpretive Statements SINUS RHYTHM MARKED LEFT AXIS DEVIATION [QRS AXIS < -30] LOW QRS VOLTAGE IN PRECORDIAL LEADS [QRS DEFLECTION < 1.0 mV IN CHEST LEADS] POSSIBLE ANTERIOR MYOCARDIAL INFARCTION [30 ms Q WAVE IN V3/V4, OR R < 0.2 mV IN V4], PROBABLY OLD Compared to ECG 03/02/2020 11:04:12 Left-axis deviation now present Incomplete right bundle-branch block no longer present Left anterior fascicular block no longer present Myocardial infarct finding still present Electronically Signed On 03-02-2020 20:16:32 CDT by Dileep Fisher M.D. [id number]
--- NOTE | 2020-03-02 14:41 | PM.CONSULT ---
Providers/Reason For Consult Consulting Physican/Specialty*: Dr. Adhikari, Cardiology Reason for Consult*: Worsening LV function, NSTEMI Attending Physician: Nilesh Cohn MD Primary Care Provider: Bhavik Richter History of Present Illness History of Present Illness Danyelle Blake is a 59 year old female with PMHx of coronary artery disease s/p 2 vessel bypass surgery with Dr. Abdullahi in December of 2018, H/O NSTEMI in 08/2019, systolic CHF, HTN, diabetes mellitus type 2, diabetic neuropathy, CKD, chronic lower extremity wounds and swelling with lymphedema wraps and dyslipidemia. She was admitted with lethargy and difficulty urinating. She was prescribed antibiotic but she was too weak and her sister brought her to emergency department. Rao catheter was placed and 300 mL of dark chocolate colored purulent urine came out. She denied chest pain or shortness of breath. She does complain of some abdominal pain and nausea. It seems like after admission she had hematochezia and required blood transfusions. Her echo showed drop in LV function and troponin T was >2100 and hence I have been asked to evaluate and assist in patient management. Review of Systems Const: Reports: fatigue Card: Denies: chest pain Resp: Denies: dyspnea, productive cough or non-productive cough GI: Reports: hematochezia; Denies: abdominal pain or nausea : Denies: hematuria Musc: Reports: joint pain Neuro: Denies: headache(s) Psych: Reports: sleeping more Meds/Allergies Home Medications and Allergies Home Medications Medication Instructions Recorded Confirmed Last Taken Type Lantus U-100 Insulin 20 unit SUBCUT BEDTIME 08/14/19 03/01/20 03/01/20 History 20 units clopidogrel 75 mg PO DAILY 08/14/19 03/01/20 Unknown History docusate sodium 100 mg PO BID 08/14/19 03/01/20 03/01/20 History gabapentin [Neurontin] 100 mg PO TID 08/14/19 03/01/20 Unknown History hydrocodone-acetaminophen 1 - 2 tab PO Q4H PRN 08/14/19 03/01/20 03/01/20 History montelukast 10 mg PO DAILY 08/14/19 03/01/20 Unknown History pantoprazole 40 mg PO DAILY 08/14/19 03/01/20 Unknown History ropinirole 4 mg PO TID 08/14/19 03/01/20 Unknown History aspirin 81 mg PO DAILY #30 tab 08/23/19 03/01/20 03/01/20 Rx atorvastatin 40 mg PO BEDTIME #30 tab 08/23/19 03/01/20 02/29/20 Rx carvedilol 3.125 mg PO BID #60 tab 08/23/19 03/01/20 Unknown Rx fluticasone propion-salmeterol 1 inh INHALATION BID #60 each 08/23/19 03/01/20 Unknown Rx [Advair Diskus] isosorbide mononitrate 10 mg PO BID #30 tab 08/23/19 03/01/20 Unknown Rx potassium chloride 10 mEq 20 meq PO DAILY 12/06/19 03/01/20 03/01/20 History capsule,extended release cranberry 400 mg capsule 400 mg PO DAILY 01/09/20 03/01/20 Unknown History metoclopramide HCl 10 mg tablet See Rx Instructions .ROUTE 01/09/20 03/01/20 Unknown History .COMPLEX tab levofloxacin 500 mg tablet 500 mg PO DAILY #30 tab 02/16/20 03/01/20 Unknown Rx cephalexin 500 mg capsule 500 mg PO QID PRN cap 03/01/20 03/01/20 02/29/20 History xobdjiabxso-xuhvupekx-wewfxlsg 1 inh INHALATION DAILY 03/01/20 03/01/20 Unknown History [Trelegy Ellipta] furosemide 60 mg PO DAILY 03/01/20 03/01/20 03/01/20 History insulin lispro [Humalog U-100 See Rx Instructions .ROUTE .COMPLEX 03/01/20 03/01/20 03/01/20 History Insulin] 7 units ipratropium-albuterol 3 ml INHALATION PRN 03/01/20 03/01/20 Unknown History methenamine hippurate [Hiprex] 1 g PO BID 03/01/20 03/01/20 Unknown History multivitamin [Multiple Vitamins] 1 tab PO DAILY 03/01/20 03/01/20 Unknown History ondansetron See Rx Instructions .ROUTE .COMPLEX 03/01/20 03/01/20 Unknown History Allergies Allergy/AdvReac Type Severity Reaction Status Date / Time acetaminophen [From Percocet] Allergy Unknown Verified 10/25/19 13:44 amoxicillin Allergy N/V Verified 01/09/20 13:10 ciprofloxacin [From Cipro] Allergy Unknown Verified 10/25/19 13:44 dextromethorphan Allergy Unknown Verified 10/25/19 13:44 [From Mucinex DM] diclofenac Allergy Unknown Verified 10/25/19 13:44 doxycycline Allergy Unknown Verified 10/25/19 13:44 guaifenesin [From Mucinex DM] Allergy Unknown Verified 10/25/19 13:44 methylprednisolone Allergy Unknown Verified 10/25/19 13:44 nitrofurantoin Allergy N/V Verified 01/09/20 13:10 oxycodone [From Percocet] Allergy Unknown Verified 10/25/19 13:44 sulfamethoxazole Allergy N/V Verified 01/09/20 13:10 [From Bactrim] trimethoprim [From Bactrim] Allergy N/V Verified 01/09/20 13:10 Current Medications Current Medications Generic Name Dose Route Start Last Admin Trade Name Freq PRN Reason Stop Dose Admin Atorvastatin Calcium 40 mg 03/01/20 21:00 03/01/20 20:57 Lipitor PO 40 mg BEDTIME TIFFANIE Administration Carvedilol 3.125 mg 03/02/20 09:00 03/02/20 09:00 Coreg PO 3.125 mg BID TIFFANIE Administration Gabapentin 100 mg 03/01/20 21:00 03/02/20 09:00 Neurontin PO 100 mg TID TIFFANIE Administration Vancomycin HCl 500 mg/ Sodium 100 mls @ 100 mls/hr 03/01/20 21:00 03/01/20 21:16 Chloride IV 100 mls/hr Q48H TIFFANIE Administration Protocol As Directed Sodium Chloride 1,000 mls @ 75 mls/hr 03/01/20 20:23 03/02/20 01:42 Sodium Chloride 0.9% IV 75 mls/hr .[id number] TIFFANIE Administration Norepinephrine Bitartrate 4 mg 254 mls @ 0 mls/hr 03/02/20 05:00 03/02/20 06:35 / Dextrose IV 1 mcg/min .Q0M TIFFANIE 3.8 mls/hr Titration Protocol Per Protocol Imipenem/Cilastatin Sodium 250 100 mls @ 200 mls/hr 03/02/20 08:45 03/02/20 09:01 mg/ Sodium Chloride IV 200 mls/hr Q6H TIFFANIE Administration Protocol Insulin Aspart 0 unit 03/02/20 08:00 03/02/20 12:07 Novolog SUBCUT 10 unit TIDWM TIFFANIE Administration Protocol Insulin Glargine 20 unit 03/01/20 21:00 03/01/20 21:23 Lantus SUBCUT 20 unit BEDTIME TIFFANIE Administration Metoclopramide HCl 10 mg 03/01/20 21:00 03/02/20 12:07 Reglan PO 10 mg WM&BEDTIME TIFFANIE Administration Non-Formulary Medication 1 inh 03/02/20 09:00 03/02/20 12:04 Vpubaqrcgjp-Aktzrosuz-Xhriejwu [Trelegy Ellipta] INHALATION 1 inh DAILY TIFFANIE Administration Ondansetron HCl 4 mg 03/01/20 17:07 03/02/20 04:17 Zofran IVP 4 mg Q6H PRN Administration NAUSEA AND VOMITING Ropinirole HCl 4 mg 03/01/20 21:00 03/02/20 09:00 Requip PO 4 mg TID TIFFANIE Administration Fluticasone/Salmeterol 1 puff 03/01/20 21:00 03/02/20 08:42 Advair Diskus 250-50 INHALATION 1 puff BID.RESPIRATORY TIFFANIE Administration Senna 17.2 mg 03/01/20 21:00 03/01/20 20:57 Senna Lax PO 17.2 mg BEDTIME TIFFANIE Administration Sodium Polystyrene Sulfonate 15 gm 03/02/20 08:15 03/02/20 09:08 Kayexalate PO 15 gm Q6H TIFFANIE Administration PFSH Acute PFSH: Medical History (Updated 03/02/20 @ 21:51 by Aislinn Adhikari MD) CHF (congestive heart failure) CHF (congestive heart failure), NYHA class IV Chronic kidney disease Chronic kidney disease, stage III (moderate) COPD (chronic obstructive pulmonary disease) Diabetes mellitus type 2 in obese Stable Diabetes mellitus type 2 with complications Recurrent UTI Swelling of both lower extremities Chronic and unchanged. To continue Lasix 60 mg twice daily. Dose is increased slightly. Repeat BMP 3 days. Tobacco abuse Surgical History H/O unilateral oophorectomy Hx of CABG (12/24/18) Hx of cholecystectomy Family History (Updated 03/01/20 @ 18:11 by Nilesh Cohn MD) Father Lung disease Lung cancer. He was a smoker Mother CAD (coronary artery disease) Social History (Updated 03/01/20 @ 18:12 by Nilesh Cohn MD) Smoking and tobacco status: current every day smoker Alcohol intake: never Marital status: Current occupational status: retired History of recent travel: No Vitals/I&O/Wt Last Vital Signs Temp 99.1 F 03/02/20 14:00 Pulse 76 03/02/20 14:00 Resp 15 03/02/20 14:00 BP 110/67 03/02/20 14:00 Pulse Ox 99 03/02/20 14:00 03/01/20 03/02/20 03/02/20 22:59 06:59 14:59 Intake Total 150 / 150 709.563 / 859.563 240 / 240 Output Total 100 / 100 250 / 350 Balance 50 / 50 459.563 / 509.563 240 / 240 Weight last 48 hrs Weight 183 lb 7 oz Weight 167 lb Physical Exam Narrative: EXAM NARRATIVE: Gen: obese woman lying in bed HEENT: pallor +, icterus +, No JVD appreciated CVS: S1, S2 of normal intensity, Grade 2/6 SM at apex+ RS: Chest clear to auscultation anteriorly SKIVER WELT END: drowsy, but arousable and answering questions appropriately Ext: Bilateral 2+ edema with skin excoriation and erythema, chronic induration noted Urinary Catheter Management^: Rao: Cath Placed During This Visit: yes Reason for Continuing Indwelling Catheter: Accurate Measurement of Urinary Output in Critically Ill Patients Urinary Catheter Date of Insertion: 03/01/20 Urinary Catheter Time of Insertion: 16:00 Data Labs: Other Labs: Laboratory Tests 03/02/20 03/02/20 03/02/20 04:30 11:43 13:57 Total Bilirubin 1.2 AST 253 H ALT 61 H Alkaline Phosphata se 533 H Troponin T Baselin e 2180 H* Troponin T [address] [facility] 2241 H Troponin T Hi Sens 6Hr 03/02/20 18:37 Total Bilirubin AST ALT Alkaline Phosphata se Troponin T Baselin e Troponin T [address] [facility] Troponin T Hi Sens 6Hr 2232 H Micro: Micro: Microbiology 03/02/20 00:26 Occult Blood (FIT) - Final Stool 03/01/20 17:30 Blood Culture - Pr eliminary Blood SPECIMEN [facility]LEC REBECCA 03/01/20 16:30 Blood Culture - Pr eliminary Blood SPECIMEN [facility] Other Data: Other data: The cardiac catheterization findings, prior to the bypass surgery are as follows The left main is a medium caliber vessel. There was some ostial narrowing.The distal left main was found to have around 18-30% tapering narrowing. Noother significant stenotic lesions were noted. Mild to moderate coronarycalcification was noted. In the left circumflex artery is a medium caliber vessel which also wasfound to have moderate diffuse calcification in the proximal segment. Thefirst obtuse marginal branches are relatively small-caliber vessel and wasfound to have around 85% stenosis near to the ostium. The mid and distalcircumflex and obtuse marginal arteries were found to have mild diffusedisease. The left anterior descending artery is a medium caliber vessel which appears to wrap around the LV apex. The proximal segment of the artery was found to have around the 40-50% diffuse narrowing with calcification. The mid to distal LAD was found to have an elongated severe diffuse stenosis ranging anywhere from 70-95%. The distal LAD around the apex was found to have milddiffuse intimal irregularities. The right coronary artery is a medium caliber vessel, codominant and appearsto bifurcate proximally to give off the PDA and the PLV branch. The PLVbranch was found to have a high-grade eccentric stenosis of around 85% proximally. Mild to moderate diffuse disease was noted in the distal branches. The PDA branch was found to be A relatively small-caliber vessel with mild to moderate diffuse disease. The intermedius artery was found to be a medium caliber vessel with the mild to moderate diffuse disease in the mid and distal segment. TTE (02/2020) CONCLUSIONS 1. This is a limited 2D study. 2. Mildly increased left ventricular cavity size. Severely decreased left ventricular systolic function. Left ventricular ejection fraction is estimated at 25-30 %. There is severe hypokinesis of inferoseptal, basal to apical anteroseptal and apical aleman. 3. Mildly increased left atrial size. 4. Compared to previous echocardiogram dated 08/15/2019, left ventricle systolic function seems to have dropped from 40% to 20-25% now. A&P Assessment and plan (1) NSTEMI (non-ST elevated myocardial infarction): Patient has multiple risk factors with h/o CABG and drop in LV function. TRoponin T X3 ranged approximately from [id number]. -Given ongoing GI bleed and significant anemia, severe sepsis, not a good candidate for further work up at this point. -This was discussed with patient and attempted to contact sister. I will try her again tomorrow. Status: Acute (2) Sepsis: She is off pressors now and being treated for pyelonephritis -antibiotic as per primary team. Status: Acute Qualifiers: Sepsis acute organ dysfunction status: unspecified Sepsis type: sepsis due to unspecified organism Qualified Code(s): A41.9 - Sepsis, unspecified organism (3) CHF (congestive heart failure): currently on maintenance IV fluid.cautious fluid use geven severe LV dysfunction. -probably would need some diuresis soon. Status: Acute Qualifiers: Heart failure type: combined systolic and diastolic Heart failure chronicity: acute on chronic Qualified Code(s): I50.43 - Acute on chronic combined systolic (congestive) and diastolic (congestive) heart failure (4) Recurrent UTI: Status: Acute (5) CAD (coronary artery disease): Status: Acute Qualifiers: Coronary Disease-Associated Artery/Lesion type: [place] artery [place] vs. transplanted heart: [place] heart Associated angina: with stable angina Qualified Code(s): I25.118 - Atherosclerotic heart disease of [place] coronary artery with other forms of angina pectoris (6) Diabetes mellitus type 2 with complications: Status: Acute (7) Tobacco abuse: Status: Acute Additional A&P Information GI Bleed Hyperkalemia Severe anemia Transaminitis : would have to hold lipitor. FRANKI on CKD DM-2 Thank you for allowing me to participate in patient's care. PLease feel lan eto call with questions or concerns. Coding Level of Care Code Acute Furnace Roaster for g Fwd Diagnoses NSTEMI (non-ST elevated myocardial infarction) I21.4 Sepsis A41.9 Sepsis acute organ dysfunction status: unspecified Sepsis type: sepsis due to unspecified organism CHF (congestive heart failure) I50.43 Heart failure type: combined systolic and diastolic Heart failure chronicity: acute on chronic Recurrent UTI N39.0 CAD (coronary artery disease) I25.118 Coronary Disease-Associated Artery/Lesion type: [place] artery [place] vs. transplanted heart: [place] heart Associated angina: with stable angina Diabetes mellitus type 2 with complications E11.8 Tobacco abuse Z72.0
[2020-03-02 15:49] LABS: Troponin 5 2HR 2241 ng/L (0-10); Troponin 5 2HR Delta 61 ABS# (0-10)
[2020-03-02] MEDS: cefTRIAXone 1,000 MG in sodium chloride 0.9% (plus) 50 ML 100 MG IV (16:42)
[2020-03-02 17:08] LABS: Glucose Point of Care 115 mg/dL (70-110)
[2020-03-02 19:15] LABS: Troponin 5 6HR 2232 ng/L (0-10)
[2020-03-02 19:17] LABS: Troponin 5 6HR Delta 52 ng/L (0-12)
--- NOTE | 2020-03-02 20:23 | US_ITS ---
WS: [id number] RENAL ULTRASOUND Urinary bladder ultrasound HISTORY: Recurrent UTI, sepsis and acute kidney injury. COMPARISON: 08/15/2019 TECHNIQUE: 2-D and color Doppler imaging of the kidney submitted. Right kidney: 9.9 cm x 4.3 cm x 4.7 cm. Normal echogenicity with no hydronephrosis or mass. Left kidney: 11.5 cm x 4.4 cm x 4.7 cm. Normal echogenicity with no hydronephrosis or mass. Aorta: Normal. Urinary Bladder: Rao catheter present in a nondistended bladder. Tiny amount of free fluid adjacent to the liver. US/US renal BI with bladder IMPRESSION: 1. Normal renal ultrasound. 2. Rao catheter present in a nondistended bladder. 3. Very tiny amount of ascites.
--- NOTE | 2020-03-02 20:23 | USCV_ITS ---
HaydenDanyelle Age: 59 Gender: F : 1960 Exam Date: 03/02/2020 09:23 Ordering Phys: Nilesh Cohn MD Technologist: Elizabet Coleman Exam Location: [facility] – [place] Indication: Swelling, chronic wounds HISTORY: Lower extremity swelling. PROCEDURES: Comparison: 01-12-19. Venous duplex imaging was performed in bilateral lower extremities. The following venous structures were evaluated: common femoral vein, profunda vein, proximal portion of the greater saphenous vein, superficial femoral vein, and the popliteal vein. Serial compression, augmentation maneuvers, and spectral Doppler flow evaluation were performed. FINDINGS: Normal 2-D Doppler and augmentation and compressibility throughout the lower extremity venous structures. Additional imaging through the proximal calf veins also reveals no thrombus. Limited evaluation of the greater saphenous vein is patent with no thrombus.. Partial compression in the left proximal greather saphenous vein. CONCLUSIONS No DVT bilateral lower extremities. Age indeterminate superficial left thromobphlebitis. Dr. Sanjana Mello DO (Electronically Signed) Final Date: 02 March 2020 13:25 S
[2020-03-02] MEDS: sodium chloride 0.9% 1,000 ML 50 ML IV (20:51)
[2020-03-02] MEDS: sennosides 8.6 mg Tablet 17.2 MG PO (20:54)
[2020-03-02] MEDS: atorvastatin 40 mg Tablet PO (20:55)
[2020-03-02 21:04] LABS: Glucose Point of Care 85 mg/dL (70-110)
--- NOTE | 2020-03-02 21:30 | PC.NURSE ---
Call to Dr. patient blood glucose at 2100 reading of 85. per MAR to give 20units of lantus. patient currently on clear liquid diet. Patient was able to drink some orange juice. call to Dr. Chin and updated on patient glucose and order. per Dr to hold lantus for tonight. Vital signs WNL. patient has had 1 blood BM since arriving on shift. will continue to monitor.
[2020-03-02 23:45] LABS: Hematocrit 30.4 % (37.0-47.0); Hemoglobin 9.8 g/dL (11.5-15.3)
[2020-03-03] VITALS (33 sets, daily range): BP systolic 79–133; BP diastolic 42–77; PULSE 71–85; RESP 9–19; TEMP 36.3–37.1; O2SAT 92–97
[2020-03-03] MEDS: sodium chloride 0.9% (100 ml) 100 ML (02:24)
[2020-03-03 05:14] LABS: Basophils % 0.1 %; Eosinophils % 0.1 %; Hematocrit 31.9 % (37.0-47.0); Hemoglobin 10.4 g/dL (11.5-15.3); Lymphocytes # 0.7 10^3/uL (0.8-4.8); Lymphocytes % 4.8 %; Mean Corpuscular HGB Conc 32.6 g/dL (30.0-36.0); Mean Corpuscular Hemoglobin 30.5 pg (28.0-34.0); Mean Corpuscular Volume 93.5 fL (81-99); Mean Platelet Volume 12.2 fL (7.4-10.4); Monocytes # 1.2 10^3/uL (0.2-0.9); Monocytes % 7.4 %; Neutrophils # 13.47 10^3/uL (1.8-7.7); Neutrophils % 87.2 %; Nucleated Red Blood Cells % 0.2 %; Platelet Count 167 10^3/cmm (130-400); Red Blood Count 3.41 10^6/uL (4.1-5.3); Red Cell Distribution Width 20.4 % (12.1-15.1); White Blood Count 15.5 10^3/uL (4.0-10.0)
[2020-03-03] MEDS: acetaminophen 325 mg Tablet 650 MG PO (05:22)
[2020-03-03 05:40] LABS: Alanine Aminotransferase 102 U/L (0-33); Albumin Level 1.7 g/dL (3.5-5.2); Alkaline Phosphatase 596 IU/L (35-105); Anion Gap 18.5 (5-19); Aspartate Amino Transferase 402 U/L (0-32); Blood Urea Nitrogen 78 mg/dL (6-20); Carbon Dioxide 16 mmol/L (22-29); Chloride 107 mmol/L (98-107); Glucose 55 mg/dL (65-115); Osmolality Calculated 281 mOsm/kg (285-295); Potassium 4.5 mmol/L (3.5-5.1); Sodium 137 mmol/L (136-145); Total Bilirubin 1.1 mg/dL (0.15-1.2); Total Protein 6.7 g/dL (6.6-8.7)
[2020-03-03 05:47] LABS: Calcium 7.2 mg/dL (8.5-10.5)
--- NOTE | 2020-03-03 06:34 | PC.NURSE ---
shift summary patient had 6 large bloody watery bowel movements throughout shift. notified after two large bloody BM. repeat HH ordered by . decision to infuse 1 unit PRBC. patient tolerated blood transfusion. nurse noted that patient got slightly confused around 3am. patient asking alot of same questions when is my family coming. where is my family? 0600 blood pressure 79/49 0606 blood pressure 85/48 levophed restarted at 2mcg. will continue to monitor.
[2020-03-03 07:30] LABS: Glucose Point of Care 79 mg/dL (70-110)
--- NOTE | 2020-03-03 07:46 | P.PN_ITS ---
Subjective Subjective: Interval history: Patient denies chest pain this morning but does report being slightly short of breath. She had 350 mL of urinary output throughout night and appears much cleared. Denies abdominal pain. Reports doing much better. Reports being hungry and wants to eat. Noted that she is coughing after thin liquids and speech therapy evaluation was requested. Had several large bowel movements with some evidence of bleeding. Her potassium improved with Kayexalate. Her blood pressure was slightly low last night and she was started on 1 mcg/min of Levophed. WBC increased. She is hypoglycemic. Patient received 1 more unit of PRBC last night. Vitals/I&O/Wt Last Vital Signs Temp 98.7 F 03/03/20 04:00 Pulse 72 03/03/20 06:00 Resp 15 03/03/20 06:00 BP 79/49 03/03/20 06:00 Pulse Ox 94 03/03/20 06:00 03/02/20 03/03/20 03/03/20 22:59 06:59 14:59 Intake Total 1470 / 1810 889.49 / 2699.49 Output Total 550 / 550 350 / 900 Balance 920 / 1260 539.49 / 1799.49 Weight last 48 hrs Weight 80.739 kg Weight 83.206 kg Weight 75.75 kg Physical Exam 2 Const: COMMON NORMALS: no acute distress and patient oriented x3 Resp: COMMON NORMALS: normal respiratory effort OTHER: Very minimal bibasilar Rales. Cardio: COMMON NORMALS: regular rate, regular rhythm and S2 normal heart sound present RATE: regular rate RHYTHM: regular rhythm HEART SOUNDS: S2 normal heart sound present OTHER: Trace lower extremity edema. Chronic wo unds appear to be well-healed GI: COMMON NORMALS: Normal to inspection, nondistended, normoactive bowel sounds present, Soft to palpation and non-tender PALPATION: Yes Soft to palpation Neuro: COMMON NORMALS: patient oriented x3 and no focal motor deficits Urinary Catheter Management^: Rao: Cath Placed During This Visit: yes Reason for Continuing Indwelling Catheter: Accurate Measurement of Urinary Output in Critically Ill Patients Urinary Catheter Date of Insertion: 03/01/20 Urinary Catheter Time of Insertion: 16:00 Data : 03/03/20 04:05 03/03/20 04:05 Micro: Microbiology 03/01/20 17:30 Blood Culture - Preliminary Blood NEGATIVE TO DATE 03/01/20 16:30 Blood Culture - Preliminary Blood NEGATIVE TO DATE A&P Assessment and plan (1) Sepsis: As exhibited by tachycardia and tachypnea. WBC 11.9. Patient is afebrile . Status: Acute Qualifiers: Sepsis acute organ dysfunction status: unspecified Sepsis type: sepsis due to unspecified organism Qualified Code(s): A41.9 - Sepsis, unspecified organism (2) Recurrent UTI: Status: Acute (3) Acute kidney injury superimposed on CKD: Prerenal secondary to dehydration. Some degree of ATN cannot be ruled o ut. Status: Acute (4) Hyperkalemia: Likely multifactorial with acute kidney injury and potassium supplementation playing a role. I suspect that patient was skeeping Lasix although she denies Status: Acute (5) CHF (congestive heart failure), NYHA class IV: Combined with significant decreased EF. Status: Acute Qualifiers: Congestive heart failure type: diastolic Congestive heart failure chronicity: chronic Qualified Code(s): I50.32 - Chronic diastolic (congestive) heart failure (6) Dehydration with hyponatremia: Improved Status: Acute (7) Tobacco abuse: Status: Acute (8) Diabetes mellitus type 2 with complications: Chronic kidney disease stage III, peripheral neuropathy, gastroparesis Status: Acute (9) NSTEMI (non-ST elevated myocardial infarction): Present on admission Status: Acute Additional A&P Information Altered mental status with lethargy. Improved Coronary artery disease, status post CABG Acute normocytic anemia. Peripheral vascular disease. PLAN: Continue IV hydration and add D5 but will give 1 dose of Lasix as patient starts showing evidence of fluid overload. Will obtain chest x-ray this morning. Continue Levophed for now and wean off as blood pressure permits. Avoid any anticoagulation or antiplatelet medications. Cannot use SCDs because of high risk of lower extremity wounds. Awaiting culture results. Stop carvedilol and senna for now. Check stool studies including enteric pathogens and C. difficile test. Speech therapy and initiate oral intake per their recommendation. Once stabilized patient will require EGD and colonoscopy. Attestations Medical Necessity Statement*: Patient with multiorgan failure requiring close ICU monitoring and treatment. 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
--- NOTE | 2020-03-03 07:58 | XRR_ITS ---
PROCEDURE INFORMATION: Exam: XR Chest, 1 View Exam date and time: 03/03/2020 8:16 AM Age: 59 years old Clinical indication: Cardiovascular condition or disease; Congestive heart failure (chf); Cause unknown; Type unknown; Prior surgery; Surgery date: 6+ months TECHNIQUE: Imaging protocol: XR of the chest Views: 1 view. COMPARISON: CR XR chest 1V portable [id number] 08/14/2019 8:35 PM FINDINGS: Lungs: There is again pulmonary vascular congestion with evidence of interstitial edema but no focal consolidation. Pleural space: Mild blunting of the left lateral costophrenic angle, small pleural effusion not excluded. No visible pneumothorax. Heart/Mediastinum: Cardiac silhouette remains moderately enlarged. Bones/joints: Median sternotomy wires. XR/XR chest 1V portable [id number] IMPRESSION: Findings consistent with congestive heart failure including cardiomegaly, interstitial edema, and possible small left effusion. No focal consolidation.
[2020-03-03] MEDS: dextrose 5%-sod chloride 0.9% 1,000 ML 75 ML IV ×2 (10:37→21:25)
[2020-03-03] MEDS: ropinirole 2 mg Tablet 4 MG PO ×3 (10:38→21:30)
[2020-03-03] MEDS: gabapentin 100 mg Capsule PO ×3 (10:38→21:30)
[2020-03-03] MEDS: pantoprazole 40 mg SDV IVP ×2 (10:39→18:49)
--- NOTE | 2020-03-03 11:35 | PM.PN ---
Subjective Subjective: Interval history: Last 24 hr: No acute events, received another unit of pRBC. She feels better and denies and chest pains.He had to be on levophed briefly overnight and coreg was stopped. Medications: Reviewed: Yes Medication Review Details: Current Medications Acetaminophen (Tylenol) 650 mg PO Q4H PRN PRN Reason: MILD PAIN OR INCREASE TEMP Last Admin: 03/03/20 05:22 Dose: 650 mg Documented by: Albuterol/Ipratropium (Duoneb) 3 ml INHALATION PRN PRN PRN Reason: SHORTNESS OF BREATH Atorvastatin Calcium (Lipitor) 40 mg PO BEDTIME TIFFANIE Last Admin: 03/02/20 20:55 Dose: 40 mg Documented by: Dextrose (D50w) 25 ml IVP ONCE PRN; Protocol PRN Reason: hypoglycemia protocol Dextrose (D50w) 50 ml IVP PRN PRN; Protocol PRN Reason: hypoglycemia protocol Gabapentin (Neurontin) 100 mg PO TID TIFFANIE Last Admin: 03/03/20 10:38 Dose: 100 mg Documented by: Glucagon (Glucagen) 1 mg IM ONCE PRN; Protocol PRN Reason: Adult Acute Hypoglycemia Prot. Ceftriaxone Sodium 1,000 mg/ (Sodium Chloride) 50 mls @ 100 mls/hr IV Q24H TIFFANIE; Protocol Last Admin: 03/02/20 16:42 Dose: 100 mls/hr Documented by: Dextrose (D5w) 500 mls @ 100 mls/hr IV ONCE PRN; Protocol PRN Reason: Adult Acute Hypoglycemia Prot Norepinephrine Bitartrate 4 mg (/ Dextrose) 254 mls @ 0 mls/hr IV .Q0M TIFFANIE; Protocol Last Titration: 03/03/20 06:08 Dose: 2 mcg/min, 7.6 mls/hr Documented by: Imipenem/Cilastatin Sodium 250 (mg/ Sodium Chloride) 100 mls @ 200 mls/hr IV Q6H TIFFANIE; Protocol Last Admin: 03/03/20 10:38 Dose: 200 mls/hr Documented by: Dextrose/Sodium Chloride (Dextrose 5%-Sod Chloride 0.9%) 1,000 mls @ 75 mls/hr IV .[id number] TIFFANIE Last Admin: 03/03/20 10:37 Dose: 75 mls/hr Documented by: Vancomycin HCl 1,000 mg/ (Sodium Chloride) 250 mls @ 250 mls/hr IV Q36H TIFFANIE; Protocol Insulin Aspart (Novolog) 0 unit SUBCUT TIDWM TIFFANIE; Protocol Last Admin: 03/03/20 12:55 Dose: 4 unit Documented by: Insulin Glargine (Lantus) 20 unit SUBCUT BEDTIME TIFFANIE Last Admin: 03/02/20 21:24 Dose: Not Given Documented by: Metoclopramide HCl (Reglan) 10 mg PO WM&BEDTIME TIFFANIE Last Admin: 03/03/20 12:55 Dose: 10 mg Documented by: Non-Formulary Medication (Hsinpbkoghu-Cbjywczkm-Nzvamivk [Trelegy Ellipta]) 1 inh INHALATION DAILY TIFFANIE Last Admin: 03/03/20 12:08 Dose: Not Given Documented by: Ondansetron HCl (Zofran) 4 mg IVP Q6H PRN PRN Reason: NAUSEA AND VOMITING Last Admin: 03/02/20 04:17 Dose: 4 mg Documented by: Pantoprazole Sodium (Protonix) 40 mg IVP BID [facility] Last Admin: 03/03/20 10:39 Dose: 40 mg Documented by: Ropinirole HCl (Requip) 4 mg PO TID TIFFANIE Last Admin: 03/03/20 10:38 Dose: 4 mg Documented by: Fluticasone/Salmeterol (Advair Diskus 250-50) 1 puff INHALATION BID.RESPIRATORY [facility] Last Admin: 03/03/20 08:31 Dose: 1 puff Documented by: Vitals/I&O/Wt Last Vital Signs Temp 97.4 F L 03/03/20 08:00 Pulse 73 03/03/20 10:00 Resp 12 03/03/20 10:00 BP 105/62 03/03/20 10:00 Pulse Ox 97 03/03/20 10:00 03/02/20 03/03/20 03/03/20 22:59 06:59 14:59 Intake Total 1470 / 1810 989.49 / 2799.49 240 / 240 Output Total 550 / 550 350 / 900 Balance 920 / 1260 639.49 / 1899.49 240 / 240 Weight last 48 hrs Weight 178 lb Weight 183 lb 7 oz Weight 167 lb Physical Exam Narrative: EXAM NARRATIVE: Gen: obese woman lying in bed HEENT: pallor +, icterus +, No JVD appreciated CVS: S1, S2 of normal intensity, Grade 2/6 SM at apex+ RS: Chest clear to auscultation anteriorly 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, but arousable and answering questions appropriately Ext: Bilateral 1+ edema with skin excoriation and erythema, chronic induration noted Urinary Catheter Management^: Rao: Cath Placed During This Visit: yes Reason for Continuing Indwelling Catheter: Accurate Measurement of Urinary Output in Critically Ill Patients Urinary Catheter Date of Insertion: 03/01/20 Urinary Catheter Time of Insertion: 16:00 Data : 03/03/20 04:05 03/03/20 04:05 Micro: Microbiology 03/01/20 17:30 Blood Culture - Preliminary Blood NEGATIVE TO DATE 03/01/20 16:30 Blood Culture - Preliminary Blood NEGATIVE TO DATE A&P Assessment and plan (1) NSTEMI (non-ST elevated myocardial infarction): Patient has multiple risk factors with h/o CABG and drop in LV function. TRoponin T X3 ranged approximately from 1753-7469. -Given ongoing GI bleed and significant anemia, severe sepsis and FRANKI, not a good candidate for further work up at this point. -This was discussed in detail with patient and her sister. -She can not be on ASA, plavix, statin or beta blockers (hypotension) Status: Acute (2) Sepsis: She is off pressors now and being treated for possible pyelonephritis. -antibiotic as per primary team. -Blood culture and urine culture negative so far. Status: Acute Qualifiers: Sepsis acute organ dysfunction status: unspecified Sepsis type: sepsis due to unspecified organism Qualified Code(s): A41.9 - Sepsis, unspecified organism (3) CHF (congestive heart failure): currently on maintenance IV fluid.cautious fluid use geven severe LV dysfunction. -probably would need some diuresis soon. Status: Acute Qualifiers: Heart failure type: combined systolic and diastolic Heart failure chronicity: acute on chronic Qualified Code(s): I50.43 - Acute on chronic combined systolic (congestive) and diastolic (congestive) heart failure (4) Recurrent UTI: Status: Acute (5) CAD (coronary artery disease): Status: Acute Qualifiers: Coronary Disease-Associated Artery/Lesion type: [place] artery [place] vs. transplanted heart: [place] heart Associated angina: with stable angina Qualified Code(s): I25.118 - Atherosclerotic heart disease of [place] coronary artery with other forms of angina pectoris (6) Diabetes mellitus type 2 with complications: Status: Acute (7) Tobacco abuse: Status: Acute Additional A&P Information GI Bleed Hyperkalemia Severe anemia Transaminitis : would have to hold lipitor. FRANKI on CKD DM-2 Thank you for allowing me to participate in patient's care. PLease feel aln eto call with questions or concerns. Attestations Medical Necessity Statement*: As per primary team. 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 transplanted heart: [place] heart Associated angina: with stable angina Diabetes mellitus type 2 with complications E11.8 Tobacco abuse Z72.0
[2020-03-03 12:13] LABS: Glucose Point of Care 171 mg/dL (70-110)
[2020-03-03] MEDS: FUROsemide 10 mg/mL SDV 10mL 80 MG IVP (12:54)
[2020-03-03] MEDS: metoclopramide 10 mg Tablet PO ×3 (12:55→21:31)
[2020-03-03] MEDS: vancomycin 1,000 MG in sodium chloride 0.9% 250 ML 250 MG IV (16:49)
[2020-03-03] MEDS: cefTRIAXone 1,000 MG in sodium chloride 0.9% (plus) 50 ML 100 MG IV (16:50)
[2020-03-03 18:24] LABS: Glucose Point of Care 185 mg/dL (70-110)
[2020-03-03] MEDS: insulin glargine 100 units/1 mL 20 UNIT SUBCUT (21:33)
[2020-03-03 21:35] LABS: Glucose Point of Care 216 mg/dL (70-110)
[2020-03-04] VITALS (25 sets, daily range): BP systolic 77–126; BP diastolic 51–77; PULSE 71–88; RESP 2–23; TEMP 36.8–37.2; O2SAT 95–99
[2020-03-04 05:02] LABS: Basophils % 0.1 %; Eosinophils % 0.3 %; Hematocrit 29.1 % (37.0-47.0); Hemoglobin 9.4 g/dL (11.5-15.3); Lymphocytes # 0.8 10^3/uL (0.8-4.8); Lymphocytes % 5.6 %; Mean Corpuscular HGB Conc 32.3 g/dL (30.0-36.0); Mean Corpuscular Hemoglobin 31.4 pg (28.0-34.0); Mean Corpuscular Volume 97.3 fL (81-99); Mean Platelet Volume 11.7 fL (7.4-10.4); Monocytes # 1.2 10^3/uL (0.2-0.9); Monocytes % 8.2 %; Neutrophils # 12.54 10^3/uL (1.8-7.7); Neutrophils % 85.4 %; Nucleated Red Blood Cells # 0.1 /100WBC; Nucleated Red Blood Cells % 0.4 %; Platelet Count 175 10^3/cmm (130-400); Red Blood Count 2.99 10^6/uL (4.1-5.3); Red Cell Distribution Width 21.9 % (12.1-15.1); White Blood Count 14.7 10^3/uL (4.0-10.0)
[2020-03-04 06:04] LABS: Alanine Aminotransferase 70 U/L (0-33); Albumin Level 1.4 g/dL (3.5-5.2); Alkaline Phosphatase 702 IU/L (35-105); Anion Gap 17.3 (5-19); Aspartate Amino Transferase 238 U/L (0-32); Blood Urea Nitrogen 79 mg/dL (6-20); Calcium 8.1 mg/dL (8.5-10.5); Carbon Dioxide 16 mmol/L (22-29); Chloride 108 mmol/L (98-107); Creatinine Clr Calc Pharmacy 29.3675; Globulin 5.2 g/dL (1.3-4.6); Glomerular Filtration Rate 21.7 mL/min (90-130); Glucose 117 mg/dL (65-115); Osmolality Calculated 287 mOsm/kg (285-295); Potassium 3.3 mmol/L (3.5-5.1); Sodium 138 mmol/L (136-145); Total Bilirubin 0.8 mg/dL (0.15-1.2); Total Protein 6.6 g/dL (6.6-8.7)
--- NOTE | 2020-03-04 06:40 | PC.NURSE ---
shift summary patient had two small dark red bloody bowel movements. vital signs WNL throughout night. patient very hungry and thirsty throughout night. thickened water given to patient to take PO medications. informed patient to tuck and swallow when drinking. patient tolerated well.
[2020-03-04 07:39] LABS: Glucose Point of Care 86 mg/dL (70-110)
[2020-03-04 07:39] LABS: Glucose Point of Care 79 mg/dL (70-110)
[2020-03-04] MEDS: potassium chloride premix 40 MEQ/100 ML PREMIX 25 MEQ IV ×2 (09:59→13:08)
[2020-03-04] MEDS: metoclopramide 10 mg Tablet PO ×4 (10:00→20:28)
[2020-03-04] MEDS: ropinirole 2 mg Tablet 4 MG PO ×3 (10:00→20:28)
[2020-03-04] MEDS: pantoprazole 40 mg SDV IVP ×2 (10:01→17:47)
[2020-03-04] MEDS: gabapentin 100 mg Capsule PO ×3 (10:01→20:28)
[2020-03-04] MEDS: lidocaine 1% INJ 20 mL 5 ML IV (10:05)
--- NOTE | 2020-03-04 10:43 | P.PN_ITS ---
Subjective Subjective: Interval history: She states she feels so so. short runs of NSVT on telemetry. [id number] one dose of lasix 80 mg IV x 1 Medications: Reviewed: Yes Medication Review Details: Current Medications Acetaminophen (Tylenol) 650 mg PO Q4H PRN PRN Reason: MILD PAIN OR INCREASE TEMP Last Admin: 03/03/20 05:22 Dose: 650 mg Documented by: Albuterol/Ipratropium (Duoneb) 3 ml INHALATION PRN PRN PRN Reason: SHORTNESS OF BREATH Atorvastatin Calcium (Lipitor) 40 mg PO BEDTIME TIFFANIE Last Admin: 03/02/20 20:55 Dose: 40 mg Documented by: Lidocaine HCl 1.667 ml/Diphenhydramine HCl 4.165 mg/Al Hydrox/Mg Hydrox/Simethicone 1.667 ml 0 ml MUCOUS MEM Q4H PRN PRN Reason: MOUTH PAIN Dextrose (D50w) 25 ml IVP ONCE PRN; Protocol PRN Reason: hypoglycemia protocol Dextrose (D50w) 50 ml IVP PRN PRN; Protocol PRN Reason: hypoglycemia protocol Gabapentin (Neurontin) 100 mg PO TID [facility] Last Admin: 03/04/20 10:01 Dose: 100 mg Documented by: Glucagon (Glucagen) 1 mg IM ONCE PRN; Protocol PRN Reason: Adult Acute Hypoglycemia Prot. Ceftriaxone Sodium 1,000 mg/ (Sodium Chloride) 50 mls @ 100 mls/hr IV Q24H TIFFANIE; Protocol Last Admin: 03/03/20 16:50 Dose: 100 mls/hr Documented by: Dextrose (D5w) 500 mls @ 100 mls/hr IV ONCE PRN; Protocol PRN Reason: Adult Acute Hypoglycemia Prot Norepinephrine Bitartrate 4 mg (/ Dextrose) 254 mls @ 0 mls/hr IV .Q0M TIFFANIE; Protocol Last Titration: 03/03/20 06:08 Dose: 2 mcg/min, 7.6 mls/hr Documented by: Imipenem/Cilastatin Sodium 250 (mg/ Sodium Chloride) 100 mls @ 200 mls/hr IV Q6H TIFFANIE; Protocol Last Admin: 03/04/20 09:58 Dose: 200 mls/hr Documented by: Vancomycin HCl 1,000 mg/ (Sodium Chloride) 250 mls @ 250 mls/hr IV Q36H TIFFANIE; Protocol Last Admin: 03/03/20 16:49 Dose: 250 mls/hr Documented by: Potassium Chloride (K-Aman) 40 meq in 100 mls @ 25 mls/hr IV Q4H [facility] Stop: 03/04/20 15:29 Last Admin: 03/04/20 09:59 Dose: 25 mls/hr Documented by: Insulin Aspart (Novolog) 0 unit SUBCUT TIDWM TIFFANIE; Protocol Last Admin: 03/04/20 10:00 Dose: Not Given Documented by: Insulin Glargine (Lantus) 20 unit SUBCUT BEDTIME TIFFANIE Last Admin: 03/03/20 21:33 Dose: 20 unit Documented by: Metoclopramide HCl (Reglan) 10 mg PO WM&BEDTIME TIFFANIE Last Admin: 03/04/20 10:00 Dose: 10 mg Documented by: Non-Formulary Medication (Ngioktxekzv-Egibkmjix-Rfaxnobl [Trelegy Ellipta]) 1 inh INHALATION DAILY [facility] Last Admin: 03/04/20 10:52 Dose: Not Given Documented by: Ondansetron HCl (Zofran) 4 mg IVP Q6H PRN PRN Reason: NAUSEA AND VOMITING Last Admin: 03/02/20 04:17 Dose: 4 mg Documented by: Pantoprazole Sodium (Protonix) 40 mg IVP BID [facility] Last Admin: 03/04/20 10:01 Dose: 40 mg Documented by: Ropinirole HCl (Requip) 4 mg PO TID TIFFANIE Last Admin: 03/04/20 10:00 Dose: 4 mg Documented by: Fluticasone/Salmeterol (Advair Diskus 250-50) 1 puff INHALATION BID.RESPIRATORY [facility] Last Admin: 03/04/20 09:31 Dose: Not Given Documented by: Vitals/I&O/Wt Last Vital Signs Temp 98.4 F 03/04/20 04:00 Pulse 78 03/04/20 09:31 Resp 20 H 03/04/20 09:31 BP 121/64 03/04/20 08:00 Pulse Ox 99 03/04/20 09:31 03/03/20 03/04/20 03/04/20 22:59 06:59 14:59 Intake Total 1150 / 1730 300 / 2030 Output Total 750 / 750 Balance 1150 / 1730 -450 / 1280 Intake & Output 03/02/20 03/03/20 03/04/20 03/05/20 06:59 06:59 06:59 06:59 Intake Total 859.563 / 953.494 8428.49 / 2849.49 2029 Output Total 350 / 350 900 / 900 750 / 750 Balance 509.563 / 322.394 8687.49 / 1949.49 1280 / 1280 Weight 183 lb 7 oz 178 lb 177 lb Weight last 48 hrs Weight 177 lb Weight 178 lb Physical Exam Narrative: EXAM NARRATIVE: Gen: obese woman lying in bed HEENT: pallor +, icterus +, No JVD appreciated CVS: S1, S2 of normal intensity, Grade 2/6 SM at apex+ RS: Chest clear to auscultation anteriorly and improved aeration in posterior lung nick 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, but arousable and answering questions appropriately Ext: Bilateral trace-1+ edema with skin excoriation and chronic skin changes noted Urinary Catheter Management^: Rao: Cath Placed During This Visit: yes Reason for Continuing Indwelling Catheter: Accurate Measurement of Urinary Output in Critically Ill Patients Urinary Catheter Date of Insertion: 03/01/20 Urinary Catheter Time of Insertion: 16:00 Data : 03/04/20 04:01 03/04/20 04:01 Micro: Microbiology 03/03/20 10:45 Enteric Pathogens (PCR) - Final Stool - Stool Aspirate 03/03/20 10:45 C.difficile Toxin B Gene (PCR) - Final Stool Routine Collection A&P Assessment and plan (1) NSTEMI (non-ST elevated myocardial infarction): Patient has multiple risk factors with h/o CABG and drop in LV function. TRoponin T X3 ranged approximately from 5755-5750. -Given ongoing GI bleed and significant anemia, severe sepsis and FRANKI, not a good candidate for further work up at this point. -This was discussed with patient and her sister. Status: Acute (2) Sepsis: She is off pressors now and being treated emperically with antibiotics. -antibiotic as per primary team. Status: Acute Qualifiers: Sepsis acute organ dysfunction status: unspecified Sepsis type: sepsis due to unspecified organism Qualified Code(s): A41.9 - Sepsis, unspecified organism (3) CHF (congestive heart failure): agree with another dose of lasix today. -Coreg on hold given hypotension. Status: Acute Qualifiers: Heart failure type: combined systolic and diastolic Heart failure chronicity: acute on chronic Qualified Code(s): I50.43 - Acute on chronic combined systolic (congestive) and diastolic (congestive) heart failure (4) Recurrent UTI: Status: Acute (5) CAD (coronary artery disease): Status: Acute Qualifiers: Coronary Disease-Associated Artery/Lesion type: [place] artery [place] vs. transplanted heart: [place] heart Associated angina: with stable angina Qualified Code(s): I25.118 - Atherosclerotic heart disease of [place] coronary artery with other forms of angina pectoris (6) Diabetes mellitus type 2 with complications: Status: Acute (7) Tobacco abuse: Status: Acute Additional A&P Information GI Bleed: Hyperkalemia -resolved Severe anemia-status post blood transfusion Transaminitis : Continue to hold lipitor. FRANKI on CKD: Creatinine has improved with diuresis; follow-up on BMP tomorrow morning DM-2 Thank you for allowing me to participate in patient's care. PLease feel lan eto call with questions or concerns. Attestations Medical Necessity Statement*: Per primary team Coding Level of Care Code Acute Air Defense Control Officer for Chg Fwd Diagnoses NSTEMI (non-ST elevated myocardial infarction) I21.4 Sepsis A41.9 Sepsis acute organ dysfunction status: unspecified Sepsis type: sepsis due to unspecified organism CHF (congestive heart failure) I50.43 Heart failure type: combined systolic and diastolic Heart failure chronicity: acute on chronic Recurrent UTI N39.0 CAD (coronary artery disease) I25.118 Coronary Disease-Associated Artery/Lesion type: [place] artery [place] vs. transplanted heart: [place] heart Associated angina: with stable angina Diabetes mellitus type 2 with complications E11.8 Tobacco abuse Z72.0
--- NOTE | 2020-03-04 10:49 | PM.PN ---
Subjective Subjective: Interval history: Patient is alert and oriented x3 this morning. Denies chest pain but does report minimal shortness of breath. Denies abdominal pain. Reports sore throat. White blood cell count slightly improved and down to 14.7. Potassium is 3.3 this morning and creatinine is slightly down to 2.3. Medications: Reviewed: Yes Medication Review Details: Current Medications Acetaminophen (Tylenol) 650 mg PO Q4H PRN PRN Reason: MILD PAIN OR INCREASE TEMP Last Admin: 03/03/20 05:22 Dose: 650 mg Documented by: Albuterol/Ipratropium (Duoneb) 3 ml INHALATION PRN PRN PRN Reason: SHORTNESS OF BREATH Atorvastatin Calcium (Lipitor) 40 mg PO BEDTIME [facility] Last Admin: 03/02/20 20:55 Dose: 40 mg Documented by: Dextrose (D50w) 25 ml IVP ONCE PRN; Protocol PRN Reason: hypoglycemia protocol Dextrose (D50w) 50 ml IVP PRN PRN; Protocol PRN Reason: hypoglycemia protocol Gabapentin (Neurontin) 100 mg PO TID [facility] Last Admin: 03/03/20 10:38 Dose: 100 mg Documented by: Glucagon (Glucagen) 1 mg IM ONCE PRN; Protocol PRN Reason: Adult Acute Hypoglycemia Prot. Ceftriaxone Sodium 1,000 mg/ (Sodium Chloride) 50 mls @ 100 mls/hr IV Q24H [facility]IE; Protocol Last Admin: 03/02/20 16:42 Dose: 100 mls/hr Documented by: Dextrose (D5w) 500 mls @ 100 mls/hr IV ONCE PRN; Protocol PRN Reason: Adult Acute Hypoglycemia Prot Norepinephrine Bitartrate 4 mg (/ Dextrose) 254 mls @ 0 mls/hr IV .Q0M TIFFANIE; Protocol Last Titration: 03/03/20 06:08 Dose: 2 mcg/min, 7.6 mls/hr Documented by: Imipenem/Cilastatin Sodium 250 (mg/ Sodium Chloride) 100 mls @ 200 mls/hr IV Q6H TIFFANIE; Protocol Last Admin: 03/03/20 10:38 Dose: 200 mls/hr Documented by: Dextrose/Sodium Chloride (Dextrose 5%-Sod Chloride 0.9%) 1,000 mls @ 75 mls/hr IV .[id number] [facility] Last Admin: 03/03/20 10:37 Dose: 75 mls/hr Documented by: Vancomycin HCl 1,000 mg/ (Sodium Chloride) 250 mls @ 250 mls/hr IV Q36H TIFFANIE; Protocol Insulin Aspart (Novolog) 0 unit SUBCUT TIDWM [facility]FFANIE; Protocol Last Admin: 03/03/20 12:55 Dose: 4 unit Documented by: Insulin Glargine (Lantus) 20 unit SUBCUT BEDTIME [facility] Last Admin: 03/02/20 21:24 Dose: Not Given Documented by: Metoclopramide HCl (Reglan) 10 mg PO WM&BEDTIME [facility] Last Admin: 03/03/20 12:55 Dose: 10 mg Documented by: Non-Formulary Medication (Erweglplbhf-Oidyaazpg-Xkbgyfve [Trelegy Ellipta]) 1 inh INHALATION DAILY [facility] Last Admin: 03/03/20 12:08 Dose: Not Given Documented by: Ondansetron HCl (Zofran) 4 mg IVP Q6H PRN PRN Reason: NAUSEA AND VOMITING Last Admin: 03/02/20 04:17 Dose: 4 mg Documented by: Pantoprazole Sodium (Protonix) 40 mg IVP BID [facility] Last Admin: 03/03/20 10:39 Dose: 40 mg Documented by: Ropinirole HCl (Requip) 4 mg PO TID [facility] Last Admin: 03/03/20 10:38 Dose: 4 mg Documented by: Fluticasone/Salmeterol (Advair Diskus 250-50) 1 puff INHALATION BID.RESPIRATORY [facility] Last Admin: 03/03/20 08:31 Dose: 1 puff Documented by: Vitals/I&O/Wt Last Vital Signs Temp 98.4 F 03/04/20 04:00 Pulse 78 03/04/20 09:31 Resp 20 H 03/04/20 09:31 BP 121/64 03/04/20 08:00 Pulse Ox 99 03/04/20 09:31 03/03/20 03/04/20 03/04/20 22:59 06:59 14:59 Intake Total 1150 / 1730 300 / 2030 Output Total 750 / 750 Balance 1150 / 1730 -450 / 1280 Weight last 48 hrs Weight 80.286 kg Weight 80.739 kg Physical Exam Const: COMMON NORMALS: no acute distress and patient oriented x3 HENMT: OTHER: Posterior pharynx and soft palate exudates noted. Resp: COMMON NORMALS: normal respiratory effort OTHER: Coarse breath sounds throughout with overall decreased air movement. Cardio: COMMON NORMALS: regular rate, regular rhythm and S2 normal heart sound present RATE: regular rate RHYTHM: regular rhythm HEART SOUNDS: S2 normal heart sound present OTHER: Trace lower extremity pitting edema. Appears to have chronic lymphedema. GI: COMMON NORMALS: Normal to inspection, nondistended, normoactive bowel sounds present, Soft to palpation and non-tender PALPATION: Yes Soft to palpation Neuro: COMMON NORMALS: patient oriented x3 and no focal motor deficits Urinary Catheter Management^: Rao: Cath Placed During This Visit: yes Reason for Continuing Indwelling Catheter: Accurate Measurement of Urinary Output in Critically Ill Patients Urinary Catheter Date of Insertion: 03/01/20 Urinary Catheter Time of Insertion: 16:00 Data : 03/04/20 04:01 03/04/20 04:01 Micro: Microbiology 03/03/20 10:45 Enteric Pathogens (PCR) - Final Stool - Stool Aspirate 03/03/20 10:45 C.difficile Toxin B Gene (PCR) - Final Stool Routine Collection A&P Assessment and plan (1) Sepsis: As exhibited by tachycardia and tachypnea. WBC 11.9. Patient is afebrile. Status: Acute Qualifiers: Sepsis acute organ dysfunction status: unspecified Sepsis type: sepsis due to unspecified organism Qualified Code(s): A41.9 - Sepsis, unspecified organism (2) Recurrent UTI: Status: Acute (3) Acute kidney injury superimposed on CKD: Prerenal secondary to dehydration. Some degree of ATN cannot be ruled out. Status: Acute (4) Hyperkalemia: Likely multifactorial with acute kidney injury and potassium supplementation playing a role. I suspect that patient was skeeping Lasix although she denies Status: Acute (5) CHF (congestive heart failure), NYHA class IV: Combined with significant decreased EF. Status: Acute Qualifiers: Congestive heart failure type: diastolic Congestive heart failure chronicity: chronic Qualified Code(s): I50.32 - Chronic diastolic (congestive) heart failure (6) Dehydration with hyponatremia: Improved Status: Acute (7) Tobacco abuse: Status: Acute (8) Diabetes mellitus type 2 with complications: Chronic kidney disease stage III, peripheral neuropathy, gastroparesis Status: Acute (9) NSTEMI (non-ST elevated myocardial infarction): Present on admission Status: Acute Additional A&P Information Altered mental status with lethargy. Improved Coronary artery disease, status post CABG Acute normocytic anemia. Peripheral vascular disease. PLAN: We will continue current monitoring and discontinue IV fluids and give 1 dose of Lasix. Hemoglobin appears to be stable. Cultures so far negative. We will continue current antibiotics. Physical and occupational therapy. We will get patient up and walking. Obtain rapid group A strep test. Magic mouthwash. Attestations Medical Necessity Statement*: Patient with heart failure and non-ST elevation [place] requires close ICU monitoring and treatment due to risk of deterioration. 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
[2020-03-04] MEDS: HYDROcodone-acetaminophen 10-325 mg Tablet 1 TAB PO ×2 (13:05→18:00)
[2020-03-04] MEDS: FUROsemide 10 mg/mL SDV 10mL 80 MG IVP (15:45)
[2020-03-04 17:24] LABS: Glucose Point of Care 212 mg/dL (70-110)
[2020-03-04] MEDS: cefTRIAXone 1,000 MG in sodium chloride 0.9% (plus) 50 ML 100 MG IV (17:47)
[2020-03-04 19:42] LABS: Glucose Point of Care 107 mg/dL (70-110)
[2020-03-04 19:42] LABS: Glucose Point of Care 125 mg/dL (70-110)
[2020-03-04 20:17] LABS: Glucose Point of Care 261 mg/dL (70-110)
[2020-03-04] MEDS: insulin glargine 100 units/1 mL 20 UNIT SUBCUT (20:28)
[2020-03-05] VITALS (28 sets, daily range): BP systolic 90–134; BP diastolic 56–76; PULSE 72–90; RESP 6–26; TEMP 36.9–37.3; O2SAT 93–98
[2020-03-05] MEDS: HYDROcodone-acetaminophen 10-325 mg Tablet 1 TAB PO ×4 (00:14→17:14)
[2020-03-05 05:01] LABS: Vancomycin Trough 8.7 ug/mL (10-15)
--- NOTE | 2020-03-05 05:14 | PC.PHAR ---
Vancomycin trough level at dosage of 1gm IVPB every 36 hours is 8.7. Dose is increased to 1gm IVPB every 24 hours with another trough to be obtained before the fourth dose at this rate.
[2020-03-05] MEDS: vancomycin 1,000 MG in sodium chloride 0.9% 250 ML 250 MG IV (05:26)
[2020-03-05 07:47] LABS: Glucose Point of Care 247 mg/dL (70-110)
[2020-03-05 07:57] LABS: Basophils % 0.2 %; Eosinophils # 0.1 10^3/uL (0.0-0.8); Eosinophils % 0.5 %; Hematocrit 31.2 % (37.0-47.0); Hemoglobin 9.8 g/dL (11.5-15.3); Lymphocytes # 0.6 10^3/uL (0.8-4.8); Lymphocytes % 4.6 %; Mean Corpuscular HGB Conc 31.4 g/dL (30.0-36.0); Mean Corpuscular Hemoglobin 30.6 pg (28.0-34.0); Mean Corpuscular Volume 97.5 fL (81-99); Monocytes # 1.1 10^3/uL (0.2-0.9); Neutrophils # 11.72 10^3/uL (1.8-7.7); Neutrophils % 86.3 %; Nucleated Red Blood Cells % 0.3 %; Platelet Count 162 10^3/cmm (130-400); White Blood Count 13.6 10^3/uL (4.0-10.0)
[2020-03-05] MEDS: metoclopramide 10 mg Tablet PO ×4 (07:58→21:15)
[2020-03-05] MEDS: pantoprazole 40 mg SDV IVP ×2 (08:12→17:13)
[2020-03-05] MEDS: ropinirole 2 mg Tablet 4 MG PO ×3 (08:12→21:15)
[2020-03-05] MEDS: gabapentin 100 mg Capsule PO ×3 (08:13→21:15)
[2020-03-05 08:19] LABS: Alanine Aminotransferase 49 U/L (0-33); Albumin Level 1.5 g/dL (3.5-5.2); Alkaline Phosphatase 1058 IU/L (35-105); Aspartate Amino Transferase 211 U/L (0-32); Blood Urea Nitrogen 75 mg/dL (6-20); Calcium 8.4 mg/dL (8.5-10.5); Carbon Dioxide 17 mmol/L (22-29); Chloride 106 mmol/L (98-107); Globulin 4.9 g/dL (1.3-4.6); Glomerular Filtration Rate 25.5 mL/min (90-130); Glucose 228 mg/dL (65-115); Osmolality Calculated 289 mOsm/kg (285-295); Sodium 136 mmol/L (136-145); Total Bilirubin 0.8 mg/dL (0.15-1.2); Total Protein 6.4 g/dL (6.6-8.7)
--- NOTE | 2020-03-05 10:28 | P.PN_ITS ---
Subjective Subjective: Interval history: Reports feeling okay. Denies significant shortness of breath or chest pain. Denies abdominal pain. She is feeding herself this morning. WBC is trending down. Creatinine also improving. Alkaline phosphatase is up without bilirubin elevation. Her last hemorrhagic bowel movement was yesterday. Hemoglobin and platelets appear to be stable. Cultures so far negative. Vitals/I&O/Wt Last Vital Signs Temp 99.2 F 03/05/20 06:00 Pulse 90 03/05/20 09:00 Resp 18 03/05/20 09:00 BP 134/74 03/05/20 09:00 Pulse Ox 95 03/05/20 08:33 03/04/20 03/05/20 03/05/20 22:59 06:59 14:59 Intake Total 520 / 1018.75 775 / 775 Output Total 650 / 650 450 / 1100 170 / 170 Balance -130 / 368.75 -450 / -81.25 605 / 605 Weight last 48 hrs Weight 85.984 kg Weight 80.286 kg Physical Exam Const: COMMON NORMALS: no acute distress and patient oriented x3 Resp: COMMON NORMALS: normal respiratory effort OTHER: Overall decreased air movement but otherwise clear. Cardio: COMMON NORMALS: regular rate, regular rhythm and S2 normal heart sound present RATE: regular rate RHYTHM: regular rhythm HEART SOUNDS: S2 normal heart sound present OTHER: Trace to 1+ lower extremity edema GI: COMMON NORMALS: Normal to inspection, nondistended, normoactive bowel pancho nds present, Soft to palpation and non-tender PALPATION: Yes Soft to palpation Neuro: COMMON NORMALS: patient oriented x3 and no focal motor deficits Urinary Catheter Management^: Rao: Cath Placed During This Visit: yes Reason for Continuing Indwelling Catheter: Accurate Measurement of Urinary Output in Critically Ill Patients Urinary Catheter Date of Insertion: 03/01/20 Urinary Catheter Time of Insertion: 16:00 Data : 03/05/20 07:46 03/05/20 07:46 A&P Assessment and plan (1) Sepsis: As exhibited by tachycardia and tachypnea. WBC 11.9. Patient is afebrile. Status: Acute Qualifiers: Sepsis acute organ dysfunction status: unspecified Sepsis type: sepsis due to unspecified organism Qualified Code(s): A41.9 - Sepsis, unspecified organism (2) Recurrent UTI: Status: Acute (3) Acute kidney injury superimposed on CKD: Prerenal secondary to dehydration. Some degree of ATN cannot be ruled out. Status: Acute (4) Hyperkalemia: Likely multifactorial with acute kidney injury and potassium supplementation playing a role. I suspect that patient was skeeping Lasix although she denies Status: Acute (5) CHF (congestive heart failure), NYHA class IV: Combined with significant decreased EF. Status: Acute Qualifiers: Congestive heart failure type: diastolic Congestive heart failure chronicity: chronic Qualified Code(s): I50.32 - Chronic diastolic (congestive) heart failure (6) Dehydration with hyponatremia: Improved Status: Acute (7) Tobacco abuse: Status: Acute (8) Diabetes mellitus type 2 with complications: Chronic kidney disease stage III, peripheral neuropathy, gastroparesis Status: Acute (9) NSTEMI (non-ST elevated myocardial infarction): Present on admission Status: Acute Additional A&P Information Altered mental status with lethargy. Improved Coronary artery disease, status post CABG Acute normocytic anemia. Peripheral vascular disease. PLAN: Patient appears to be more stable therefore will proceed with further evaluation with CT scan of chest abdomen pelvis. Unfortunately no contrast will be used. Continue current antibiotics. Continue avoiding antiplatelet medications for now. If patient continues to improve we could possibly proceed with upper endoscopy and colonoscopy. Patient appears to have poor long-term prognosis. Attestations Medical Necessity Statement*: Patient with multiorgan failure requires close ICU monitoring and treatment due to high risk of deterioration. 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
--- NOTE | 2020-03-05 10:33 | CT_ITS ---
WS: [id number] CT CHEST, ABDOMEN, AND PELVIS TECHNIQUE: Noncontrast CT of the chest, abdomen, and pelvis with coronal and sagittal reformatted brian ges. CLINICAL INFORMATION: GI bleed, sepsis COMPARISON: None. DLP: 1808.[address] scans at [facility] use at least one of these dose optimization techniques: automat ed exposure control; mA and/or kV adjustment per patient size (includes targeted exams where dose is matched to clinical indication); or iterative reconstruction. CT CHEST: Mild chronic emphysematous changes. Small bilateral pleural effusions with subsegmental atelectasis i n the lung bases. Subsegmental atelectasis in the lingula. Cardiomegaly. Aortic calcification. Reyna ry calcification. Diffuse body wall anasarca. Small nodules in the thyroid. No mediastinal or hilar l ymphadenopathy. CT ABDOMEN AND PELVIS: Cholecystectomy clips. Small amount of perihepatic fluid. Air-fluid levels in the stomach and proxima l duodenum likely due to mild adynamic ileus. Rao catheter. Diffuse body wall anasarca. Small to moderate pelvic ascites. Diverticulosis. No evid ence of acute diverticulitis. Fatty atrophy of the pancreas. Aortic calcification. No evidence of hig h-grade small or large bowel obstruction. CT/CT chest abd pel wo con IMPRESSION: 1. Small bilateral pleural effusions with bibasilar atelectasis. No acute-appe aring pulmonary infiltrates. 2. Cardiomegaly. 3. Diffuse body wall anasarca with small amount of perihepatic and perisplenic ascites. Mild to moderate pelvic ascites. 4. Cholecystectomy clips. 5. Rao catheter. 6. Air-fluid levels in the stomach and proximal duodenum likely due to adynami c ileus. 7. No other acute findings.
[2020-03-05 11:19] LABS: Glucose Point of Care 223 mg/dL (70-110)
--- NOTE | 2020-03-05 12:34 | PC.RESP ---
Smoking Cessation and Pulmonary Rehab information sent to patient.
[2020-03-05] MEDS: FUROsemide 10 mg/mL SDV 10mL 80 MG IVP (14:36)
[2020-03-05] MEDS: cefTRIAXone 1,000 MG in sodium chloride 0.9% (plus) 50 ML 100 MG IV (16:09)
[2020-03-05 17:05] LABS: Glucose Point of Care 164 mg/dL (70-110)
--- NOTE | 2020-03-05 19:04 | PM.PN ---
Subjective Subjective: Interval history: No new complaints. NSVT and PSVT on tele Medications: Reviewed: Yes Medication Review Details: Current Medications Acetaminophen (Tylenol) 650 mg PO Q4H PRN PRN Reason: MILD PAIN OR INCREASE TEMP Last Admin: 03/03/20 05:22 Dose: 650 mg Documented by: Hydrocodone Bitart/Acetaminophen ([place] 10-325 Mg) 1 tab PO Q4H PRN PRN Reason: MODERATE PAIN Last Admin: 03/05/20 17:14 Dose: 1 tab Documented by: Albuterol/Ipratropium (Duoneb) 3 ml INHALATION PRN PRN PRN Reason: SHORTNESS OF BREATH Atorvastatin Calcium (Lipitor) 40 mg PO BEDTIME [facility] Last Admin: 03/02/20 20:55 Dose: 40 mg Documented by: Lidocaine HCl 1.667 ml/Diphenhydramine HCl 4.165 mg/Al Hydrox/Mg Hydrox/Simethicone 1.667 ml 0 ml MUCOUS MEM Q4H PRN PRN Reason: MOUTH PAIN Dextrose (D50w) 25 ml IVP ONCE PRN; Protocol PRN Reason: hypoglycemia protocol Dextrose (D50w) 50 ml IVP PRN PRN; Protocol PRN Reason: hypoglycemia protocol Furosemide (Lasix) 80 mg IVP Q24H [facility] Last Admin: 03/05/20 14:36 Dose: 80 mg Documented by: Gabapentin (Neurontin) 100 mg PO TID [facility] Last Admin: 03/05/20 14:37 Dose: 100 mg Documented by: Glucagon (Glucagen) 1 mg IM ONCE PRN; Protocol PRN Reason: Adult Acute Hypoglycemia Prot. Ceftriaxone Sodium 1,000 mg/ (Sodium Chloride) 50 mls @ 100 mls/hr IV Q24H TIFFANIE; Protocol Last Infusion: 03/05/20 18:35 Dose: Infused Documented by: Dextrose (D5w) 500 mls @ 100 mls/hr IV ONCE PRN; Protocol PRN Reason: Adult Acute Hypoglycemia Prot Norepinephrine Bitartrate 4 mg (/ Dextrose) 254 mls @ 0 mls/hr IV .Q0M TIFFANIE; Protocol Last Titration: 03/03/20 06:08 Dose: 2 mcg/min, 7.6 mls/hr Documented by: Imipenem/Cilastatin Sodium 250 (mg/ Sodium Chloride) 100 mls @ 200 mls/hr IV Q6H TIFFANIE; Protocol Last Infusion: 03/05/20 16:09 Dose: Infused Documented by: Vancomycin HCl 1,000 mg/ (Sodium Chloride) 250 mls @ 250 mls/hr IV Q24H [facility] Last Infusion: 03/05/20 07:00 Dose: Infused Documented by: Insulin Aspart (Novolog) 0 unit SUBCUT TIDWM TIFFANIE; Protocol Last Admin: 03/05/20 17:13 Dose: 4 unit Documented by: Insulin Glargine (Lantus) 20 unit SUBCUT BEDTIME [facility] Last Admin: 03/04/20 20:28 Dose: 20 unit Documented by: Metoclopramide HCl (Reglan) 10 mg PO WM&BEDTIME [facility] Last Admin: 03/05/20 17:13 Dose: 10 mg Documented by: Non-Formulary Medication (Xvsjeeggkme-Nxjhtigpa-Mewelrux [Trelegy Ellipta]) 1 inh INHALATION DAILY [facility] Last Admin: 03/05/20 08:47 Dose: Not Given Documented by: Ondansetron HCl (Zofran) 4 mg IVP Q6H PRN PRN Reason: NAUSEA AND VOMITING Last Admin: 03/02/20 04:17 Dose: 4 mg Documented by: Pantoprazole Sodium (Protonix) 40 mg IVP BID [facility] Last Admin: 03/05/20 17:13 Dose: 40 mg Documented by: Ropinirole HCl (Requip) 4 mg PO TID [facility] Last Admin: 03/05/20 14:37 Dose: 4 mg Documented by: Fluticasone/Salmeterol (Advair Diskus 250-50) 1 puff INHALATION BID.RESPIRATORY [facility] Last Admin: 03/05/20 08:29 Dose: 1 puff Documented by: Vitals/I&O/Wt Last Vital Signs Temp 99.2 F 03/05/20 06:00 Pulse 82 03/05/20 18:00 Resp 13 03/05/20 18:00 BP 112/67 03/05/20 18:00 Pulse Ox 98 03/05/20 18:00 03/05/20 03/05/20 03/05/20 06:59 14:59 22:59 Intake Total 1125 / 1125 550 / 1675 Output Total 450 / 1100 440 / 440 500 / 940 Balance -450 / -81.25 685 / 685 50 / 735 Weight last 48 hrs Weight 189 lb 9 oz Weight 177 lb Physical Exam Narrative: EXAM NARRATIVE: EXAM NARRATIVE: Gen: obese woman lying in bed HEENT: pallor +, No JVD appreciated CVS: S1, S2 of normal intensity, Grade 2/6 SM at apex+ RS: Chest clear to auscultation anteriorly and improved aeration in posterior lung nick 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 TRoponin T X3 ranged approximately from 1130-5506. -Given ongoing GI bleed and significant anemia, severe sepsis and FRANKI, not a good candidate for further work up at this point. -This was discussed with patient and her sister. -continue to closely monitor Status: Acute (2) Sepsis: She is being treated emperically with antibiotics. -Negative cultures -antibiotic as per primary team. Status: Acute Qualifiers: Sepsis acute organ dysfunction status: unspecified Sepsis type: sepsis due to unspecified organism Qualified Code(s): A41.9 - Sepsis, unspecified organism (3) CHF (congestive heart failure): agree with lasix. -Coreg on hold given hypotension. Status: Acute Qualifiers: Heart failure type: combined systolic and diastolic Heart failure chronicity: acute on chronic Qualified Code(s): I50.43 - Acute on chronic combined systolic (congestive) and diastolic (congestive) heart failure (4) Recurrent UTI: Status: Acute (5) CAD (coronary artery disease): Status: Acute Qualifiers: Coronary Disease-Associated Artery/Lesion type: [place] artery [place] vs. transplanted heart: [place] heart Associated angina: with stable angina Qualified Code(s): I25.118 - Atherosclerotic heart disease of [place] coronary artery with other forms of angina pectoris (6) Diabetes mellitus type 2 with complications: Status: Acute (7) Tobacco abuse: Status: Acute Additional A&P Information GI Bleed: CBC stable Hyperkalemia -resolved Severe anemia-status post blood transfusion, CBC stable Abnormal liver function : Continue to hold lipitor. FRANKI on CKD: Creatinine has improved with diuresis; follow-up on BMP tomorrow morning DM-2 Thank you for allowing me to participate in patient's care. PLease feel lan eto call with questions or concerns. Attestations Medical Necessity Statement*: As per primary team Coding Level of Care Code Acute Police Liaison for [facility] Fwd Diagnoses NSTEMI (non-ST elevated myocardial infarction) I21.4 Sepsis A41.9 Sepsis acute organ dysfunction status: unspecified Sepsis type: sepsis due to unspecified organism CHF (congestive heart failure) I50.43 Heart failure type: combined systolic and diastolic Heart failure chronicity: acute on chronic Recurrent UTI N39.0 CAD (coronary artery disease) I25.118 Coronary Disease-Associated Artery/Lesion type: [place] artery [place] vs. transplanted heart: [place] heart Associated angina: with stable angina Diabetes mellitus type 2 with complications E11.8 Tobacco abuse Z72.0
[2020-03-05 21:12] LABS: Glucose Point of Care 150 mg/dL (70-110)
[2020-03-05] MEDS: insulin glargine 100 units/1 mL 20 UNIT SUBCUT (21:15)
[2020-03-06] VITALS (18 sets, daily range): BP systolic 89–128; BP diastolic 51–73; PULSE 73–87; RESP 13–18; TEMP 36.1–36.7; O2SAT 93–98
[2020-03-06 04:28] LABS: Basophils % 0.2 %; Eosinophils # 0.2 10^3/uL (0.0-0.8); Eosinophils % 1.6 %; Hematocrit 30.7 % (37.0-47.0); Hemoglobin 9.7 g/dL (11.5-15.3); Lymphocytes # 0.7 10^3/uL (0.8-4.8); Lymphocytes % 6.3 %; Mean Corpuscular HGB Conc 31.6 g/dL (30.0-36.0); Mean Corpuscular Hemoglobin 30.7 pg (28.0-34.0); Mean Corpuscular Volume 97.2 fL (81-99); Mean Platelet Volume 11.5 fL (7.4-10.4); Monocytes % 8.5 %; Nucleated Red Blood Cells % 0.4 %; Platelet Count 162 10^3/cmm (130-400); Red Blood Count 3.16 10^6/uL (4.1-5.3); Red Cell Distribution Width 21.9 % (12.1-15.1); White Blood Count 11.2 10^3/uL (4.0-10.0)
[2020-03-06 05:04] LABS: Alanine Aminotransferase 37 U/L (0-33); Albumin Level 1.6 g/dL (3.5-5.2); Anion Gap 13.7 (5-19); Aspartate Amino Transferase 174 U/L (0-32); Blood Urea Nitrogen 71 mg/dL (6-20); Calcium 7.8 mg/dL (8.5-10.5); Carbon Dioxide 19 mmol/L (22-29); Chloride 106 mmol/L (98-107); Glomerular Filtration Rate 28.8 mL/min (90-130); Glucose 92 mg/dL (65-115); Magnesium 1.7 mg/dL (1.7-2.3); Osmolality Calculated 279 mOsm/kg (285-295); Potassium 3.7 mmol/L (3.5-5.1); Sodium 135 mmol/L (136-145); Total Bilirubin 0.8 mg/dL (0.15-1.2); Total Protein 6.6 g/dL (6.6-8.7)
[2020-03-06 05:12] LABS: Alkaline Phosphatase 1037 IU/L (35-105)
[2020-03-06] MEDS: vancomycin 1,000 MG in sodium chloride 0.9% 250 ML 250 MG IV (05:53)
[2020-03-06 07:49] LABS: Glucose Point of Care 80 mg/dL (70-110)
[2020-03-06] MEDS: metoclopramide 10 mg Tablet PO ×4 (07:56→20:36)
[2020-03-06] MEDS: gabapentin 100 mg Capsule PO ×3 (08:07→20:36)
[2020-03-06] MEDS: pantoprazole 40 mg SDV IVP ×2 (08:07→17:42)
[2020-03-06] MEDS: ropinirole 2 mg Tablet 4 MG PO ×3 (08:08→20:36)
[2020-03-06] MEDS: HYDROcodone-acetaminophen 10-325 mg Tablet 1 TAB PO ×3 (08:16→20:36)
[2020-03-06] MEDS: acetaminophen 325 mg Tablet 650 MG PO (11:52)
--- NOTE | 2020-03-06 11:54 | PM.PN ---
Subjective Subjective: Interval history: She was transferred out of unit, Hb stable Medications: Reviewed: Yes Vitals/I&O/Wt Last Vital Signs Temp 97.6 F 03/06/20 09:55 Pulse 74 03/06/20 09:55 Resp 18 03/06/20 09:55 BP 104/61 03/06/20 09:55 Pulse Ox 95 03/06/20 09:55 03/05/20 03/06/20 03/06/20 22:59 06:59 14:59 Intake Total 650 / 1775 350 / 2125 100 / 100 Output Total 500 / 940 650 / 1590 250 / 250 Balance 150 / 835 -300 / 535 -150 / -150 Intake & Output 03/04/20 03/05/20 03/06/20 03/07/20 06:59 06:59 06:59 06:59 Intake Total 2234.947 / 2234.947 1018.75 / 1018.75 2125 / 2125 100 / 100 Output Total 750 / 750 1100 / 1100 1590 / 1590 250 / 250 Balance 1484.947 / 1484.947 -81.25 / -81.25 535 / 535 -150 / -150 Weight 177 lb 189 lb 9 oz 188 lb 5 oz Weight last 48 hrs Weight 188 lb 5 oz Weight 189 lb 9 oz Physical Exam Narrative: EXAM NARRATIVE: Gen: appears older than stated age, lying in bed HEENT: pallor +, No JVD appreciated CVS: S1, S2 of normal intensity, Grade 2/6 SM at apex+ RS: Chest clear to auscultation anteriorly and improved aeration in posterior lung nick ACIDITY TESTER: awake, alert and answering questions appropriately Ext: Bilateral trace edema with skin excoriation and chronic skin changes noted; heel and sacral dependant ulcer+ Urinary Catheter Management^: Rao: Cath Placed During This Visit: yes Reason for Continuing Indwelling Catheter: Accurate Measurement of Urinary Output in Critically Ill Patients Urinary Catheter Date of Insertion: 03/01/20 Urinary Catheter Time of Insertion: 16:00 Data : 03/07/20 04:46 03/07/20 04:46 A&P Assessment and plan (1) NSTEMI (non-ST elevated myocardial infarction): Patient has multiple risk factors with h/o CABG and drop in LV function. TRoponin T X3 ranged approximately from 9230-0160. -Given ongoing GI bleed and significant anemia, severe sepsis and FRANKI, not a good candidate for further work up at this point. -This was discussed with patient and her sister. -continue to closely monitor Status: Acute (2) Sepsis: She is being treated emperically with antibiotics. -Negative cultures -antibiotic as per primary team. Status: Acute Qualifiers: Sepsis acute organ dysfunction status: unspecified Sepsis type: sepsis due to unspecified organism Qualified Code(s): A41.9 - Sepsis, unspecified organism (3) CHF (congestive heart failure): agree with lasix. -Coreg on hold given hypotension. Status: Acute Qualifiers: Heart failure chronicity: acute on chronic Heart failure type: combined systolic and diastolic Qualified Code(s): I50.43 - Acute on chronic combined systolic (congestive) and diastolic (congestive) heart failure (4) Recurrent UTI: Status: Acute (5) CAD (coronary artery disease): Status: Acute Qualifiers: Associated angina: with stable angina Coronary Disease-Associated Artery/Lesion type: [place] artery [place] vs. transplanted heart: [place] heart Qualified Code(s): I25.118 - Atherosclerotic heart disease of [place] coronary artery with other forms of angina pectoris (6) Diabetes mellitus type 2 with complications: Status: Acute (7) Tobacco abuse: Status: Acute Additional A&P Information GI Bleed: CBC stable Hyperkalemia -resolved Severe anemia-status post blood transfusion, CBC stable Abnormal liver function : Continue to hold lipitor. FRANKI on CKD: Creatinine has improved with diuresis; follow-up on [facility] tomorrow morning DM-2 Thank you for allowing me to participate in patient's care. PLease feel lan eto call with questions or concerns. Attestations Medical Necessity Statement*: As per primary team Coding Level of Care Code Acute Commercial Decorator for g Fwd Diagnoses NSTEMI (non-ST elevated myocardial infarction) I21.4 Sepsis A41.9 Sepsis acute organ dysfunction status: unspecified Sepsis type: sepsis due to unspecified organism CHF (congestive heart failure) I50.43 Heart failure chronicity: acute on chronic Heart failure type: combined systolic and diastolic Recurrent UTI N39.0 CAD (coronary artery disease) I25.118 Associated angina: with stable angina Coronary Disease-Associated Artery/Lesion type: [place] artery [place] vs. transplanted heart: [place] heart Diabetes mellitus type 2 with complications E11.8 Tobacco abuse Z72.0
[2020-03-06 12:06] LABS: Glucose Point of Care 147 mg/dL (70-110)
--- NOTE | 2020-03-06 13:22 | PC.NURSE ---
Patient was transferred up to Med Surg floor this morning at 0830. Vital signs were table Personal belongings were transferred with patient, and placed in her new room.
[2020-03-06] MEDS: FUROsemide 10 mg/mL SDV 10mL 80 MG IVP (14:32)
--- NOTE | 2020-03-06 14:33 | PM.PN ---
Subjective Subjective: Interval history: Patient reports feeling better this morning. Reports that she would like to advance her diet. Denies shortness of breath or chest pain. White blood cell count continues to improve. Hemoglobin and platelets are stable. Creatinine also improving. Vitals/I&O/Wt Last Vital Signs Temp 97.5 F L 03/06/20 11:59 Pulse 80 03/06/20 11:59 Resp 18 03/06/20 11:59 BP 104/66 03/06/20 11:59 Pulse Ox 96 03/06/20 11:59 03/05/20 03/06/20 03/06/20 22:59 06:59 14:59 Intake Total 650 / 1775 350 / 2125 100 / 100 Output Total 500 / 940 650 / 1590 250 / 250 Balance 150 / 835 -300 / 535 -150 / -150 Weight last 48 hrs Weight 85.417 kg Weight 85.984 kg Physical Exam Const: COMMON NORMALS: no acute distress and patient oriented x3 Resp: COMMON NORMALS: normal respiratory effort and clear to auscultation bilaterally AUSCULTATION: clear to auscultation bilaterally Cardio: COMMON NORMALS: regular rate, regular rhythm and S2 normal heart sound present RATE: regular rate RHYTHM: regular rhythm HEART SOUNDS: S2 normal heart sound present OTHER: No lower extremity edema GI: COMMON NORMALS: Normal to inspection, nondistended, normoactive bowel sounds present, Soft to palpation and non-tender PALPATION: Yes Soft to palpation Neuro: COMMON NORMALS: patient oriented x3 and no focal motor deficits Urinary Catheter Management^: Rao: Cath Placed During This Visit: yes Reason for Continuing Indwelling Catheter: Accurate Measurement of Urinary Output in Critically Ill Patients Urinary Catheter Date of Insertion: 03/01/20 Urinary Catheter Time of Insertion: 16:00 Data : 03/06/20 03:48 03/06/20 03:48 A&P Assessment and plan (1) Sepsis: As exhibited by tachycardia and tachypnea. WBC 11.9. Patient is afebrile. Status: Acute Qualifiers: Sepsis acute organ dysfunction status: unspecified Sepsis type: sepsis due to unspecified organism Qualified Code(s): A41.9 - Sepsis, unspecified organism (2) Recurrent UTI: Status: Acute (3) Acute kidney injury superimposed on CKD: Prerenal secondary to dehydration. Some degree of ATN cannot be ruled out. Status: Acute (4) Hyperkalemia: Likely multifactorial with acute kidney injury and potassium supplementation playing a role. I suspect that patient was skeeping Lasix although she denies Status: Acute (5) CHF (congestive heart failure), NYHA class IV: Combined with significant decreased EF. Status: Acute Qualifiers: Congestive heart failure type: diastolic Congestive heart failure chronicity: chronic Qualified Code(s): I50.32 - Chronic diastolic (congestive) heart failure (6) Dehydration with hyponatremia: Improved Status: Acute (7) Tobacco abuse: Status: Acute (8) Diabetes mellitus type 2 with complications: Chronic kidney disease stage III, peripheral neuropathy, gastroparesis Status: Acute (9) NSTEMI (non-ST elevated myocardial infarction): Present on admission Status: Acute Additional A&P Information Altered mental status with lethargy. Improved Coronary artery disease, status post CABG Acute normocytic anemia. Peripheral vascular disease. Elevated alkaline phosphatase. This appears to be related to bone involvement. PLAN: Continue current monitoring and treatment. We will obtain GGT in a.m. Continue physical therapy. Patient is not interested in colon prep for colonoscopy. Continue holding antiplatelet medications for now. Attestations Medical Necessity Statement*: Patient with UTI, acute kidney injury and GI bleed requires close inpatient monitoring treatment and evaluation. Time Spent in Patient Care: 16 - 35 minutes Coding Level of Care Code Acute Design Technology Teacher for [facility] Fwd Diagnoses Sepsis A41.9 Sepsis acute organ dysfunction status: unspecified Sepsis type: sepsis due to unspecified organism Recurrent UTI N39.0 Acute kidney injury superimposed on CKD N17.9; N18.9 Hyperkalemia E87.5 CHF (congestive heart failure), NYHA class IV I50.32 Congestive heart failure type: diastolic Congestive heart failure chronicity: chronic Dehydration with hyponatremia E86.0; E87.1 Tobacco abuse Z72.0 Diabetes mellitus type 2 with complications E11.8 NSTEMI (non-ST elevated myocardial infarction) I21.4
[2020-03-06] MEDS: cefTRIAXone 1,000 MG in sodium chloride 0.9% (plus) 50 ML 100 MG IV (17:43)
[2020-03-06] MEDS: insulin glargine 100 units/1 mL 20 UNIT SUBCUT (20:39)
[2020-03-06 21:28] LABS: Glucose Point of Care 171 mg/dL (70-110)
[2020-03-07] VITALS (9 sets, daily range): BP systolic 104–136; BP diastolic 61–84; PULSE 62–82; RESP 14–22; TEMP 36.3–37; O2SAT 95–97
[2020-03-07] MEDS: HYDROcodone-acetaminophen 10-325 mg Tablet 1 TAB PO ×3 (00:41→16:07)
[2020-03-07 05:37] LABS: Basophils % 0.3 %; Eosinophils # 0.2 10^3/uL (0.0-0.8); Eosinophils % 2.5 %; Hematocrit 29.9 % (37.0-47.0); Hemoglobin 9.2 g/dL (11.5-15.3); Lymphocytes # 0.5 10^3/uL (0.8-4.8); Lymphocytes % 5.6 %; Mean Corpuscular HGB Conc 30.8 g/dL (30.0-36.0); Mean Corpuscular Hemoglobin 30.5 pg (28.0-34.0); Mean Platelet Volume 11.7 fL (7.4-10.4); Monocytes # 0.9 10^3/uL (0.2-0.9); Monocytes % 9.2 %; Neutrophils # 7.87 10^3/uL (1.8-7.7); Nucleated Red Blood Cells % 0.2 %; Platelet Count 151 10^3/cmm (130-400); Red Blood Count 3.02 10^6/uL (4.1-5.3); Red Cell Distribution Width 21.8 % (12.1-15.1); White Blood Count 9.6 10^3/uL (4.0-10.0)
[2020-03-07] MEDS: vancomycin 1,000 MG in sodium chloride 0.9% 250 ML 250 MG IV (05:40)
[2020-03-07 05:55] LABS: Gamma Glutamyl Transferase 657 U/L (5-36)
[2020-03-07 06:01] LABS: Alanine Aminotransferase 21 U/L (0-33); Albumin Level 1.5 g/dL (3.5-5.2); Alkaline Phosphatase 933 IU/L (35-105); Anion Gap 12.4 (5-19); Aspartate Amino Transferase 108 U/L (0-32); Blood Urea Nitrogen 59 mg/dL (6-20); Calcium 7.4 mg/dL (8.5-10.5); Carbon Dioxide 19 mmol/L (22-29); Chloride 107 mmol/L (98-107); Glomerular Filtration Rate 35.5 mL/min (90-130); Glucose 140 mg/dL (65-115); Magnesium 1.7 mg/dL (1.7-2.3); Osmolality Calculated 281 mOsm/kg (285-295); Potassium 3.4 mmol/L (3.5-5.1); Sodium 135 mmol/L (136-145); Total Bilirubin 0.7 mg/dL (0.15-1.2); Total Protein 6.5 g/dL (6.6-8.7)
[2020-03-07 06:59] LABS: Glucose Point of Care 130 mg/dL (70-110)
[2020-03-07] MEDS: metoclopramide 10 mg Tablet PO ×4 (08:45→20:57)
[2020-03-07] MEDS: pantoprazole 40 mg SDV IVP ×2 (08:45→17:39)
[2020-03-07] MEDS: gabapentin 100 mg Capsule PO ×3 (08:46→20:57)
[2020-03-07] MEDS: ropinirole 2 mg Tablet 4 MG PO ×3 (09:10→20:57)
--- NOTE | 2020-03-07 10:12 | PC.CHAP ---
Pastoral Care Encounter/Spiritual Assessment Type of Contact [] Declined manager behavior visit [] Patient/Family/Request visit [] Outpatient visit [] Follow-up visit [] Physician referral [] Code/Alert [x] Routine visit [] Staff referral [] Actively dying [] Patient sleeping [] Family support [] [] Out of room [] Palliative care [] [] Receiving care in room [] Pre-surgical visit [] Trauma [] Long length of stay [] ICU visit [] Other: Relational/Emotional Strength [] Patient feels connected with others/family/visitors/staff [] Distress [] Loneliness/isolation [] Abandonment Spirituality of Patient [] Person of Ariadna [] Attends Gnosticist of their Ariadna [] Believes in Prayer [] Reads Bible or Temple materials [] There are Spiritual issues to be addressed Paste Plant Supervisor Interventions [x] Prayer [x] Active listening [x] Non-anxious presence [x] Spiritual/emotional support [] Crisis/trauma care [] Spiritual counseling [] Bereavement support [] Provided bereavement packet [] Provided Bible/devotional materials [] Provided toy/stuffed animal, coloring book to patient or family member [] Provided Communion [] Anointing/[place] [] Salvation [x] Completed spiritual assessment [] Other: Impact on Illness or Injury [] Angry [] Fearful [] Anxious [] Often cries [] Exhaustion [] Unable to work [] Unable to attend muslim [] Unable to walk/stand [] Unable to read [] Unable to drive [] Unable to eat/drink [] Unable to sleep [] Unable to be with family [] Patient intubated [] Other: Summary Patient in pain. not resting well. Time spent with patient 10 min
--- NOTE | 2020-03-07 10:13 | PC.CHAP ---
Pastoral Care Encounter/Spiritual Assessment Type of Contact [] Declined energy risk management analyst visit [] Patient/Family/Request visit [] Outpatient visit [] Follow-up visit [] Physician referral [] Code/Alert [] Routine visit [] Staff referral [] Actively dying [] Patient sleeping [] Family support [] [] Out of room [] Palliative care [] [] Receiving care in room [] Pre-surgical visit [] Trauma [] Long length of stay [] ICU visit [] Other: Relational/Emotional Strength [] Patient feels connected with others/family/visitors/staff [] Distress [] Loneliness/isolation [] Abandonment Spirituality of Patient [] Person of Ariadna [] Attends Jainism of their Ariadna [] Believes in Prayer [] Reads Bible or Tenriism materials [] There are Spiritual issues to be addressed Manufacturing Scheduler Interventions [] Prayer [] Active listening [] Non-anxious presence [] Spiritual/emotional support [] Crisis/trauma care [] Spiritual counseling [] Bereavement support [] Provided bereavement packet [] Provided Bible/devotional materials [] Provided toy/stuffed animal, coloring book to patient or family member [] Provided Communion [] Anointing/[place] [] Salvation [] Completed spiritual assessment [] Other: Impact on Illness or Injury [] Angry [] Fearful [] Anxious [] Often cries [] Exhaustion [] Unable to work [] Unable to attend catholic [] Unable to walk/stand [] Unable to read [] Unable to drive [] Unable to eat/drink [] Unable to sleep [] Unable to be with family [] Patient intubated [] Other: Summary Time spent with patient
[2020-03-07 10:45] LABS: Glucose Point of Care 134 mg/dL (70-110)
--- NOTE | 2020-03-07 14:04 | PM.PN ---
Subjective Subjective: Interval history: Patient reports doing better but continues to have her chronic back and buttock pain. Denies shortness of breath or chest pain. Her appetite and oral intake significantly improved. White blood cell count normalized. Alk phos appears to be gradually improving and likely due to sepsis related cholestasis. Medications: Reviewed: Yes Medication Review Details: Current Medications Acetaminophen (Tylenol) 650 mg PO Q4H PRN PRN Reason: MILD PAIN OR INCREASE TEMP Last Admin: 03/03/20 05:22 Dose: 650 mg Documented by: Hydrocodone Bitart/Acetaminophen ([place] 10-325 Mg) 1 tab PO Q4H PRN PRN Reason: MODERATE PAIN Last Admin: 03/05/20 17:14 Dose: 1 tab Documented by: Albuterol/Ipratropium (Duoneb) 3 ml INHALATION PRN PRN PRN Reason: SHORTNESS OF BREATH Atorvastatin Calcium (Lipitor) 40 mg PO BEDTIME TIFFANIE Last Admin: 03/02/20 20:55 Dose: 40 mg Documented by: Lidocaine HCl 1.667 ml/Diphenhydramine HCl 4.165 mg/Al Hydrox/Mg Hydrox/Simethicone 1.667 ml 0 ml MUCOUS MEM Q4H PRN PRN Reason: MOUTH PAIN Dextrose (D50w) 25 ml IVP ONCE PRN; Protocol PRN Reason: hypoglycemia protocol Dextrose (D50w) 50 ml IVP PRN PRN; Protocol PRN Reason: hypoglycemia protocol Furosemide (Lasix) 80 mg IVP Q24H [facility] Last Admin: 03/05/20 14:36 Dose: 80 mg Documented by: Gabapentin (Neurontin) 100 mg PO TID TIFFANIE Last Admin: 03/05/20 14:37 Dose: 100 mg Documented by: Glucagon (Glucagen) 1 mg IM ONCE PRN; Protocol PRN Reason: Adult Acute Hypoglycemia Prot. Ceftriaxone Sodium 1,000 mg/ (Sodium Chloride) 50 mls @ 100 mls/hr IV Q24H TIFFANIE; Protocol Last Infusion: 03/05/20 18:35 Dose: Infused Documented by: Dextrose (D5w) 500 mls @ 100 mls/hr IV ONCE PRN; Protocol PRN Reason: Adult Acute Hypoglycemia Prot Norepinephrine Bitartrate 4 mg (/ Dextrose) 254 mls @ 0 mls/hr IV .Q0M TIFFANIE; Protocol Last Titration: 03/03/20 06:08 Dose: 2 mcg/min, 7.6 mls/hr Documented by: Imipenem/Cilastatin Sodium 250 (mg/ Sodium Chloride) 100 mls @ 200 mls/hr IV Q6H [facility]; Protocol Last Infusion: 03/05/20 16:09 Dose: Infused Documented by: Vancomycin HCl 1,000 mg/ (Sodium Chloride) 250 mls @ 250 mls/hr IV Q24H [facility] Last Infusion: 03/05/20 07:00 Dose: Infused Documented by: Insulin Aspart (Novolog) 0 unit SUBCUT TIDWM [facility]; Protocol Last Admin: 03/05/20 17:13 Dose: 4 unit Documented by: Insulin Glargine (Lantus) 20 unit SUBCUT BEDTIME [facility] Last Admin: 03/04/20 20:28 Dose: 20 unit Documented by: Metoclopramide HCl (Reglan) 10 mg PO WM&BEDTIME [facility] Last Admin: 03/05/20 17:13 Dose: 10 mg Documented by: Non-Formulary Medication (Oxeqvhnslqq-Fazihgmcz-Simcjfzw [Trelegy Ellipta]) 1 inh INHALATION DAILY [facility] Last Admin: 03/05/20 08:47 Dose: Not Given Documented by: Ondansetron HCl (Zofran) 4 mg IVP Q6H PRN PRN Reason: NAUSEA AND VOMITING Last Admin: 03/02/20 04:17 Dose: 4 mg Documented by: Pantoprazole Sodium (Protonix) 40 mg IVP BID [facility] Last Admin: 03/05/20 17:13 Dose: 40 mg Documented by: Ropinirole HCl (Requip) 4 mg PO TID [facility] Last Admin: 03/05/20 14:37 Dose: 4 mg Documented by: Fluticasone/Salmeterol (Advair Diskus 250-50) 1 puff INHALATION BID.RESPIRATORY [facility] Last Admin: 03/05/20 08:29 Dose: 1 puff Documented by: Vitals/I&O/Wt Last Vital Signs Temp 98.6 F 03/07/20 11:30 Pulse 62 03/07/20 11:30 Resp 18 03/07/20 11:30 BP 136/84 03/07/20 11:30 Pulse Ox 95 03/07/20 11:30 03/06/20 03/07/20 03/07/20 22:59 06:59 14:59 Intake Total 200 / 300 100 / 400 600 / 600 Output Total 850 / 1100 0 / 1100 Balance -650 / -800 100 / -700 600 / 600 Weight last 48 hrs Weight 92.125 kg Weight 85.417 kg Physical Exam Const: COMMON NORMALS: no acute distress, patient oriented x3 and alert GENERAL APPEARANCE: lethargic ORIENTATION/CONSCIOUSNESS: Yes lethargic HENMT: COMMON NORMALS: normocephalic and atraumatic HEAD & SCALP: normocephalic and atraumatic OTHER: Posterior pharynx and soft palate exudates noted. Eye: COMMON NORMALS: EOMs intact bilaterally, conjunctivae normal and no scleral icterus CONJUNCTIVA: Yes conjunctivae normal Neck/C-Spine: COMMON NORMALS: no lymphadenopathy and no meningeal signs Lymph: LYMPHATIC: no lymphadenopathy noted Chest: COMMONS NORMALS: normal palpation of entire chest wall Resp: COMMON NORMALS: normal respiratory effort, No use of accessory muscles and clear to auscultation bilaterally AUSCULTATION: clear to auscultation bilaterally OTHER: Overall decreased air movement but otherwise clear. Cardio: COMMON NORMALS: regular rate, regular rhythm, S2 normal heart sound present and No murmurs present (Cardio) RATE: regular rate RHYTHM: regular rhythm HEART SOUNDS: S2 normal heart sound present OTHER: No lower extremity edema GI: COMMON NORMALS: Normal to inspection, nondistended, normoactive bowel sounds present, Soft to palpation and non-tender PALPATION: Yes Soft to palpation RECTAL EXAM: deferred : COMMON NORMALS: Yes no CVA tenderness BLADDER/KIDNEY EXAM: Yes no CVA tenderness Back/Pelvis: COMMON NORMALS: no CVA tenderness and thoracic and lumbar spine normal to inspection Extremity: COMMON NORMALS: normal to inspection and capillary refill normal Neuro: COMMON NORMALS: patient oriented x3 and no focal motor deficits SENSORIUM/ORIENTATION: Yes alert and Yes lethargic MENINGEAL SIGNS: Yes no meningeal signs Psych: COMMON NORMALS: mental status grossly normal, Normal thought process present and cooperative THOUGHT PROCESS: Normal thought process present Skin: COMMON NORMALS: no rashes or lesions noted GENERAL SKIN EXAM: no rashes or lesions noted Urinary Catheter Management^: Rao: Cath Placed During This Visit: yes Reason for Continuing Indwelling Catheter: Acute Urinary Retention or Obstruction Urinary Catheter Date of Insertion: 03/01/20 Urinary Catheter Time of Insertion: 16:00 Data : 03/07/20 04:46 03/07/20 04:46 Micro: Microbiology 03/01/20 17:30 Blood Culture - Final Blood NO GROWTH AFTER 5 DAYS 03/01/20 16:30 Blood Culture - Final Blood NO GROWTH AFTER 5 DAYS A&P Assessment and plan (1) Sepsis: As exhibited by tachycardia and tachypnea. WBC 11.9. Patient is afebrile. Status: Acute Qualifiers: Sepsis acute organ dysfunction status: unspecified Sepsis type: sepsis due to unspecified organism Qualified Code(s): A41.9 - Sepsis, unspecified organism (2) Recurrent UTI: Status: Acute (3) Acute kidney injury superimposed on CKD: Prerenal secondary to dehydration. Some degree of ATN cannot be ruled out. Status: Acute (4) Hyperkalemia: Likely multifactorial with acute kidney injury and potassium supplementation playing a role. I suspect that patient was skeeping Lasix although she denies Status: Acute (5) CHF (congestive heart failure), NYHA class IV: Combined with significant decreased EF. Status: Acute Qualifiers: Congestive heart failure type: diastolic Congestive heart failure chronicity: chronic Qualified Code(s): I50.32 - Chronic diastolic (congestive) heart failure (6) Dehydration with hyponatremia: Improved Status: Acute (7) Tobacco abuse: Status: Acute (8) Diabetes mellitus type 2 with complications: Chronic kidney disease stage III, peripheral neuropathy, gastroparesis Status: Acute (9) NSTEMI (non-ST elevated myocardial infarction): Present on admission Status: Acute Additional A&P Information Altered mental status with lethargy. Improved Coronary artery disease, status post CABG Acute normocytic anemia. Peripheral vascular disease. Elevated alkaline phosphatase. This is likely due to sepsis/medication related cholestasis. Hyperglobulinemia PLAN: Continue current monitoring and treatment. If alk phos is not normalized consider further evaluation for primary biliary cirrhosis. Encouraged oral intake. Will check SPEP, immunoglobulin panel and light chains. Continue physical therapy. Awaiting placement to nursing facility. Attestations Medical Necessity Statement*: Patient with acute kidney injury and sepsis requires close inpatient monitoring and treatment field placed in nursing facility. Time Spent in Patient Care: 16 - 35 minutes Coding Level of Care Code Acute Pearl Diver for [facility] Fwd Diagnoses Sepsis A41.9 Sepsis acute organ dysfunction status: unspecified Sepsis type: sepsis due to unspecified organism Recurrent UTI N39.0 Acute kidney injury superimposed on CKD N17.9; N18.9 Hyperkalemia E87.5 CHF (congestive heart failure), NYHA class IV I50.32 Congestive heart failure type: diastolic Congestive heart failure chronicity: chronic Dehydration with hyponatremia E86.0; E87.1 Tobacco abuse Z72.0 Diabetes mellitus type 2 with complications E11.8 NSTEMI (non-ST elevated myocardial infarction) I21.4
[2020-03-07] MEDS: FUROsemide 10 mg/mL SDV 10mL 80 MG IVP (16:05)
[2020-03-07] MEDS: cefTRIAXone 1,000 MG in sodium chloride 0.9% (plus) 50 ML 100 MG IV (16:06)
[2020-03-07 16:10] LABS: Glucose Point of Care 205 mg/dL (70-110)
--- NOTE | 2020-03-07 18:06 | P.PN_ITS ---
Subjective Subjective: Interval history: This patient with a history of coronary disease, status post coronary bypass surgery, is admitted to the hospital with altered mental status and possible urosepsis. She had features of a non-ST elevation myocardial infarction. She is slowly seems to be recuperating. She was admitted to the hospital in August of this year with progressive shortness of breath and features of a non-ST elevation myocardial infarction. Patient is known to have chronic kidney disease, atherosclerotic heart disease with previous coronary bypass surgery, ongoing smoking abuse/COPD and multiple other medical problems. The plan was to optimize her medical treatment. Currently she is present with another bout of UTI/dehydration/altered mental status. She was found to have markedly elevated troponin T. Levels are coming down. Her mental status is improving. She also was found to have features of possible ischemic liver injury and acute kidney injury. The liver enzymes are trending down. Medications: Reviewed: Yes Medication Review Details: Current Medications Acetaminophen (Tylenol) 650 mg PO Q4H PRN PRN Reason: MILD PAIN OR INCREASE TEMP Last Admin: 03/06/20 11:52 Dose: 650 mg Documented by: Hydrocodone Bitart/Acetaminophen ([place] 10-325 Mg) 1 tab PO Q4H PRN PRN Reason: MODERATE PAIN Last Admin: 03/07/20 16:07 Dose: 1 tab Documented by: Albuterol/Ipratropium (Duoneb) 3 ml INHALATION PRN PRN PRN Reason: SHORTNESS OF BREATH Lidocaine HCl 1.667 ml/Diphenhydramine HCl 4.165 mg/Al Hydrox/Mg Hydrox/Simethicone 1.667 ml 0 ml MUCOUS MEM Q4H PRN PRN Reason: MOUTH PAIN Dextrose (D50w) 25 ml IVP ONCE PRN; Protocol PRN Reason: hypoglycemia protocol Dextrose (D50w) 50 ml IVP PRN PRN; Protocol PRN Reason: hypoglycemia protocol Furosemide (Lasix) 80 mg IVP Q24H [facility] Last Admin: 03/07/20 16:05 Dose: 80 mg Documented by: Gabapentin (Neurontin) 100 mg PO TID [facility] Last Admin: 03/07/20 16:06 Dose: 100 mg Documented by: Glucagon (Glucagen) 1 mg IM ONCE PRN; Protocol PRN Reason: Adult Acute Hypoglycemia Prot. Ceftriaxone Sodium 1,000 mg/ (Sodium Chloride) 50 mls @ 100 mls/hr IV Q24H [facility]; Protocol Last Admin: 03/07/20 16:06 Dose: 100 mls/hr Documented by: Dextrose (D5w) 500 mls @ 100 mls/hr IV ONCE PRN; Protocol PRN Reason: Adult Acute Hypoglycemia Prot Norepinephrine Bitartrate 4 mg (/ Dextrose) 254 mls @ 0 mls/hr IV .Q0M [facility]FFANIE; Protocol Last Titration: 03/04/20 02:32 Dose: Infused Documented by: Vancomycin HCl 1,000 mg/ (Sodium Chloride) 250 mls @ 250 mls/hr IV Q24H [facility] Imipenem/Cilastatin Sodium 500 (mg/ Sodium Chloride) 100 mls @ 200 mls/hr IV Q8H [facility]; Protocol Last Admin: 03/07/20 16:47 Dose: 200 mls/hr Documented by: Insulin Aspart (Novolog) 0 unit SUBCUT TIDWM [facility]; Protocol Last Admin: 03/07/20 17:38 Dose: 6 unit Documented by: Insulin Glargine (Lantus) 20 unit SUBCUT BEDTIME [facility] Last Admin: 03/06/20 20:39 Dose: 20 unit Documented by: Metoclopramide HCl (Reglan) 10 mg PO WM&BEDTIME [facility] Last Admin: 03/07/20 17:39 Dose: 10 mg Documented by: Non-Formulary Medication (Erthwodrdyn-Golzokgzg-Frijrksp [Trelegy Ellipta]) 1 inh INHALATION DAILY [facility] Last Admin: 03/07/20 11:10 Dose: Not Given Documented by: Ondansetron HCl (Zofran) 4 mg IVP Q6H PRN PRN Reason: NAUSEA AND VOMITING Last Admin: 03/02/20 04:17 Dose: 4 mg Documented by: Pantoprazole Sodium (Protonix) 40 mg IVP BID [facility] Last Admin: 03/07/20 17:39 Dose: 40 mg Documented by: Ropinirole HCl (Requip) 4 mg PO TID [facility] Last Admin: 03/07/20 16:05 Dose: 4 mg Documented by: Fluticasone/Salmeterol (Advair Diskus 250-50) 1 puff INHALATION BID.RESPIRATORY [facility]FFANIE Last Admin: 03/07/20 08:34 Dose: 1 puff Documented by: Vitals/I&O/Wt Last Vital Signs Temp 98.6 F 03/07/20 15:31 Pulse 74 03/07/20 15:31 Resp 22 H 03/07/20 15:31 BP 136/74 03/07/20 15:31 Pulse Ox 95 03/07/20 15:31 03/07/20 03/07/20 03/07/20 06:59 14:59 22:59 Intake Total 100 / 450 600 / 600 360 / 960 Output Total 0 / 1100 800 / 800 Balance 100 / -650 600 / 600 -440 / 160 Weight last 48 hrs Weight 203 lb 1.6 oz Weight 188 lb 5 oz Physical Exam Narrative: EXAM NARRATIVE: GENERAL: The patient is alert and oriented times two. Not in any acute distress. Seems to be very fragile and emaciated. HEENT: Moderate pallor. No icterus or lymphadenopathy.Oral cavity: There are no mucous membrane lesions. NECK: Trachea appears to be central. No masses noted. No JVD or thyromegaly appreciated. RESPIRATORY: Chest is symmetrical. No intercostals muscle retraction or any accessory muscle activation. There is no chest wall tenderness. Breath sounds are heard bilaterally. The intensity the breath sounds are diminished in the bases. Scattered expiratory wheezing. Few coarse crackles. BREASTS: Deferred. HEART: The heart sounds are normal. No S3 or S4. Short systolic murmur in the left sternal border. No diastolic murmurs. No pericardial rub ABDOMEN: No vessel pulsations or distention. No tenderness. No organomegaly appreciated. Bowel sounds are normally heard. : Deferred. RECTAL: Deferred. LYMPHATIC: No lymphadenopathy noted in the neck or groin. EXTREMITIES: 1+ edema both lower extremities. No cyanosis. Peripheral pulses are weak bilaterally MUSCULOSKELETAL: No acute joint deformities or swelling SKIN: There are no significant rashes or ecchymosis NEUROPSYCHIATRIC: The patient is alert and oriented x2. Appears very lethargic, chronically ill looking. No tremors or rigidity noted. Urinary Catheter Management^: Rao: Cath Placed During This Visit: yes Reason for Continuing Indwelling Catheter: Acute Urinary Retention or Obstruction Urinary Catheter Date of Insertion: 03/01/20 Urinary Catheter Time of Insertion: 16:00 Data : 03/08/20 05:45 03/08/20 05:45 Other Labs: Laboratory Last Values WBC 9.6 10^3/uL (4.0-10.0) 03/07/20 04:46 RBC 3.02 10^6/uL (4.1-5.3) L 03/07/20 04:46 Hgb 9.2 g/dL (11.5-15.3) L 03/07/20 04:46 Hct 29.9 % (37.0-47.0) L 03/07/20 04:46 MCV 99.0 fL (81-99) 03/07/20 04:46 MCH 30.5 pg (28.0-34.0) 03/07/20 04:46 MCHC 30.8 g/dL (30.0-36.0) 03/07/20 04:46 RDW 21.8 % (12.1-15.1) H 03/07/20 04:46 Plt Count 151 10^3/cmm (130-400) 03/07/20 04:46 MPV 11.7 fL (7.4-10.4) H 03/07/20 04:46 Neut % (Auto) 82.0 % 03/07/20 04:46 Lymph % (Auto) 5.6 % 03/07/20 04:46 [place] % (Auto) 9.2 % 03/07/20 04:46 Eos % (Auto) 2.5 % 03/07/20 04:46 Baso % (Auto) 0.3 % 03/07/20 04:46 Neut # (Auto) 7.87 10^3/uL (1.8-7.7) H 03/07/20 04:46 Lymph # (Auto) 0.5 10^3/uL (0.8-4.8) L 03/07/20 04:46 [place] # (Auto) 0.9 10^3/uL (0.2-0.9) 03/07/20 04:46 Eos # (Auto) 0.2 10^3/uL (0.0-0.8) 03/07/20 04:46 Baso # (Auto) 0.0 10^3/uL (0.0-0.1) 03/07/20 04:46 Nucleated RBC % (auto) 0.2 % 03/07/20 04:46 Nucleated RBCs # 0.0 /100WBC 03/07/20 04:46 PT 15.40 SECONDS (10.5-13.3) H 03/01/20 20:35 INR 1.18 (0.8-1.2) 03/01/20 20:35 APTT 53.5 SECONDS (23.9-36.7) H 03/01/20 20:35 Sodium 135 mmol/L (136-145) L 03/07/20 04:46 Potassium 3.4 mmol/L (3.5-5.1) L 03/07/20 04:46 Chloride 107 mmol/L (98-107) 03/07/20 04:46 Carbon Dioxide 19 mmol/L (22-29) L 03/07/20 04:46 Anion Gap 12.4 (5-19) 03/07/20 04:46 BUN 59 mg/dL (6-20) H 03/07/20 04:46 Creatinine 1.5 mg/dL (0.5-0.9) H 03/07/20 04:46 GFR Calculation 35.5 mL/min (90-130) L 03/07/20 04:46 Glucose 140 mg/dL (65-115) H 03/07/20 04:46 POC Glucose 205 mg/dL (70-110) 03/07/20 16:00 Calculated Osmolality 281 mOsm/kg (285-295) L 03/07/20 04:46 Lactic Acid 3.0 mmol/L (0.5-2.2) H 03/01/20 20:35 Lactic Acid (Sepsis) 3.5 mmol/L (0.5-2.2) H 03/01/20 22:45 Lactate 3.0 mmol/L (0.5-2.2) H 03/01/20 16:30 Calcium 7.4 mg/dL (8.5-10.5) L 03/07/20 04:46 Magnesium 1.7 mg/dL (1.7-2.3) 03/07/20 04:46 Iron 44 ug/dL (37-145) 03/01/20 20:35 TIBC 203 mcg/dl 03/01/20 20:35 % Saturation 21.6 % (20-50) 03/01/20 20:35 Unsat Iron Binding 159 ug/dL (112-347) 03/01/20 20:35 Ferritin 86 ng/mL (15-150) 03/01/20 20:35 Total Bilirubin 0.7 mg/dL (0.15-1.2) 03/07/20 04:46 GGT 657 U/L (5-36) H 03/07/20 04:46 AST 108 U/L (0-32) H 03/07/20 04:46 ALT 21 U/L (0-33) 03/07/20 04:46 Alkaline Phosphatase 933 IU/L (35-105) H 03/07/20 04:46 Creatine Kinase 391 U/L (26-192) H* 03/02/20 11:43 CK-MB (CK-2) 23.1 ng/mL (0-5.34) H 03/02/20 11:43 CK-MB (CK-2) Rel Index 5.9 % (0.0-10.4) 03/02/20 11:43 Troponin T Baseline 2180 ng/L (0-10) H* 03/02/20 11:43 Troponin T 120 Minute 2241 ng/L (0-10) H 03/02/20 13:57 Delta Troponin T 61 ABS# (0-10) H* 03/02/20 13:57 Troponin T Hi Sens 6Hr 2232 ng/L (0-10) H 03/02/20 18:37 Troponin T Hi Sens 6Hr Delta 52 ng/L (0-12) H* 03/02/20 18:37 Total Protein 6.5 g/dL (6.6-8.7) L 03/07/20 04:46 Albumin 1.5 g/dL (3.5-5.2) L 03/07/20 04:46 Globulin 5.0 g/dL (1.3-4.6) H 03/07/20 04:46 Vitamin B12 > 2000 pg/mL (232-1245) H 03/01/20 20:35 Folate > 20.0 ng/mL (4.8-37.3) 03/01/20 20:35 Urine Color Brown (Yellow) 03/01/20 16:00 Urine Appearance Turbid (CLEAR) 03/01/20 16:00 Urine pH 5 (5-7) 03/01/20 16:00 Ur Specific [place] 1.015 (1.005-1.030) 03/01/20 16:00 Urine Protein 2+ (Negative) H 03/01/20 16:00 Urine Glucose (UA) Norm (Normal) 03/01/20 16:00 Urine Ketones Negative (Negative) 03/01/20 16:00 Urine Blood 3+ (Negative) H 03/01/20 16:00 Urine Nitrate Positive (Negative) H 03/01/20 16:00 Urine Bilirubin 1+ (NEGATIVE) H 03/01/20 16:00 Urine Urobilinogen 1 mg/dL (Negative) H 03/01/20 16:00 Ur Leukocyte Esterase 2+ (Negative) H 03/01/20 16:00 Ur Microscopic Indic Cancelled 03/01/20 16:00 Urine RBC Too numerous to cnt /hpf (0-2) H 03/01/20 16:00 Urine WBC Too numerous to cnt /hpf (0-5) H 03/01/20 16:00 Ur Squamous Epith Cells 15-25 (0-5) H 03/01/20 16:00 Amorphous Sediment Not Reportable 03/01/20 16:00 Urine Bacteria 3+ (NONE) H 03/01/20 16:00 Urine Yeast 4+ H 03/01/20 16:00 Vancomycin Trough 8.7 ug/mL (10-15) L 03/05/20 04:00 Blood Type A Positive 03/01/20 20:35 Rho(D) Type Positive 03/01/20 20:35 Antibody Screen Negative 03/01/20 20:35 Crossmatch See Detail 03/01/20 20:35 Micro: Microbiology 03/01/20 17:30 Blood Culture - Final Blood NO GROWTH AFTER 5 DAYS 03/01/20 16:30 Blood Culture - Final Blood NO GROWTH AFTER 5 DAYS EKG 1: My Interpretation: The EKG from 03/02/2020 revealed a sinus rhythm with a poor R wave progression. Nonspecific ST-T changes in the anterolateral leads. Left axis deviation. A&P Assessment and plan (1) NSTEMI (non-ST elevated myocardial infarction): Patient has been having frequent episodes of non-ST elevation myocardial infarction. She requires a cardiac authorization, to further evaluate her coronary status as well as the graft status. But in view of the multiple other medical problems, she is being managed medically. I discussed the patient about further treatment options. Patient is not want to undergo any invasive procedures at this time. Status: Acute (2) CHF (congestive heart failure), NYHA class IV: Clinically appears to be compensated. May continue the careful IV diuresis. Status: Acute Qualifiers: Congestive heart failure chronicity: chronic Congestive heart failure type: diastolic Qualified Code(s): I50.32 - Chronic diastolic (congestive) heart failure (3) Chronic kidney disease: The kidney function seems to be getting stabilized. Status: Acute Qualifiers: Chronic kidney disease stage: stage 3 (moderate) Qualified Code(s): N18.3 - Chronic kidney disease, stage 3 (moderate) (4) Recurrent UTI: Patient is still on IV antibiotics. Seems afebrile. Status: Acute (5) Atherosclerotic heart disease of [place] coronary artery without angina pectoris: Because of the GI bleed and anemia, the antiplatelet drugs were held. Need to consider putting her back on the Plavix, if okay with the primary. Status: Acute Additional A&P Information Other problems are Altered mental status, slowly improving Chronic anemia Chronic back pain Degenerative joint disease COPD based on the patient's clinical progress, further recommendations will be made. Attestations Medical Necessity Statement*: Patient requires continued hospital stay for close monitoring and further management Coding Level of Care Code Acute [facility]duit [facility] for [facility] Fwd Exam Detailed Medical Decision Making Moderate Complexity Diagnoses NSTEMI (non-ST elevated myocardial infarction) I21.4 CHF (congestive heart failure), NYHA class IV I50.32 Congestive heart failure chronicity: chronic Congestive heart failure type: diastolic Chronic kidney disease N18.3 Chronic kidney disease stage: stage 3 (moderate) Recurrent UTI N39.0 Atherosclerotic heart disease of [place] coronary artery without angina pectoris I25.10 Time Spent (min) 35
[2020-03-07 20:55] LABS: Glucose Point of Care 231 mg/dL (70-110)
[2020-03-07] MEDS: insulin glargine 100 units/1 mL 20 UNIT SUBCUT (20:57)
[2020-03-08] VITALS (8 sets, daily range): BP systolic 118–127; BP diastolic 69–88; PULSE 79–85; RESP 16–18; TEMP 36.3–37.1; O2SAT 93–99
[2020-03-08] MEDS: HYDROcodone-acetaminophen 10-325 mg Tablet 1 TAB PO ×3 (01:22→13:42)
[2020-03-08 06:02] LABS: Basophils % 0.4 %; Eosinophils # 0.3 10^3/uL (0.0-0.8); Eosinophils % 2.6 %; Hematocrit 30.7 % (37.0-47.0); Hemoglobin 9.6 g/dL (11.5-15.3); Lymphocytes # 0.7 10^3/uL (0.8-4.8); Lymphocytes % 6.7 %; Mean Corpuscular HGB Conc 31.3 g/dL (30.0-36.0); Mean Corpuscular Hemoglobin 31.5 pg (28.0-34.0); Mean Corpuscular Volume 100.7 fL (81-99); Mean Platelet Volume 11.5 fL (7.4-10.4); Monocytes # 0.9 10^3/uL (0.2-0.9); Monocytes % 8.7 %; Neutrophils # 8.13 10^3/uL (1.8-7.7); Neutrophils % 81.2 %; Nucleated Red Blood Cells % 0 %; Platelet Count 184 10^3/cmm (130-400); Red Blood Count 3.05 10^6/uL (4.1-5.3)
[2020-03-08] MEDS: vancomycin 1,000 MG in sodium chloride 0.9% 250 ML 250 MG IV (06:20)
[2020-03-08 06:29] LABS: Alanine Aminotransferase 16 U/L (0-33); Albumin Level 1.8 g/dL (3.5-5.2); Alkaline Phosphatase 804 IU/L (35-105); Anion Gap 11.6 (5-19); Aspartate Amino Transferase 77 U/L (0-32); Blood Urea Nitrogen 53 mg/dL (6-20); Calcium 7.8 mg/dL (8.5-10.5); Carbon Dioxide 21 mmol/L (22-29); Chloride 107 mmol/L (98-107); Glomerular Filtration Rate 41.9 mL/min (90-130); Glucose 132 mg/dL (65-115); Magnesium 1.7 mg/dL (1.7-2.3); Osmolality Calculated 282 mOsm/kg (285-295); Potassium 3.6 mmol/L (3.5-5.1); Sodium 136 mmol/L (136-145); Total Bilirubin 0.6 mg/dL (0.15-1.2); Total Protein 6.8 g/dL (6.6-8.7)
[2020-03-08 06:32] LABS: Immunoglobulin IGG 1596 mg/dL (700-1600); Immunoglobulin IGM 124 mg/dL (40-230)
[2020-03-08 07:04] LABS: Immunoglobulin IGA 1189 mg/dL (70-400)
[2020-03-08] MEDS: metoclopramide 10 mg Tablet PO ×3 (08:03→17:35)
[2020-03-08 08:10] LABS: Glucose Point of Care 114 mg/dL (70-110)
--- NOTE | 2020-03-08 08:16 | PC.NURSE ---
patient visible from hallway, laying in bed. patient stated my bottom is hurting. i would like a pain pill. when asked on a pain scale of 1-10, pt stated that it was a 8. pt also stated, i cannot get comfortable, please reposition me. Pt repositioned on request with help from a MASTER PRINTER, pt stated pain was slightly relieved from pain. pt is now sitting up in bed eating breakfast. pt able to swallow very well.
--- NOTE | 2020-03-08 08:56 | PC.NURSE ---
pt stated my pain is still an 8. Educated pt that PO pain medication will take effect soon.
[2020-03-08] MEDS: ropinirole 2 mg Tablet 4 MG PO ×2 (09:44→15:24)
[2020-03-08] MEDS: gabapentin 100 mg Capsule PO ×2 (09:44→15:24)
[2020-03-08] MEDS: pantoprazole 40 mg SDV IVP ×2 (09:44→17:35)
--- NOTE | 2020-03-08 10:13 | PC.NURSE ---
educated pt on need to turn, cough, and deep breath. pt able to cough up some clear mucous.
--- NOTE | 2020-03-08 10:15 | PC.NURSE ---
Addendum entered by Rupal Li RN 03/08/20 10:22: pt has all personal belonging within reach. pt voiced no needs at this time. Original Note: pt up to chair via codie lift by physical therapy. educated patient on need to change positions frequently. pt had small BM that was soft and loosely formed.
[2020-03-08 11:24] LABS: Glucose Point of Care 118 mg/dL (70-110)
--- NOTE | 2020-03-08 11:30 | PC.NURSE ---
dressing change provided to buttock/sacrum area. pt tolerated well.
--- NOTE | 2020-03-08 12:00 | PC.NURSE ---
pt sitting in chair, repositioned self in chair, pt able to feed herself well.
--- NOTE | 2020-03-08 13:30 | PC.NURSE ---
pt transferred back to bed from chair via codie lift. pt stated my lower back and legs are hurting. the pain is a 8 out 10.
--- NOTE | 2020-03-08 13:39 | PM.DCS ---
Discharge Providers Date of Admission: 03/01/20 18:08 Date of Discharge: March 08, 2020 Attending Provider at Admission: Nilesh Cohn MD Attending Provider at Discharge: Nilesh Cohn MD Primary Care Provider: Bhavik Richter Diagnoses at Discharge Discharge Diagnosis (1) NSTEMI (non-ST elevated myocardial infarction): Status: Acute Problem details: Maximum medical treatment with nitrate, aspirin, Plavix, statin, beta-hermelindo (2) CHF (congestive heart failure), NYHA class IV: Status: Acute Problem details: Acute on chronic systolic heart failure. Present on admission. Qualifiers: Congestive heart failure type: diastolic Congestive heart failure chronicity: chronic Qualified Code(s): I50.32 - Chronic diastolic (congestive) heart failure (3) Chronic kidney disease: Status: Acute Qualifiers: Chronic kidney disease stage: stage 3 (moderate) Qualified Code(s): N18.3 - Chronic kidney disease, stage 3 (moderate) (4) Recurrent UTI: Status: Acute Problem details: [email or web address] (5) Atherosclerotic heart disease of [place] coronary artery without angina pectoris: Status: Acute (6) Acute kidney injury superimposed on chronic kidney disease: Status: Acute Problem details: Present on admission (7) Acute blood loss anemia: Status: Acute Problem details: Present admission. (8) Acute GI bleeding: Status: Acute Problem details: Present on admission. Resolved Reason for Visit Reason for Visit: POSS UTI Hospital Course Discharge Summary: Patient presented lethargic with difficulty urinating. She had evidence of UTI but cultures remain negative as she was on antibiotic prior to admission. She was diagnosed with acute non-ST elevation CT and acute on chronic systolic heart failure. Patient was treated initially in ICU and then on medical kelley and gradually improved. Patient had evidence of GI bleed and required blood transfusion. Patient was seen by cardiology service and she refused to have further evaluation by coronary angiogram and opted to proceed with medical treatment. She similarly did not want to have upper endoscopy or colonoscopy. She understood risks and benefits of antiplatelet medications and was okay to try. We will go ahead and restart aspirin and I will request blood work in several days prior to primary care physician follow-up to make sure her hemoglobin and kidney function remained stable. Her creatinine nicely improved with treatment. This morning patient reports feeling much better. She was sitting in the chair and denied any shortness of breath or chest pain. She was saturating in the 90s on room air. She had bowel movement today without evidence of melena or hematochezia. She is being dismissed to long-term facility for further rehabilitation. We will keep Rao catheter in as patient had difficulty with urination when it was removed. Outpatient follow-up with Dr. Naylor will be requested. Patient had 1 week of IV antibiotic, Primaxin and vancomycin therefore no further oral antibiotic will be prescribed. Patient is definitely at high risk for repeated infections and hospitalizations. Most of the patient's home medications will be restarted. Patient did not want to have outpatient follow-up with wound care clinic. Physical Exam Const: COMMON NORMALS: no acute distress and patient oriented x3 Resp: COMMON NORMALS: normal respiratory effort and clear to auscultation bilaterally AUSCULTATION: clear to auscultation bilaterally Cardio: COMMON NORMALS: regular rate, regular rhythm and S2 normal heart sound present RATE: regular rate RHYTHM: regular rhythm HEART SOUNDS: S2 normal heart sound present OTHER: 1+ Lower extremity edema GI: COMMON NORMALS: Normal to inspection, nondistended, normoactive bowel sounds present, Soft to palpation and non-tender PALPATION: Yes Soft to palpation Neuro: COMMON NORMALS: patient oriented x3 and no focal motor deficits Urinary Catheter Management^: Rao: Cath Placed During This Visit: yes Reason for Continuing Indwelling Catheter: Acute Urinary Retention or Obstruction Urinary Catheter Date of Insertion: 03/01/20 Urinary Catheter Time of Insertion: 16:00 Discharge Data Data Completed and Pending: Completed Studies During Hospitalization Category Date Time Status CT chest abd pel wo con Routine Cat Scan 03/05/20 10:33 Completed XR chest 1V tmamy ble [id number] Routine Exams 03/03/20 07:58 Completed CV echo limited 9 3308 Routine Ultrasound 03/02/20 08:46 [place] [id number] Routin e Ultrasound 03/02/20 20:23 Completed US renal BI with bladder Routine Ultrasound 03/02/20 20:23 Completed Pending at discharge Category Date Time Status KAPPA/LAMBDA LIGH T FREE SERUM AM LA BS Lab 03/08/20 05:45 Received Total Protein Munira ctrophoresis AM LA BS Lab 03/08/20 05:45 Received Vancomycin Trough Timed Lab 03/09/20 05:00 Ordered Labs from last 24 hours 03/08/20 03/08/20 03/08/20 10:51 07:55 05:45 WBC RBC Hgb Hct MCV MCH MCHC RDW Plt Count MPV Neut % (Auto) Lymph % (Auto) Bradford % (Auto) Eos % (Auto) Baso % (Auto) Neut # (Auto) Lymph # (Auto) Bradford # (Auto) Eos # (Auto) Baso # (Auto) Nucleated RBC % (a uto) Nucleated RBCs # Sodium Potassium Chloride Carbon Dioxide Anion Gap BUN Creatinine GFR Calculation Glucose POC Glucose 118 114 Calculated Osmolal ity Calcium Magnesium Total Bilirubin AST ALT Alkaline Phosphata se Total Protein Pending Albumin Pending Globulin Hxxfn-8-Oslokcfri Pending Xzspr-1-Sfjwssvya Pending Gwqc-2-Iqgewbnk Pending Hqsu-2-Jiztwbuh Pending Gamma Globulins Pending Abnorm Protein Ban d 1 Pending U Abnormal Prot Ba nd 2 Pending U Abnormal Prot Ba nd 3 Pending IgG IgA IgM Pro Electrophoresi s Int Pending Free Leonidas Light C hains Free Lambda Light Chain Free Leonidas/Lambda Ratio 03/08/20 03/08/20 03/08/20 05:45 05:45 05:45 WBC RBC Hgb Hct MCV MCH MCHC RDW Plt Count MPV Neut % (Auto) Lymph % (Auto) Bradford % (Auto) Eos % (Auto) Baso % (Auto) Neut # (Auto) Lymph # (Auto) Bradford # (Auto) Eos # (Auto) Baso # (Auto) Nucleated RBC % (a uto) Nucleated RBCs # Sodium 136 Potassium 3.6 Chloride 107 Carbon Dioxide 21 L Anion Gap 11.6 BUN 53 H Creatinine 1.3 H GFR Calculation 41.9 L Glucose 132 H POC Glucose Calculated Osmolal ity 282 L Calcium 7.8 L Magnesium 1.7 Total Bilirubin 0.6 AST 77 H ALT 16 Alkaline Phosphata se 804 H Total Protein 6.8 Albumin 1.8 L Globulin 5.0 H Ycqci-6-Ujbwpmpfa Ykerz-1-Jstwwqsre Rmbd-3-Frholikw Eruh-1-Twkhnnji Gamma Globulins Abnorm Protein Ban d 1 U Abnormal Prot Ba nd 2 U Abnormal Prot Ba nd 3 IgG 1596 IgA 1189 H IgM 124 Pro Electrophoresi s Int Free Leonidas Light C hains Pending Free Lambda Light Chain Pending Free Leonidas/Lambda Ratio Pending 03/08/20 03/07/20 03/07/20 05:45 20:52 16:00 WBC 10.0 RBC 3.05 L Hgb 9.6 L Hct 30.7 L MCV 100.7 H MCH 31.5 MCHC 31.3 RDW 22.0 H Plt Count 184 MPV 11.5 H Neut % (Auto) 81.2 Lymph % (Auto) 6.7 Bradford % (Auto) 8.7 Eos % (Auto) 2.6 Baso % (Auto) 0.4 Neut # (Auto) 8.13 H Lymph # (Auto) 0.7 L Bradford # (Auto) 0.9 Eos # (Auto) 0.3 Baso # (Auto) 0.0 Nucleated RBC % (a uto) 0 Nucleated RBCs # 0.0 Sodium Potassium Chloride Carbon Dioxide Anion Gap BUN Creatinine GFR Calculation Glucose POC Glucose 231 205 Calculated Osmolal ity Calcium Magnesium Total Bilirubin AST ALT Alkaline Phosphata se Total Protein Albumin Globulin Ygxlx-1-Kxsoovrda Lhnnv-7-Caorfnwrs Bllj-2-Wisvyvie Kkzb-0-Hclzswqm Gamma Globulins Abnorm Protein Ban d 1 U Abnormal Prot Ba nd 2 U Abnormal Prot Ba nd 3 IgG IgA IgM Pro Electrophoresi s Int Free Leonidas Light C hains Free Lambda Light Chain Free Leonidas/Lambda Ratio Vitals: Last Vital Signs Temp 97.3 F L 03/08/20 12:00 Pulse 80 03/08/20 12:00 Resp 18 03/08/20 12:00 BP 126/88 03/08/20 12:00 Pulse Ox 98 03/08/20 12:00 Discharge Plan Discharge Patient Disposition: Xfer SNF Condition: Fair Prescriptions: New hydrocodone-acetaminophen 10-325 mg Tablet 1 tab PO Q8H PRN (Reason: Moderate Pain) Qty: 20 RF: 0 acetaminophen 325 mg Tablet 650 mg PO Q8H PRN (Reason: Mild Pain Or Increase Temp) Qty: 30 RF: 0 Protonix [address] for susp in packet 40 mg PO BID Qty: 60 RF: 0 Continued cranberry 400 mg capsule 400 mg PO DAILY RF: 0 metoclopramide HCl [Reglan] 10 mg tablet See Rx Instructions .ROUTE .COMPLEX RF: 0 potassium chloride 10 mEq capsule, extended release 20 meq PO DAILY RF: 0 clopidogrel 75 mg tablet 75 mg PO DAILY RF: 0 Lantus U-100 Insulin 100 unit/mL solution 20 unit SUBCUT BEDTIME RF: 0 docusate sodium 100 MG capsule 100 mg PO BID RF: 0 gabapentin [Neurontin] 100 mg Capsule 100 mg PO TID RF: 0 montelukast 10 mg Tablet 10 mg PO DAILY RF: 0 ropinirole 4 mg Tablet 4 mg PO TID RF: 0 atorvastatin 40 mg Tablet 40 mg PO BEDTIME Qty: 30 RF: 0 aspirin 81 mg Tablet,Delayed Release (Dr/Ec) 81 mg PO DAILY Qty: 30 RF: 0 carvedilol 3.125 mg Tablet 3.125 mg PO BID Qty: 60 RF: 0 fluticasone propion-salmeterol [Advair Diskus] 250-50 mcg/dose blister with device 1 inh INHALATION BID Qty: 60 RF: 0 Multiple Vitamins Tablet 1 tab PO DAILY RF: 0 Hiprex 1 gram Tablet 1 g PO BID RF: 0 Humalog U-100 Insulin 100 unit/mL solution See Rx Instructions .ROUTE .COMPLEX RF: 0 ondansetron 4 mg tablet,disintegrating See Rx Instructions .ROUTE .COMPLEX RF: 0 Trelegy Ellipta 100-62.5-25 mcg blister with device 1 inh INHALATION DAILY RF: 0 furosemide 40 mg tablet 60 mg PO DAILY RF: 0 ipratropium-albuterol 0.5 mg-3 mg(2.5 mg base)/3 mL solution for nebulization 3 ml INHALATION PRN RF: 0 Changed isosorbide mononitrate 20 mg Tablet 10 mg PO DAILY Qty: 30 RF: 0 Discontinued cephalexin 500 mg capsule 500 mg PO QID PRN (Reason: UNKNOWN) RF: 0 levofloxacin [Levaquin] 500 mg tablet 500 mg PO DAILY Qty: 30 RF: 0 hydrocodone-acetaminophen 10-325 mg Tablet 1 - 2 tab PO Q4H PRN (Reason: Pain) RF: 0 pantoprazole 40 mg Tablet,Delayed Release (Dr/Ec) 40 mg PO DAILY RF: 0 Discharge Orders: Discharge Order (Routine); Ordered 03/08/20 Ordered By: Nilesh Cohn Other Ambulatory Orders: Complete Blood Count w/Auto (Routine) Timeframe: 20200312 Location: Determined by Patient Ordered By: Nilesh Cohn Comprehensive Metabolic Panel (Routine) Timeframe: 20200312 Facility: [facility] - Location: Lab - Main Lab Ordered By: Nilesh Cohn Referrals: Bhavik Richter [Primary Care Provider] - Jameson Watt MD [Physician] - 2 weeks Eric Naylor MD [Physician] - 1 week Discharge Diet: Diabetic Discharge Activity: Increase activity as tolerated Activity Restrictions/Additional Instructions: Please call your doctor or present to emergency department if your condition worsens or you develop diarrhea, lightheadedness, fatigue or see blood in your stool or black stool. Please keep blood pressure and heart rate log 3 times daily to present to primary care physician next visit for medication adjustment. Patient to keep Rao catheter in until seen by Dr. Naylor. Discharge Attestations Time Spent in Discharge Care*: greater than 30 min Quality Metrics Clinical Quality Measures During this hospital stay, did patient experience: AMI Clinical Trial Participant: No Contraindication to aspirin (AMI): Aspirin given Contraindication to statin: Statin prescribed Coding Level of Care Code Acute Event Manager for Chg Fwd Diagnoses NSTEMI (non-ST elevated myocardial infarction) I21.4 CHF (congestive heart failure), NYHA class IV I50.32 Congestive heart failure type: diastolic Congestive heart failure chronicity: chronic Chronic kidney disease N18.3 Chronic kidney disease stage: stage 3 (moderate) Recurrent UTI N39.0 Atherosclerotic heart disease of [place] coronary artery without angina pectoris I25.10 Acute kidney injury superimposed on chronic kidney disease N17.9; N18.9 Acute blood loss anemia D62 Acute GI bleeding K92.2
[2020-03-08] MEDS: FUROsemide 10 mg/mL SDV 10mL 80 MG IVP (15:24)
--- NOTE | 2020-03-08 16:31 | PC.NURSE ---
report given to MARLON Mcgill at [facility] [place]
--- NOTE | 2020-03-08 17:03 | P.PN_ITS ---
Subjective Subjective: Interval history: The patient seems to be more alert today. She still having a lot of back pain. She has generalized weakness and is not ambulating much. Appetite seems to be good. Denies any chest pain or unusual shortness of breath. No fever, chills or cough. No other specific complaints. Medications: Reviewed: Yes Medication Review Details: Current Medications Acetaminophen (Tylenol) 650 mg PO Q4H PRN PRN Reason: MILD PAIN OR INCREASE TEMP Last Admin: 03/06/20 11:52 Dose: 650 mg Documented by: Hydrocodone Bitart/Acetaminophen ([place] 10-325 Mg) 1 tab PO Q4H PRN PRN Reason: MODERATE PAIN Last Admin: 03/08/20 13:42 Dose: 1 tab Documented by: Albuterol/Ipratropium (Duoneb) 3 ml INHALATION PRN PRN PRN Reason: SHORTNESS OF BREATH Lidocaine HCl 1.667 ml/Diphenhydramine HCl 4.165 mg/Al Hydrox/Mg Hydrox/Simethicone 1.667 ml 0 ml MUCOUS MEM Q4H PRN PRN Reason: MOUTH PAIN Dextrose (D50w) 25 ml IVP ONCE PRN; Protocol PRN Reason: hypoglycemia protocol Dextrose (D50w) 50 ml IVP PRN PRN; Protocol PRN Reason: hypoglycemia protocol Furosemide (Lasix) 80 mg IVP Q24H TIFFANEI Last Admin: 03/08/20 15:24 Dose: 80 mg Documented by: Gabapentin (Neurontin) 100 mg PO TID TIFFANIE Last Admin: 03/08/20 15:24 Dose: 100 mg Documented by: Glucagon (Glucagen) 1 mg IM ONCE PRN; Protocol PRN Reason: Adult Acute Hypoglycemia Prot. Ceftriaxone Sodium 1,000 mg/ (Sodium Chloride) 50 mls @ 100 mls/hr IV Q24H TIFFANIE; Protocol Last Infusion: 03/07/20 16:36 Dose: Infused Documented by: Dextrose (D5w) 500 mls @ 100 mls/hr IV ONCE PRN; Protocol PRN Reason: Adult Acute Hypoglycemia Prot Norepinephrine Bitartrate 4 mg (/ Dextrose) 254 mls @ 0 mls/hr IV .Q0M TIFFANIE; Protocol Last Titration: 03/04/20 02:32 Dose: Infused Documented by: Vancomycin HCl 1,000 mg/ (Sodium Chloride) 250 mls @ 250 mls/hr IV Q24H TIFFANIE Last Infusion: 03/08/20 07:20 Dose: Infused Documented by: Imipenem/Cilastatin Sodium 500 (mg/ Sodium Chloride) 100 mls @ 200 mls/hr IV Q8H TIFFANIE; Protocol Last Infusion: 03/08/20 10:14 Dose: Infused Documented by: Insulin Aspart (Novolog) 0 unit SUBCUT TIDWM TIFFANIE; Protocol Last Admin: 03/08/20 11:39 Dose: Not Given Documented by: Insulin Glargine (Lantus) 20 unit SUBCUT BEDTIME TIFFANIE Last Admin: 03/07/20 20:57 Dose: 20 unit Documented by: Metoclopramide HCl (Reglan) 10 mg PO WM&BEDTIME TIFFANIE Last Admin: 03/08/20 11:35 Dose: 10 mg Documented by: Non-Formulary Medication (Wqzapxdnbjb-Emleliufs-Nbeptuiu [Trelegy Ellipta]) 1 inh INHALATION DAILY [facility] Last Admin: 03/07/20 11:10 Dose: Not Given Documented by: Ondansetron HCl (Zofran) 4 mg IVP Q6H PRN PRN Reason: NAUSEA AND VOMITING Last Admin: 03/02/20 04:17 Dose: 4 mg Documented by: Pantoprazole Sodium (Protonix) 40 mg IVP BID TIFFANIE Last Admin: 03/08/20 09:44 Dose: 40 mg Documented by: Ropinirole HCl (Requip) 4 mg PO TID TIFFANIE Last Admin: 03/08/20 15:24 Dose: 4 mg Documented by: Fluticasone/Salmeterol (Advair Diskus 250-50) 1 puff INHALATION BID.RESPIRATORY TIFFANIE Last Admin: 03/08/20 07:57 Dose: 1 puff Documented by: Vitals/I&O/Wt Last Vital Signs Temp 97.3 F L 03/08/20 15:46 Pulse 80 03/08/20 15:46 Resp 18 03/08/20 15:46 BP 126/88 03/08/20 15:46 Pulse Ox 98 03/08/20 15:46 03/08/20 03/08/20 03/08/20 06:59 14:59 22:59 Intake Total 580 / 1690 710 / 710 Output Total 600 / 2250 Balance -20 / -560 710 / 710 Weight last 48 hrs Weight 201 lb 11.2 oz Weight 203 lb 1.6 oz Physical Exam Narrative: EXAM NARRATIVE: GENERAL: The patient is alert and oriented times two. Not in any acute distress. Seems to be very fragile and emaciated. HEENT: Moderate pallor. No icterus or lymphadenopathy.Oral cavity: There are no mucous membrane lesions. NECK: Trachea appears to be central. No masses noted. No JVD or thyromegaly appreciated. RESPIRATORY: Chest is symmetrical. No intercostals muscle retraction or any accessory muscle activation. There is no chest wall tenderness. Breath sounds are heard bilaterally. The intensity the breath sounds are diminished in the bases. Scattered expiratory wheezing. Few coarse crackles. BREASTS: Deferred. HEART: The heart sounds are normal. No S3 or S4. Short systolic murmur in the left sternal border. No diastolic murmurs. No pericardial rub ABDOMEN: No vessel pulsations or distention. No tenderness. No organomegaly appreciated. Bowel sounds are normally heard. : Deferred. RECTAL: Deferred. LYMPHATIC: No lymphadenopathy noted in the neck or groin. EXTREMITIES: 2+ edema both lower extremities. This appears to be chronic with indurated and excoriated skin MUSCULOSKELETAL: No acute joint deformities or swelling SKIN: There are no significant rashes or ecchymosis NEUROPSYCHIATRIC: The patient is alert and oriented x2. chronically ill looking. No tremors or rigidity noted. Urinary Catheter Management^: Rao: Cath Placed During This Visit: yes Reason for Continuing Indwelling Catheter: Acute Urinary Retention or Obstruction Urinary Catheter Date of Insertion: 03/01/20 Urinary Catheter Time of Insertion: 16:00 Data : 03/08/20 05:45 03/08/20 05:45 Other Labs: PT 15.40 SECONDS (10.5-13.3) H 03/01/20 20:35 APTT 53.5 SECONDS (23.9-36.7) H 03/01/20 20:35 Laboratory Last Values WBC 10.0 10^3/uL (4.0-10.0) 03/08/20 05:45 RBC 3.05 10^6/uL (4.1-5.3) L 03/08/20 05:45 Hgb 9.6 g/dL (11.5-15.3) L 03/08/20 05:45 Hct 30.7 % (37.0-47.0) L 03/08/20 05:45 MCV 100.7 fL (81-99) H 03/08/20 05:45 MCH 31.5 pg (28.0-34.0) 03/08/20 05:45 MCHC 31.3 g/dL (30.0-36.0) 03/08/20 05:45 RDW 22.0 % (12.1-15.1) H 03/08/20 05:45 Plt Count 184 10^3/cmm (130-400) 03/08/20 05:45 MPV 11.5 fL (7.4-10.4) H 03/08/20 05:45 Neut % (Auto) 81.2 % 03/08/20 05:45 Lymph % (Auto) 6.7 % 03/08/20 05:45 [place] % (Auto) 8.7 % 03/08/20 05:45 Eos % (Auto) 2.6 % 03/08/20 05:45 Baso % (Auto) 0.4 % 03/08/20 05:45 Neut # (Auto) 8.13 10^3/uL (1.8-7.7) H 03/08/20 05:45 Lymph # (Auto) 0.7 10^3/uL (0.8-4.8) L 03/08/20 05:45 [place] # (Auto) 0.9 10^3/uL (0.2-0.9) 03/08/20 05:45 Eos # (Auto) 0.3 10^3/uL (0.0-0.8) 03/08/20 05:45 Baso # (Auto) 0.0 10^3/uL (0.0-0.1) 03/08/20 05:45 Nucleated RBC % (auto) 0 % 03/08/20 05:45 Nucleated RBCs # 0.0 /100WBC 03/08/20 05:45 PT 15.40 SECONDS (10.5-13.3) H 03/01/20 20:35 INR 1.18 (0.8-1.2) 03/01/20 20:35 APTT 53.5 SECONDS (23.9-36.7) H 03/01/20 20:35 Sodium 136 mmol/L (136-145) 03/08/20 05:45 Potassium 3.6 mmol/L (3.5-5.1) 03/08/20 05:45 Chloride 107 mmol/L (98-107) 03/08/20 05:45 Carbon Dioxide 21 mmol/L (22-29) L 03/08/20 05:45 Anion Gap 11.6 (5-19) 03/08/20 05:45 BUN 53 mg/dL (6-20) H 03/08/20 05:45 Creatinine 1.3 mg/dL (0.5-0.9) H 03/08/20 05:45 GFR Calculation 41.9 mL/min (90-130) L 03/08/20 05:45 Glucose 132 mg/dL (65-115) H 03/08/20 05:45 POC Glucose 118 mg/dL (70-110) 03/08/20 10:51 Calculated Osmolality 282 mOsm/kg (285-295) L 03/08/20 05:45 Lactic Acid 3.0 mmol/L (0.5-2.2) H 03/01/20 20:35 Lactic Acid (Sepsis) 3.5 mmol/L (0.5-2.2) H 03/01/20 22:45 Lactate 3.0 mmol/L (0.5-2.2) H 03/01/20 16:30 Calcium 7.8 mg/dL (8.5-10.5) L 03/08/20 05:45 Magnesium 1.7 mg/dL (1.7-2.3) 03/08/20 05:45 Iron 44 ug/dL (37-145) 03/01/20 20:35 TIBC 203 mcg/dl 03/01/20 20:35 % Saturation 21.6 % (20-50) 03/01/20 20:35 Unsat Iron Binding 159 ug/dL (112-347) 03/01/20 20:35 Ferritin 86 ng/mL (15-150) 03/01/20 20:35 Total Bilirubin 0.6 mg/dL (0.15-1.2) 03/08/20 05:45 GGT 657 U/L (5-36) H 03/07/20 04:46 AST 77 U/L (0-32) H 03/08/20 05:45 ALT 16 U/L (0-33) 03/08/20 05:45 Alkaline Phosphatase 804 IU/L (35-105) H 03/08/20 05:45 Creatine Kinase 391 U/L (26-192) H* 03/02/20 11:43 CK-MB (CK-2) 23.1 ng/mL (0-5.34) H 03/02/20 11:43 CK-MB (CK-2) Rel Index 5.9 % (0.0-10.4) 03/02/20 11:43 Troponin T Baseline 2180 ng/L (0-10) H* 03/02/20 11:43 Troponin T 120 Minute 2241 ng/L (0-10) H 03/02/20 13:57 Delta Troponin T 61 ABS# (0-10) H* 03/02/20 13:57 Troponin T Hi Sens 6Hr 2232 ng/L (0-10) H 03/02/20 18:37 Troponin T Hi Sens 6Hr Delta 52 ng/L (0-12) H* 03/02/20 18:37 Total Protein 6.8 g/dL (6.6-8.7) 03/08/20 05:45 Albumin 1.8 g/dL (3.5-5.2) L 03/08/20 05:45 Globulin 5.0 g/dL (1.3-4.6) H 03/08/20 05:45 Vitamin B12 > 2000 pg/mL (232-1245) H 03/01/20 20:35 Folate > 20.0 ng/mL (4.8-37.3) 03/01/20 20:35 Urine Color Brown (Yellow) 03/01/20 16:00 Urine Appearance Turbid (CLEAR) 03/01/20 16:00 Urine pH 5 (5-7) 03/01/20 16:00 Ur Specific [place] 1.015 (1.005-1.030) 03/01/20 16:00 Urine Protein 2+ (Negative) H 03/01/20 16:00 Urine Glucose (UA) Norm (Normal) 03/01/20 16:00 Urine Ketones Negative (Negative) 03/01/20 16:00 Urine Blood 3+ (Negative) H 03/01/20 16:00 Urine Nitrate Positive (Negative) H 03/01/20 16:00 Urine Bilirubin 1+ (NEGATIVE) H 03/01/20 16:00 Urine Urobilinogen 1 mg/dL (Negative) H 03/01/20 16:00 Ur Leukocyte Esterase 2+ (Negative) H 03/01/20 16:00 Ur Microscopic Indic Cancelled 03/01/20 16:00 Urine RBC Too numerous to cnt /hpf (0-2) H 03/01/20 16:00 Urine WBC Too numerous to cnt /hpf (0-5) H 03/01/20 16:00 Ur Squamous Epith Cells 15-25 (0-5) H 03/01/20 16:00 Amorphous Sediment Not Reportable 03/01/20 16:00 Urine Bacteria 3+ (NONE) H 03/01/20 16:00 Urine Yeast 4+ H 03/01/20 16:00 Vancomycin Trough 8.7 ug/mL (10-15) L 03/05/20 04:00 IgG 1596 mg/dL (700-1600) 03/08/20 05:45 IgA 1189 mg/dL (70-400) H 03/08/20 05:45 IgM 124 mg/dL (40-230) 03/08/20 05:45 Blood Type A Positive 03/01/20 20:35 Rho(D) Type Positive 03/01/20 20:35 Antibody Screen Negative 03/01/20 20:35 Crossmatch See Detail 03/01/20 20:35 A&P Assessment and plan (1) NSTEMI (non-ST elevated myocardial infarction): Patient apparently has recurrent non-ST elevation myocardial infarction. I discussed with the patient and her sister about further management options. In view of the patient's multiple comorbidities and poor physical condition, she may not be an ideal candidate for interventional procedures. In view of her kidney failure she carries a high risk for contrast-induced nephropathy requiring hemodialysis. She also has high chance of bleeding because of the recent GI bleed. After detailed discussion, the patient and her sister decided not to undergo any interventional procedures. We will try to optimize her medical treatment. After discussing with Dr. Cohn, it was decided to start the patient on a baby aspirin daily in addition to current medications. May hold off on the Plavix for the time being Status: Acute (2) CHF (congestive heart failure), NYHA class IV: Clinically appears to be compensated. May continue on the p.o. Lasix Status: Acute Qualifiers: Congestive heart failure type: diastolic Congestive heart failure chronicity: chronic Qualified Code(s): I50.32 - Chronic diastolic (congestive) heart failure (3) Chronic kidney disease: The kidney function seems to be fairly stable. The BUN level seems to be fluctuating Status: Acute Qualifiers: Chronic kidney disease stage: stage 3 (moderate) Qualified Code(s): N18.3 - Chronic kidney disease, stage 3 (moderate) (4) Recurrent UTI: Antibiotic management as per the primary Status: Acute (5) Atherosclerotic heart disease of [place] coronary artery without angina pectoris: The patient currently has no specific symptoms. May continue on the other current medications. Status: Acute Qualifiers: [place] vs. transplanted heart: [place] heart Qualified Code(s): I25.10 - Atherosclerotic heart disease of [place] coronary artery without angina pectoris Additional A&P Information Other problems are Altered mental status, slowly improving Chronic anemia Chronic back pain Degenerative joint disease COPD If the patient continues remain stable, it may be appropriate to transfer her to a nursing care facility. I may see her in the office in 2 weeks. Because of the recurrent non-ST elevation [place], she carries a high risk for myocardial infarction and other concomitant complications. This was understood well by the patient and her family. 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 transplanted heart: [place] heart
[2020-03-08] MEDS: cefTRIAXone 1,000 MG in sodium chloride 0.9% (plus) 50 ML 100 MG IV (17:12)
[2020-03-08 17:24] LABS: Glucose Point of Care 173 mg/dL (70-110)
[2020-03-09 09:55] LABS: PROTEIN, TOTAL 5.8 g/dL (6.1-8.1)
[2020-03-09 15:34] LABS: KAPPA LIGHT CHAIN, FREE, SERUM 130.7 mg/L (3.3-19.4); KAPPA/LAMBDA LIGHT CHAINS FREE 0.77 (0.26-1.65); LAMBDA LIGHT CHAIN, FREE, SERU 168.7 mg/L (5.7-26.3)
[2020-03-13 14:49] LABS: ALBUMIN 1.6 g/dL (3.8-4.8); ALPHA 1 GLOBULIN 0.5 g/dL (0.2-0.3); ALPHA 2 GLOBULIN 0.8 g/dL (0.5-0.9); BETA 1 GLOBULIN 0.4 g/dL (0.4-0.6); BETA 2 GLOBULIN 0.9 g/dL (0.2-0.5); GAMMA GLOBULIN 1.6 g/dL (0.8-1.7)
== END 2020-03-08 18:40 | disposition skilled nursing facility (03) | DRG 871 ==
LOC: ER 17:07 → ICU 20:20 → MEDSURG 03-06 08:52
PROVIDERS: Family Medicine; Internal Medicine; Admitting Provider Internal Medicine; PCP Physician Assistant Medical; Visit Provider Internal Medicine
DX: A41.9 Sepsis, unspecified organism (principal); I50.43 Acute on chronic combined systolic (congestive) and diastolic (congestive) heart failure; I21.4 Non-ST elevation (NSTEMI) myocardial infarction; N17.9 Acute kidney failure, unspecified; N39.0 Urinary tract infection, site not specified; E87.1 Hypo-osmolality and hyponatremia; K92.2 Gastrointestinal hemorrhage, unspecified; D62 Acute posthemorrhagic anemia; E11.22 Type 2 diabetes mellitus with diabetic chronic kidney disease; I25.10 Atherosclerotic heart disease of native coronary artery without angina pectoris; Z79.82 Long term (current) use of aspirin; Z79.02 Long term (current) use of antithrombotics/antiplatelets; Z95.1 Presence of aortocoronary bypass graft; F17.210 Nicotine dependence, cigarettes, uncomplicated; N18.3 Chronic kidney disease, stage 3 (moderate); J44.9 Chronic obstructive pulmonary disease, unspecified; E86.0 Dehydration; E87.5 Hyperkalemia
CPT/HCPCS: 12345; 36415; 36416; 36430; 51702; 71045; 71250; 74176; 76770; 76857; 80053; 80202; 81001; 81003; 82274; 82550; 82553; 82607; 82728; 82746; 82784; 82962; 82977; 83540; 83550; 83605; 83735; 83883; 84155; 84165; 84484; 85014; 85018; 85025; 85610; 85730; 86850; 86900; 86920; 87040; 87493; 87506; 92526; 92610; 93005; 93308; 93970; 94640; 96372; 96375; 97110; 97162; 97165; 97530; 97535; 99283; C9113; J0696; J0743; J1815 ×2; J1940; J2405; J3370; J3480; J7030; J7050; J8597; P9016

== ENCOUNTER 2020-03-19 18:04 | Inpatient (IN) | payer BC, SELFPAY ==
[2020-03-19] VITALS (10 sets, daily range): BP systolic 93–133; BP diastolic 54–74; PULSE 56–65; RESP 6–29; TEMP 35.1; O2SAT 95–100; BMI 30.1
--- NOTE | 2020-03-19 18:17 | ECG_ITS ---
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 Measurements Intervals [place] Rate: 63 P: 59 GA: 235 QRS: -50 QRSD: 127 T: 100 QT: 443 QTc: 454 Interpretive Statements SINUS RHYTHM WITH FIRST DEGREE AV BLOCK INFERIOR MYOCARDIAL INFARCTION , OF INDETERMINATE AGE [40+ ms Q WAVE AND/OR ST/T ABNORMALITY IN II/aVF] Poor R wave progression, suggesting old anterolateral NE compared to ECG 03/02/2020 14:10:23 First degree AV block now present Left-axis deviation no longer present Myocardial infarct finding still present Electronically Signed On 03-21-2020 0:23:52 CDT by Jameson Watt M.D. [id number]
[2020-03-19 18:22] LABS: Glucose Point of Care 184 mg/dL (70-110)
--- NOTE | 2020-03-19 18:27 | ED_ITS ---
HPI - Altered Mental Status General: Chief Complaint: Altered Mental Status Stated Complaint: AMS, low BG Time Seen by Provider: 03/19/20 18:14 Source: EMS Mode of arrival: EMS Limitations: altered mental status History of Present Illness: HPI narrative: Ms. Blake is a 59-year-old female who comes in from the senior care and [place]. Patient was brought here with a low blood sugar of 54. And necessitated an entire bag of D10 to get her blood sugar up to normal range of 120 before she came into the hospital. The blood pressure was hypotensive and necessitated push dose epinephrine in route. Last blood pressure before coming into the building was 91/50. Patient was also found to be hypoxemic with a pulse ox of 80% on room air oxygen. The patient is agitated to give any history. All further history is taken from old charts. Review of Systems General: Reports: Other (ROS unobtainable secondary to the acuity of the patient's condition) [facility] ED PFSH: Medical History (Updated 03/19/20 @ 21:40 by Cynthia Delarosa MD) Atherosclerotic heart disease of [place] coronary artery without angina pectoris CHF (congestive heart failure), NYHA class IV Chronic kidney disease, stage III (moderate) COPD (chronic obstructive pulmonary disease) Diabetes mellitus type 2 with complications Recurrent UTI Swelling of both lower extremities Tobacco abuse Surgical History H/O unilateral oophorectomy Hx of CABG (12/24/18) Hx of cholecystectomy Family History Father Lung disease Lung cancer. He was a smoker Mother CAD (coronary artery disease) Social History Smoking and tobacco status: current every day smoker Alcohol intake: never Marital status: Marital status details: Reports that she never been . She lives with her sister. She has no children Current occupational status: retired History of recent travel: No Physical Exam Const: EXAM LIMITATIONS: altered mental status GENERAL APPEARANCE: in distress and lethargic ORIENTATION/CONSCIOUSNESS: Yes lethargic HENMT: COMMON NORMALS: normocephalic, atraumatic, external ears normal, EAC's normal and Normal external nose present HEAD & SCALP: normocephalic and atraumatic NOSE: Normal external nose present EXTERNAL EAR: Yes external ears normal EXTERNAL AUDITORY CANAL: EAC's normal MOUTH: other (Dry mucous membranes) Eye: COMMON NORMALS: Equal, round and reactive pupils present, EOMs intact bilaterally, conjunctivae normal and no scleral icterus GENERAL EYE: appearance normal, both eyes and all related structures CONJUNCTIVA: Yes conjunctivae normal PUPIL: Yes Equal, round and reactive pupils present Neck/C-Spine: COMMON NORMALS: full ROM, no lymphadenopathy and no meningeal signs Chest: COMMONS NORMALS: normal inspection of the chest and normal palpation of entire chest wall Resp: COMMON NORMALS: No use of accessory muscles AUSCULTATION: rhonchi and wheezes Cardio: COMMON NORMALS: regular rhythm, S1 normal heart sound present, S2 normal heart sound present, No clicks present (Cardio) and No murmurs present (Cardio) RATE: bradycardic RHYTHM: regular rhythm HEART SOUNDS: S1 normal heart sound present and S2 normal heart sound present GI: COMMON NORMALS: Soft to palpation PALPATION: Yes Soft to palpation and Yes Tenderness to palpation present (GI) (Mild tenderness diffusely) : COMMON NORMALS: Yes no CVA tenderness and Yes normal external appearance BLADDER/KIDNEY EXAM: Yes no CVA tenderness Back/Pelvis: COMMON NORMALS: no CVA tenderness, thoracic and lumbar spine normal to inspection and no thoracic nor lumbar tenderness Extremity: NARRATIVE EXTREMITY EXAM: Mild cellulitis present to both lower extremities Neuro: PATRICE COMA SCALE: document GCS findings Patrice coma scale eye opening: Spontaneous [place] coma scale verbal response: Orientated [place] coma scale motor response: Obey commands [place] coma scale total score: 15 SENSORIUM/ORIENTATION: Yes lethargic MENINGEAL SIGNS: Yes no meningeal signs Skin: NARRATIVE SKIN EXAM: Stage III-IV decubitus ulcers present on the buttocks. Significant surrounding cellulitis. Course ED course: 1928 -patient and her sister are saying that they do not want anything her aerobic done. They do not want dialysis, intubation, ventilator, CPR and her expressing her desire for Ms. Blake to be comfort care only. I have shared this information with Dr. Delarosa and she will come down to witness. 2044 -Dr. Delarosa here to speak with family and with patient. Vital Signs: Vital signs: Vital Signs Temperature 95.1 F L 03/19/20 20:03 Pulse Rate 62 08/10/20 21:13 Respiratory Rate 16 03/19/20 21:13 Blood Pressure 94/60 03/19/20 21:13 Pulse Oximetry 95 03/19/20 21:13 MDM - Altered Mental Status MDM Narrative: Medical decision making narrative: [id number]. Delarosa has had a chance to see the patient and talk with family. The patient is adamant to her that she is a comfort care only patient at this time. The patient has told me that she wants to . I believe she is more than of sound mind and has the capacity to realize the ramifications of her decision. Family is trying to come into and see her here at the hospital. Lab Data: Labs: Lab Results 03/19/20 03/19/20 03/19/20 Range/Units 18:18 18:29 18:29 WBC 10.1 H (4.0-10.0) 10^3/ uL RBC 3.22 L (4.1-5.3) 10^6/u L Hgb 10.1 L (11.5-15.3) g/dL Hct 34.7 L (37.0-47.0) % MCV 107.8 H (81-99) fL MCH 31.4 (28.0-34.0) pg MCHC 29.1 L (30.0-36.0) g/dL RDW 19.3 H (12.1-15.1) % Plt Count 327 (130-400) 10^3/c mm MPV 10.7 H (7.4-10.4) fL Neut % (Auto) 85.4 % Lymph % (Auto) 5.3 % [place] % (Auto) 8.4 % Eos % (Auto) 0.3 % Baso % (Auto) 0.2 % Neut # (Auto) 8.64 H (1.8-7.7) 10^3/u L Lymph # (Auto) 0.5 L (0.8-4.8) 10^3/u L [place] # (Auto) 0.9 (0.2-0.9) 10^3/u L Eos # (Auto) 0.0 (0.0-0.8) 10^3/u L Baso # (Auto) 0.0 (0.0-0.1) 10^3/u L Nucleated RBC % (a uto) 0.6 % Nucleated RBCs # 0.1 /100WBC PT (12.1-14.9) SECO NDS INR (0.8-1.2) Specimen Type Arterial Sample Site Radial, left ABG pH 7.16 L* (7.35-7.45) ABG pCO2 50.4 H (35-45) mmHg ABG pO2 119.0 H (80.0-100.0) mmH g ABG HCO3 18.1 L (22-26) mmol/L ABG O2 Saturation 98.3 ABG Base Excess -10.3 L (-2.0-2.0) mmol/ L Thai Test Pos A-a O2 Gradient Not Reportable Hematocrit 31.4 L (37-47) % Hgb O2 Saturation 93.4 L (95-100) % Carboxyhemoglobin 4.3 (0.4-20.1) %THgb Methemoglobin 0.7 (0.4-1.5) % Total Hemoglobin 10.2 L (12-16) g/dL Sodium 127.0 L (131-143) mmol/L Potassium 7.3 H (3.5-5.0) mmol/L Glucose 113.0 (70-115) mg/dL Ionized Calcium 1.2 (1.1-1.4) mmol/L O2 Delivery Device Nc O2 Liters/Min 36.0 % Life Guard ID Cak Chloride (98-107) mmol/L Carbon Dioxide (22-29) mmol/L Anion Gap (5-19) BUN (6-20) mg/dL Creatinine (0.5-0.9) mg/dL GFR Calculation (90-130) mL/min POC Glucose 184 (70-110) mg/dL Calculated Osmolal ity (285-295) mOsm/k g Lactic Acid (0.5-2.2) mmol/L Calcium (8.5-10.5) mg/dL Magnesium (1.7-2.3) mg/dL Total Bilirubin (0.15-1.2) mg/dL AST (0-32) U/L ALT (0-33) U/L Alkaline Phosphata se (35-105) IU/L Creatine Kinase (26-192) U/L Troponin T Baselin e (0-10) ng/L Troponin T 120 Min [place] (0-10) ng/L Delta Troponin T (0-10) ABS# Total Protein (6.6-8.7) g/dL Albumin (3.5-5.2) g/dL Globulin (1.3-4.6) g/dL Lipase (13-60) U/L TSH (0.27-4.20) uIU/ mL Free T4 (0.82-1.77) ng/d L Urine Color (Yellow) Urine Appearance (CLEAR) Urine pH (5-7) Ur Specific Gravit y (1.005-1.030) Urine Protein (Negative) Urine Glucose (UA) (Normal) Urine Ketones (Negative) Urine Blood (Negative) Urine Nitrate (Negative) Urine Bilirubin (NEGATIVE) Urine Urobilinogen (Negative) mg/dL Ur Leukocyte Genia ase (Negative) Urine RBC (0-2) /hpf Urine WBC (0-5) /hpf Ur Squamous Epith Cells (0-5) Amorphous Sediment Urine Bacteria (NONE) Serum Ketones (Negative) 03/19/20 03/19/20 03/19/20 Range/Units 18:29 18:29 18:29 WBC (4.0-10.0) 10^3/ uL RBC (4.1-5.3) 10^6/u L Hgb (11.5-15.3) g/dL Hct (37.0-47.0) % MCV (81-99) fL MCH (28.0-34.0) pg MCHC (30.0-36.0) g/dL RDW (12.1-15.1) % Plt Count (130-400) 10^3/c mm MPV (7.4-10.4) fL Neut % (Auto) % Lymph % (Auto) % [place] % (Auto) % Eos % (Auto) % Baso % (Auto) % Neut # (Auto) (1.8-7.7) 10^3/u L Lymph # (Auto) (0.8-4.8) 10^3/u L [place] # (Auto) (0.2-0.9) 10^3/u L Eos # (Auto) (0.0-0.8) 10^3/u L Baso # (Auto) (0.0-0.1) 10^3/u L Nucleated RBC % (a uto) % Nucleated RBCs # /100WBC PT (12.1-14.9) SECO NDS INR (0.8-1.2) Specimen Type Sample Site ABG pH (7.35-7.45) ABG pCO2 (35-45) mmHg ABG pO2 (80.0-100.0) mmH g ABG HCO3 (22-26) mmol/L ABG O2 Saturation ABG Base Excess (-2.0-2.0) mmol/ L Thai Test A-a O2 Gradient Hematocrit (37-47) % Hgb O2 Saturation (95-100) % Carboxyhemoglobin (0.4-20.1) %THgb Methemoglobin (0.4-1.5) % Total Hemoglobin (12-16) g/dL Sodium 126 L (131-143) mmol/L Potassium 7.7 H* (3.5-5.0) mmol/L Glucose 109 (70-115) mg/dL Ionized Calcium (1.1-1.4) mmol/L O2 Delivery Device O2 Liters/Min % Life Guard ID Chloride 101 (98-107) mmol/L Carbon Dioxide 18 L (22-29) mmol/L Anion Gap 14.7 (5-19) BUN 67 H (6-20) mg/dL Creatinine 2.4 H (0.5-0.9) mg/dL GFR Calculation 20.7 L (90-130) mL/min POC Glucose (70-110) mg/dL Calculated Osmolal ity 262 L (285-295) mOsm/k g Lactic Acid 1.4 (0.5-2.2) mmol/L Calcium 8.2 L (8.5-10.5) mg/dL Magnesium 2.0 (1.7-2.3) mg/dL Total Bilirubin 0.6 (0.15-1.2) mg/dL AST 180 H (0-32) U/L ALT 109 H (0-33) U/L Alkaline Phosphata se 585 H (35-105) IU/L Creatine Kinase 911 H* (26-192) U/L Troponin T Baselin e (0-10) ng/L Troponin T 120 Min [place] (0-10) ng/L Delta Troponin T (0-10) ABS# Total Protein 6.6 (6.6-8.7) g/dL Albumin 1.9 L (3.5-5.2) g/dL Globulin 4.7 H (1.3-4.6) g/dL Lipase 21 (13-60) U/L TSH 5.43 H (0.27-4.20) uIU/ mL Free T4 0.81 L (0.82-1.77) ng/d L Urine Color (Yellow) Urine Appearance (CLEAR) Urine pH (5-7) Ur Specific Gravit y (1.005-1.030) Urine Protein (Negative) Urine Glucose (UA) (Normal) Urine Ketones (Negative) Urine Blood (Negative) Urine Nitrate (Negative) Urine Bilirubin (NEGATIVE) Urine Urobilinogen (Negative) mg/dL Ur Leukocyte Genia ase (Negative) Urine RBC (0-2) /hpf Urine WBC (0-5) /hpf Ur Squamous Epith Cells (0-5) Amorphous Sediment Urine Bacteria (NONE) Serum Ketones Negative (Negative) 03/19/20 03/19/20 03/19/20 Range/Units 18:29 18:29 19:14 WBC (4.0-10.0) 10^3/ uL RBC (4.1-5.3) 10^6/u L Hgb (11.5-15.3) g/dL Hct (37.0-47.0) % MCV (81-99) fL MCH (28.0-34.0) pg MCHC (30.0-36.0) g/dL RDW (12.1-15.1) % Plt Count (130-400) 10^3/c mm MPV (7.4-10.4) fL Neut % (Auto) % Lymph % (Auto) % [place] % (Auto) % Eos % (Auto) % Baso % (Auto) % Neut # (Auto) (1.8-7.7) 10^3/u L Lymph # (Auto) (0.8-4.8) 10^3/u L [place] # (Auto) (0.2-0.9) 10^3/u L Eos # (Auto) (0.0-0.8) 10^3/u L Baso # (Auto) (0.0-0.1) 10^3/u L Nucleated RBC % (a uto) % Nucleated RBCs # /100WBC PT 14.90 (12.1-14.9) SECO NDS INR 1.13 (0.8-1.2) Specimen Type Sample Site ABG pH (7.35-7.45) ABG pCO2 (35-45) mmHg ABG pO2 (80.0-100.0) mmH g ABG HCO3 (22-26) mmol/L ABG O2 Saturation ABG Base Excess (-2.0-2.0) mmol/ L Thai Test A-a O2 Gradient Hematocrit (37-47) % Hgb O2 Saturation (95-100) % Carboxyhemoglobin (0.4-20.1) %THgb Methemoglobin (0.4-1.5) % Total Hemoglobin (12-16) g/dL Sodium (131-143) mmol/L Potassium (3.5-5.0) mmol/L Glucose (70-115) mg/dL Ionized Calcium (1.1-1.4) mmol/L O2 Delivery Device O2 Liters/Min % Life Guard ID Chloride (98-107) mmol/L Carbon Dioxide (22-29) mmol/L Anion Gap (5-19) BUN (6-20) mg/dL Creatinine (0.5-0.9) mg/dL GFR Calculation (90-130) mL/min POC Glucose (70-110) mg/dL Calculated Osmolal ity (285-295) mOsm/k g Lactic Acid (0.5-2.2) mmol/L Calcium (8.5-10.5) mg/dL Magnesium (1.7-2.3) mg/dL Total Bilirubin (0.15-1.2) mg/dL AST (0-32) U/L ALT (0-33) U/L Alkaline Phosphata se (35-105) IU/L Creatine Kinase (26-192) U/L Troponin T Baselin e 473 H* (0-10) ng/L Troponin T 120 Min [place] (0-10) ng/L Delta Troponin T (0-10) ABS# Total Protein (6.6-8.7) g/dL Albumin (3.5-5.2) g/dL Globulin (1.3-4.6) g/dL Lipase (13-60) U/L TSH (0.27-4.20) uIU/ mL Free T4 (0.82-1.77) ng/d L Urine Color Yellow (Yellow) Urine Appearance Cloudy (CLEAR) Urine pH 5 (5-7) Ur Specific Gravit y 1.020 (1.005-1.030) Urine Protein Neg (Negative) Urine Glucose (UA) Norm (Normal) Urine Ketones Negative (Negative) Urine Blood 2+ H (Negative) Urine Nitrate Negative (Negative) Urine Bilirubin Neg (NEGATIVE) Urine Urobilinogen Norm (Negative) mg/dL Ur Leukocyte Genia ase 2+ H (Negative) Urine RBC 0-4 H (0-2) /hpf Urine WBC >100 H (0-5) /hpf Ur Squamous Epith Cells 0-4 H (0-5) Amorphous Sediment Not Reportable Urine Bacteria 2+ H (NONE) Serum Ketones (Negative) 03/19/20 03/19/20 03/19/20 Range/Units 20:26 20:26 21:25 WBC (4.0-10.0) 10^3/ uL RBC (4.1-5.3) 10^6/u L Hgb (11.5-15.3) g/dL Hct (37.0-47.0) % MCV (81-99) fL MCH (28.0-34.0) pg MCHC (30.0-36.0) g/dL RDW (12.1-15.1) % Plt Count (130-400) 10^3/c mm MPV (7.4-10.4) fL Neut % (Auto) % Lymph % (Auto) % [place] % (Auto) % Eos % (Auto) % Baso % (Auto) % Neut # (Auto) (1.8-7.7) 10^3/u L Lymph # (Auto) (0.8-4.8) 10^3/u L [place] # (Auto) (0.2-0.9) 10^3/u L Eos # (Auto) (0.0-0.8) 10^3/u L Baso # (Auto) (0.0-0.1) 10^3/u L Nucleated RBC % (a uto) % Nucleated RBCs # /100WBC PT (12.1-14.9) SECO NDS INR (0.8-1.2) Specimen Type Sample Site ABG pH (7.35-7.45) ABG pCO2 (35-45) mmHg ABG pO2 (80.0-100.0) mmH g ABG HCO3 (22-26) mmol/L ABG O2 Saturation ABG Base Excess (-2.0-2.0) mmol/ L Thai Test A-a O2 Gradient Hematocrit (37-47) % Hgb O2 Saturation (95-100) % Carboxyhemoglobin (0.4-20.1) %THgb Methemoglobin (0.4-1.5) % Total Hemoglobin (12-16) g/dL Sodium Cancelled 127 L (131-143) mmol/L Potassium Cancelled 7.9 H* (3.5-5.0) mmol/L Glucose Cancelled 62 L (70-115) mg/dL Ionized Calcium (1.1-1.4) mmol/L O2 Delivery Device O2 Liters/Min % Life Guard ID Chloride Cancelled 102 (98-107) mmol/L Carbon Dioxide Cancelled 20 L (22-29) mmol/L Anion Gap Cancelled 12.9 (5-19) BUN Cancelled 68 H (6-20) mg/dL Creatinine Cancelled 2.4 H (0.5-0.9) mg/dL GFR Calculation Cancelled 20.7 L (90-130) mL/min POC Glucose (70-110) mg/dL Calculated Osmolal ity Cancelled 261 L (285-295) mOsm/k g Lactic Acid (0.5-2.2) mmol/L Calcium Cancelled 8.1 L (8.5-10.5) mg/dL Magnesium (1.7-2.3) mg/dL Total Bilirubin (0.15-1.2) mg/dL AST (0-32) U/L ALT (0-33) U/L Alkaline Phosphata se (35-105) IU/L Creatine Kinase (26-192) U/L Troponin T Baselin e (0-10) ng/L Troponin T 120 Min [place] 435.1 H (0-10) ng/L Delta Troponin T -37.9 L (0-10) ABS# Total Protein (6.6-8.7) g/dL Albumin (3.5-5.2) g/dL Globulin (1.3-4.6) g/dL Lipase (13-60) U/L TSH (0.27-4.20) uIU/ mL Free T4 (0.82-1.77) ng/d L Urine Color (Yellow) Urine Appearance (CLEAR) Urine pH (5-7) Ur Specific Gravit y (1.005-1.030) Urine Protein (Negative) Urine Glucose (UA) (Normal) Urine Ketones (Negative) Urine Blood (Negative) Urine Nitrate (Negative) Urine Bilirubin (NEGATIVE) Urine Urobilinogen (Negative) mg/dL Ur Leukocyte Genia ase (Negative) Urine RBC (0-2) /hpf Urine WBC (0-5) /hpf Ur Squamous Epith Cells (0-5) Amorphous Sediment Urine Bacteria (NONE) Serum Ketones (Negative) Imaging Data^: CXR: My impression: Cardiomegaly with severe rotation. Probable moderate CHF. Repeat CXR: My impression: Cardiomegaly with right-sided pleural effusion. Moderate CHF. EKG Data^: EKG 1: Attestation: I personally reviewed and interpreted this EKG as follows: EKG interpretation date: 03/19/20 EKG interpretation time: 19:15 Interpretation: Normal sinus rhythm with first-degree AV block. Ventricular rate at 63 beats a minute, no acute ST-T wave changes. Artifact present. Evidence of previous inferior infarct. Critical Care Time Critical Care Time: Critical Care Time: Yes Total Critical Care Time: 30 Attestation: Critical care time consisted of reviewing medical records, evaluating radiologic and laboratory studies. Critical care time consisted of consulting with admission services and speaking with family and arranging for comfort care while in the hospital. Critical care time also consisted of reevaluation of laboratory abnormalities and therapies to reverse her hyperkalemia. Discharge Plan Discharge Patient Disposition: Admitted As Inpatient Admit Provider: Cynthia Delarosa Clinical Impression: Acute hyperkalemia, CHF (congestive heart failure), Acute and chronic respiratory failure with hypoxia Condition: Stable Referrals: Bhavik Richter [Primary Care Provider] - Discharge Date/Time: 03/19/20 21:58 Coding Level of Care Code ED Lamp Cleaner for Chg Fwd Exam Comprehensive
[2020-03-19 18:39] LABS: Basophils % 0.2 %; Eosinophils % 0.3 %; Hematocrit 34.7 % (37.0-47.0); Hemoglobin 10.1 g/dL (11.5-15.3); Lymphocytes # 0.5 10^3/uL (0.8-4.8); Lymphocytes % 5.3 %; Mean Corpuscular HGB Conc 29.1 g/dL (30.0-36.0); Mean Corpuscular Hemoglobin 31.4 pg (28.0-34.0); Mean Corpuscular Volume 107.8 fL (81-99); Mean Platelet Volume 10.7 fL (7.4-10.4); Monocytes # 0.9 10^3/uL (0.2-0.9); Monocytes % 8.4 %; Neutrophils # 8.64 10^3/uL (1.8-7.7); Neutrophils % 85.4 %; Nucleated Red Blood Cells # 0.1 /100WBC; Nucleated Red Blood Cells % 0.6 %; Platelet Count 327 10^3/cmm (130-400); Red Blood Count 3.22 10^6/uL (4.1-5.3); Red Cell Distribution Width 19.3 % (12.1-15.1); White Blood Count 10.1 10^3/uL (4.0-10.0)
[2020-03-19] MEDS: ondansetron 2 mg/ML SDV 2 mL 4 MG IVP (18:39)
[2020-03-19 18:41] LABS: ABG PCO2 50.4 mmHg (35-45); Arterial Blood Gas Hematocrit 31.4 % (37-47); Base Excess ABG -10.3 mmol/L (-2.0-2.0); Blood Gas Allen Test Pos; Blood Gas Operator Identificat CAK; Blood Gas Sample Site Radial, left; Blood Gas Sample Type Arterial; Carboxyhemoglobin 4.3 %THgb (0.4-20.1); HCO3 ABG 18.1 mmol/L (22-26); HGB O2 Sat 93.4 % (95-100); Ionized Calcium Level - ABG 1.2 mmol/L (1.1-1.4); Methemoglobin 0.7 % (0.4-1.5); Oxygen Device NC; Oxygen Saturation ABG 98.3; Potassium Level - ABG 7.3 mmol/L (3.5-5.0); Total Hemoglobin 10.2 g/dL (12-16)
[2020-03-19] MEDS: SODIUM CHLORIDE 0.9% 2694.3 ML IV (18:41)
[2020-03-19 18:42] LABS: ABG PH Result 7.16 (7.35-7.45)
--- NOTE | 2020-03-19 18:46 | XRR_ITS ---
PROCEDURE INFORMATION: Exam: XR Chest, 1 View Exam date and time: 03/19/2020 6:58 PM Age: 59 years old Clinical indication: Dyspnea TECHNIQUE: Imaging protocol: XR of the chest Views: Frontal portable supine view of the chest. COMPARISON: CT chest abd pel wo con 03/05/2020 12:46 PM FINDINGS: Tubes, catheters and devices: EKG leads are present overlying the chest. Lungs: The pulmonary vasculature remains congested. Interval increase in airspace opacities bilaterally in the lower lung zones. Pleural space: Increased, moderate right pleural effusion. No pneumothorax. Heart/Mediastinum: Mediastinum: Stable. Bones/joints: The patient is status post median sternotomy with intact sternal cerclage wires. Soft tissues: A skin fold/left upper extremity projects over the lower lateral left chest. XR/XR chest 1V portable [id number] IMPRESSION: 1. Increased, moderate right pleural effusion. 2. Persistent pulmonary vascular congestion. 3. Increased bilateral probable alveolar pulmonary edema.
[2020-03-19] MEDS: naloxone 0.4 mg/ml SDV IVP (18:51)
[2020-03-19 18:53] LABS: Ketone (Acetest) Serum Negative (Negative)
[2020-03-19 18:56] LABS: INR 1.13 (0.8-1.2)
[2020-03-19 19:02] LABS: Lactic Sepsis W/Reflex 1.4 mmol/L (0.5-2.2)
[2020-03-19 19:08] LABS: Troponin(5th) Baseline 473 ng/L (0-10)
--- NOTE | 2020-03-19 19:09 | PC.NURSE ---
lab called critical troponin 473, notified Dr. Monzon, no orders at this time
[2020-03-19 19:12] LABS: Alanine Aminotransferase 109 U/L (0-33); Alkaline Phosphatase 585 IU/L (35-105); Anion Gap 14.7 (5-19); Aspartate Amino Transferase 180 U/L (0-32); Blood Urea Nitrogen 67 mg/dL (6-20); Calcium 8.2 mg/dL (8.5-10.5); Carbon Dioxide 18 mmol/L (22-29); Chloride 101 mmol/L (98-107); Free T4 Free Thyroxine 0.81 ng/dL (0.82-1.77); Globulin 4.7 g/dL (1.3-4.6); Glomerular Filtration Rate 20.7 mL/min (90-130); Glucose 109 mg/dL (65-115); Lipase 21 U/L (13-60); Osmolality Calculated 262 mOsm/kg (285-295); Sodium 126 mmol/L (136-145); Thyroid Stimulating Hormone 5.43 uIU/mL (0.27-4.20); Total Bilirubin 0.6 mg/dL (0.15-1.2); Total Protein 6.6 g/dL (6.6-8.7)
--- NOTE | 2020-03-19 19:16 | XRR_ITS ---
PROCEDURE INFORMATION: Exam: XR Chest, 1 View Exam date and time: 03/19/2020 7:34 PM Age: 59 years old Clinical indication: Dyspnea TECHNIQUE: Imaging protocol: XR of the chest Views: Frontal portable upright view of the chest. COMPARISON: CR XR chest 1V portable [id number] 03/19/2020 6:43 PM FINDINGS: Tubes, catheters and devices: EKG lead present overlying the lower right chest. Lungs: The pulmonary vasculature is less congested and better defined. Stable airspace opacities bilaterally in the lower lung zones. Pleural space: Stable moderate right pleural effusion. No pneumothorax. Heart/Mediastinum: Mediastinum: Stable. Vasculature: Moderate aortic arch atherosclerotic calcification without ectasia. Bones/joints: The patient is status post median sternotomy with intact sternal cerclage wires. XR/XR chest 1V portable [id number] IMPRESSION: 1. Stable moderate right pleural effusion. 2. Improved pulmonary vascular congestion. 3. Stable probable bilateral alveolar pulmonary edema.
[2020-03-19 19:18] LABS: Creatine Phosphokinase 911 U/L (26-192); Potassium 7.7 mmol/L (3.5-5.1)
[2020-03-19 19:19] LABS: Albumin Level 1.9 g/dL (3.5-5.2)
--- NOTE | 2020-03-19 19:19 | PC.NURSE ---
Lab called critical CK 911 and critical potassium 7.7. Notified Dr. Monzon. No verbal orders given at this time
[2020-03-19] MEDS: ipratropium-albuterol 3 mL Neb 9 ML INHALATION (19:27)
[2020-03-19] MEDS: sodium bicarbonate 8.4% 1 mEq/mL 50mL Syr 100 MEQ IVP (19:39)
[2020-03-19] MEDS: dextrose 50% syringe 50 mL IVP (19:39)
[2020-03-19] MEDS: calcium gluconate 0.1 gm/mL 10% SDV 10mL 1 GM IVP (19:40)
[2020-03-19] MEDS: insulin regular-human 100 units/1 mL 10 UNIT IVP (19:40)
[2020-03-19] MEDS: FUROsemide 10 mg/mL SDV 4mL 40 MG IVP (19:40)
[2020-03-19 20:20] LABS: Add Urine Culture? Yes; Bacteria Urine 2+; Bilirubin Urine Neg (NEGATIVE); Blood Urine 2+ (Negative); Glucose Urine UA Norm (Normal); Ketones Urine Negative (Negative); Leukocyte Esterase Urine 2+ (Negative); Nitrate Urine Negative (Negative); Protein Urine Neg (Negative); RBC Urine 0-4 /hpf (0-2); Squamous Epithelial Cell Urine 0-4 (0-5); Urine Appearance Cloudy (CLEAR); Urine Color Yellow (Yellow); Urobilinogen Urine Norm (Negative); WBC Urine >100 /hpf (0-5); pH Urine 5 (5-7)
[2020-03-19 21:04] LABS: Troponin 5 2HR 435.1 ng/L (0-10)
[2020-03-19] MEDS: hydrocortisone 100 mg/2 mL SDV IVP (21:10)
--- NOTE | 2020-03-19 21:16 | PC.NURSE ---
This RN arrived in the room at 1900, patient apeared in distress, patient was positioned for comfort, Rao cath 18 Fr placed with leather production artisan, patient given potassium cocktail, patient was given soft restraints for combative and pulling at BiPAP, at this time, Dr. Monzon has placed patient on comfort care, patient is being monitored, family and hospitalist at bedside
--- NOTE | 2020-03-19 21:27 | P.HP_ITS ---
Providers/Chief Complaint Admitting Physician: [place] Primary Care Provider: Bhavik Richter Chief Complaint: AMS, low BG History of Present Illness Danyelle Blake is a 59 year old female who presented from [facility] with complaint of difficulty breathing. In route she evidently had hypotension and received some push epinephrine for this. It is noted that she had some hypoglycemia at 54 and that she received some D10 fluid. Here her blood sugars were in normal range. Blood pressures on arrival here were in the 90s systolic. Patient was hypoxic with saturations at 80% on room air. History was obtained from review of old records, discussion with patient's sister and with very focused questions to the patient herself who would answer them. She is aware that she is in the hospital. She states that she came because she was having trouble breathing. She understands that she has multiple acute medical issues and has expressed desire not to have anything further done. I was asked to see the patient from the ER's perspective to provide additional evaluation of her ability to make an informed decision about not receiving care. She was found to have potassium of 7.7, evidence of acute renal failure, evidence of significant acidosis. She had received empiric antibiotics with Primaxin and vancomycin in the emergency room for coverage of UTI as well as some IV fluids, sodium bicarbonate, insulin and D50 and 1 dose of Lasix. Additionally she received a dose of hydrocortisone and calcium and some breathing treatments. She was put on BiPAP. After all of this have been started, patient indicated that she did not want any further medical management and wanted simple comfort measures only. Her sister is in the room with her and states that they have had discussions about this. Patient had bypass surgery last year and has generally not done well since then. She has problems with recurrent urinary tract infections, recurrent acute renal failure, recurrent issues with acute CHF, continued problems with decubiti and intermittent problems with difficulty breathing. She was recently hospitalized here with another non-ST elevation [place]. She was discharged to skilled facility on March 08. She did not want any cardiac intervention and was managed medically, with primary treatment being antibiotics for UTI. Cultures showed multiple organisms. She had what was felt to be GI bleed last hospital stay and received I believe at least 1 unit of p acked red blood cells on review. Since she was last here, she is not been able to walk or do much of anything consistently. She is continued to go downhill according to her sister with whom she previously lived. She and her sister have had discussions about ongoing care and the patient has expressed to her sister who is her closest relative that she did not want further care and was not wanting to be resuscitated. I awaken Mrs. Blake and asked her some very pointed questions about what degree of care she wanted right now. She indicated that she did not want treatment with antibiotics for the UTI, that she did not want treatment for the high potassium level, that she did not want treatment for heart failure or other heart conditions and she did not want any respiratory support in the form of ventilation or even diuretic therapy to help her breathing. She is aware that she is in the hospital, that she came for difficulty breathing from her perspective and that without any treatment beyond comfort measures she will likely , potentially within the next 24 to 48 hours given the severity of her hyperkalemia. She expressed understanding of this and indicated that she was ready to . She had a similar conversation with Dr. Jean in the emergency room. Patient sister was present during my discussion with her. Patient sister indicated that she knew of nothing of significant concern that might be influencing patient to make such a decision at her young age, indicating that the continued problem since her bypass surgery last year along with continued recent decline and inability to walk and do other things is what has led her to this point. I spoke briefly on the phone with 1 of patient's brothers. Everyone is aware of patient's decision to receive only comfort care and that without any additional treatment she will from her comorbid medical conditions. Consideration was given to disposition back to skilled facility however family cannot see her there. I am also not sure that she would even survive transfer back to the skilled facility under the current circumstances with her potassium being as high as it is and her current respiratory status what it is. She is being admitted here for comfort care management. Review of Systems Narrative: Review of systems is not currently able to be obtained secondary to patient's respiratory status. She admits to not feeling well and to having difficulty breathing. The focus of my questions with her were in determining the degree of care that she wanted to have. This wore her out and further systems were subsequently not reviewed. Medications/Allergies Home Medications Medication Instructions Recorded Confirmed Last Taken Type Lantus U-100 Insulin 20 unit SUBCUT BEDTIME 08/14/19 03/19/20 03/18/20 History clopidogrel 75 mg PO DAILY 08/14/19 03/19/20 03/19/20 History docusate sodium 100 mg PO BID 08/14/19 03/19/20 03/19/20 History gabapentin [Neurontin] 300 mg PO TID 08/14/19 03/19/20 03/19/20 History montelukast 10 mg PO DAILY 08/14/19 03/19/20 03/19/20 History ropinirole 4 mg PO TID 08/14/19 03/19/20 03/19/20 History aspirin 81 mg PO DAILY #30 tab 08/23/19 03/19/20 03/19/20 Rx atorvastatin 40 mg PO BEDTIME #30 tab 08/23/19 03/19/20 03/18/20 Rx carvedilol 3.125 mg PO BID #60 tab 08/23/19 03/19/20 03/19/20 Rx fluticasone propion-salmeterol 1 inh INHALATION BID #60 each 08/23/19 03/19/20 03/19/20 Rx [Advair Diskus] potassium chloride 10 mEq 20 meq PO DAILY 12/06/19 03/19/20 03/19/20 History capsule,extended release cranberry 400 mg capsule 400 mg PO DAILY 01/09/20 03/19/20 03/19/20 History metoclopramide HCl 10 mg tablet 10 mg PO QID tab 01/09/20 03/19/20 03/19/20 History Trelegy Ellipta 1 inh INHALATION DAILY 03/01/20 03/19/20 03/19/20 History furosemide 60 mg PO DAILY 03/01/20 03/19/20 03/19/20 History insulin lispro [Humalog U-100 See Rx Instructions .ROUTE .COMPLEX 03/01/20 03/19/20 03/19/20 12:00 History Insulin] methenamine hippurate [Hiprex] 1 g PO BID 03/01/20 03/19/20 03/19/20 History multivitamin [Multiple Vitamins] 1 tab PO DAILY 03/01/20 03/19/20 03/19/20 History ondansetron See Rx Instructions .ROUTE .COMPLEX 03/01/20 03/19/20 03/18/20 History hydrocodone-acetaminophen 1 tab PO Q8H PRN #20 tab 03/08/20 03/19/20 03/19/20 Rx isosorbide mononitrate 10 mg PO DAILY #30 tab 03/08/20 03/19/20 03/19/20 Rx pantoprazole [Protonix] 40 mg PO BID #60 each 03/08/20 03/19/20 03/19/20 Rx insulin lispro [Humalog KwikPen See Rx Instructions .ROUTE .COMPLEX 03/19/20 03/19/20 03/18/20 History Insulin] Allergies Allergy/AdvReac Type Severity Reaction Status Date / Time acetaminophen [From Percocet] Allergy Unknown Verified 10/25/19 13:44 amoxicillin Allergy N/V Verified 01/09/20 13:10 ciprofloxacin [From Cipro] Allergy Unknown Verified 10/25/19 13:44 dextromethorphan Allergy Unknown Verified 10/25/19 13:44 [From Mucinex DM] diclofenac Allergy Unknown Verified 10/25/19 13:44 doxycycline Allergy Unknown Verified 10/25/19 13:44 guaifenesin [From Mucinex DM] Allergy Unknown Verified 10/25/19 13:44 methylprednisolone Allergy Unknown Verified 10/25/19 13:44 nitrofurantoin Allergy N/V Verified 01/09/20 13:10 oxycodone [From Percocet] Allergy Unknown Verified 10/25/19 13:44 sulfamethoxazole Allergy N/V Verified 01/09/20 13:10 [From Bactrim] trimethoprim [From Bactrim] Allergy N/V Verified 01/09/20 13:10 PFSH Acute PFSH: Medical History (Updated 03/19/20 @ 21:40 by Cynthia Delarosa MD) Atherosclerotic heart disease of [place] coronary artery without angina pectoris CHF (congestive heart failure), NYHA class IV Chronic kidney disease, stage III (moderate) COPD (chronic obstructive pulmonary disease) Diabetes mellitus type 2 with complications Recurrent UTI Swelling of both lower extremities Tobacco abuse Surgical History H/O unilateral oophorectomy Hx of CABG (12/24/18) Hx of cholecystectomy Family History Father Lung disease Lung cancer. He was a smoker Mother CAD (coronary artery disease) Social History Smoking and tobacco status: current every day smoker Alcohol intake: never Marital status: Marital status details: Reports that she never been . She lives with her sister. She has no children Current occupational status: retired History of recent travel: No Vitals/I&O/Wt Last Vital Signs Temp 95.1 F L 03/19/20 20:03 Pulse 62 03/19/20 21:13 Resp 16 03/19/20 21:13 BP 94/60 03/19/20 21:13 Pulse Ox 95 03/19/20 21:13 03/19/20 03/19/20 03/19/20 06:59 14:59 22:59 Intake Total 100 / 100 Balance 100 / 100 Weight last 48 hrs Weight 89.811 kg Physical Exam Const: OTHER: Lethargic, will awaken and answer single questions with consistent answers on repeated asking but tires easily, leans to the right HENMT: OTHER: Normocephalic atraumatic, dry membranes, eyes appear sunken Eye: OTHER: Pupils equally round and reactive to light Neck/C-Spine: OTHER: Supple Resp: OTHER: Coarse breath sounds bilaterally with some gurgling despite having been on BiPAP Cardio: OTHER: Bradycardic rhythm, distant heart sounds, capillary refill around 3 seconds GI: OTHER: Abdomen soft, nontender, nondistended, positive bowel sounds : OTHER: Rao catheter in place Extremity: NARRATIVE EXTREMITY EXAM: Bilateral lower extremity edema noted, both legs are painful with movement but no focal areas noted Neuro: OTHER: Speech is clear, 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 She has some similar findings on lower extremities with decubiti noted to the heels present on admission. I did not currently turn her to evaluate what is a sacral decubitus previously described on admission a few weeks ago. Urinary Catheter Management^: Rao: Cath Placed During This Visit: yes Reason for Continuing Indwelling Catheter: Acute Urinary Retention or Obstruction Urinary Catheter Date of Insertion: 03/19/20 Urinary Catheter Time of Insertion: 19:12 Data : 03/19/20 18:29 03/19/20 21:25 Other Labs: Liver Function 03/19/20 Range/Units 18:29 Total Bilirubin 0.6 (0.15-1.2) mg/dL AST 180 H (0-32) U/L ALT 109 H (0-33) U/L Alkaline Phosphatase 585 H (35-105) IU/L Albumin 1.9 L (3.5-5.2) g/dL Urine 03/19/20 Range/Units 19:14 Urine Color Yellow (Yellow) Urine Appearance Cloudy (CLEAR) Urine pH 5 (5-7) Ur Specific [place] 1.020 (1.005-1.030) Urine Protein Neg (Negative) Urine Glucose (UA) Norm (Normal) Laboratory Tests 03/19/20 03/19/20 03/19/20 18:29 18:29 18:29 ABG pH 7.16 L* ABG pCO2 50.4 H ABG pO2 119.0 H ABG HCO3 18.1 L Magnesium 2.0 Creatine Kinase 911 H* Troponin T Baseline 473 H* Troponin T 120 Minute TSH 5.43 H Free T4 0.81 L Urine Nitrate Ur Leukocyte Esterase Urine RBC Urine WBC Ur Squamous Epith Cells Urine Bacteria 03/19/20 03/19/20 19:14 20:26 ABG pH ABG pCO2 ABG pO2 ABG HCO3 Magnesium Creatine Kinase Troponin T Baseline Troponin T 120 Minute 435.1 H TSH Free T4 Urine Nitrate Negative Ur Leukocyte Esterase 2+ H Urine RBC 0-4 H Urine WBC >100 H Ur Squamous Epith Cells 0-4 H Urine Bacteria 2+ H Micro: Microbiology 03/19/20 18:30 Blood Culture - Preliminary Blood SPECIMEN COLLECTED 03/19/20 18:29 Blood Culture - Preliminary Blood SPECIMEN COLLECTED CXR: I personally reviewed and interpreted this imaging study as follows: My impression: Chest x-ray per my interpretation very rotated due to patient staying in a right leaning position, looks to have a right-sided effusion or significant atelectasis along with pulmonary edema, cardiomegaly. Significantly changed from last available comparative film on March 03 EKG 1: I personally reviewed and interpreted this EKG as follows: My Interpretation: Sinus bradycardia in the 50s with first-degree AV block and continued inferior ischemic changes compared to last studies A&P Assessment and plan (1) Acute and chronic respiratory failure with hypoxia: felt secondary to acute chf and right-sided pleural effusion, volume overload associated with acute renal failure and other comorbid conditions, does not want assisted ventilation Status: Acute (2) Acute hyperkalemia: at life threatening levels, declines further attempts at medical managemen t or consideration for any dialysis Status: Acute (3) Acute renal failure: on chronic kidney disease stage 3 or 4 Status: Acute Qualifiers: Acute renal failure type: with acute tubular necrosis Qualified Code(s): N17.0 - Acute kidney failure with tubular necrosis (4) UTI (urinary tract infection): present on admission, declines further treatment with antibiotics Status: Acute Qualifiers: Urinary tract infection type: acute pyelonephritis Qualified Code(s): N10 - Acute pyelonephritis (5) CHF (congestive heart failure), NYHA class IV: acute on chronic presently, with significant right-sided pleural effusion development versus atelectasis noted on chest x-ray compared to one from March 03 declines any treatment for this Status: Chronic Qualifiers: Congestive heart failure chronicity: chronic Congestive heart failure type: diastolic Qualified Code(s): I50.32 - Chronic diastolic (congestive) heart failure (6) CAD (coronary artery disease): recent nstemi with continued troponin elevation, trneding downwards, hx of cabg last year, declines any invasive intervention Status: Chronic Qualifiers: Associated angina: with stable angina Coronary Disease-Associated Artery/Lesion type: [place] artery [place] vs. transplanted heart: [place] heart Qualified Code(s): I25.118 - Atherosclerotic heart disease of [place] coronary artery with other forms of angina pectoris (7) Diabetes mellitus type 2 with complications: with reported hypoglycemia at skilled facility, not noted here Status: Chronic (8) Tobacco abuse: Status: Chronic (9) Sacral decubitus ulcer, stage II: presetnt on admission Status: Chronic (10) Decubitus ulcer of heel: present on admission Status: Chronic Qualifiers: Laterality: unspecified laterality Pressure injury stage: unstageable Qualified Code(s): L89.600 - Pressure ulcer of unspecified heel, unstageable (11) Comfort measures only status: per her request Status: Acute Additional A&P Information Patient also noted to have elevated transaminases, elevated CK level, hypoalbuminemia, elevated TSH with a low free T4 consistent with hypothyroidism, metabolic acidosis from renal failure combined with mild hypercapnia, macrocytic anemia with hemoglobin that is improved from prior stay, sinus bradycardia with first-degree AV block and continued findings of an inferior infarction Inpatient admission given the multitude of acute issues Comfort care orders have been initiated with morphine, Ativan, atropine Care initiated in the emergency room has been discontinued including BiPAP and a ntibiotics Repeat electrolytes have been drawn and these will be followed up No VTE prophylaxis as futile in the setting of comfort care only All home medications have been held Will not check blood sugars Will maintain Rao catheter for comfort Will not treat urinary tract infection per patient's desires Will not treat with further diuretics or other medical management beyond comfort care as per patient's wishes Ice chips if desired and able to take Will allow family to visit, I have discussed with plumbing warehouse helper who will notify the appropriate staff so that family can come in and see her tonight. Per discussion with the patient on different occasions by both the ER provider and myself, and then confirmatory discussions with patient's sister who indicates that she has had discussions with her sister about the same topic, Mrs. Blake wishes to be comfort care only and to be allowed natural understanding that without any other measures that she will likely soon. She and her sister expressed understanding of that fact as did her brother whom I briefly spoke to on the phone. Supportive care for patient and her family otherwise. Attestations Medical Necessity Statement*: Anticipated stay greater than 2 midnights if patient survives this evening. She presented to the ER around 6 PM. She has multiple acute and chronic medical issues but has thus far declined any further treatment beyond comfort care. She received initial antibiotics and management for CHF/hyperkalemia in the emergency room. She really could at any time but presently can still answer questions for brief periods and is maintaining appropriate vital signs beyond the bradycardia in the 50s. With the treatment she has already received it is theoretically possible that she may not tonight. I have chosen to keep her here under the unusual circumstances brought on by the pandemic where her family would not be able to visit her at the facility she was at, combined with the fact that she has laboratory studies that indicate she might not even survive a trip back to the [facility]. It is really impossible to adequately determine what her stay will be but based on the medical presentation it would be greater than 2 midnights unless she were to before then. Coding Level of Care Code Acute Tnt Line Supervisor for Mat Astudillo Diagnoses Acute and chronic respiratory failure with hypoxia J96.21 Acute hyperkalemia E87.5 Acute renal failure N17.0 Acute renal failure type: with acute tubular necrosis UTI (urinary tract infection) N10 Urinary tract infection type: acute pyelonephritis CHF (congestive heart failure), NYHA class IV I50.32 Congestive heart failure chronicity: chronic Congestive heart failure type: diastolic CAD (coronary artery disease) I25.118 Associated angina: with stable angina Coronary Disease-Associated Artery/Lesion type: [place] artery [place] vs. transplanted heart: [place] heart Diabetes mellitus type 2 with complications E11.8 Tobacco abuse Z72.0 Sacral decubitus ulcer, stage II L89.152 Decubitus ulcer of heel L89.600 Laterality: unspecified laterality Pressure injury stage: unstageable Comfort measures only status Z51.5
[2020-03-19 22:01] LABS: Anion Gap 12.9 (5-19); Blood Urea Nitrogen 68 mg/dL (6-20); Calcium 8.1 mg/dL (8.5-10.5); Carbon Dioxide 20 mmol/L (22-29); Chloride 102 mmol/L (98-107); Glomerular Filtration Rate 20.7 mL/min (90-130); Glucose 62 mg/dL (65-115); Osmolality Calculated 261 mOsm/kg (285-295); Sodium 127 mmol/L (136-145)
[2020-03-19 22:08] LABS: Potassium 7.9 mmol/L (3.5-5.1)
[2020-03-20] VITALS: BP 99/63; PULSE 63; RESP 16; TEMP 36.3; O2SAT 97
[2020-03-20 04:00] VITALS: BP 96/63; PULSE 66; RESP 16; TEMP 36.4; O2SAT 95
[2020-03-20] MEDS: morphine 4 mg/mL SDV 1 mL 2 MG IVP (06:50)
--- NOTE | 2020-03-20 07:29 | PC.NURSE ---
0729: Patient was noted to be in asystole on the panel monitor. Myself, Claudia Coombs LPN, and Emmy Moncada CNA went to the patient's room and verified absence of breathing and pulse. 2 nurse verification performed by myself and Aylin Coombs LPN. Dr. Lerma and Cosmetologist notified. I called and spoke with patient's sister, Claudia and brother, Thai and informed them of patient's at 0729. We offered them the opportunity to visit prior to home pickup and they accepted. Per family, patient would wish to use [facility] for services. I called and spoke with Albin Waldrop with [facility] and informed him of this. He states to call after the family finishes viewing the patient and they will come for pickup.
--- NOTE | 2020-03-20 07:55 | P.DES_ITS ---
Discharge Providers DDS Date of Admission: 03/19/20 21:27 Date Summary Completed: 03/20/20 Attending Provider at Admission: Cynthia Delarosa MD Time of : 07:29 Attending Provider at Discharge: Latrice Lerma MD Primary Care Provider: Bhavik HARDY Diagnoses Hospital Diagnoses (1) Acute and chronic respiratory failure with hypoxia: Problem details: -presented in some respiratory distress -trial of BiPAP then weaned to NC per her request to transition to comfort measures -likely multifactorial given acutely decompensated diastolic CHF, noted R pleural effusion, and overall anasarca with acute renal failure -ABG with noted hypercapnia and respiratory acidosis (2) Acute hyperkalemia: Problem details: -K > 7 -treated medically with insulin, D50 (3) Acute renal failure: Problem details: -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 -with associated metabolic acidosis Qualifiers: Acute renal failure type: with acute tubular necrosis Qualified Code (s): N17.0 - Acute kidney failure with tubular necrosis (4) UTI (urinary tract infection): Problem details: -UA indicative of infection -received dose of Primaxin, Vanc; declined further treatment -hx of recurrent UTIs -prior urine cx have grown multiple organisms Qualifiers: Urinary tract infection type: acute pyelonephritis Qualified Code(s): N10 - Acute pyelonephritis (5) CHF (congestive heart failure), NYHA class IV: Problem details: -known hx of chronic diastolic CHF with acute exacerbation -diuresed with Lasix x 1 -Echo: EF=40%, G2DD, basal to distal anterior septal and apical wall akinesis, moderate pulmonary HTN (46), moderate MR, trace TR Qualifiers: Congestive heart failure type: diastolic Congestive heart failure chronicity: chronic Qualified Code(s): I50.32 - Chronic diastolic (congestive) heart failure (6) CAD (coronary artery disease): Problem details: -s/p CABG in 2019 Qualifiers: Coronary Disease-Associated Artery/Lesion type: [place] artery [place] vs. transplanted heart: [place] heart Associated angina: with stable angina Qualified Code(s): I25.118 - Atherosclerotic heart disease of [place] coronary artery with other forms of angina pectoris (7) Diabetes mellitus type 2 with complications: Problem details: -noted hypoglycemia at SNF, BG of 62 on CMP (8) Tobacco abuse: Problem details: -chronic smoker (9) Sacral decubitus ulcer, stage II: Problem details: -present on admission (10) Decubitus ulcer of heel: Problem details: -present on admission Qualifiers: Pressure injury stage: unstageable Laterality: unspecified laterality Qualified Code(s): L89.600 - Pressure ulcer of unspecified heel, unstageable (11) Comfort measures only status: Problem details: -per her preference Other Contributing Factors/Diagnoses -Transaminitis; noted LFTs elevation -rhabdomylolysis with CPK elevated at 511 -Hypothyroidism, elevated TSH, low free T4 -Chronic macrocytic anemia; baseline Hg -Sinus bradycardia with first degree AV block -NSTEMI; elevated troponins noted even during last admission in February. Further workup not pursued due to GI bleed, significant anemia Reason for Visit Reason for Visit: AMS, low BG Summary Date and Time of : Date of : 03/20/20 Time of : 07:29 Summary: Summary: Unfortunately patient has been quite ill for some time. Initially presented to the ER from [facility] due to noted difficulty with her breathing and hypoglycemia. Had recently been admitted at our facility secondary to sepsis, NSTEMI, UTI, acutely worsening anemia and concern for GI bleed. BiPAP was trialed in the ER then discontinued per her request. Work-up done at that time revealed mild leukocytosis, anemia with a hemoglobin of 10.1, acutely worsening renal function with BUN of 68 and creatinine of 3.4, hyponatremia and hyperkalemia with potassium of 7.9. Due to evidence of acutely decompensated CHF including respiratory symptoms, moderate right pleural effusion on imaging, she received a dose of Lasix. Due to noted continued evidence of UTI she also received a dose of Primaxin and vancomycin. Following discussion with both ER physician and Dr. Delarosa she opted for transition to comfort measures with full understanding that prognosis is poor and would be imminent. Due to concern that she may not have been able to make the trip back to [facility] she was admitted to continue comfort measures. She earlier this morning at 0729 likely secondary to acute renal failure with significant hyperkalemia, respiratory acidosis and acutely decompensated CHF in addition to NSTEMI. Additional Data: Advance directives?: No Discharge Plan Discharge Patient Disposition: At Medical Facility Condition: Prescriptions: No Action cranberry 400 mg capsule 400 mg PO DAILY RF: 0 metoclopramide HCl [Reglan] 10 mg tablet 10 mg PO QID RF: 0 potassium chloride 10 mEq capsule, extended release 20 meq PO DAILY RF: 0 clopidogrel 75 mg tablet 75 mg PO DAILY RF: 0 Lantus U-100 Insulin 100 unit/mL solution 20 unit SUBCUT BEDTIME RF: 0 docusate sodium 100 MG capsule 100 mg PO BID RF: 0 gabapentin [Neurontin] 100 mg Capsule 300 mg PO TID RF: 0 montelukast 10 mg Tablet 10 mg PO DAILY RF: 0 ropinirole 4 mg Tablet 4 mg PO TID RF: 0 atorvastatin 40 mg Tablet 40 mg PO BEDTIME Qty: 30 RF: 0 aspirin 81 mg Tablet,Delayed Release (Dr/Ec) 81 mg PO DAILY Qty: 30 RF: 0 carvedilol 3.125 mg Tablet 3.125 mg PO BID Qty: 60 RF: 0 fluticasone propion-salmeterol [Advair Diskus] 250-50 mcg/dose blister with device 1 inh INHALATION BID Qty: 60 RF: 0 multivitamin [Multiple Vitamins] Tablet 1 tab PO DAILY RF: 0 methenamine hippurate [Hiprex] 1 gram Tablet 1 g PO BID RF: 0 insulin lispro [Humalog U-100 Insulin] 100 unit/mL solution See Rx Instructions .ROUTE .COMPLEX RF: 0 ondansetron 4 mg tablet,disintegrating See Rx Instructions .ROUTE .COMPLEX RF: 0 Trelegy Ellipta 100-62.5-25 mcg blister with device 1 inh INHALATION DAILY RF: 0 furosemide 40 mg tablet 60 mg PO DAILY RF: 0 Protonix [address] for susp in packet 40 mg PO BID Qty: 60 RF: 0 hydrocodone-acetaminophen 10-325 mg Tablet 1 tab PO Q8H PRN (Reason: Moderate Pain) Qty: 20 RF: 0 isosorbide mononitrate 20 mg Tablet 10 mg PO DAILY Qty: 30 RF: 0 Humalog KwikPen Insulin 100 unit/mL Insulin Pen See Rx Instructions .ROUTE .COMPLEX RF: 0 Referrals: Bhavik Richter [Primary Care Provider] - DS Attestations Time Spent in /Discharge Care*: greater than 30 min Quality - AMI: AMI present?: Yes Contraindication for Aspirin: Procedure not indicated (On comfort measures) Quality - Stroke: CVA present?: No Quality - VTE: VTE present?: No Coding Level of Care Code Acute Pool Finisher for Chg Fwd Diagnoses Acute and chronic respiratory failure with hypoxia J96.21 Acute hyperkalemia E87.5 Acute renal failure N17.0 Acute renal failure type: with acute tubular necrosis UTI (urinary tract infection) N10 Urinary tract infection type: acute pyelonephritis CHF (congestive heart failure), NYHA class IV I50.32 Congestive heart failure type: diastolic Congestive heart failure chronicity: chronic CAD (coronary artery disease) I25.118 Coronary Disease-Associated Artery/Lesion type: [place] artery [place] vs. transplanted heart: [place] heart Associated angina: with stable angina Diabetes mellitus type 2 with complications E11.8 Tobacco abuse Z72.0 Sacral decubitus ulcer, stage II L89.152 Decubitus ulcer of heel L89.600 Pressure injury stage: unstageable Laterality: unspecified laterality Comfort measures only status Z51.5
--- NOTE | 2020-03-20 10:48 | PC.CHAP ---
Pastoral Care Encounter/Spiritual Assessment Type of Contact [] Declined lead loader visit [] Patient/Family/Request visit [] Outpatient visit [] Follow-up visit [] Physician referral [] Code/Alert [] Routine visit [] Staff referral [] Actively dying [] Patient sleeping [] Family support [] [] Out of room [] Palliative care [] [] Receiving care in room [] Pre-surgical visit [] Trauma [] Long length of stay [] ICU visit [x] Other: Patient intubated Relational/Emotional Strength [] Patient feels connected with others/family/visitors/staff [] Distress [] Loneliness/isolation [] Abandonment Spirituality of Patient [] Person of Ariadna [] Attends [employer]ian of their Ariadna [] Believes in Prayer [] Reads Bible or Confucianism materials [] There are Spiritual issues to be addressed 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 Interventions [] Prayer [] Active listening [] Non-anxious presence [] Spiritual/emotional support [] Crisis/trauma care [] Spiritual counseling [] Bereavement support [] Provided bereavement packet [] Provided Bible/devotional materials [] Provided toy/stuffed animal, coloring book to patient or family member [] Provided Communion [] Anointing/[place]rrum [] Salvation [] Completed spiritual assessment [] Other: Impact on Illness or Injury [] Angry [] Fearful [] Anxious [] Often cries [] Exhaustion [] Unable to work [] Unable to attend anabaptist [] Unable to walk/stand [] Unable to read [] Unable to drive [] Unable to eat/drink [] Unable to sleep [] Unable to be with family [x] Patient intubated [] Other: Summary Time spent with patient 5 mins
--- NOTE | 2020-03-20 11:54 | PC.NURSE ---
[facility] called and stated that the family was in the office and wanting to know why the pts body had not been transferred. I explained to Cathie from [facility] that I had not received a call from [facility] stating that the body was released. I told her that I would contact [facility] and find out what was going on. I spoke with [facility] and was informed that the family requested to be called this afternoon. I explained the situation that I had encountered and she stated that they would attempt to contact the family. I then received a call from Cathie at [facility] and she stated that the family did not want to continue with any donations. I again informed her that [facility] would call and get the paperwork completed by the family and as soon as they called me I would call them.
--- NOTE | 2020-03-21 14:32 | PC.RESP ---
Smoking Cessation and Pulmonary Rehab information sent to patient.
== END 2020-03-20 07:30 | disposition expired | DRG 189 ==
LOC: ER 21:17 → MEDSURG 21:42
PROVIDERS: Admitting Provider Hospitalist; Emergency Provider Emergency Medicine; PCP Physician Assistant Medical; Visit Provider Family Medicine
DX: J96.21 Acute and chronic respiratory failure with hypoxia (principal); I21.4 Non-ST elevation (NSTEMI) myocardial infarction; E87.2 Acidosis; N17.9 Acute kidney failure, unspecified; N18.4 Chronic kidney disease, stage 4 (severe); N39.0 Urinary tract infection, site not specified; I50.32 Chronic diastolic (congestive) heart failure; M62.82 Rhabdomyolysis; E87.1 Hypo-osmolality and hyponatremia; E87.5 Hyperkalemia; I25.10 Atherosclerotic heart disease of native coronary artery without angina pectoris; Z66 Do not resuscitate; Z95.1 Presence of aortocoronary bypass graft; Z79.82 Long term (current) use of aspirin; E11.22 Type 2 diabetes mellitus with diabetic chronic kidney disease; Z79.4 Long term (current) use of insulin; E11.649 Type 2 diabetes mellitus with hypoglycemia without coma; F17.210 Nicotine dependence, cigarettes, uncomplicated; L89.152 Pressure ulcer of sacral region, stage 2; Z51.5 Encounter for palliative care; E03.9 Hypothyroidism, unspecified; D53.9 Nutritional anemia, unspecified; I44.0 Atrioventricular block, first degree; R00.1 Bradycardia, unspecified; I95.9 Hypotension, unspecified; J44.9 Chronic obstructive pulmonary disease, unspecified; E88.09 Other disorders of plasma-protein metabolism, not elsewhere classified
CPT/HCPCS: 12345; 36415; 36416; 36600; 51702; 71045; 80048; 80051; 80053; 81001; 82009; 82550; 82810; 82962; 83605; 83690; 83735; 83986; 84439; 84443; 84484; 85025; 85610; 87040; 87086; 93005; 94640; 94660; 99283; J0610; J0743; J1720; J1815; J1940; J2270; J2310; J2405; J3370; J7030; J7050; J7611